=== PATIENT | male | born 1955 | race Caucasian/White ===

== ENCOUNTER → 2016-11-21 | Outpatient (CLI) | payer BC ==
[~2016-11-21] MED LIST: ALPR.5T PO; BARIUM SUSPENSION 2.1% (VANILLA SILQ) 450 ML PO ONE; CATHETER FLUSH 10 ML SYR IV PRN; CHLO100T22 PO; ESCT10T PO; HYDR1TAB PO; IOHEXOL 350 MG/ML 100 ML (OMNIPAQUE 350) VIAL IV ONE
--- NOTE | 2016-11-21 13:31 | Diagnostic Imaging Report ---
PROCEDURE: CT abdomen and pelvis with contrast. TECHNIQUE: Multiple contiguous axial images were obtained through the abdomen and pelvis after administration of intravenous contrast. INDICATION: Prostate cancer compared 06/09/2012. FINDINGS: Few shotty low-density subcentimeter periaortic retroperitoneal nodes did not appear changed from prior. No pathological appearing abdominopelvic lymphadenopathy. Prostate itself was not grossly enlarged and does show some mild nodular indentation of the urinary bladder base. The bladder wall non-thickened. Kidneys are unobstructed. There is hepatic steatosis without biliary dilatation or liver mass. The spleen and adrenals negative. The pancreas negative. The unobstructed kidneys appeared normal. There is no ascites. No suspicious site of bone production or destruction and no fracture. The lung bases are negative. IMPRESSION: 1. Mild heterogeneous prostatic indentation upon the urinary bladder base. No periprosthetic or abdominopelvic lymphadenopathy. No suspicious osseous lesion. Hepatic steatosis with no obstructive features, inflammatory process or acute findings. 2. Not mentioned above, noninflamed bilateral fatty inguinal hernias without herniated viscus. Dictated by: Dictated on workstation # [id number]
--- NOTE | 2016-11-21 17:57 | Diagnostic Imaging Report ---
INDICATION: Patient has a new diagnosis of prostate cancer. TECHNIQUE: The patient received 25.8 mCi technetium 99m MDP and whole-body planar imaging was performed. FINDINGS: There is normal symmetrical distribution of radiopharmacy throughout the axial and appendicular skeleton. Soft tissue uptake, normal. IMPRESSION: Negative. Dictated by: Dictated on workstation # [id number]
== END ==
LOC: RAD 11:46
PROVIDERS: ATTEND Urology
DX: K76.0 Fatty (change of) liver, not elsewhere classified (principal); K40.90 Unilateral inguinal hernia, without obstruction or gangrene, not specified as recurrent; C61 Malignant neoplasm of prostate
CPT/HCPCS: 74177; 78306

== ENCOUNTER → 2020-03-20 | Outpatient (CLI) | payer BC ==
[~2020-03-20] MED LIST changes: -BARIUM SUSPENSION 2.1% (VANILLA SILQ) 450 ML PO ONE; -CATHETER FLUSH 10 ML SYR IV PRN; -IOHEXOL 350 MG/ML 100 ML (OMNIPAQUE 350) VIAL IV ONE
--- NOTE | 2020-03-20 14:13 | Diagnostic Imaging Report ---
INDICATION: Prostate cancer. Patient was administered 26.6 mCi technetium 99m MDP intravenously and whole-body imaging was performed after 3 hour delay. Correlation is made with prior exam from 11/21/2016. Normal uptake of activity by the axial and appendicular skeleton is noted. There is uptake by the kidneys with excretion into the urinary bladder. No suspicious focus of tracer collection is seen to suggest osseous metastatic disease. IMPRESSION: No scintigraphic evidence of osseous metastatic disease. Dictated by: Dictated on workstation # [id number]
== END ==
LOC: CARD 10:18
PROVIDERS: ATTEND Urology
DX: C61 Malignant neoplasm of prostate (principal)
CPT/HCPCS: 78306; A9503

== ENCOUNTER 2020-09-11 09:41 | Outpatient (RCR) | payer BC ==
[2020-07-10 14:56] LABS: BUN/CREATININE RATIO 12; GFR ESTIMATED > 60
== END 2020-10-08 | disposition home or self-care (01) ==
LOC: ONC 09:41
PROVIDERS: ATTEND Radiology Radiation Oncology
DX: C61 Malignant neoplasm of prostate (principal)
CPT/HCPCS: 77300; 77301; 77334; 77338; 82565; 84520; G0463; 77336; 77385; 99204

== ENCOUNTER 2020-10-25 09:15 | Outpatient (RCR) | payer BC | END 2021-01-23 | disposition home or self-care (01) | LOC: ONC 09:15 | PROVIDERS: ATTEND Radiology Radiation Oncology | DX: C61 Malignant neoplasm of prostate (principal) | CPT/HCPCS: 84153; G0463; 99213 ==

== ENCOUNTER 2021-02-14 10:45 | Outpatient (RCR) | payer BC | END 2021-04-12 | disposition home or self-care (01) | LOC: ONC 10:45 | PROVIDERS: ATTEND Radiology Radiation Oncology | DX: Z51.0 Encounter for antineoplastic radiation therapy (principal); C61 Malignant neoplasm of prostate | CPT/HCPCS: 77336 ==

== ENCOUNTER 2021-04-25 09:36 | Outpatient (RCR) | payer BC | END 2021-05-13 | disposition home or self-care (01) | LOC: ONC 09:36 | PROVIDERS: ATTEND Radiology Radiation Oncology | DX: C61 Malignant neoplasm of prostate (principal) | CPT/HCPCS: 84153 ==

== ENCOUNTER 2021-09-12 08:57 | Outpatient (RCR) | payer BC | END 2021-10-10 | disposition home or self-care (01) | LOC: ONC 08:57 | PROVIDERS: ATTEND Radiology Radiation Oncology | DX: C61 Malignant neoplasm of prostate (principal) | CPT/HCPCS: 36415; 84153 ==

== ENCOUNTER 2022-05-08 19:35 | Emergency (ER) | payer MEDICARE, MEDICAID ==
[~2022-05-08] VITALS: Ht 178 cm; Wt 70.0 kg
[2022-05-08] MEDS ORDERED: LACTATED RINGERS 1,000 ML IV ONE ×2 (19:45→20:30)
[2022-05-08 19:57] LABS: BASOPHILS % (AUTO) 0 % (0-10); EOSINOPHILS % (AUTO) 0 % (0-10); HEMATOCRIT 46 % (40-54); LYMPHOCYTES # (AUTO) 0.6 10^3/uL (1.0-4.0); LYMPHOCYTES % (AUTO) 6 % (12-44); MEAN CORPUSCULAR HEMOGLOBIN 36 pg (25-34); MEAN CORPUSCULAR HGB CONC 39 g/dL (32-36); MEAN CORPUSCULAR VOLUME 92 fL (80-99); MEAN PLATELET VOLUME 9.7 fL (9.0-12.2); MONOCYTES % (AUTO) 11 % (0-12); NEUTROPHILS # (AUTO) 7.6 10^3/uL (1.8-7.8); NEUTROPHILS % (AUTO) 82 % (42-75); PLATELET COUNT 325 10^3/uL (130-400); WHITE BLOOD COUNT 9.3 10^3/uL (4.3-11.0)
[2022-05-08 20:09] LABS: INR 0.9 (0.8-1.4)
[2022-05-08 20:12] LABS: ALANINE AMINOTRANSFERASE 82 U/L (0-55); ALBUMIN 4.4 GM/DL (3.2-4.5); ALKALINE PHOSPHATASE 68 U/L (40-136); AMMONIA 54 UMOL/L (11-32); AMYLASE 86 U/L (25-125); BILIRUBIN,TOTAL 0.7 MG/DL (0.1-1.0); BUN/CREATININE RATIO 7; CALCIUM 9.8 MG/DL (8.5-10.1); CARBON DIOXIDE 11 MMOL/L (21-32); CHLORIDE 100 MMOL/L (98-107); CREATINE KINASE 449 U/L (30-200); CREATININE SERUM 1.21 MG/DL (0.60-1.30); GFR ESTIMATED 66; GLUCOSE 165 MG/DL (70-105); LIPASE 63 U/L (8-78); MAGNESIUM 2.5 MG/DL (1.6-2.4); POTASSIUM 3.3 MMOL/L (3.6-5.0); SODIUM 135 MMOL/L (135-145); TOTAL PROTEIN 7.6 GM/DL (6.4-8.2)
[2022-05-08 20:12] LABS: ABG OXYGEN SATURATION 100 % (94-100); ABG PH 7.51 (7.37-7.43); ABG PO2 104 MMHG (79-93); ABG TCO2 12.5 MMOL/L (21.0-31.0)
[2022-05-08 20:13] LABS: ALLENS TEST YES-POS; PATIENT TEMP 35; VENTILATOR NO
[2022-05-08 20:14] LABS: ABG PCO2 15 MMHG (35-45)
[2022-05-08 20:18] LABS: ACETAMINOPHEN < 10 UG/ML (10-30)
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
[2022-05-08 20:28] LABS: ERYTHROCYTE SEDIMENTATION RATE 7 MM/HR (0-30)
[2022-05-08] MEDS ORDERED: NS IV 1000 ML 1,000 ML IV SCH (20:30)
[2022-05-08 20:33] LABS: CREATINE KINASE MB 4.6 NG/ML (<6.6); TSH (THYROID ANALYZER) 2.92 UIU/ML (0.35-4.94)
[2022-05-08 21:03] LABS: BILIRUBIN,URINE NEGATIVE (NEGATIVE); CLARITY,URINE CLEAR; COLOR,URINE YELLOW; GLUCOSE, URINE (UA) NEGATIVE (NEGATIVE); KETONES,URINE 3+ (NEGATIVE); LEUKOCYTE ESTERASE ,URINE NEGATIVE (NEGATIVE); NITRITE,URINE NEGATIVE (NEGATIVE); PROTEIN,URINE TRACE (NEGATIVE)
[2022-05-08 21:33] LABS: AMPHETAMINE SCREEN, URINE NEGATIVE (NEGATIVE); BARBITURATE SCREEN URINE NEGATIVE (NEGATIVE); BENZODIAZEPINES SCREEN URINE POSITIVE (NEGATIVE); CANNABINOID SCREEN, URINE POSITIVE (NEGATIVE); COCAINE SCREEN URINE NEGATIVE (NEGATIVE); METHADONE STAT NEGATIVE (NEGATIVE); OPIATE SCREEN URINE NEGATIVE (NEGATIVE); OXYCODONE STAT NEGATIVE (NEGATIVE); PROPOXYPHENE STAT NEGATIVE (NEGATIVE); TRICYCLIC ANTIDEPRESSANTS SCRE NEGATIVE (NEGATIVE)
[2022-05-08 21:35] LABS: BACTERIA,URINE TRACE /HPF; WBC,URINE RARE /HPF
[2022-05-08 23:12] VITALS: BP 142/92
== END 2022-05-08 23:12 | disposition home or self-care (01) ==
LOC: EDUNIT# 19:35 → ER 19:36
DX: R56.9 Unspecified convulsions (principal); F41.9 Anxiety disorder, unspecified; Z28.311 Partially vaccinated for COVID-19
CPT/HCPCS: 80053; 80306; 81000; 82140; 82150; 82550; 82553; 82805; 83605; 83690; 83735; 83874; 83880; 84443; 84484; 85025; 85610; 85652; 85730; 86141; 87040; 87088; 93041; G0480 ×2; 36415; 80320; 80329; 93005

== ENCOUNTER 2022-06-29 08:30 | Emergency (ER) | payer MEDICARE, MEDICAID ==
[~2022-06-29] VITALS: Ht 177.8 cm; Wt 63.5 kg
[2022-06-29 09:24] LABS: BASOPHILS # (AUTO) 0.1 10^3/uL (0.0-0.1); BASOPHILS % (AUTO) 1 % (0-10); EOSINOPHILS # (AUTO) 0.2 10^3/uL (0.0-0.3); EOSINOPHILS % (AUTO) 4 % (0-10); HEMATOCRIT 43 % (40-54); HEMOGLOBIN 15.3 g/dL (13.3-17.7); LYMPHOCYTES # (AUTO) 0.6 10^3/uL (1.0-4.0); LYMPHOCYTES % (AUTO) 11 % (12-44); MEAN CORPUSCULAR HEMOGLOBIN 34 pg (25-34); MEAN CORPUSCULAR HGB CONC 35 g/dL (32-36); MEAN CORPUSCULAR VOLUME 97 fL (80-99); MEAN PLATELET VOLUME 8.8 fL (9.0-12.2); MONOCYTES # (AUTO) 0.4 10^3/uL (0.0-1.0); MONOCYTES % (AUTO) 8 % (0-12); NEUTROPHILS # (AUTO) 4.1 10^3/uL (1.8-7.8); NEUTROPHILS % (AUTO) 76 % (42-75); PLATELET COUNT 235 10^3/uL (130-400); WHITE BLOOD COUNT 5.3 10^3/uL (4.3-11.0)
[2022-06-29 09:27] LABS: ALBUMIN 4.2 GM/DL (3.2-4.5); POTASSIUM 4.1 MMOL/L (3.6-5.0)
[2022-06-29 09:27] LABS: BILIRUBIN,URINE NEGATIVE (NEGATIVE); CLARITY,URINE CLEAR; COLOR,URINE YELLOW; GLUCOSE, URINE (UA) NEGATIVE (NEGATIVE); KETONES,URINE NEGATIVE (NEGATIVE); LEUKOCYTE ESTERASE ,URINE NEGATIVE (NEGATIVE); NITRITE,URINE NEGATIVE (NEGATIVE); PROTEIN,URINE NEGATIVE (NEGATIVE)
[2022-06-29 09:28] LABS: CALCIUM 9.5 MG/DL (8.5-10.1)
[2022-06-29 09:29] LABS: TOTAL PROTEIN 7.1 GM/DL (6.4-8.2)
[2022-06-29 09:31] LABS: BILIRUBIN,TOTAL 0.4 MG/DL (0.1-1.0)
[2022-06-29 09:33] LABS: CREATININE SERUM 0.88 MG/DL (0.60-1.30)
[2022-06-29 09:36] LABS: INR 0.9 (0.8-1.4); PROTHROMBIN TIME PATIENT 12.9 SEC (12.2-14.7)
[2022-06-29 09:39] LABS: BACTERIA,URINE NEGATIVE /HPF
[2022-06-29] MEDS ORDERED: NS 100 ML (IVPB) BAG IV ONE (10:00)
[2022-06-29] MEDS ORDERED: IOHEXOL 350 MG/ML 100 ML (OMNIPAQUE 350) VIAL IV ONE (10:00)
--- NOTE | 2022-06-29 10:33 | Diagnostic Imaging Report ---
PROCEDURE: CT abdomen and pelvis with contrast. TECHNIQUE: Multiple contiguous axial images were obtained through the abdomen and pelvis after administration of intravenous contrast. Auto Exposure Controls were utilized during the CT exam to meet ALARA standards for radiation dose reduction. All CT scans use one or more of the following dose optimizing techniques: automated exposure control, MA and/or KvP adjustment based on patient size and exam type or iterative reconstruction. INDICATION: Prostate carcinoma, complaining of bright red blood in the stool. Comparison is made with prior CT from 11/21/2016. Lung bases are clear. Liver and gallbladder are unremarkable. There is no biliary ductal dilatation. The pancreas and spleen are unremarkable. No adrenal mass is detected. Kidneys are unremarkable apart from tiny nonobstructing left renal calculi. There is no hydronephrosis. Aorta is calcified but nonaneurysmal. No central retroperitoneal or mesenteric lymphadenopathy is identified. No definite pelvic lymphadenopathy is identified. The bowel loops are normal in caliber. There are small bowel loops extending into a right inguinal hernia. No definite strangulation or evidence of bowel obstruction is seen. There is diverticulosis of the sigmoid and descending colon but no evidence of acute diverticulitis. There is moderate stool in the rectum. There is no ascites. The bladder is unremarkable. IMPRESSION: 1. Right inguinal hernia containing small bowel loops. No definite strangulation or bowel obstruction is identified. There is also a small fat-containing left inguinal hernia. 2. Uncomplicated diverticulosis. Dictated by: Dictated on workstation # [id number]
--- NOTE | 2022-06-29 10:40 | ED GI ---
General Chief Complaint: Rect Problems Stated Complaint: BLOOD IN STOOL Nursing Triage Note: PT AMB TO RM 8 WITH COMPLAINT OF BRIGHT RED BLOOD IN STOOL. STATES THIS HAS BEEN HAPPENING INTERMITTENTLY FOR THE LAST COUPLE MONTHS. STATES HE HAS ALSO BEEN LIGHTHEADED FOR 3 MONTHS. STATES HAS NOT TALKED TO PCP ABOUT ISSUES. STATES HE DOES TAKE ASPIRIN EVERY FEW DAYS. PT IS CONCERNED HE HAS CANCER. Source of Information: Patient History of Present Illness Date Seen by Provider: Jun 29, 2022 Time Seen by Provider: 08:55 Initial Comments PT ARRIVES VIA POV PT STATES FOR THE LAST FEW MONTHS, HE HAS HAD DAILY BRIGHT RED RECTAL BLEEDING--BLOOD MIXED WITH STOOLS, HE HAS BEEN HAVING A NORMAL NUMBER OF STOOLS. NO RECTAL PAIN NO ABDOMINAL PAIN NO PAIN ANYWHERE PT HAS BEEN EATING AND DRINKING WELL--APPETITE NORMAL. HE HAS LOST 5# IN THE LAST 3 MONTHS NO FEVER/SWEATS/CHILLS NO CHEST PAIN NO SHORTNESS OF BREATH NO EXCESSIVE BRUISING, OR BLEEDING FROM OTHER SITES, OR PETECHIAE PT TAKES THREE 325 MG ASPIRIN DAILY HE WILL TAKE IT EVERY OTHER DAY WHEN HE GETS LIGHTHEADED HE DOES NOT TAKE ANY OTHER MEDICATIONS SYMPTOMS ARE NO DIFFERENT TODAY IN ANY WAY HAS NOT SOUGHT CARE UNTIL TODAY HE HAD ROUTINE APPOINTMENT WITH BEKAH CRAWFORD AT [facility] 2 WEEKS AGO, BUT DID NOT MENTION THIS PROBLEM AT THAT TIME PT HAS A HISTORY OF PROSTATE CANCER 1 1/2 YEARS AGO--HE HAD PROSTATE SURGERY AND EXTERNAL RADIATION HE HAD SURGERY AT [facility], RADIATION DONE HERE. HE HAS NOT FOLLOWED UP WITH ANY ONE SINCE TREATMENT. HE DID SEE DR. MENENDEZ LOCALLY FOR UROLOGY, BUT HE HAS SINCE RETIRED. HE HAS NOT ATTEMPTED TO ESTABLISH WITH A NEW UROLOGIST [facility] Allergies and Home Medications Allergies Coded Allergies: No Known Drug Allergies (Unverified , 06/09/12) Patient Home Medication List Home Medication List Reviewed: Yes Methylprednisolone (Methylprednisolone Dose Pack) 4 Mg Tab.ds.pk, 4 MG PO UD, (Reported) Entered as Reported by: GRECIA BROOKE on 07/09/22 2946 Review of Systems Review of Systems Constitutional: see HPI, dizziness EENTM: No Symptoms Reported Respiratory: No Symptoms Reported Cardiovascular: No Symptoms Reported Gastrointestinal: See HPI Genitourinary: No Symptoms Reported, See HPI Musculoskeletal: no symptoms reported Skin: no symptoms reported Psychiatric/Neurological: No Symptoms Reported Endocrine: No Symptoms Reported Hematologic/Lymphatic: No Symptoms Reported Past Wvwmjtg-Yikwki-Txtolk Hx Patient Social History Tobacco Use?: No Use of E-Cig and/or Vaping dev: No Substance use?: No Alcohol Use?: Yes Alcohol type: Beer Alcohol Frequency: Daily Pt feels they are or have been: No Immunizations Up To Date First/Initial COVID19 Vaccinat: X 1 Second COVID19 Vaccination Gigi: X 1 Third COVID19 Vaccination Date: X 1 Past Medical History Surgery/Hospitalization HX: PROSTATE CA Surgeries: Yes (LEFT CHEST TUBE FOR TRAUMATIC PNEUMOTHORAX; PROSTATE SURGERY FOR CANCER) Prostatectomy Respiratory: No Cardiac: No Neurological: No Reproductive Disorders: No Genitourinary: Yes (PROSTATE CANCER) Gastrointestinal: No Musculoskeletal: No Endocrine: No HEENT: Yes Cataract Cancer: Yes Prostate Did You Recieve Any Treatments: Yes What Type of Treatment Did You: Radiation, Surgical Intervention Psychosocial: Yes Anxiety, Depression Integumentary: No Blood Disorders: No Family Medical History SOCIAL HISTORY: -DENIES SMOKING OR VAPINE -DENIES DRUG USE -DRINKS 4 BEERS /DAY--CLAIMS NONE X 3 MONTHS, PER PT ON 06/29/22 Physical Exam Vital Signs Capillary Refill : Height/Weight/BMI Height: '" Weight: lbs. oz. kg; 20.00 BMI Method: General Appearance: WD/WN, no apparent distress, other (ANXIOUS) HEENT: No scleral icterus (R), No scleral icterus (L), No pale conjunctivae (R), No pale conjunctivae (L) Neck: normal inspection Respiratory: normal breath sounds, no respiratory distress, no accessory muscle use Cardiovascular: regular rate, rhythm, no murmur Gastrointestinal: normal bowel sounds, non tender, soft Rectal: other (GROSS BLOOD ON RECTAL EXAM) Extremities: normal inspection, normal capillary refill Back: no CVA tenderness Neurologic/Psychiatric: cover cutter II-XII nml as tested, no motor/sensory deficits, alert, oriented x 3 Skin: normal color Progress/Results/Core Measures Results/Orders Lab Results Laboratory Tests Test 06/29/22 09:05 06/29/22 09:15 Range/Units White Blood Count 5.3 4.3-11.0 10^3/uL Red Blood Count 4.45 4.30-5.52 10^6/uL Hemoglobin 15.3 13.3-17.7 g/dL Hematocrit 43 40-54 % Mean Corpuscular Volume 97 80-99 fL Mean Corpuscular Hemoglobin 34 25-34 pg Mean Corpuscular Hemoglobin Concent 35 32-36 g/dL Red Cell Distribution Width 11.5 10.0-14.5 % Platelet Count 235 130-400 10^3/uL Mean Platelet Volume 8.8 L 9.0-12.2 fL Immature Granulocyte % (Auto) 1 % Neutrophils (%) (Auto) 76 H 42-75 % Lymphocytes (%) (Auto) 11 L 12-44 % Monocytes (%) (Auto) 8 0-12 % Eosinophils (%) (Auto) 4 0-10 % Basophils (%) (Auto) 1 0-10 % Neutrophils # (Auto) 4.1 1.8-7.8 10^3/uL Lymphocytes # (Auto) 0.6 L 1.0-4.0 10^3/uL Monocytes # (Auto) 0.4 0.0-1.0 10^3/uL Eosinophils # (Auto) 0.2 0.0-0.3 10^3/uL Basophils # (Auto) 0.1 0.0-0.1 10^3/uL Immature Granulocyte # (Auto) 0.0 0.0-0.1 10^3/uL Prothrombin Time 12.9 12.2-14.7 SEC INR Comment 0.9 0.8-1.4 Activated Partial Thromboplast Time 27 24-35 SEC Sodium Level 143 135-145 MMOL/L Potassium Level 4.1 3.6-5.0 MMOL/L Chloride Level 109 H 98-107 MMOL/L Carbon Dioxide Level 21 21-32 MMOL/L Anion Gap 13 5-14 MMOL/L Blood Urea Nitrogen 9 7-18 MG/DL Creatinine 0.88 0.60-1.30 MG/DL Estimat Glomerular Filtration Rate 95 BUN/Creatinine Ratio 10 Glucose Level 109 H 70-105 MG/DL Calcium Level 9.5 8.5-10.1 MG/DL Corrected Calcium 9.3 8.5-10.1 MG/DL Total Bilirubin 0.4 0.1-1.0 MG/DL Aspartate Amino Transf (AST/SGOT) 17 5-34 U/L Alanine Aminotransferase (ALT/SGPT) 42 0-55 U/L Alkaline Phosphatase 62 40-136 U/L Total Protein 7.1 6.4-8.2 GM/DL Albumin 4.2 3.2-4.5 GM/DL Urine Color YELLOW Urine Clarity CLEAR Urine pH 6.0 5-9 Urine Specific [place] 1.020 1.016-1.022 Urine Protein NEGATIVE NEGATIVE Urine Glucose (UA) NEGATIVE NEGATIVE Urine Ketones NEGATIVE NEGATIVE Urine Nitrite NEGATIVE NEGATIVE Urine Bilirubin NEGATIVE NEGATIVE Urine Urobilinogen 0.2 < = 1.0 MG/DL Urine Leukocyte Esterase NEGATIVE NEGATIVE Urine RBC (Auto) NEGATIVE NEGATIVE Urine RBC NONE /HPF Urine WBC NONE /HPF Urine Crystals NONE /LPF Urine Bacteria NEGATIVE /HPF Urine Casts NONE /LPF Urine Mucus NEGATIVE /LPF Urine Culture Indicated NO My Orders Orders - SEKOU ASIF DO Ed Iv/Invasive Line Start (06/29/22 08:58) Cbc With Automated Diff (06/29/22 08:58) Comprehensive Metabolic Panel (06/29/22 08:58) Protime With Inr (06/29/22 08:58) Partial Thromboplastin Time (06/29/22 08:58) Ua Culture If Indicated (06/29/22 08:58) Ct Abdomen/Pelvis W (06/29/22 09:45) Iohexol Injection (Omnipaque 350 Mg/Ml 1 (06/29/22 10:00) Ns (Ivpb) (Sodium Chloride 0.9% Ivpb Bag (06/29/22 10:00) Medications Given in ED Vital Signs/I&O Blood Pressure Mean: 129 Progress Progress Note : Progress Note VITALS STABLE LAB ESSENTIALLY NORMAL, WITH HGB 15.3. UNEVENTFUL ER STAY REVIEWED TEST RESULTS, ANTICIPATED COURSE, NEED FOR FOLLOW UP FOR COLONOSCOPY AND RETURN PRECAUTIONS ALSO DISCUSSED THE IMPORTANCE OF FOLLOWING UP WITH UROLOGY FOR HISTORY OF PROSTATE CANCER Diagnostic Imaging Comments CT ABDOMEN/PELVIS--PER RADIOLOGIST REPORT AT 1038 Comparison is made with prior CT from 11/21/2016. Lung bases are clear. Liver and gallbladder are unremarkable. There is no biliary ductal dilatation. The pancreas and spleen are unremarkable. No adrenal mass is detected. Kidneys are unremarkable apart from tiny nonobstructing left renal calculi. There is no hydronephrosis. Aorta is calcified but nonaneurysmal. No central retroperitoneal or mesenteric lymphadenopathy is identified. No definite pelvic lymphadenopathy is identified. The bowel loops are normal in caliber. There are small bowel loops extending into a right inguinal hernia. No definite strangulation or evidence of bowel obstruction is seen. There is diverticulosis of the sigmoid and descending colon but no evidence of acute diverticulitis. There is moderate stool in the rectum. There is no ascites. The bladder is unremarkable. IMPRESSION: 1. Right inguinal hernia containing small bowel loops. No definite strangulation or bowel obstruction is identified. There is also a small fat-containing left inguinal hernia. 2. Uncomplicated diverticulosis. Reviewed: Reviewed by Me Departure Impression Primary Impression: Rectal bleeding Additional Impressions: Diverticular disease Bilateral inguinal hernia Anxiety Disposition: HOME, SELF-CARE Condition: Stable Departure-Patient Inst. Decision time for Depature: 11:09 Referrals: [facility] (PCP/Family) Primary Care Physician FATMATA JUNIOR MD Patient Instructions: Bloody Stools, Adult ED Add. Discharge Instructions: NO ASPIRIN, NO MOTRIN, ADVIL, OR ALEVE TYLENOL IS THE ONLY OVER THE COUNTER MEDICATION YOU CAN TAKE RIGHT NOW NO ALCOHOL YOU MAY EAT A REGULAR DIET FOLLOW UP WITH DR. JUNIOR, GENERAL SURGEON FOR FURTHER CARE--CALL HIS OFFICE TOMORROW MORNING TO SCHEDULE AN APPOINTMENT. All discharge instructions reviewed with patient and/or family. Voiced understanding. SEKOU ASIF DO Jun 29, 2022 10:40
[2022-06-29 11:21] VITALS: BP 141/103
== END 2022-06-29 11:21 | disposition home or self-care (01) ==
LOC: EDUNIT# 08:30 → ER 08:31
DX: K57.30 Diverticulosis of large intestine without perforation or abscess without bleeding (principal); K40.20 Bilateral inguinal hernia, without obstruction or gangrene, not specified as recurrent; F41.9 Anxiety disorder, unspecified; Z85.46 Personal history of malignant neoplasm of prostate
CPT/HCPCS: 36415; 74177; 80053; 81000; 85025; 85610; 85730

== ENCOUNTER 2022-07-02 10:38 | Outpatient (CLI) | payer MEDICARE, MEDICAID ==
[~2022-07-02] VITALS: Ht 177.8 cm; Wt 67.0 kg
== END 2022-07-02 12:10 | disposition home or self-care (01) ==
LOC: PREOP 10:38
PROVIDERS: ATTEND Surgery
DX: Z01.818 Encounter for other preprocedural examination (principal)

== ENCOUNTER 2022-07-09 10:54 | Day surgery (SDC) | payer MEDICARE, MEDICAID ==
[2022-07-09] VITALS (7 sets, daily range): BP systolic 94–131; BP diastolic 69–92
[~2022-07-09] VITALS: Ht 177.8 cm; Wt 67.0 kg
[2022-07-09] MEDS ORDERED: LACTATED RINGERS 1,000 ML IV STA (11:05)
[2022-07-09] MEDS ORDERED: LIDOCAINE JELLY 2% 6 ML SYRINGE MM PRN (11:15)
--- NOTE | 2022-07-09 11:38 | Progress Note-Pre Operative ---
Pre-Operative Progress Note Date of Available H&P: Jul 09, 2022 Date H&P Reviewed: Jul 09, 2022 Time H&P Reviewed: 11:00 History & Physical: No changes noted Pre-Operative Diagnosis: screening, rectal bleed, FH colon ca FATMATA JUNIOR MD Jul 09, 2022 11:38
--- NOTE | 2022-07-09 11:39 | Discharge Inst-Surgical ---
D/C Lap Instructions-VERNON Follow Up Activity as tolerated High Fiber Diet 25g or more per day Avoid Alcohol, Caffeine, Spicy [place] and Acid foods. Drink 64 fluid oz or more of fluids per day. Symptoms to Report: Fever over 101 degree F, Nausea/Vomiting If any problems/questions: Contact your physician or go to Emergency Room FATMATA JUNIOR MD Jul 09, 2022 11:39
[2022-07-09] MEDS ORDERED: ONDANSETRON 4 MG (ZOFRAN) ORAL DISSOLVE TAB PO PRN (11:45)
[2022-07-09] MEDS ORDERED: ONDANSETRON 4 MG/2 ML (SDV) Z0FRAN IVP PRN (11:45)
[2022-07-09] MEDS ORDERED: LIDOCAINE JELLY 2% 6 ML SYRINGE ONE (12:46)
[2022-07-09] MEDS ORDERED: MIDAZOLAM 2 MG/2 ML (VERSED) VIAL ONE (12:50)
[2022-07-09] MEDS ORDERED: PROPOFOL INJECTION 50 ML IV ONE (12:50)
[2022-07-09] MEDS ORDERED: KETAMINE 50 MG/5 ML SYRINGE ONE (13:04)
[2022-07-09] MEDS ORDERED: METH4TAB10 PO (13:25)
--- NOTE | 2022-07-09 13:30 | Progress Note-Post Operative ---
Post-Operative Progess Note Surgeon (s)/Honing Machine Operator (s) Surgeon FATMATA JUNIOR MD Honing Machine Operator: none Pre-Operative Diagnosis screening, rectal bleed, FH colon ca Post-Operative Diagnosis moderate proctitis, small HP polyp asc colon Procedure & Operative Findings Date of Procedure 07/09/22 Procedure Performed/Findings colonoscopy with bx and polypectomy with hot bx forceps Anesthesia Type mac Estimated Blood Loss Estimated blood loss (mL): minimal Specimens/Packing Specimens Removed rectum, asc polyp FATMATA JUNIOR MD Jul 09, 2022 13:29
--- NOTE | 2022-07-09 15:10 | Anesthesia-General Post-Op ---
MAC Patient Condition Mental Status/LOC: Same as Preop Cardiovascular: Satisfactory Nausea/Vomiting: Absent Respiratory: Satisfactory Pain: Controlled Complications: Absent Post Op Complications Complications None Follow Up Care/Instructions Patient Instructions None needed. Anesthesiology Discharge Order Discharge Order Patient is doing well, no complaints, stable vital signs, no apparent adverse anesthesia problems. No complications reported per nursing. KEHINDE MILLAN CRNA Jul 09, 2022 15:10
--- NOTE | 2022-07-09 20:16 | OPERATIVE REPORT ---
DATE OF SERVICE: 07/09/2022 ATTENDING [employer] AND [employer]: [facility]. PREOPERATIVE DIAGNOSIS: Rectal bleed, screening colonoscopy. POSTOPERATIVE DIAGNOSES: History of prostate cancer, radiation proctitis, small ascending colon polyp, 2 mm in size. PROCEDURE: Colonoscopy with biopsy and polypectomy with hot biopsy forceps. SURGEON: Fatmata Junior MD ANESTHESIA: Monitored anesthesia care. ESTIMATED BLOOD LOSS: Minimal. FINDINGS: History of prostate cancer, radiation proctitis, small ascending colon polyp, 2 mm in size. DISPOSITION: The patient tolerated the procedure well. INDICATIONS: The patient is a 67-year-old male referred over to us for rectal bleeding. He reports that he first noticed this approximately 3 months ago and he would have the bleeding approximately every other day. He has not had a colonoscopy up to this point in his life. He does have a family history of colon cancer with a sister having the disease. He does also have a history of prostate cancer and underwent what sounds to be a prostatectomy 04/2019, it is unsure if he underwent radiation to the prostate gland. DESCRIPTION OF PROCEDURE: The patient was brought to the endoscopy suite and laid in the left lateral decubitus position. After adequate IV pain and sedative medications and monitored anesthesia care, a digital rectal examination was performed. No significant hemorrhoids were identified. Normal sphincter tone was felt. There were no palpable masses. There is palpable scar tissue where the prostate gland location would be. No masses. The endoscope was then intubated into the anus, rectum gently insufflated. A distal segment of rectum was inflamed consistent with proctitis. This may represent some form of radiation proctitis. Biopsies were taken forceps with visualization of good hemostasis. The endoscope was then advanced through the sigmoid colon where no diverticulosis identified. We then proceeded through the remainder of the descending, transverse and ascending colon. At the ascending colon, a small hyperplastic-appearing polyp approximately 2 mm in size was identified and this was biopsied and destroyed using forceps and electrocautery. The endoscope was then advanced to the cecum, which was normal. Endoscope was then slowly withdrawn while taking a second look and suctioning of residual air with no additional findings. The patient tolerated the procedure well. We will recommend conservative medical therapy, encompassing incorporation of a high-fiber diet to promote soft consistency stools on a daily basis and he should get 30 or greater grams of fiber daily. For his proctitis, the treatment of choice would encompass Carafate enemas; however, this would be difficult and we will proceed with a trial of tapering dose of steroids to the ER in hopes of decreasing the inflammation and the bleeding. Job ID: [id number] DocumentID: [id number] Dictated Date: 07/09/2022 13:23:33 Set Up / Operator Date: 07/09/2022 20:14:00 Dictated By: FATMATA JUNIOR MD
== END 2022-07-09 14:15 | disposition home or self-care (01) ==
LOC: ENDO 10:54
PROVIDERS: ATTEND Surgery
DX: D12.2 Benign neoplasm of ascending colon (principal); K62.1 Rectal polyp; K62.7 Radiation proctitis; Z85.46 Personal history of malignant neoplasm of prostate; Z80.0 Family history of malignant neoplasm of digestive organs
CPT/HCPCS: 88305

== ENCOUNTER 2023-02-22 10:05 | Inpatient (IN) | payer MEDICARE, MEDICAID ==
[2023-02-22] VITALS (16 sets, daily range): BP systolic 89–138; BP diastolic 60–94
[~2023-02-22] VITALS: Ht 177 cm; Wt 76.6 kg
[~2023-02-22 10:05] MED LIST changes: +METH4TAB10 PO
[2023-02-22] MEDS ORDERED: NS IV 1000 ML 1,000 ML IV STA (10:29)
[2023-02-22] MEDS ORDERED: PANTOPRAZOLE INJECTION 40 MG VIAL IV ONE (10:30)
--- NOTE | 2023-02-22 10:36 | ED GI ---
General Chief Complaint: Rect Problems Stated Complaint: RECTAL BLEEDING Nursing Triage Note: PT TO RM 5 BY WC WITH COMPLAINT OF BEING EXHAUSTED AND "FUCKED UP". PT STATES HE HAS HAD RECTAL BLEEDING FOR OVER A YEAR. COMPLAINING OF SOA. WAS SEEN BY A HOME HEALTH NURSE FOR HIS YEARLY VISIT, AND WAS TOLD BY HER TO COME TO ER. DENIES PAIN. Source of Information: Patient Exam Limitations: No Limitations History of Present Illness Date Seen by Provider: Feb 22, 2023 Time Seen by Provider: 10:08 Initial Comments 68-year-old male coming in due to feeling very fatigued and having rectal bleeding. The rectal bleeding has been happening for some time, he states for a couple of years. Happens intermittently, he states maybe once a month. Last episode was roughly 3 days ago and was quite a bit of bleeding. He had a normal bowel movements the past 3 days including a normal one this morning that was brown. He states he does look more pale than usual. He has generalized felt very lightheaded and weak. He has more dyspnea with exertion. Denies any chest pain, abdominal pain, nausea, vomiting, diarrhea, focal weakness or numbness, rash, fever, chills, or any other concerns. He does not take any blood thinners. He intermittently takes aspirin, no other NSAIDs. Allergies and Home Medications Allergies Coded Allergies: No Known Drug Allergies (Unverified , 06/09/12) Patient Home Medication List Home Medication List Reviewed: Yes Methylprednisolone (Methylprednisolone Dose Pack) 4 Mg Tab.ds.pk, 4 MG PO UD, (Reported) Entered as Reported by: GRECIA BROOKE on 07/09/22 3325 Review of Systems Review of Systems Constitutional: No fever EENTM: No Symptoms Reported Respiratory: See HPI Cardiovascular: See HPI Gastrointestinal: See HPI Genitourinary: No Symptoms Reported Musculoskeletal: no symptoms reported Skin: no symptoms reported Psychiatric/Neurological: No Symptoms Reported Endocrine: No Symptoms Reported Hematologic/Lymphatic: No Symptoms Reported All Other Systems Reviewed Negative Unless Noted: Yes Past Rbyofeg-Fihngq-Itkeis Hx Patient Social History Tobacco Use?: No Use of E-Cig and/or Vaping dev: No Substance use?: No Alcohol Use?: No Pt feels they are or have been: No Immunizations Up To Date First/Initial COVID19 Vaccinat: X 1 Second COVID19 Vaccination Gigi: X 1 Third COVID19 Vaccination Date: X 1 Seasonal Allergies Seasonal Allergies: Yes Past Medical History Surgery/Hospitalization HX: PROSTATE CA Surgeries: Yes (LEFT CHEST TUBE FOR TRAUMATIC PNEUMOTHORAX; PROSTATE SURGERY FOR CANCER) Prostatectomy Respiratory: No Cardiac: No Neurological: No Reproductive Disorders: No Genitourinary: Yes (PROSTATE CANCER) Gastrointestinal: Yes (rectal bleeding) Musculoskeletal: No Endocrine: No HEENT: Yes Cataract Cancer: Yes Prostate Did You Recieve Any Treatments: Yes What Type of Treatment Did You: Radiation, Surgical Intervention Psychosocial: Yes Anxiety, Depression Integumentary: No Blood Disorders: No Family Medical History FH: colon cancer Physical Exam Vital Signs Vital Signs - First Documented 02/22/23 10:14 Temp 36.8 Pulse 109 Resp 30 B/P (MAP) 110/73 (85) Pulse Ox 100 O2 Delivery Room Air Capillary Refill : Less Than 3 Seconds Height/Weight/BMI Height: '" Weight: lbs. oz. kg; 20.00 BMI Method: General Appearance: WD/WN, no apparent distress, other (pale) HEENT: PERRL/EOMI, normal ENT inspection, pharynx normal Neck: non-tender, full range of motion, supple, normal inspection Respiratory: chest non-tender, lungs clear, normal breath sounds, no respiratory distress, no accessory muscle use Cardiovascular: no edema, no murmur, tachycardia Gastrointestinal: normal bowel sounds, non tender, soft; No distended, No guarding, No rebound Rectal: normal exam, other (brown stool) Extremities: normal range of motion, non-tender, normal inspection, no pedal edema, no calf tenderness, normal capillary refill Back: normal inspection, no CVA tenderness Neurologic/Psychiatric: no motor/sensory deficits, alert, normal mood/affect Skin: normal color, warm/dry Progress/Results/Core Measures Results/Orders Lab Results Laboratory Tests Test 02/22/23 10:35 Range/Units White Blood Count 7.0 4.3-11.0 10^3/uL Red Blood Count 1.71 L 4.30-5.52 10^6/uL Hemoglobin 3.5 *L 13.3-17.7 g/dL Hematocrit 13 *L 40-54 % Mean Corpuscular Volume 75 L 80-99 fL Mean Corpuscular Hemoglobin 20 L 25-34 pg Mean Corpuscular Hemoglobin Concent 27 L 32-36 g/dL Red Cell Distribution Width 17.9 H 10.0-14.5 % Platelet Count 300 130-400 10^3/uL Mean Platelet Volume 10.4 9.0-12.2 fL Immature Granulocyte % (Auto) 0 % Neutrophils (%) (Auto) 90 H 42-75 % Lymphocytes (%) (Auto) 3 L 12-44 % Monocytes (%) (Auto) 7 0-12 % Eosinophils (%) (Auto) 0 0-10 % Basophils (%) (Auto) 0 0-10 % Neutrophils # (Auto) 6.3 1.8-7.8 10^3/uL Lymphocytes # (Auto) 0.2 L 1.0-4.0 10^3/uL Monocytes # (Auto) 0.5 0.0-1.0 10^3/uL Eosinophils # (Auto) 0.0 0.0-0.3 10^3/uL Basophils # (Auto) 0.0 0.0-0.1 10^3/uL Immature Granulocyte # (Auto) 0.0 0.0-0.1 10^3/uL Neutrophils % (Manual) 90 % Lymphocytes % (Manual) 4 % Monocytes % (Manual) 6 % Polychromasia SLIGHT Hypochromasia MODERATE Poikilocytosis MODERATE Anisocytosis SLIGHT Microcytosis SLIGHT Target Cells SLIGHT Tear Drop Cells SLIGHT Elliptocytes SLIGHT Prothrombin Time 18.0 H 12.2-14.7 SEC INR Comment 1.4 0.8-1.4 Activated Partial Thromboplast Time 28 24-35 SEC Sodium Level 131 L 135-145 MMOL/L Potassium Level 4.1 3.6-5.0 MMOL/L Chloride Level 104 98-107 MMOL/L Carbon Dioxide Level 13 L 21-32 MMOL/L Anion Gap 14 5-14 MMOL/L Blood Urea Nitrogen 16 7-18 MG/DL Creatinine 1.10 0.60-1.30 MG/DL Estimat Glomerular Filtration Rate 74 BUN/Creatinine Ratio 15 Glucose Level 109 H 70-105 MG/DL Calcium Level 8.5 8.5-10.1 MG/DL Corrected Calcium 8.9 8.5-10.1 MG/DL Magnesium Level 2.2 1.6-2.4 MG/DL Total Bilirubin 0.7 0.1-1.0 MG/DL Aspartate Amino Transf (AST/SGOT) 128 H 5-34 U/L Alanine Aminotransferase (ALT/SGPT) 127 H 0-55 U/L Alkaline Phosphatase 71 40-136 U/L Troponin I 0.082 H <0.028 NG/ML B-Type Natriuretic Peptide 736.6 H <100.0 PG/ML Total Protein 6.0 L 6.4-8.2 GM/DL Albumin 3.5 3.2-4.5 GM/DL Lipase 45 8-78 U/L Serum Alcohol < 10 <10 MG/DL My Orders Orders - STEFANIE SAN MD Ed Iv/Invasive Line Start (02/22/23 10:29) Ekg Tracing (02/22/23 10:29) Monitor-Rhythm Ecg Trace Only (02/22/23 10:29) Alcohol (02/22/23 10:29) Bnp Swift (02/22/23 10:29) Cbc And Automated Diff (02/22/23 10:29) Comprehensive Metabolic Panel (02/22/23 10:29) Lipase (02/22/23 10:29) Magnesium (02/22/23 10:29) Protime With Inr (02/22/23 10:29) Partial Thromboplastin Time (02/22/23 10:29) Troponin I Swift (02/22/23 10:29) Type And Screen (02/22/23 10:29) Ns Iv 1000 Ml (Ns Iv 1000 Ml) (02/22/23 10:29) Lorazepam Injection (Lorazepam Injection (02/22/23 10:29) Pantoprazole Injection (Pantoprazole Inj (02/22/23 10:30) Manual Differential (02/22/23 10:35) Vital Signs: Special (Order) (02/22/23 10:54) Consent-Obtain Consent For (02/22/23 10:54) Monitor S/S Transfusion Reacti (02/22/23 10:54) Ns Iv 500 Ml (Ns Iv 500 Ml) (02/22/23 11:00) Red Cells Leukocytes Reduced (02/22/23 10:54) Lorazepam Injection (Lorazepam Injection (02/22/23 11:30) Ed Admission (Communication) (02/22/23 11:57) Medications Given in ED Current Medications Medications Dose Ordered Sig/Juana Route Start Time Stop Time Status Last Admin Dose Admin Lorazepam 1 mg ONCE ONCE IVP 02/22/23 11:30 02/22/23 11:31 DC 02/22/23 11:29 1 MG Pantoprazole 40 mg ONCE ONCE IV 02/22/23 10:30 02/22/23 10:32 DC 02/22/23 10:42 40 MG Vital Signs/I&O 02/22/23 02/22/23 02/22/23 02/22/23 10:14 11:50 11:58 12:15 Temp 36.8 36.2 36.4 36.2 Pulse 109 117 110 109 Resp 30 30 31 18 B/P (MAP) 110/73 (85) 110/73 127/77 138/81 Pulse Ox 100 100 100 96 O2 Delivery Room Air Room Air Room Air 02/22/23 12:25 Temp 36.2 Pulse 109 Resp 20 B/P (MAP) 132/88 Pulse Ox 100 O2 Delivery Room Air Blood Pressure Mean: 85 Progress Progress Note : Progress Note 68-year-old male with above history coming in due to rectal bleeding. The patient was tachycardic on presentation but did have a normal blood pressure. He is very pale. I did a rectal exam and his stool is brown and fecal occult blood negative. I suspect he had rectal bleeding which has now stopped. I reviewed the colonoscopy from Dr. JUNIOR earlier this year and he did have a polyp removed. No other significant findings based on my reading of the chart at that time. He does not have any history of liver disease and does not drink alcohol. No significant NSAID use. An IV was placed and basic labs were obtained and were significant for hemoglobin of 3.5, normal creatinine, slightly elevated troponin which is likely a type II NSTEMI in the setting of his anemia. Given the problem is bleeding, will hold off on aspirin, especially given he is not having chest pain. EKG ordered and interpreted by me showing no STEMI. I contacted Dr. Lopez, 2 units of blood ordered for now. The patient will be admitted to the intensive care unit under inpatient status. I then contacted Dr. Olea for consultation. I then contacted the ICU physician for signout. Of note, the patient is extremely anxious, repeatedly asking for Xanax. I suspect a lot of his anxiousness is related to his severe anemia. However, given the situation, did give him some IV Ativan while waiting on the blood to come back from blood bank. Initial ECG Impression Date: Feb 22, 2023 Initial ECG Impression Time: 10:40 Initial ECG Rate: 114 Initial ECG Rhythm: S.Tach Comment Wide QRS with a right bundle branch block, no STEMI Departure Impression Primary Impression: GI bleed Qualified Codes: K62.5 - Hemorrhage of anus and rectum Additional Impression: Anemia Qualified Codes: D64.89 - Other specified anemias Disposition: 09 ADMITTED INPATIENT Condition: Stable Admissions Decision to Admit Reason: Admit from ER (General) Decision to Admit/Date: Feb 22, 2023 Time/Decision to Admit Time: 11:15 Departure-Patient Inst. Referrals: CLAYTON PIZARRO DO (PCP/Family) Primary Care Physician STEFANIE SAN MD Feb 22, 2023 10:36
[2023-02-22 10:47] LABS: BASOPHILS % (AUTO) 0 % (0-10); EOSINOPHILS % (AUTO) 0 % (0-10); LYMPHOCYTES # (AUTO) 0.2 10^3/uL (1.0-4.0); LYMPHOCYTES % (AUTO) 3 % (12-44); MEAN CORPUSCULAR HGB CONC 27 g/dL (32-36); MEAN CORPUSCULAR VOLUME 75 fL (80-99); MEAN PLATELET VOLUME 10.4 fL (9.0-12.2); MONOCYTES # (AUTO) 0.5 10^3/uL (0.0-1.0); MONOCYTES % (AUTO) 7 % (0-12); NEUTROPHILS # (AUTO) 6.3 10^3/uL (1.8-7.8); NEUTROPHILS % (AUTO) 90 % (42-75); PLATELET COUNT 300 10^3/uL (130-400)
[2023-02-22 10:51] LABS: HEMATOCRIT 13 % (40-54); HEMOGLOBIN 3.5 g/dL (13.3-17.7); MEAN CORPUSCULAR HEMOGLOBIN 20 pg (25-34)
[2023-02-22 10:59] LABS: INR 1.4 (0.8-1.4)
[2023-02-22] MEDS ORDERED: NS IV 500 ML 500 ML IV SCH ×2 (11:00→13:45)
[2023-02-22 11:01] LABS: ALBUMIN 3.5 GM/DL (3.2-4.5); CHLORIDE 104 MMOL/L (98-107); POTASSIUM 4.1 MMOL/L (3.6-5.0); SODIUM 131 MMOL/L (135-145)
[2023-02-22 11:02] LABS: CALCIUM 8.5 MG/DL (8.5-10.1)
[2023-02-22 11:03] LABS: GLUCOSE 109 MG/DL (70-105)
[2023-02-22 11:04] LABS: CARBON DIOXIDE 13 MMOL/L (21-32)
[2023-02-22 11:05] LABS: BILIRUBIN,TOTAL 0.7 MG/DL (0.1-1.0)
[2023-02-22 11:07] LABS: ALKALINE PHOSPHATASE 71 U/L (40-136); GFR ESTIMATED 74
[2023-02-22 11:08] LABS: BUN/CREATININE RATIO 15
[2023-02-22 11:10] LABS: ALANINE AMINOTRANSFERASE 127 U/L (0-55); MAGNESIUM 2.2 MG/DL (1.6-2.4)
[2023-02-22 11:11] LABS: LIPASE 45 U/L (8-78)
[2023-02-22 11:33] LABS: LYMPHOCYTES % (MANUAL) 4 %; MONOCYTES % (MANUAL) 6 %; NEUTROPHILS % (MANUAL) 90 %; POLYCHROMASIA SLIGHT
[2023-02-22 11:34] LABS: ANISOCYTOSIS SLIGHT; ELLIPT/OVALOCYTES SLIGHT; HYPOCHROMASIA MODERATE; MICROCYTOSIS SLIGHT; POIKILOCYTOSIS MODERATE; TARGET CELLS SLIGHT; TEAR DROP CELLS SLIGHT
[2023-02-22] MEDS ORDERED: diphenhydrAMINE INJ 50 MG/ML VIAL IVP PRN (13:00)
[2023-02-22] MEDS ORDERED: ONDANSETRON INJECTION 4 MG/2 ML (SDV) IV PRN (13:00)
[2023-02-22] MEDS ORDERED: BISACODYL 10 MG SUPPOSITORY PR PRN (13:00)
[2023-02-22] MEDS ORDERED: MILK OF MAGNESIA 400 MG/5 ML 30 ML UDC PO PRN (13:00)
[2023-02-22] MEDS ORDERED: ONDANSETRON 4 MG ORAL DISSOLVE TABLET PO PRN (13:00)
[2023-02-22] MEDS ORDERED: NS IV 1000 ML 1,000 ML IV SCH (13:00)
[2023-02-22] MEDS ORDERED: CALCIUM CARBONATE 500 MG CHEW TABLET PO PRN (13:00)
[2023-02-22] MEDS ORDERED: ANTACID SUSPENSION 30 ML UDC PO PRN (13:00)
[2023-02-22] MEDS ORDERED: LACTULOSE SYRUP 10GM/15ML 30ML UDC PO PRN (13:00)
[2023-02-22] MEDS ORDERED: diphenhydrAMINE 25 MG TABLET PO PRN (13:00)
[2023-02-22] MEDS ORDERED: MELATONIN 3 MG TABLET PO PRN (13:00)
--- NOTE | 2023-02-22 13:19 | Tele-ICU Progress Note ---
Subjective Date Seen by a Provider: Feb 22, 2023 Time Seen by a Provider: 13:19 Subjective/Events-last exam (Tele-ICU Physician , consultation as per request of PCP Service provided via interactive audio and video telecommunications E-CARE system to a patient admitted to ICU bed in [facility]. Available chart/ vitals / labs / Images reviewed H&P is from ER notes Patient's information available about PMH, Shx, Fhx allergy reviewed inEMR. ROS as per chart and RN report Now in ICU, hemodynamically stable Video assessment done using teleICU camera, rest of exam as per RN Discussed with RN. Hospital course: A/P Severe anemia with Hb 3.6 - presumed ABLA -2u pRBC transfusion planned , will most likely need slow transfusion 2-3 more after - not on AC , INR 1.4 , occasional ASA ( as per ER report ) -PPI bid -Sx consult - ? 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 scoping - Images not done in ER - as per Sx consult if indicated , CT abd/p 06/2022 reviewed Anxiety/confusion- as per chart has "anxiety and panic attacks" and h/o attempts to "wean off xanax" - nonfocal exam -hypoNA mild 131 - should not contribute - previous urine + benzo - ? ETON use - will start precedex , follow Tachycardia - physiological , cont IVF and pRBC H/o prostate CA Lines : periph , (Central Line Necessity Reviewed) Sahu: + OG: Nutrition: npo Analgesia: Anxiety/ delirium VTE Prophylaxis: scd Stress Ulcer Prophylaxis: ppi Plans in collaboration with bedside consultants and IM MDs. Discussed with RN to reach out if any questions or concerns A total of 31 minutes of critical care time was devoted to this patient today, required to treat and/or prevent further deterioration of critical care condition ( as above ) . I am remotely monitoring this patient from another state. I am unable to do the bedside exam, and history/physical and pertinent information is taken from other notes in the computer and bedside staff. . Sepsis Event Evaluation Height, Weight, BMI Height: '" Weight: lbs. oz. kg; 20.00 BMI Method: Exam Exam Patient acknowledged, consented, and participated in this virtual visit which was conducted using real time audio/video Vital Signs Date Time Temp Pulse Resp B/P (MAP) Pulse Ox O2 Delivery O2 Flow Rate FiO2 02/22/23 12:25 36.2 109 20 132/88 100 Room Air 02/22/23 12:15 36.2 109 18 138/81 96 Room Air 02/22/23 11:58 36.4 110 31 127/77 100 02/22/23 11:50 36.2 117 30 110/73 100 Room Air 02/22/23 10:14 36.8 109 30 110/73 (85) 100 Room Air Height & Weight Height: '" Weight: lbs. oz. kg; 20.00 BMI Method: General Appearance: Other Capillary Refill: Less Than 3 Seconds Gastrointestinal: normal bowel sounds, non tender, soft; No distended, No guarding, No rebound Results Lab Laboratory Tests 02/22/23 10:35 Assessment/Plan Assessment/Plan 1 VIKAS MIGUEL MD Feb 22, 2023 13:19
[2023-02-22] MEDS: DexMEDEtomidine 1,000mcg/250ml 250 ML IV SCH ×2 (13:34→23:19)
[2023-02-22] MEDS ORDERED: FUROSEMIDE INJECTION 40 MG/4 ML VIAL IVP ONE (13:45)
[2023-02-22] MEDS: LACTATED RINGERS 1,000 ML 1,000 ML IV SCH ×2 (14:19→23:14)
[2023-02-22] MEDS ORDERED: RT-ALBUTEROL SULF 2.5 MG/3 ML PRE-MIX VIAL INH PRN (15:30)
--- NOTE | 2023-02-22 15:38 | Consultation - Surgery ---
History of Present Illness History of Present Illness Patient Consulted On(aleksandra/time) 02/22/23 15:32 Time Seen by Provider: 12:44 History of Present Illness Surgery asked to consult regarding profound Anemia and hx of rectal bleed. HPI per ED: 68-year-old male coming in due to feeling very fatigued and having rectal bleeding. The rectal bleeding has been happening for some time, he states for a couple of years. Happens intermittently, he states maybe once a month. Last episode was roughly 3 days ago and was quite a bit of bleeding. He had a normal bowel movements the past 3 days including a normal one this morning that was brown. He states he does look more pale than usual. He has generalized felt very lightheaded and weak. He has more dyspnea with exertion. Denies any chest pain, abdominal pain, nausea, vomiting, diarrhea, focal weakness or numbness, rash, fever, chills, or any other concerns. He does not take any blood thinners. He intermittently takes aspirin, no other NSAIDs. When I saw pt he was in his room in the ICU, but he was out of it. He had been given some Ativan and was not answering any questions, would rest and then thrash around. He could not answer any questions. Allergies and Home Medications Allergies Coded Allergies: No Known Drug Allergies (Unverified , 06/09/12) Patient Home Medication List Home Medication List Reviewed: Yes Methylprednisolone (Methylprednisolone Dose Pack) 4 Mg Tab.ds.pk, 4 MG PO UD, (Reported) Entered as Reported by: GRECIA BROOKE on 07/09/22 1325 Past Prqgxju-Hoyxwx-Ldlsyv Hx Patient Social History 2nd Hand Smoke Exposure: No Recent Hopitalizations: No Alcohol Use?: No Immunizations Up To Date Date of Influenza Vaccine: Jan 13, 2022 Seasonal Allergies Seasonal Allergies: Yes Surgeries History of Surgeries: Yes (LEFT CHEST TUBE FOR TRAUMATIC PNEUMOTHORAX; PROSTATE SURGERY FOR CANCER) Surgeries: Prostatectomy Respiratory History of Respiratory Disorde: No Cardiovascular History of Cardiac Disorders: No Neurological History of Neurological Disord: No Reproductive System Hx Reproductive Disorders: No Genitourinary History of Genitourinary Disor: Yes (PROSTATE CANCER) Gastrointestinal History of Gastrointestinal Di: Yes (rectal bleeding) Musculoskeletal History of Musculoskeletal Dis: No Endocrine History of Endocrine Disorders: No HEENT History of HEENT Disorders: Yes HEENT Disorders: Cataract Cancer History of Cancer: Yes Cancer: Prostate Psychosocial History of Psychiatric Problem: Yes Behavioral Health Disorders: Anxiety, Depression Integumentary History of Skin or Integumenta: No Blood Transfusions History of Blood Disorders: No Family Medical History Significant Family History: Cancer (Colon) Family Medial History: FH: colon cancer Review of Systems-General ROS-Unable to Obtain: pt not responding Physical Exam-General Problems Physical Exam Vital Signs Vital Signs - First Documented 02/22/23 02/22/23 10:14 15:15 Temp 36.8 Pulse 109 Resp 30 B/P (MAP) 110/73 (85) Pulse Ox 100 O2 Delivery Room Air FiO2 21 Capillary Refill : Less Than 3 Seconds General Appearance: moderate distress, thin Eyes: Bilateral Eye PERRL, Bilateral Eye EOMI HEENT: pharynx normal; No scleral icterus (R), No scleral icterus (L) Neck: non-tender, supple Respiratory: lungs clear, normal breath sounds, no respiratory distress, no accessory muscle use Cardiovascular: no murmur, tachycardia Gastrointestinal: soft, no organomegaly; No distended; hernia (very small umbilical, incarcerated right inguinal (large) and incarcerated left inguinal ) Rectal: other (done by ER physician, nothing found) Extremities: no pedal edema, no calf tenderness, slow capillary refill Neurologic/Psychiatric: No alert Skin: cool, pallor Lymphatic: no adenopathy (neck, axilla or groin) Data Review Labs Laboratory Tests 02/22/23 10:35: White Blood Count 7.0, Red Blood Count 1.71L, Hemoglobin 3.5*L, Hematocrit 13*L, Mean Corpuscular Volume 75L, Mean Corpuscular Hemoglobin 20L, Mean Corpuscular Hemoglobin Concent 27L, Red Cell Distribution Width 17.9H, Platelet Count 300, Mean Platelet Volume 10.4, Immature Granulocyte % (Auto) 0, Neutrophils (%) (Auto) 90H, Lymphocytes (%) (Auto) 3L, Monocytes (%) (Auto) 7, Eosinophils (%) (Auto) 0, Basophils (%) (Auto) 0, Neutrophils # (Auto) 6.3, Lymphocytes # (Auto) 0.2L, Monocytes # (Auto) 0.5, Eosinophils # (Auto) 0.0, Basophils # (Auto) 0.0, Immature Granulocyte # (Auto) 0.0, Neutrophils % (Manual) 90, Lymphocytes % (Manual) 4, Monocytes % (Manual) 6, Polychromasia SLIGHT, Hypochromasia MODERATE, Poikilocytosis MODERATE, Anisocytosis SLIGHT, Microcytosis SLIGHT, Target Cells SLIGHT, Tear Drop Cells SLIGHT, Elliptocytes SLIGHT, Prothrombin Time 18.0H, INR Comment 1.4, Activated Partial Thromboplast Time 28, Sodium Level 131L, Potassium Level 4.1, Chloride Level 104, Carbon Dioxide Level 13L, Anion Gap 14, Blood Urea Nitrogen 16, Creatinine 1.10, Estimat Glomerular Filtration Rate 74, BUN/Creatinine Ratio 15, Glucose Level 109H, Calcium Level 8.5, Corrected Calcium 8.9, Magnesium Level 2.2, Total Bilirubin 0.7, Aspartate Amino Transf (AST/SGOT) 128H, Alanine Aminotransferase (ALT/SGPT) 127H, Alkaline Phosphatase 71, Troponin I 0.082H, B-Type Natriuretic Peptide 736.6H, Total Protein 6.0L, Albumin 3.5, Lipase 45, Serum Alcohol < 10 Assessment/Plan Assessment/Plan Assessment/Plan Anemia - unknown cause, possible GI bleed B/L inguinal hernia - incarcerated Pt had a colonoscopy in June of this year and no large masses seen. I looked at OP report and Pathology, there was suspected proctitis but the pathology called it a hyperplastic polyp. He never had an EGD performed. He was started on 2 Units of PRBC and I told nurse to make it a total of 4. Monitor his labs and mental status. I am unsure if another Colonoscopy is useful, but may be needed along with possible EGD. He may also need a Licensed Mental Health Professional. Supportive care for now. I did speak with the ED physician as well. TENA DC DO Feb 22, 2023 15:38
--- NOTE | 2023-02-22 18:27 | History & Physical-Hospitalist ---
History of Present Illness HPI/Chief Complaint Rene Anna is a 68 year old male with history of prostate cancer s/p prostatectomy who presented with weakness. He is a poor historian. He has been having weakness. He has been lightheaded. He has reportedly been having bloody bowel movements for the past year. He is very anxious. He is restless. He does not take any blood thinners. He occasionally takes Aspirin. Source: patient, RN/MD Exam Limitations: clinical condition Date Seen 02/22/23 Time Seen by a Provider: 11:30 Attending Physician Andree Morales DO PCP Admitting Physician: Sakina Boyd MD Attending Physician: Sakina Boyd MD Referring Physician Date of Admission Feb 22, 2023 at 12:46 Home Medications & Allergies Home Medications Reviewed patient Home Medication Reconciliation performed by pharmacy medication reconciliations solar installer technician and/or nursing. Patients Allergies have been reviewed. Allergies Allergies Coded Allergies No Known Drug Allergies (Unverified06/09/12) Past Puwunra-Waqfyp-Dfrimf Hx Patient Social History Tobacco Use?: No Use of E-Cig and/or Vaping dev: No Substance use?: No Alcohol Use?: No Pt feels they are or have been: No Immunizations Up To Date Date of Influenza Vaccine: Jan 13, 2022 First/Initial COVID19 Vaccinat: X 1 Second COVID19 Vaccination Gigi: X 1 Seasonal Allergies Seasonal Allergies: Yes Current Status Advance Directives: No Communicates: Verbally Primary Language: Guamanian Preferred Spoken Language: Guamanian Past Medical History Surgeries: Prostatectomy Cataract Prostate Did You Recieve Any Treatments: Yes What Type of Treatment Did You: Radiation, Surgical Intervention Anxiety, Depression Blood Disorders: No Family Medical History FH: colon cancer Cancer (Colon) Review of Systems Constitutional: see HPI, dizziness, weakness Physical Exam Physical Exam Vital Signs Vital Signs - First Documented 02/22/23 02/22/23 10:14 15:15 Temp 36.8 Pulse 109 Resp 30 B/P (MAP) 110/73 (85) Pulse Ox 100 O2 Delivery Room Air FiO2 21 Capillary Refill : Less Than 3 Seconds Height, Weight, BMI Height: '" Weight: lbs. oz. kg; 21.29 BMI Method: General Appearance: Anxious, Moderate Distress HEENT: PERRL/EOMI, Pharynx Normal, Pale Conjunctivae (L), Pale Conjunctivae (R) Respiratory: Lungs Clear, No Respiratory Distress Cardiovascular: No Murmur, Tachycardia Gastrointestinal: Normal Bowel Sounds, Soft Extremity: Normal Inspection, Non Tender, No Pedal Edema Neurologic/Psychiatric: Alert, Motor Weakness, Other (anxious) Skin: Cool, Pallor Results Results/Procedures Labs Laboratory Tests 02/22/23 10:35 Patient resulted labs reviewed. Imaging: Reviewed Imaging Report Assessment/Plan Admission Diagnosis Acute blood loss anemia Admission Status: Inpatient Order (span 2 midnights) Reason for Inpatient Admission: GI bleeding Assessment and Plan Symptomatic anemia Acute on chronic GI bleeding Acute blood loss anemia Elevated troponin Elevated LFTs Hgb 3.5 on arrival 4 units PRBC ordered Repeat Hgb after transfusions Surgery consulted IV PPI IV fluids TeleICU consulted Troponin and LFTs likely elevated due to severe anemia Anxiety Ativan Precedex DVT prophylaxis: SCDs only due to GI bleeding Critical Care Critically Ill Patient Diagnosis/Problems Diagnosis/Problems (1) Symptomatic anemia Status: Acute (2) ABLA (acute blood loss anemia) Status: Acute (3) Acute GI bleeding Status: Acute (4) Elevated LFTs Status: Acute (5) Elevated troponin Status: Acute (6) Anxiety Status: Acute SAKINA BOYD MD Feb 22, 2023 18:26
[2023-02-22 20:21] LABS: ABG BASE EXCESS -18.8 MMOL/L (-2.5-2.5); ABG OXYGEN SATURATION 94 % (94-100); ABG PO2 74 MMHG (79-93)
[2023-02-22 20:24] LABS: ABG PCO2 12 MMHG (35-45); ABG PH 7.26 (7.37-7.43); ABG TCO2 5.8 MMOL/L (21.0-31.0)
[2023-02-22 20:25] LABS: INSPIRED O2 RA; VENTILATOR NO
[2023-02-22] MEDS ORDERED: SODIUM BICARB 8.4% 50 MEQ/50 ML (ABBOTT) SYR IV ONE (20:45)
[2023-02-22] MEDS ORDERED: SODIUM BICARB 8.4% 50 MEQ/50 ML (ABBOTT) SYR ONE (20:45)
[2023-02-22] MEDS: PANTOPRAZOLE INJECTION 40 MG VIAL IV SCH (20:46)
[2023-02-22] MEDS: SENNOSIDES 8.6 MG TABLET PO SCH (20:46)
[2023-02-22] MEDS: DOCUSATE SODIUM 100 MG CAPSULE PO SCH (20:46)
[2023-02-22 21:04] LABS: BASOPHILS % (AUTO) 0 % (0-10); EOSINOPHILS % (AUTO) 0 % (0-10); HEMATOCRIT 30 % (40-54); HEMOGLOBIN 9.1 g/dL (13.3-17.7); LYMPHOCYTES % (AUTO) 1 % (12-44); MEAN CORPUSCULAR HEMOGLOBIN 25 pg (25-34); MEAN CORPUSCULAR HGB CONC 30 g/dL (32-36); MEAN CORPUSCULAR VOLUME 83 fL (80-99); MONOCYTES % (AUTO) 7 % (0-12); NEUTROPHILS # (AUTO) 15.2 10^3/uL (1.8-7.8); NEUTROPHILS % (AUTO) 91 % (42-75); PLATELET COUNT 279 10^3/uL (130-400); WHITE BLOOD COUNT 16.7 10^3/uL (4.3-11.0)
[2023-02-22 21:05] LABS: LYMPHOCYTES # (AUTO) 0.2 10^3/uL (1.0-4.0); MEAN PLATELET VOLUME 10.7 fL (9.0-12.2); MONOCYTES # (AUTO) 1.1 10^3/uL (0.0-1.0)
[2023-02-22 21:15] LABS: POTASSIUM 6.1 MMOL/L (3.6-5.0)
[2023-02-22 21:16] LABS: CALCIUM 8.2 MG/DL (8.5-10.1)
[2023-02-22 21:20] LABS: CREATININE SERUM 1.39 MG/DL (0.60-1.30)
[2023-02-22 21:39] LABS: ANISOCYTOSIS SLIGHT; BURR CELLS MARKED; ELLIPT/OVALOCYTES SLIGHT; HYPOCHROMASIA MODERATE; LYMPHOCYTES % (MANUAL) 2 %; MONOCYTES % (MANUAL) 5 %; NEUTROPHILS % (MANUAL) 93 %; NUCLEATED RED BLOOD CELLS 6; POIKILOCYTOSIS MODERATE; POLYCHROMASIA SLIGHT; TEAR DROP CELLS SLIGHT
[2023-02-22] MEDS ORDERED: DEXTROSE 50% 50 ML (IMS) SYR IV ONE (21:45)
[2023-02-22] MEDS ORDERED: CALCIUM GLUCONATE 1GM IVPB 100 ML IV ONE ×2 (21:45→21:49)
[2023-02-22] MEDS ORDERED: inSUlin (REGULAR) HUMAN 1 UNIT/0.01 ML (CHARGE PER UNIT) IV ONE (21:45)
[2023-02-22] MEDS ORDERED: VANCOMYCIN INJECTION 1,000 MG in NS (IVPB) 250 ML 250 ML IV ONE (21:45)
[2023-02-22] MEDS ORDERED: DEXTROSE 50% 50 ML (IMS) SYR ONE (21:49)
[2023-02-22] MEDS ORDERED: inSUlin (REGULAR) HUMAN 1 UNIT/0.01 ML (CHARGE PER UNIT) ONE (21:50)
[2023-02-22] MEDS: CEFEPIME 1,000 MG/NS 50 ML IVPB IV SCH ×2 (22:38)
[2023-02-22 22:49] LABS: BILIRUBIN,URINE NEGATIVE (NEGATIVE); CLARITY,URINE CLEAR; COLOR,URINE YELLOW; GLUCOSE, URINE (UA) NEGATIVE (NEGATIVE); KETONES,URINE TRACE (NEGATIVE); NITRITE,URINE NEGATIVE (NEGATIVE); PH,URINE 5.5 (5-9); PROTEIN,URINE 1+ (NEGATIVE)
[2023-02-22 22:50] LABS: BACTERIA,URINE FEW /HPF; HYALINE CASTS, URINE 25-50 /LPF; LEUKOCYTE ESTERASE ,URINE NEGATIVE (NEGATIVE); WBC,URINE 0-2 /HPF
[2023-02-23] MEDS: LACTATED RINGERS 1,000 ML 1,000 ML IV SCH ×5 (00:59→19:44)
[2023-02-23] MEDS ORDERED: LACTATED RINGERS 1,000 ML 1,000 ML IV ONE (01:00)
[2023-02-23 03:08] LABS: ABG BASE EXCESS -11.4 MMOL/L (-2.5-2.5); ABG OXYGEN SATURATION 92 % (94-100); ABG PCO2 23 MMHG (35-45); ABG PO2 67 MMHG (79-93); ABG TCO2 13.1 MMOL/L (21.0-31.0)
[2023-02-23 03:10] LABS: INSPIRED O2 ROOM AIR; VENTILATOR NO
[2023-02-23 03:16] LABS: ABG PH 7.34 (7.37-7.43)
[2023-02-23 04:38] LABS: BASOPHILS % (AUTO) 0 % (0-10); EOSINOPHILS % (AUTO) 0 % (0-10); HEMATOCRIT 30 % (40-54); HEMOGLOBIN 9.3 g/dL (13.3-17.7); LYMPHOCYTES # (AUTO) 0.1 10^3/uL (1.0-4.0); LYMPHOCYTES % (AUTO) 1 % (12-44); MEAN CORPUSCULAR HEMOGLOBIN 25 pg (25-34); MEAN CORPUSCULAR HGB CONC 31 g/dL (32-36); MEAN CORPUSCULAR VOLUME 80 fL (80-99); MEAN PLATELET VOLUME 10.6 fL (9.0-12.2); MONOCYTES # (AUTO) 0.9 10^3/uL (0.0-1.0); MONOCYTES % (AUTO) 6 % (0-12); NEUTROPHILS # (AUTO) 15.3 10^3/uL (1.8-7.8); NEUTROPHILS % (AUTO) 92 % (42-75); PLATELET COUNT 192 10^3/uL (130-400); WHITE BLOOD COUNT 16.6 10^3/uL (4.3-11.0)
[2023-02-23 05:10] LABS: BILIRUBIN,TOTAL 3.6 MG/DL (0.1-1.0); CREATININE SERUM 1.27 MG/DL (0.60-1.30); POTASSIUM 4.7 MMOL/L (3.6-5.0)
[2023-02-23] MEDS: CEFEPIME 1,000 MG/NS 50 ML IVPB IV SCH ×6 (05:34→18:06)
[2023-02-23 06:04] LABS: MAGNESIUM 2.1 MG/DL (1.6-2.4); PHOSPHORUS 6.3 MG/DL (2.3-4.7)
--- NOTE | 2023-02-23 08:51 | Tele-ICU Progress Note ---
Subjective Date Seen by a Provider: Feb 23, 2023 Time Seen by a Provider: 08:51 Subjective/Events-last exam (Tele-ICU Physician , Progress Note ) Service provided via interactive audio and video telecommunications E-CARE system to a patient admitted to ICU bed in [facility]. Patient is seen today due to persistent need of ICU care Available chart/ vitals / labs / Images reviewed Video assessment done using teleICU camera, rest of exam as per RN Discussed with RN Events overnight : Afebrile hemodynamically stable Respiratory - I/O = Drips: Pressors- no Hospital course: (02-22) 68 y/o M -LGI Bleed - Anemia - Hgb 3.5 - 4 PRBC transfused., precedex gtt for anxiety 02/23 - hb stable after 4 units, agitaed - on precedex , elv LFT - abx started , US liver A/P Severe anemia with Hb 3.6 - presumed ABLA -Improved to 9.1 after 4u pRBC transfusion , stable now - not on AC , INR 1.4 , occasional ASA ( as per ER report ) -PPI bid -Sx consulted - if no GIB might need hem consult 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 scoping - Images not done in ER - as per Sx consult if indicated , CT abd/p 06/2022 reviewed Elevated LFT - ? ischemia with severe anemia - will check US and follow Severely elevated lactate - Type-B lactic acidosis suspected - will check thiamine and give loading dose now - empiric abx initiated Anxiety/confusion- as per chart has "anxiety and panic attacks" and h/o attempts to "wean off xanax" - nonfocal exam - ? ETON use- ? DT - was stated on precedex - will try to wean off , prn benzo , resume xanax ( also was on fluoxetine - but timeline and symproms not consistent with withdrawal -check ammonia Tachycardia - physiological , resolved with IVF and pRBC dyspnea with exertion - due to severe anemia- on RA now H/o prostate CA -s/p prostatectomy Lines : periph , (Central Line Necessity Reviewed) Sahu: + OG: Nutrition: npo Analgesia: Anxiety/ delirium VTE Prophylaxis: scd Stress Ulcer Prophylaxis: ppi Plans in collaboration with bedside consultants and IM MDs. Discussed with RN to reach out if any questions or concerns A total of 31 minutes of critical care time was devoted to this patient today, required to treat and/or prevent further deterioration of critical care c ondition ( as above ) . I am remotely monitoring this patient from another state. I am unable to do the bedside exam, and history/physical and pertinent information is taken from other notes in the computer and bedside staff. . Sepsis Event Evaluation Height, Weight, BMI Height: '" Weight: lbs. oz. kg; 22.72 BMI Method: Focused Exam Lactate Level 02/23/23 04:03: Lactic Acid Level 8.63*H 02/23/23 06:13: Lactic Acid Level 6.03*H 02/23/23 08:12: Lactic Acid Level 3.67*H Lactic Acid Level Laboratory Tests Test 02/23/23 06:13 02/23/23 08:12 Lactic Acid Level 6.03 MMOL/L (0.50-2.00) *H 3.67 MMOL/L (0.50-2.00) *H Exam Exam Patient acknowledged, consented, and participated in this virtual visit which was conducted using real time audio/video Vital Signs Date Time Temp Pulse Resp B/P (MAP) Pulse Ox O2 Delivery O2 Flow Rate FiO2 02/23/23 07:35 81 02/23/23 07:17 36.5 02/23/23 07:00 75 22 106/77 (87) 75 Room Air 02/23/23 06:00 74 26 102/77 (85) 95 Room Air 02/23/23 05:00 78 21 105/83 (91) 93 Room Air 02/23/23 04:00 96 Room Air 02/23/23 04:00 84/64 (72) 02/23/23 03:02 78 117/98 02/23/23 03:00 80 22 97/75 (82) 93 Room Air 02/23/23 02:00 94 19 112/84 (93) 94 Room Air 02/23/23 01:15 76 78/61 02/23/23 01:00 76 02/23/23 01:00 75 36 73/66 (70) 95 Room Air 02/23/23 00:45 77 73/60 02/23/23 00:00 77 26 85/65 (75) 93 Room Air 02/22/23 23:55 36.2 Room Air 02/22/23 23:52 93 Room Air 02/22/23 23:19 75 94/66 02/22/23 23:00 76 25 84/68 (73) 96 Room Air 02/22/23 22:00 73 22 81/67 (73) 96 Room Air 02/22/23 21:00 73 25 89/64 (72) 97 Room Air 02/22/23 20:00 89 23 114/94 (101) 95 Room Air 02/22/23 19:42 97 Room Air 02/22/23 19:00 75 02/22/23 19:00 35.9 82 24 90/66 (74) 97 Room Air 02/22/23 17:45 36.3 75 18 94/62 93 Room Air 02/22/23 17:40 36.3 80 18 94/60 97 Room Air 02/22/23 17:35 36.2 93 18 89/74 97 Room Air 02/22/23 17:34 75 94/62 02/22/23 17:30 36.2 88 20 102/60 Room Air 02/22/23 17:00 91 33 110/71 (84) 93 Room Air 02/22/23 16:00 105 31 91/76 (81) 93 Room Air 02/22/23 16:00 Room Air 02/22/23 15:50 36.2 97 18 94/69 95 Room Air 02/22/23 15:45 36.3 95 20 96/71 95 02/22/23 15:40 36.2 103 20 137/89 95 Room Air 02/22/23 15:35 36.2 98 22 101/72 96 Room Air 02/22/23 15:15 36.8 109 100 21 02/22/23 15:00 102 25 106/77 (87) Room Air 02/22/23 14:34 Room Air 02/22/23 14:15 36.3 114 24 126/94 96 Room Air 02/22/23 14:10 36.2 114 22 123/93 96 02/22/23 14:05 36.2 116 22 127/85 Room Air 02/22/23 14:00 36.3 114 24 127/92 96 Room Air 02/22/23 14:00 106 21 123/93 (103) Room Air 02/22/23 13:34 107 120/90 02/22/23 13:00 107 19 120/90 (100) Room Air 02/22/23 12:30 115 19 140/105 (117) Room Air 02/22/23 12:30 114 02/22/23 12:25 36.2 109 20 132/88 100 Room Air 02/22/23 12:15 36.2 109 18 138/81 96 Room Air 02/22/23 11:58 36.4 110 31 127/77 100 02/22/23 11:50 36.2 117 30 110/73 100 Room Air 02/22/23 10:14 36.8 109 30 110/73 (85) 100 Room Air I & O 02/23/23 07:00 Intake Total 5320 ml Output Total 1225 ml Balance 4095 ml Height & Weight Height: '" Weight: lbs. oz. kg; 22.72 BMI Method: General Appearance: Anxious, Moderate Distress HEENT: PERRL/EOMI, Pharynx Normal, Pale Conjunctivae (L), Pale Conjunctivae (R) Respiratory: Lungs Clear, No Respiratory Distress Cardiovascular: No Murmur, Tachycardia Capillary Refill: Less Than 3 Seconds Gastrointestinal: soft, no organomegaly; No distended; hernia (very small umbilical, incarcerated right inguinal (large) and incarcerated left inguinal ) Extremity: Normal Inspection, Non Tender, No Pedal Edema Neurologic/Psychiatric: Alert, Motor Weakness, Other (anxious) Skin: Cool, Pallor Results Lab Laboratory Tests 02/22/23 10:35 02/22/23 20:55 02/23/23 04:03 Assessment/Plan Assessment/Plan 1 VIKAS MIGUEL MD Feb 23, 2023 08:51
[2023-02-23] MEDS ORDERED: THIAMINE 100 MG/ML 2 ML (VITAMIN B-1) VIAL IM ONE (09:00)
[2023-02-23] MEDS ORDERED: CEFEPIME INJECTION 2,000 MG in NS (IVPB) 50 ML 50 ML IV SCH (09:00)
[2023-02-23] MEDS: SENNOSIDES 8.6 MG TABLET PO SCH ×2 (09:30→21:26)
[2023-02-23] MEDS ORDERED: LACTULOSE SYRUP 10GM/15ML 30ML UDC PO ONE (09:30)
[2023-02-23] MEDS: DOCUSATE SODIUM 100 MG CAPSULE PO SCH ×2 (09:30→21:25)
--- NOTE | 2023-02-23 09:57 | Diagnostic Imaging Report ---
PROCEDURE: US Hepatic (Liver). TECHNIQUE: Multiple Real-time grayscale images were obtained over the right upper quadrant in various projections. INDICATION: Diarrhea. COMPARISON: None. FINDINGS: The liver is normal in size, shape and echo texture. There are no focal lesions. Portal vein shows hepatopetal flow. No intra or extrahepatic biliary dilatation is present. The common bile duct is not dilated and measures 5 to 6 mm. Gallbladder is visualized. Echogenic non-shadowing foci are identified adjacent to the gravity and non-gravity dependent portions of the gallbladder wall. Sat Act Instructor lesion measures 4 to 5 mm in diameter. There is no gallbladder wall thickening. No shadowing gallstones are seen. Small amount of perihepatic ascites is noted. Small right pleural effusion is also noted. The visualized portions of the head and proximal body of the pancreas are within normal limits. The distal body and tail of the pancreas are not visualized due to overlying bowel gas. The right kidney measures approximately 10.6 cm in length and has a normal appearance. The visualized portions of the IVC and aorta are normal. IMPRESSION: 1. Cholesterol polyps versus cholesterolosis. No echogenic gallstones or gallbladder wall thickening to suggest acute cholecystitis. 2. Small amount of perihepatic ascites and small right pleural effusion. Dictated by: Dictated on workstation # [id number]
--- NOTE | 2023-02-23 10:12 | Consultation-Cardiology ---
HPI-Cardiology Cardiology Consultation Date of Consultation 02/23/23 Date of Admission Time Seen by Provider: 10:06 Indication: Elevated troponin level HPI 68-year-old gentleman admitted to the hospital with severe anemia, came in complaining of generalized fatigue and loss of energy. Was noted to have hemoglobin of 3. Had mild elevation in troponin. On my evaluation patient is lethargic and confused. He is waxing and waning in his answers. He can answer appropriately but start saying words unrelated and not responding to questions. I was unable to obtain a full history, history was obtained by reviewing his record and visiting with his nurse. Denied any active chest pain. Home Medications & Allergies Allergies: Coded Allergies: No Known Drug Allergies (Unverified , 06/09/12) Home Medication List Reviewed: Yes [facility] Hx Patient Social History 2nd Hand Smoke Exposure: No Recent Hopitalizations: No Alcohol Use?: No Immunizations Up To Date Date of Influenza Vaccine: Jan 13, 2022 Past Medical History Discussed below Family Medical History Significant Family History: Cancer (Colon) Family History: FH: colon cancer Review of Systems-General Review of Systems Constitutional: see HPI, dizziness, weakness EENTM: see HPI, no symptoms reported Respiratory: see HPI Cardiovascular: see HPI; No chest pain, No edema, No Hx of Intervention, No palpitations, No syncope, No vascular heart diseas, No other Gastrointestinal: no symptoms reported, see HPI Genitourinary: no symptoms reported, see HPI Musculoskeletal: no symptoms reported Skin: no symptoms reported Psychiatric/Neurological: See HPI, Weakness, Other (Confused) All Other Systems Reviewed Negative Unless Noted: Yes Reviewed Test Results Reviewed Test Results Lab Laboratory Tests Test 02/22/23 10:35 02/22/23 20:14 02/22/23 20:55 02/22/23 21:55 Range/Units White Blood Count 7.0 16.7 H 4.3-11.0 10^3/uL Red Blood Count 1.71 L 3.61 L 4.30-5.52 10^6/uL Hemoglobin 3.5 *L 9.1 #L 13.3-17.7 g/dL Hematocrit 13 *L 30 L 40-54 % Mean Corpuscular Volume 75 L 83 80-99 fL Mean Corpuscular Hemoglobin 20 L 25 25-34 pg Mean Corpuscular Hemoglobin Concent 27 L 30 L 32-36 g/dL Red Cell Distribution Width 17.9 H 17.1 H 10.0-14.5 % Platelet Count 300 279 130-400 10^3/uL Mean Platelet Volume 10.4 10.7 9.0-12.2 fL Immature Granulocyte % (Auto) 0 1 % Neutrophils (%) (Auto) 90 H 91 H 42-75 % Lymphocytes (%) (Auto) 3 L 1 L 12-44 % Monocytes (%) (Auto) 7 7 0-12 % Eosinophils (%) (Auto) 0 0 0-10 % Basophils (%) (Auto) 0 0 0-10 % Neutrophils # (Auto) 6.3 15.2 H 1.8-7.8 10^3/uL Lymphocytes # (Auto) 0.2 L 0.2 L 1.0-4.0 10^3/uL Monocytes # (Auto) 0.5 1.1 H 0.0-1.0 10^3/uL Eosinophils # (Auto) 0.0 0.0 0.0-0.3 10^3/uL Basophils # (Auto) 0.0 0.0 0.0-0.1 10^3/uL Immature Granulocyte # (Auto) 0.0 0.1 0.0-0.1 10^3/uL Neutrophils % (Manual) 90 93 % Lymphocytes % (Manual) 4 2 % Monocytes % (Manual) 6 5 % Polychromasia SLIGHT SLIGHT Hypochromasia MODERATE MODERATE Poikilocytosis MODERATE MODERATE Anisocytosis SLIGHT SLIGHT Microcytosis SLIGHT Target Cells SLIGHT Tear Drop Cells SLIGHT SLIGHT Elliptocytes SLIGHT SLIGHT Prothrombin Time 18.0 H 12.2-14.7 SEC INR Comment 1.4 0.8-1.4 Activated Partial Thromboplast Time 28 24-35 SEC Sodium Level 131 L 137 135-145 MMOL/L Potassium Level 4.1 6.1 H 3.6-5.0 MMOL/L Chloride Level 104 106 98-107 MMOL/L Carbon Dioxide Level 13 L 9 *L 21-32 MMOL/L Anion Gap 14 22 H 5-14 MMOL/L Blood Urea Nitrogen 16 20 H 7-18 MG/DL Creatinine 1.10 1.39 H 0.60-1.30 MG/DL Estimat Glomerular Filtration Rate 74 56 BUN/Creatinine Ratio 15 14 Glucose Level 109 H 70 70-105 MG/DL Calcium Level 8.5 8.2 L 8.5-10.1 MG/DL Corrected Calcium 8.9 8.5-10.1 MG/DL Magnesium Level 2.2 1.6-2.4 MG/DL Total Bilirubin 0.7 0.1-1.0 MG/DL Aspartate Amino Transf (AST/SGOT) 128 H 5-34 U/L Alanine Aminotransferase (ALT/SGPT) 127 H 0-55 U/L Alkaline Phosphatase 71 40-136 U/L Troponin I 0.082 H <0.028 NG/ML B-Type Natriuretic Peptide 736.6 H <100.0 PG/ML Total Protein 6.0 L 6.4-8.2 GM/DL Albumin 3.5 3.2-4.5 GM/DL Lipase 45 8-78 U/L Serum Alcohol < 10 <10 MG/DL Arterial Blood pH 7.26 *L 7.37-7.43 Arterial Blood Partial Pressure CO2 12 *L 35-45 MMHG Arterial Blood Partial Pressure O2 74 L 79-93 MMHG Arterial Blood HCO3 5 *L 23-27 MMOL/L Arterial Blood Total CO2 5.8 *L 21.0-31.0 MMOL/L Arterial Blood Oxygen Saturation 94 94-100 % Arterial Blood Base Excess -18.8 L -2.5-2.5 MMOL/L Blood Gas Ventilator Setting NO Blood Gas Inspired Oxygen RA Nucleated Red Blood Cells 6 Andrey Cells MARKED Urine Color YELLOW Urine Clarity CLEAR Urine pH 5.5 5-9 Urine Specific Hensley 1.025 H 1.016-1.022 Urine Protein 1+ H NEGATIVE Urine Glucose (UA) NEGATIVE NEGATIVE Urine Ketones TRACE H NEGATIVE Urine Nitrite NEGATIVE NEGATIVE Urine Bilirubin NEGATIVE NEGATIVE Urine Urobilinogen 0.2 < = 1.0 MG/DL Urine Leukocyte Esterase NEGATIVE NEGATIVE Urine RBC (Auto) TRACE H NEGATIVE Urine RBC 5-10 H /HPF Urine WBC 0-2 /HPF Urine Squamous Epithelial Cells NONE /HPF Urine Crystals NONE /LPF Urine Bacteria FEW H /HPF Urine Casts PRESENT /LPF Urine Hyaline Casts 25-50 H /LPF Urine Mucus NEGATIVE /LPF Urine Culture Indicated CULTURE PENDING Test 02/22/23 22:18 02/23/23 00:19 02/23/23 02:18 02/23/23 03:01 Range/Units Lactic Acid Level 12.72 *H 10.71 *H 9.68 *H 0.50-2.00 MMOL/L Arterial Blood pH 7.34 *L 7.37-7.43 Arterial Blood Partial Pressure CO2 23 L 35-45 MMHG Arterial Blood Partial Pressure O2 67 L 79-93 MMHG Arterial Blood HCO3 12 *L 23-27 MMOL/L Arterial Blood Total CO2 13.1 L 21.0-31.0 MMOL/L Arterial Blood Oxygen Saturation 92 L 94-100 % Arterial Blood Base Excess -11.4 L -2.5-2.5 MMOL/L Blood Gas Ventilator Setting NO Blood Gas Inspired Oxygen ROOM AIR Test 02/23/23 04:03 02/23/23 06:13 02/23/23 08:12 02/23/23 08:38 Range/Units White Blood Count 16.6 H 4.3-11.0 10^3/uL Red Blood Count 3.71 L 4.30-5.52 10^6/uL Hemoglobin 9.3 L 13.3-17.7 g/dL Hematocrit 30 L 40-54 % Mean Corpuscular Volume 80 80-99 fL Mean Corpuscular Hemoglobin 25 25-34 pg Mean Corpuscular Hemoglobin Concent 31 L 32-36 g/dL Red Cell Distribution Width 17.0 H 10.0-14.5 % Platelet Count 192 130-400 10^3/uL Mean Platelet Volume 10.6 9.0-12.2 fL Immature Granulocyte % (Auto) 1 % Neutrophils (%) (Auto) 92 H 42-75 % Lymphocytes (%) (Auto) 1 L 12-44 % Monocytes (%) (Auto) 6 0-12 % Eosinophils (%) (Auto) 0 0-10 % Basophils (%) (Auto) 0 0-10 % Neutrophils # (Auto) 15.3 H 1.8-7.8 10^3/uL Lymphocytes # (Auto) 0.1 L 1.0-4.0 10^3/uL Monocytes # (Auto) 0.9 0.0-1.0 10^3/uL Eosinophils # (Auto) 0.0 0.0-0.3 10^3/uL Basophils # (Auto) 0.0 0.0-0.1 10^3/uL Immature Granulocyte # (Auto) 0.2 H 0.0-0.1 10^3/uL Sodium Level 139 135-145 MMOL/L Potassium Level 4.7 3.6-5.0 MMOL/L Chloride Level 110 H 98-107 MMOL/L Carbon Dioxide Level 12 L 21-32 MMOL/L Anion Gap 17 H 5-14 MMOL/L Blood Urea Nitrogen 27 H 7-18 MG/DL Creatinine 1.27 0.60-1.30 MG/DL Estimat Glomerular Filtration Rate 62 BUN/Creatinine Ratio 21 Glucose Level 101 70-105 MG/DL Lactic Acid Level 8.63 *H 6.03 *H 3.67 *H 0.50-2.00 MMOL/L Calcium Level 8.0 L 8.5-10.1 MG/DL Corrected Calcium 8.8 8.5-10.1 MG/DL Phosphorus Level 6.3 H 2.3-4.7 MG/DL Magnesium Level 2.1 1.6-2.4 MG/DL Total Bilirubin 3.6 #H 0.1-1.0 MG/DL Aspartate Amino Transf (AST/SGOT) 1310 #H 5-34 U/L Alanine Aminotransferase (ALT/SGPT) 1025 #H 0-55 U/L Alkaline Phosphatase 64 40-136 U/L Total Protein 5.0 L 6.4-8.2 GM/DL Albumin 3.0 L 3.2-4.5 GM/DL Ammonia 100 H 11-32 UMOL/L Test 02/23/23 09:43 Range/Units Lab Scanned Report Transfusion Reaction Form [id number] Physical Exam Physical Exam Vital Signs Vital Signs - First Documented 02/22/23 02/22/23 10:14 15:15 Temp 36.8 Pulse 109 Resp 30 B/P (MAP) 110/73 (85) Pulse Ox 100 O2 Delivery Room Air FiO2 21 Capillary Refill : Less Than 3 Seconds Height, Weight, BMI Height: '" Weight: lbs. oz. kg; 22.72 BMI Method: General Appearance: Anxious, Moderate Distress Eyes: Bilateral Eye PERRL, Bilateral Eye EOMI HEENT: PERRL/EOMI, Pharynx Normal, Pale Conjunctivae (L), Pale Conjunctivae (R) Respiratory: Lungs Clear, No Respiratory Distress Cardiovascular: No Murmur, Tachycardia Gastrointestinal: Normal Bowel Sounds, Soft Extremity: Normal Inspection, Non Tender, No Pedal Edema Neurologic/Psychiatric: Alert, Motor Weakness, Other (anxious) Skin: Cool, Pallor A/P-Cardiology Admission Diagnosis Generalized weakness Type II myocardial infarction Lactic acidosis Acute delirium Assessment/Plan Generalized weakness, extreme fatigue secondary to severe anemia Status post blood transfusion, monitored and followed by primary care team Mild elevation of troponin level, probably type II myocardial infarction secondary to severe anemia Underlying coronary artery disease cannot be excluded entirely. We will continue to monitor and consider work-up once more clinically stable Acute change in mental status, lethargy and delirium. Could be metabolic. Defer management to ICU team History of intermittent rectal bleed. Had work-up in the past and it was negative Continue to follow recommendation, consider repeating colonoscopy History of prostate cancer Questionable history of alcohol use, elevated liver enzymes. Questionable delirium tremens Patient received Precedex Managed by medical team Sinus tachycardia, secondary to hypovolemia. Lactic acidosis, probably secondary to hypovolemia TORIN SARABIA MD Feb 23, 2023 10:12
[2023-02-23] MEDS ORDERED: 1/2 NS IV SOLUTION 1000 ML 1,000 ML IV PRN (10:15)
[2023-02-23] MEDS ORDERED: SENNA W/DOCUSATE TABLET PO PRN (10:15)
[2023-02-23] MEDS ORDERED: ONDANSETRON INJECTION 4 MG/2 ML (SDV) IV PRN (10:15)
[2023-02-23] MEDS ORDERED: D5 1/2 NS 1,000 ML IV 1,000 ML IV PRN (10:15)
[2023-02-23] MEDS ORDERED: ANTACID SUSPENSION 30 ML UDC PO PRN (10:15)
[2023-02-23] MEDS ORDERED: ONDANSETRON 4 MG ORAL DISSOLVE TABLET SL PRN (10:15)
[2023-02-23] MEDS: THIAMINE INJECTION 100 MG, FOLIC ACID INJECTION 1 MG, MULTIVITAMIN INJECTION 10 ML, MAG... IV SCH ×5 (10:38)
[2023-02-23] MEDS: PANTOPRAZOLE INJECTION 40 MG VIAL IV SCH ×2 (10:39→21:32)
--- NOTE | 2023-02-23 11:35 | Progress Note ---
SETFANIE CONKLIN 02/23/23 1135: Subjective Date Seen by a Provider: Feb 23, 2023 Subjective/Events-last exam Pt was not responsive to my visit with him today. Pt was sleeping and not resp onding to his name. Pt did not eat today. When discussing with his nurse Heriberto, he told me that the pt has a lot of anxiety. The pt will wake up from sleeping in a panic and continuously ask where he is. Pt was requesting Xanax and was administered Ativan. Pt is a poor historian. ROS was not gathered due to pt not being responsive. Focused Exam Lactate Level 02/23/23 06:13: Lactic Acid Level 6.03*H 02/23/23 08:12: Lactic Acid Level 3.67*H 02/23/23 10:25: Lactic Acid Level 2.74*H Lactic Acid Level Laboratory Tests Test 02/23/23 08:12 02/23/23 10:25 Lactic Acid Level 3.67 MMOL/L (0.50-2.00) *H 2.74 MMOL/L (0.50-2.00) *H Objective Exam Last Set of Vital Signs Vital Signs Date Time Temp Pulse Resp B/P (MAP) Pulse Ox O2 Delivery O2 Flow Rate FiO2 02/23/23 11:23 36.8 02/23/23 11:00 80 28 95 Room Air 02/22/23 15:15 21 Capillary Refill : Less Than 3 Seconds I&O Intake and Output 02/22/23 23:59 Intake Total 2150 ml Output Total 625 ml Balance 1525 ml Intake Oral 0 ml IV Total 2150 ml Output Urine Total 625 ml Daily Weight Change No Lungs: Other (abnormal lung sounds b/l. Congestion on right is greater than left) Heart: Regular Rate Abdomen: Normal Bowel Sounds, Soft Extremities: No Clubbing, No Cyanosis Results Lab Laboratory Tests 02/22/23 20:14: Arterial Blood pH 7.26*L, Arterial Blood Partial Pressure CO2 12*L, Arterial Blood Partial Pressure O2 74L, Arterial Blood HCO3 5*L, Arterial Blood Total CO2 5.8*L, Arterial Blood Oxygen Saturation 94, Arterial Blood Base Excess -18.8L, Blood Gas Ventilator Setting NO, Blood Gas Inspired Oxygen RA 02/22/23 20:55: White Blood Count 16.7H, Red Blood Count 3.61L, Hemoglobin 9.1#L, Hematocrit 30L , Mean Corpuscular Volume 83, Mean Corpuscular Hemoglobin 25, Mean Corpuscular Hemoglobin Concent 30L, Red Cell Distribution Width 17.1H, Platelet Count 279, Mean Platelet Volume 10.7, Immature Granulocyte % (Auto) 1, Neutrophils (%) (Auto) 91H, Lymphocytes (%) (Auto) 1L, Monocytes (%) (Auto) 7, Eosinophils (%) (Auto) 0, Basophils (%) (Auto) 0, Neutrophils # (Auto) 15.2H, Lymphocytes # (Auto) 0.2L, Monocytes # (Auto) 1.1H, Eosinophils # (Auto) 0.0, Basophils # (Auto) 0.0, Immature Granulocyte # (Auto) 0.1, Neutrophils % (Manual) 93, Lymphocytes % (Manual) 2, Monocytes % (Manual) 5, Nucleated Red Blood Cells 6, Polychromasia SLIGHT, Hypochromasia MODERATE, Poikilocytosis MODERATE, Anisocytosis SLIGHT, Tear Drop Cells SLIGHT, Calcium Cells MARKED, Elliptocytes SLIGHT, Sodium Level 137, Potassium Level 6.1H, Chloride Level 106, Carbon Dioxide Level 9*L, Anion Gap 22H, Blood Urea Nitrogen 20H, Creatinine 1.39H, Estimat Glomerular Filtration Rate 56, BUN/Creatinine Ratio 14, Glucose Level 70, Calcium Level 8.2L 02/22/23 21:55: Urine Color YELLOW, Urine Clarity CLEAR, Urine pH 5.5, Urine Specific Merrill 1.025H, Urine Protein 1+H, Urine Glucose (UA) NEGATIVE, Urine Ketones TRACEH, Urine Nitrite NEGATIVE, Urine Bilirubin NEGATIVE, Urine Urobilinogen 0.2, Urine Leukocyte Esterase NEGATIVE, Urine RBC (Auto) TRACEH, Urine RBC 5-10H, Urine WBC 0-2, Urine Squamous Epithelial Cells NONE, Urine Crystals NONE, Urine Bacteria FEWH, Urine Casts PRESENT, Urine Hyaline Casts 25-50H, Urine Mucus NEGATIVE, Urine Culture Indicated CULTURE PENDING 02/22/23 22:18: Lactic Acid Level 12.72*H 02/23/23 00:19: Lactic Acid Level 10.71*H 02/23/23 02:18: Lactic Acid Level 9.68*H 02/23/23 03:01: Arterial Blood pH 7.34*L, Arterial Blood Partial Pressure CO2 23L, Arterial Blood Partial Pressure O2 67L, Arterial Blood HCO3 12*L, Arterial Blood Total CO2 13.1L, Arterial Blood Oxygen Saturation 92L, Arterial Blood Base Excess - 11.4L, Blood Gas Ventilator Setting NO, Blood Gas Inspired Oxygen ROOM AIR 02/23/23 04:03: Lactic Acid Level 8.63*H, White Blood Count 16.6H, Red Blood Count 3.71L, Hemoglobin 9.3L, Hematocrit 30L, Mean Corpuscular Volume 80, Mean Corpuscular Hemoglobin 25, Mean Corpuscular Hemoglobin Concent 31L, Red Cell Distribution Width 17.0H, Platelet Count 192, Mean Platelet Volume 10.6, Immature Granulocyte % (Auto) 1, Neutrophils (%) (Auto) 92H, Lymphocytes (%) (Auto) 1L, Monocytes (%) (Auto) 6, Eosinophils (%) (Auto) 0, Basophils (%) (Auto) 0, Neutrophils # (Auto) 15.3H, Lymphocytes # (Auto) 0.1L, Monocytes # (Auto) 0.9, Eosinophils # (Auto) 0.0, Basophils # (Auto) 0.0, Immature Granulocyte # (Auto) 0.2H, Sodium Level 139, Potassium Level 4.7, Chloride Level 110H, Carbon Dioxide Level 12L, Anion Gap 17H, Blood Urea Nitrogen 27H, Creatinine 1.27, Estimat Glomerular Filtration Rate 62, BUN/Creatinine Ratio 21, Glucose Level 101, Calcium Level 8.0L, Corrected Calcium 8.8, Phosphorus Level 6.3H, Magnesium Level 2.1, Total Bilirubin 3.6#H, Aspartate Amino Transf (AST/SGOT) 1310#H, Alanine Aminotransferase (ALT/SGPT) 1025#H, Alkaline Phosphatase 64, Total Protein 5.0L, Albumin 3.0L 02/23/23 06:13: Lactic Acid Level 6.03*H 02/23/23 08:12: Lactic Acid Level 3.67*H 02/23/23 08:38: Ammonia 100H 02/23/23 09:43: Lab Scanned Report Transfusion Reaction Form 02/23/23 10:25: Lactic Acid Level 2.74*H Microbiology 02/22/23 Urine Culture - Preliminary, Resulted Assessment/Plan Assessment/Plan Assess & Plan/Chief Complaint Assessment: Presumed alcohol induced liver injury Anemia due to possible GI bleed Anxiety Plan: Presumed alcohol induced liver injury -MELD score was a 17. -Banana bag will be administered -continue to monitor pt's labs Anemia due to possible GI bleed -Hgb has improved to 9.3 from 3.5 -continue to monitor Anxiety -continue to monitor and treat as needed Clinical Quality Measures DVT/VTE Risk/Contraindication: Other: GI BLEED CINDA WOLFE DO 02/24/23 0509: Subjective Time Seen by a Provider: 11:00 Subjective/Events-last exam Precedex maintained Alcoholism suspected so we will start banana bag and protocol Objective Exam General: Other (sedated) Lungs: Clear to Auscultation Heart: Regular Rate Assessment/Plan Assessment/Plan Assess & Plan/Chief Complaint CIWA Alcohol withdrawal protocol Supervisory-Addendum Brief Verification & Attestation Participated in pt care: history, MDM, physical Personally performed: exam, history, MDM, supervision of care Care discussed with: Medical Student Procedures: n/a Results interpretation: Verified all documentation Verification and Attestation of Medical Student E/M Service A medical student performed and documented this service in my presence. I reviewed and verified all information documented by the medical student and made modifications to such information, when appropriate. I personally performed the physical exam and medical decision making. Cinda Wolfe, Feb 24, 2023,05:08 STEFANIE CONKLIN Feb 23, 2023 11:35 CINDA WOLFE DO Feb 24, 2023 05:09
[2023-02-23] MEDS: LACTULOSE SYRUP 10GM/15ML 30ML UDC PO SCH ×2 (13:34→21:32)
[2023-02-23] MEDS: DexMEDEtomidine 1,000mcg/250ml 250 ML IV SCH (13:36)
[2023-02-23] MEDS: LACTULOSE 10 GM/15 ML 30 ML POUR BOTTLE FOR ENEMA PR SCH ×4 (14:41→23:02)
[2023-02-23 21:14] LABS: HEPATITIS C ANTIBODY C Non-Reactive (Non-Reactive)
[2023-02-23] MEDS ORDERED: NS (IVPB) 250 ML 250 ML IV ONE (21:15)
[2023-02-23 22:54] LABS: BASOPHILS % (AUTO) 0 % (0-10); EOSINOPHILS % (AUTO) 0 % (0-10); HEMATOCRIT 28 % (40-54); HEMOGLOBIN 8.8 g/dL (13.3-17.7); LYMPHOCYTES # (AUTO) 0.3 10^3/uL (1.0-4.0); LYMPHOCYTES % (AUTO) 2 % (12-44); MEAN CORPUSCULAR HEMOGLOBIN 25 pg (25-34); MEAN CORPUSCULAR HGB CONC 32 g/dL (32-36); MEAN CORPUSCULAR VOLUME 80 fL (80-99); MEAN PLATELET VOLUME 11.2 fL (9.0-12.2); MONOCYTES % (AUTO) 5 % (0-12); NEUTROPHILS # (AUTO) 16.4 10^3/uL (1.8-7.8); NEUTROPHILS % (AUTO) 92 % (42-75); PLATELET COUNT 139 10^3/uL (130-400); WHITE BLOOD COUNT 17.8 10^3/uL (4.3-11.0)
[2023-02-24] MEDS: CEFEPIME 1,000 MG/NS 50 ML IVPB IV SCH ×8 (02:23→18:28)
[2023-02-24] MEDS: LACTULOSE 10 GM/15 ML 30 ML POUR BOTTLE FOR ENEMA PR SCH ×5 (03:39→20:50)
[2023-02-24] MEDS: LACTATED RINGERS 1,000 ML 1,000 ML IV SCH ×3 (04:06→20:38)
[2023-02-24 05:55] LABS: EOSINOPHILS % (AUTO) 0 % (0-10); HEMOGLOBIN 9.2 g/dL (13.3-17.7)
[2023-02-24 05:56] LABS: BASOPHILS % (AUTO) 0 % (0-10); HEMATOCRIT 29 % (40-54); LYMPHOCYTES # (AUTO) 0.3 10^3/uL (1.0-4.0); LYMPHOCYTES % (AUTO) 2 % (12-44); MEAN CORPUSCULAR HEMOGLOBIN 25 pg (25-34); MEAN CORPUSCULAR HGB CONC 32 g/dL (32-36); MEAN CORPUSCULAR VOLUME 80 fL (80-99); MEAN PLATELET VOLUME 10.7 fL (9.0-12.2); MONOCYTES # (AUTO) 0.8 10^3/uL (0.0-1.0); MONOCYTES % (AUTO) 5 % (0-12); NEUTROPHILS # (AUTO) 15.6 10^3/uL (1.8-7.8); NEUTROPHILS % (AUTO) 92 % (42-75); PLATELET COUNT 141 10^3/uL (130-400); WHITE BLOOD COUNT 16.9 10^3/uL (4.3-11.0)
[2023-02-24 06:11] LABS: ALBUMIN 2.8 GM/DL (3.2-4.5); POTASSIUM 3.9 MMOL/L (3.6-5.0)
[2023-02-24 06:12] LABS: CALCIUM 7.1 MG/DL (8.5-10.1)
[2023-02-24 06:13] LABS: TOTAL PROTEIN 4.9 GM/DL (6.4-8.2)
[2023-02-24 06:15] LABS: BILIRUBIN,TOTAL 1.7 MG/DL (0.1-1.0)
[2023-02-24 06:17] LABS: CREATININE SERUM 1.14 MG/DL (0.60-1.30); PHOSPHORUS 3.8 MG/DL (2.3-4.7)
[2023-02-24 06:20] LABS: MAGNESIUM 2.5 MG/DL (1.6-2.4)
[2023-02-24] MEDS ORDERED: POTASSIUM CHLORIDE 20 MEQ TABLET PO ONE (08:00)
[2023-02-24] MEDS: DOCUSATE SODIUM 100 MG CAPSULE PO SCH ×2 (08:13→20:50)
[2023-02-24] MEDS: LACTULOSE SYRUP 10GM/15ML 30ML UDC PO SCH ×3 (08:13→20:38)
[2023-02-24] MEDS: PANTOPRAZOLE INJECTION 40 MG VIAL IV SCH ×2 (08:13→20:38)
[2023-02-24] MEDS: SENNOSIDES 8.6 MG TABLET PO SCH ×2 (08:13→20:50)
[2023-02-24] MEDS: THIAMINE INJECTION 100 MG, FOLIC ACID INJECTION 1 MG, MULTIVITAMIN INJECTION 10 ML, MAG... IV SCH ×5 (08:13)
--- NOTE | 2023-02-24 08:17 | Cardiology Progress Note ---
Subjective Date Seen by Provider: Feb 24, 2023 Time Seen by Provider: 08:15 Subjective/Events-last exam Patient was seen at bedside, still lethargic and confused. Maintained on Precedex Focused Exam Lactate Level 02/23/23 14:15: Lactic Acid Level 2.98*H 02/24/23 05:45: Lactic Acid Level 3.33*H 02/24/23 07:55: Lactic Acid Level Laboratory Tests Test 02/24/23 05:45 02/24/23 07:55 Lactic Acid Level 3.33 MMOL/L (0.50-2.00) *H Objective-Cardiology Exam Last Set of Vital Signs Vital Signs 02/22/23 02/24/23 02/24/23 02/24/23 15:15 02:00 07:00 08:00 Temp 36.4 Pulse 78 Resp 29 FiO2 21 I&O Intake and Output 02/24/23 00:00 Intake Total 5685.2 ml Output Total 1400 ml Balance 4285.2 ml Intake Oral 1320 ml IV Total 4365.2 ml Output Urine Total 1400 ml General: Alert, Cooperative, Other (sedated) HEENT: Atraumatic Neck: Supple Lungs: Clear to Auscultation Heart: Regular Rate, Normal S1, Normal S2 Abdomen: Normal Bowel Sounds, Soft Extremities: No Clubbing, No Cyanosis Psych/Mental Status: Mood NL Results Lab Laboratory Tests 02/23/23 22:47 02/24/23 05:45 A/P-Cardiology Admission Diagnosis Generalized weakness Type II myocardial infarction Lactic acidosis Acute delirium Assessment/Plan Generalized weakness, extreme fatigue secondary to severe anemia Status post blood transfusion, monitored and followed by primary care team Mild elevation of troponin level, probably type II myocardial infarction secondary to severe anemia Underlying coronary artery disease cannot be excluded entirely. We will continue to monitor and consider work-up once more clinically stable Acute change in mental status, lethargy and delirium. Probably metabolic. Questionable heavy alcoholism with alcoholic liver disease Defer management to ICU team History of intermittent rectal bleed. Had work-up in the past and it was negative Continue to follow recommendation, consider repeating colonoscopy History of prostate cancer Questionable history of alcohol use, elevated liver enzymes. Questionable delirium tremens Patient received Precedex Managed by medical team Sinus tachycardia, secondary to hypovolemia. Lactic acidosis, probably secondary to hypovolemia TORIN SARABIA MD Feb 24, 2023 08:17
[2023-02-24] MEDS: DexMEDEtomidine 1,000mcg/250ml 250 ML IV SCH (08:22)
--- NOTE | 2023-02-24 10:01 | Progress Note ---
STEFANIE CONKLIN 02/24/23 1001: Subjective Date Seen by a Provider: Feb 24, 2023 Subjective/Events-last exam Pt was more alert than he was during my exam yesterday. He was able to respond to a few questions and tell me who he was. His only complaint was dry mouth. Pt denied having a AMBROCIO, any abdominal pains, chills, nausea, or vomiting. Pt's nurse Heriberto told me that the overnight nurse spoke to Rene's girlfriend on the phone. The girlfriend explained how the pt is a closet alcoholic and he will not admit how much he drinks. Before anyone visits his home he hides and gets rid of any alcohol he may have. Pt had a previous Xanax addiction. He was stopped being prescribed this medication earlier this year. Review of Systems General: No Chills, No Fatigue HEENT: No Head Aches Gastrointestinal: No: Nausea, Vomiting, Abdominal Pain Focused Exam Lactate Level 02/23/23 14:15: Lactic Acid Level 2.98*H 02/24/23 05:45: Lactic Acid Level 3.33*H 02/24/23 07:55: Lactic Acid Level 2.73*H Lactic Acid Level Laboratory Tests Test 02/24/23 07:55 Lactic Acid Level 2.73 MMOL/L (0.50-2.00) *H Objective Exam Last Set of Vital Signs Vital Signs Date Time Temp Pulse Resp B/P (MAP) Pulse Ox O2 Delivery O2 Flow Rate FiO2 02/24/23 09:00 89 110/79 (89) 89 Room Air 02/24/23 08:55 36.4 02/24/23 02:00 29 02/22/23 15:15 21 Capillary Refill : Less Than 3 Seconds I&O Intake and Output 02/23/23 23:59 Intake Total 5685.2 ml Output Total 1400 ml Balance 4285.2 ml Intake Oral 1320 ml IV Total 4365.2 ml Output Urine Total 1400 ml General: Moderate Distress, Other (oriented to name, place, day of week) HEENT: PERRLA, EOMI Neck: No JVD Lungs: Clear to Auscultation, Normal Air Movement Heart: Regular Rate, No Murmurs Abdomen: Normal Bowel Sounds, Soft, No Tenderness Extremities: No Clubbing, No Cyanosis Neuro: Other (pt attempted strength and ROM testing but could not follow through) Results Lab Laboratory Tests 02/23/23 10:25: Lactic Acid Level 2.74*H 02/23/23 12:10: Lactic Acid Level 2.61*H 02/23/23 12:57: Lab Scanned Report Transfusion Reaction Form 02/23/23 14:15: Lactic Acid Level 2.98*H 02/23/23 15:55: Iron Level 51, Total Iron Binding Capacity 308, Unsaturated Iron Binding Capacity 257, Transferrin % Saturation 17, Ferritin 59.1, Acetaminophen Level < 10L, Hepatitis A IgM Antibody Non-Reactive, Hepatitis B Surface Antigen Non- Reactive, Hepatitis B Core IgM Antibody Non-Reactive, Hepatitis C Antibody Non- Reactive 02/23/23 22:47: White Blood Count 17.8H, Red Blood Count 3.46L, Hemoglobin 8.8L, Hematocrit 28L, Mean Corpuscular Volume 80, Mean Corpuscular Hemoglobin 25, Mean Corpuscular Hemoglobin Concent 32, Red Cell Distribution Width 17.8H, Platelet Count 139, Mean Platelet Volume 11.2, Immature Granulocyte % (Auto) 1, Neutrophils (%) (Auto) 92H, Lymphocytes (%) (Auto) 2L, Monocytes (%) (Auto) 5, Eosinophils (%) (Auto) 0, Basophils (%) (Auto) 0, Neutrophils # (Auto) 16.4H, Lymphocytes # (Auto) 0.3L, Monocytes # (Auto) 1.0, Eosinophils # (Auto) 0.0, Basophils # (Auto) 0.0, Immature Granulocyte # (Auto) 0.2H, Percent Immature Platelet Fraction 5.6 02/24/23 05:45: White Blood Count 16.9H, Red Blood Count 3.63L, Hemoglobin 9.2L, Hematocrit 29L, Mean Corpuscular Volume 80, Mean Corpuscular Hemoglobin 25, Mean Corpuscular Hemoglobin Concent 32, Red Cell Distribution Width 18.4H, Platelet Count 141, Mean Platelet Volume 10.7, Immature Granulocyte % (Auto) 1, Neutrophils (%) (Auto) 92H, Lymphocytes (%) (Auto) 2L, Monocytes (%) (Auto) 5, Eosinophils (%) (Auto) 0, Basophils (%) (Auto) 0, Neutrophils # (Auto) 15.6H, Lymphocytes # (Auto) 0.3L, Monocytes # (Auto) 0.8, Eosinophils # (Auto) 0.0, Basophils # (Auto) 0.0, Immature Granulocyte # (Auto) 0.2H, Percent Immature Platelet Fraction 6.2, Sodium Level 134L, Potassium Level 3.9, Chloride Level 106, Carbon Dioxide Level 18L, Anion Gap 10, Blood Urea Nitrogen 35H, Creatinine 1.14, Estimat Glomerular Filtration Rate 71, BUN/Creatinine Ratio 31, Glucose Level 93, Lactic Acid Level 3.33*H, Calcium Level 7.1L, Corrected Calcium 8.1L, Phosphorus Level 3.8, Magnesium Level 2.5H, Total Bilirubin 1.7H, Aspartate Amino Transf (AST/SGOT) 842H, Alanine Aminotransferase (ALT/SGPT) 1232#H, Alkaline Phosphatase 70, Total Protein 4.9L, Albumin 2.8L 02/24/23 07:55: Lactic Acid Level 2.73*H, Ammonia 47H Microbiology 02/22/23 Blood Culture - Preliminary, Resulted 02/22/23 Urine Culture - Final, Complete NO GROWTH 02/22/23 MRSA Screen - Final, Complete MRSA not isolated Assessment/Plan Assessment/Plan Assess & Plan/Chief Complaint Assessment: Presumed alcohol induced liver injury Anemia due to possible GI bleed Anxiety Plan: Presumed alcohol induced liver injury -MELD score was a 17. -continue CIWA protocol, banana bag once a day -continue to monitor pt's labs Anemia due to possible GI bleed -Hgb has improved to 9.2 from 3.5 -continue to monitor Anxiety -continue to monitor and treat as needed Clinical Quality Measures DVT/VTE Risk/Contraindication: Other: GI BLEED CINDA WOLFE DO 02/24/231953: Subjective Time Seen by a Provider: 11:00 Subjective/Events-last exam Improved overall Precedex maintained Labs improved Review of Systems General: Fatigue, Malaise Objective Exam General: Alert, Oriented X3, Cooperative, No Acute Distress Lungs: Clear to Auscultation, Normal Air Movement Heart: Regular Rate, Normal S1, Normal S2, No Murmurs Psych/Mental Status: Mental Status NL, Mood NL Assessment/Plan Assessment/Plan Assess & Plan/Chief Complaint Monitor closely Banana bag Supervisory-Addendum Brief Verification & Attestation Participated in pt care: history, MDM, physical Personally performed: exam, history, MDM, supervision of care Care discussed with: Medical Student Procedures: n/a Results interpretation: Verified all documentation Verification and Attestation of Medical Student E/M Service A medical student performed and documented this service in my presence. I reviewed and verified all information documented by the medical student and made modifications to such information, when appropriate. I personally performed the physical exam and medical decision making. Cinda Wolfe, Feb 24, 2023,19:53 STEFANIE CONKLIN Feb 24, 2023 10:01 CINDA WOLFE DO Feb 24, 2023 19:54
--- NOTE | 2023-02-24 11:50 | Tele-ICU Progress Note ---
Subjective Date Seen by a Provider: Feb 24, 2023 Time Seen by a Provider: 10:45 Subjective/Events-last exam (Tele-ICU Physician , Progress Note ) Service provided via interactive audio and video telecommunications E-CARE system to a patient admitted to ICU bed in [facility]. Patient is seen today due to persistent need of ICU care Available chart/ vitals / labs / Images reviewed Video assessment done using teleICU camera, rest of exam as per RN He is a 68-year-old male with history of intermittent rectal bleeding presented to the emergency room with complaint of fatigue and rectal bleeding intermittently. He is found to have a severe anemia with a hemoglobin of 3.5 g and subsequently he was transfused 4 units of packed red blood cells and his hemoglobin improved to 9.0 g today. He has a borderline blood pressure of 96/58 this a.m. However he has initially some lactic acidosis and his mental status has been waxing and waning. Today his girlfriend told the staff apparently that she is a closet alcoholic. Hence he is started on banana bag as well as a CIWA protocol. He has a.'s of extreme anxiety. Impression 1. Severe gastrointestinal bleeding could be lower GI bleed however upper GI bleed cannot be ruled out 2. Alcohol abuse disorder with alcohol withdrawal syndrome 3. Severe acute and chronic blood loss anemia requiring transfusion. Recommendations 1. Continue CIWA protocol and supplement thiamine and folic acid 2. General surgical consultation for endoscopy and evaluation for GI bleed 3. Continue thiamine and folic acid along with multivitamins. 4. SCDs for DVT prophylaxis. 5. Avoid any NSAIDs and anticoagulants. Due to GI bleeding and anemia. Coordination of care with primary care physician and bedside consultants. Discussed with the bedside [employer] Heriberto. I am remotely monitoring this patient from Tele icu station in [place]. I am unable to do the bedside exam, and history/physical and pertinent information is taken from other notes in the computer and bedside staff. Certain portions of this document may have been dictated utilizing voice recognition technology such as [employer]. Inherent to this technology, typographical and grammatical errors may exist. As much as I am diligent to identify and correct to these mistakes, some errors may remain in the document. Critical care time devoted to this patient today is approximately is 20 minutes.-- Sepsis Event Evaluation Height, Weight, BMI Height: '" Weight: lbs. oz. kg; 22.72 BMI Method: Focused Exam Lactate Level 02/23/23 14:15: Lactic Acid Level 2.98*H 02/24/23 05:45: Lactic Acid Level 3.33*H 02/24/23 07:55: Lactic Acid Level 2.73*H Lactic Acid Level Laboratory Tests Test 02/24/23 07:55 Lactic Acid Level 2.73 MMOL/L (0.50-2.00) *H Exam Exam Patient acknowledged, consented, and participated in this virtual visit which w as conducted using real time audio/video Vital Signs Date Time Temp Pulse Resp B/P (MAP) Pulse Ox O2 Delivery O2 Flow Rate FiO2 02/24/23 11:02 36.8 02/24/23 11:00 86 108/77 (87) 90 Nasal Cannula 2.00 02/24/23 10:00 97 113/66 (82) 91 Room Air 02/24/23 09:57 36.6 02/24/23 09:00 89 110/79 (89) 89 Room Air 02/24/23 08:55 36.4 02/24/23 08:22 78 94/61 02/24/23 08:00 74 101/67 (78) 93 Room Air 02/24/23 08:00 36.4 02/24/23 08:00 91 Room Air 02/24/23 07:00 71 108/77 (87) 89 Room Air 02/24/23 07:00 78 02/24/23 06:00 75 94/61 (77) 92 Room Air 02/24/23 06:00 75 94/61 02/24/23 05:00 81 99/69 (77) 93 Room Air 02/24/23 04:00 91 Room Air 02/24/23 04:00 75 94/69 (80) 91 Room Air 02/24/23 03:00 81 99/71 (86) 91 Room Air 02/24/23 02:00 71 29 91/67 (74) 93 Room Air 02/24/23 01:00 66 02/24/23 01:00 66 25 93/60 (69) 93 Room Air 02/24/23 00:00 91 Room Air 02/24/23 00:00 64 90/64 (73) 93 Room Air 02/23/23 23:23 71 96/66 02/23/23 23:21 75 96/66 (76) 94 Room Air 02/23/23 23:00 64 80/53 (66) 93 Room Air 02/23/23 22:30 62 81/44 02/23/23 22:00 65 78/60 (64) 95 Room Air 02/23/23 22:00 65 78/60 02/23/23 21:32 63 81/58 02/23/23 21:00 63 79/58 (67) 93 Room Air 02/23/23 20:45 63 81/56 02/23/23 20:35 36.3 02/23/23 20:00 97 Room Air 02/23/23 20:00 73 21 93/70 (79) 97 Room Air 02/23/23 20:00 36.5 02/23/23 19:15 36.7 02/23/23 19:00 63 24 82/56 (66) 91 Room Air 02/23/23 19:00 63 02/23/23 18:00 80 107/80 (89) 97 Room Air 02/23/23 17:36 65 87/63 02/23/23 17:00 65 25 87/63 (71) 95 Room Air 02/23/23 16:52 36.5 02/23/23 16:00 64 25 90/59 (69) 97 Room Air 02/23/23 16:00 96 Room Air 02/23/23 15:00 65 19 94/67 (76) 95 Room Air 02/23/23 14:00 66 19 97/73 (81) 96 Room Air 02/23/23 13:36 71 106/76 02/23/23 13:00 70 27 98/70 (79) 96 Room Air 02/23/23 12:21 71 02/23/23 12:00 96 Room Air 02/23/23 12:00 71 21 106/76 (86) 93 Room Air I & O 02/24/23 06:59 Intake Total 3965.2 ml Output Total 1250 ml Balance 2715.2 ml Height & Weight Height: '" Weight: lbs. oz. kg; 22.72 BMI Method: General Appearance: Anxious, Moderate Distress HEENT: PERRL/EOMI, Pharynx Normal, Pale Conjunctivae (L), Pale Conjunctivae (R) Respiratory: Lungs Clear, No Respiratory Distress Cardiovascular: No Murmur, Tachycardia Capillary Refill: Less Than 3 Seconds Gastrointestinal: soft, no organomegaly; No distended; hernia (very small umbilical, incarcerated right inguinal (large) and incarcerated left inguinal ) Extremity: Normal Inspection, Non Tender, No Pedal Edema Neurologic/Psychiatric: Alert, Motor Weakness, Other (anxious) Skin: Cool, Pallor Results Lab Laboratory Tests 02/22/23 20:55 02/23/23 04:03 02/23/23 22:47 02/24/23 05:45 Assessment/Plan Assessment/Plan As above Critical Care: Critically Ill Patient Time spent with patient (mins): 20 PRAKASH MATA MD Feb 24, 2023 11:49
[2023-02-24] MEDS: LORazepam 1 MG TABLET PO PRN ×2 (11:54→13:30)
--- NOTE | 2023-02-24 13:17 | CONSULTATION REPORT ---
DATE OF SERVICE: 02/24/2023 ATTENDING PRIMARY CARE PHYSICIAN: [facility]. ADMITTING PHYSICIAN: Cinda Cruz DO HISTORY OF PRESENT ILLNESS: The patient is a 68-year-old male known to us. He was initially referred over to us in 06/2022 for rectal bleeding, which he had noticed 3 months previous and had reported small amounts of red blood per rectum approximately every other day. At that time, he has not had any previous colonoscopies. He also does have a family history of colon cancer with his sister having the disease. On this admission, it was found that he does drink a significant amount of alcohol on a daily basis and at this time, it appears to be extremely confused and detoxifying from alcohol withdrawal symptoms. The patient presented with weakness, fatigue, confusion and was found to have a hemoglobin in the 4-range. He was resuscitated with 4 units of packed red blood cells and his hemoglobin has gone up appropriately and maintained. He is not clinically bleeding, does not have any issues with nausea, no vomiting, and is on a clear liquid diet. He has not had a bowel movement from what we know on this admission. He did undergo colonoscopy on 07/09/2022 and was found to have a radiation proctitis as well as a small ascending colonic polyp, which was a benign tubular adenoma. We feel that he likely continues to have bleeding on an intermittent basis from the radiation proctitis and does not realize this due to his other social issues. The patient also could have an upper gastrointestinal bleeding source too due to his risk factors as well. An ultrasound was also performed, which did show cholesterolosis, which is likely consistent with symptomatic biliary dyskinesia. However, these issues do not need to be addressed at this time and more appropriate when he has detoxified and in a healthier physical and cognitive state. PAST MEDICAL HISTORY: Prostate cancer, alcoholism. PAST SURGICAL HISTORY: Prostatectomy and radiation, 04/24/2019. ALLERGIES: No known drug allergies. MEDICATIONS: None. SOCIAL HISTORY: Negative smoker, positive alcohol. FAMILY HISTORY: Sister, colon cancer. VITAL SIGNS: Stable. Systolic blood pressure in the 120's to 130's, heart rate 74. REVIEW OF SYSTEMS: Well-nourished male who is awake, however, is severely confused and is not oriented to person, place or time. He does not appear to be in any acute distress. He is not having any episodes of nausea, no vomiting. Since admission, he has not had a bowel movement. No episodes of red blood per rectum, nor any dark tarry stools. No known chest pain, palpitations, diaphoresis. No shortness of breath, cough nor sputum production. No fever, chills, no recent inadvertent weight loss. All other review of systems negative. PHYSICAL EXAMINATION: CHEST: Few scattered rales bilaterally. HEART: Regular. No murmurs. EXTREMITIES: No lower extremity edema. Negative Homans sign. HEENT: No scleral icterus. No cervical lymphadenopathy. ABDOMEN: Soft, nontender, nondistended. SKIN: Warm, dry. ASSESSMENT AND PLAN: A 68-year-old male with profound anemia and recently discovered history of alcoholism and currently exhibiting alcohol withdrawal delirium and is on a Precedex drip. The patient is not clinically bleeding and his hemoglobin has responded appropriately after transfusion of 4 units of packed red blood cells. This is also been stable for the past 48 hours. He has not also he is also not showing any signs of clinical bleeding. He did undergo a recent colonoscopy in 06/2022 and was found to have a radiation proctitis due to his previous history of prostatectomy and radiation to the pelvic region, which was also confirmed on recent pathology. We feel that due to his social issues, he continues to be noncompliant and does have episodes of bleeding that he is unaware of. Also, due to social issues, he likely does have some level of gastritis and maybe also losing blood on a slow chronic level from his upper gastrointestinal tract. The patient also did have an ultrasound, which did show cholesterolosis of the liver, likely indicating some level of biliary dyskinesia. We feel that at some point, he will need an EGD, colonoscopy, as well as a laparoscopic cholecystectomy; however, only if he is able to detoxify and is in a cognitive and physically healthier state. 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 If he does have any episodes of rectal bleeding, my recommendation would be to proceed with sucralfate enemas versus oral steroids. Job ID: [id number] DocumentID: [id number] Dictated Date: 02/24/2023 12:19:25 Certified Pest Control Technician Date: 02/24/2023 13:05:00 Dictated By: FATMATA JUNIOR MD [facility]PITALLilian
[2023-02-25] MEDS: CEFEPIME 1,000 MG/NS 50 ML IVPB IV SCH ×8 (00:28→17:27)
[2023-02-25] MEDS: LACTULOSE 10 GM/15 ML 30 ML POUR BOTTLE FOR ENEMA PR SCH ×6 (00:28→20:02)
[2023-02-25] MEDS: ACETAMINOPHEN 325 MG TABLET PO PRN (04:38)
[2023-02-25 05:09] LABS: BASOPHILS % (AUTO) 0 % (0-10); EOSINOPHILS % (AUTO) 0 % (0-10); HEMATOCRIT 30 % (40-54); HEMOGLOBIN 9.2 g/dL (13.3-17.7); LYMPHOCYTES # (AUTO) 0.3 10^3/uL (1.0-4.0); LYMPHOCYTES % (AUTO) 2 % (12-44); MEAN CORPUSCULAR HEMOGLOBIN 25 pg (25-34); MEAN CORPUSCULAR HGB CONC 31 g/dL (32-36); MEAN CORPUSCULAR VOLUME 81 fL (80-99); MEAN PLATELET VOLUME 11.6 fL (9.0-12.2); MONOCYTES # (AUTO) 0.9 10^3/uL (0.0-1.0); MONOCYTES % (AUTO) 6 % (0-12); NEUTROPHILS % (AUTO) 91 % (42-75); PLATELET COUNT 116 10^3/uL (130-400); WHITE BLOOD COUNT 15.5 10^3/uL (4.3-11.0)
[2023-02-25] MEDS: LACTATED RINGERS 1,000 ML 1,000 ML IV SCH (05:12)
[2023-02-25 05:25] LABS: ALBUMIN 2.7 GM/DL (3.2-4.5); POTASSIUM 4.2 MMOL/L (3.6-5.0)
[2023-02-25 05:27] LABS: CALCIUM 7.3 MG/DL (8.5-10.1)
[2023-02-25 05:28] LABS: TOTAL PROTEIN 5.6 GM/DL (6.4-8.2)
[2023-02-25 05:29] LABS: BILIRUBIN,TOTAL 1.5 MG/DL (0.1-1.0)
[2023-02-25 05:31] LABS: PHOSPHORUS 2.5 MG/DL (2.3-4.7)
[2023-02-25 05:32] LABS: CREATININE SERUM 0.83 MG/DL (0.60-1.30)
[2023-02-25 05:34] LABS: MAGNESIUM 2.4 MG/DL (1.6-2.4)
--- NOTE | 2023-02-25 06:12 | Diagnostic Imaging Report ---
EXAMINATION: Abdomen 1 view HISTORY: Abdominal pain COMPARISON: None available. FINDINGS: There is large volume of air seen within the presumed colon diffusely. What appears to be the cecum is dilated up to 9.8 cm. Nonobstructive small bowel gas pattern. No radiopaque foreign body. The lung bases are clear. The osseous structures are intact. IMPRESSION: Significant gaseous distention of the colon which is nonspecific. Air appears to extend to the level of the rectum which is only partially visualized. Consider follow-up abdominal radiograph after extrusion of some of the bowel air to exclude obstruction. Dictated by: Dictated on workstation # [id number]
[2023-02-25] MEDS: PANTOPRAZOLE INJECTION 40 MG VIAL IV SCH ×2 (08:08→21:18)
[2023-02-25] MEDS: LACTULOSE SYRUP 10GM/15ML 30ML UDC PO SCH ×3 (08:08→20:04)
[2023-02-25] MEDS: THIAMINE INJECTION 100 MG, FOLIC ACID INJECTION 1 MG, MULTIVITAMIN INJECTION 10 ML, MAG... IV SCH ×5 (08:08)
[2023-02-25] MEDS: DOCUSATE SODIUM 100 MG CAPSULE PO SCH ×2 (08:10→20:04)
[2023-02-25] MEDS: SENNOSIDES 8.6 MG TABLET PO SCH ×2 (08:10→20:04)
--- NOTE | 2023-02-25 09:38 | Progress Note ---
STEFANIE CONKLIN 02/25/23 0938: Subjective Date Seen by a Provider: Feb 25, 2023 Subjective/Events-last exam Pt was confused during exam. He was unable to tell me his name, location, or r suraj for being in the hospital. He kept asking what his name was and where he was at. Pt was unable to answer any ROS questions for me. Pt had a BM around 10am that was ~50mL of blood. Focused Exam Lactate Level 02/23/23 14:15: Lactic Acid Level 2.98*H 02/24/23 05:45: Lactic Acid Level 3.33*H 02/24/23 07:55: Lactic Acid Level 2.73*H Objective Exam Last Set of Vital Signs Vital Signs Date Time Temp Pulse Resp B/P (MAP) Pulse Ox O2 Delivery O2 Flow Rate FiO2 02/25/23 07:43 36.2 02/25/23 06:00 93 18 91 Nasal Cannula 2.00 02/22/23 15:15 21 Capillary Refill : Less Than 3 Seconds I&O Intake and Output 02/24/23 23:59 Intake Total 4385.2 ml Output Total 1475 ml Balance 2910.2 ml Intake Oral 1220 ml IV Total 3165.2 ml Output Urine Total 1475 ml General: Moderate Distress (pt was restless throughout exam and was very anxious) HEENT: PERRLA, EOMI Neck: No JVD Lungs: Clear to Auscultation, Normal Air Movement Heart: Regular Rate, No Murmurs Abdomen: No Tenderness, Other (distended in Right and Left Upper Quadrants) Extremities: No Clubbing, No Cyanosis Neuro: Other (pt was unable to report his name, where he was at, or reason for admission) Psych/Mental Status: Other (very anxious) Results Lab Laboratory Tests 02/25/23 04:19: White Blood Count 15.5H, Red Blood Count 3.64L, Hemoglobin 9.2L, Hematocrit 30L, Mean Corpuscular Volume 81, Mean Corpuscular Hemoglobin 25, Mean Corpuscular Hemoglobin Concent 31L, Red Cell Distribution Width 19.0H, Platelet Count 116L, Mean Platelet Volume 11.6, Immature Granulocyte % (Auto) 2, Neutrophils (%) (Auto) 91H, Lymphocytes (%) (Auto) 2L, Monocytes (%) (Auto) 6, Eosinophils (%) (Auto) 0, Basophils (%) (Auto) 0, Neutrophils # (Auto) 14.0H, Lymphocytes # (Auto) 0.3L, Monocytes # (Auto) 0.9, Eosinophils # (Auto) 0.0, Basophils # (Auto) 0.0, Immature Granulocyte # (Auto) 0.3H, Percent Immature Platelet Fraction 6.0, Sodium Level 135, Potassium Level 4.2, Chloride Level 108H, Carbon Dioxide Level 17L, Anion Gap 10, Blood Urea Nitrogen 17, Creatinine 0.83, Estimat Glomerular Filtration Rate 97, BUN/Creatinine Ratio 20, Glucose Level 90, Calcium Level 7.3L, Corrected Calcium 8.3L, Phosphorus Level 2.5, Magnesium Level 2.4, Total Bilirubin 1.5H, Aspartate Amino Transf (AST/SGOT) 351H, Alanine Aminotransferase (ALT/SGPT) 902#H, Alkaline Phosphatase 65, Total Protein 5.6L, Albumin 2.7L Microbiology 02/22/23 Blood Culture - Preliminary, Resulted 02/22/23 Urine Culture - Final, Complete NO GROWTH 02/22/23 MRSA Screen - Final, Complete MRSA not isolated Assessment/Plan Assessment/Plan Assess & Plan/Chief Complaint Assessment: Presumed alcohol induced liver injury Anemia due to possible GI bleed Anxiety Plan: Presumed alcohol induced liver injury -MELD score was a 17. -continue CIWA protocol, banana bag once a day -AST is down to 351 from 842. ALT is down to 902 from 1232. -continue supportive care and monitor labs Anemia due to possible GI bleed -Hgb has improved to 9.5 from 9.2 -continue to monitor Anxiety -continue to monitor and treat as needed Clinical Quality Measures DVT/VTE Risk/Contraindication: Other: GI BLEED CINDA WOLFE DO 02/25/23 1936: Subjective Time Seen by a Provider: 11:00 Subjective/Events-last exam not much change today Bloody stools noted Still requiring Precedex Very severe withdrawal Objective Exam General: Other (Lethargic and confused) Lungs: Clear to Auscultation Heart: Regular Rate Assessment/Plan Assessment/Plan Assess & Plan/Chief Complaint Continue supportive care Monitor bloody stools Continue ICU Supervisory-Addendum Brief Verification & Attestation Participated in pt care: history, MDM, physical Personally performed: exam, history, MDM, supervision of care Care discussed with: Medical Student Procedures: n/a Results interpretation: Verified all documentation Verification and Attestation of Medical Student E/M Service A medical student performed and documented this service in my presence. I reviewed and verified all information documented by the medical student and made modifications to such information, when appropriate. I personally performed the physical exam and medical decision making. Cinda Wolfe, Feb 25, 2023,19:35 STEFANIE CONKLIN Feb 25, 2023 09:38 CINDA WOLFE DO Feb 25, 2023 19:36
--- NOTE | 2023-02-25 10:12 | Tele-ICU Progress Note ---
Subjective Date Seen by a Provider: Feb 25, 2023 Time Seen by a Provider: 10:12 Subjective/Events-last exam (Tele-ICU Physician , Progress Note ) Service provided via interactive audio and video telecommunications E-CARE system to a patient admitted to ICU bed in [facility]. Patient is seen today due to persistent need of ICU care Available chart/ vitals / labs / Images reviewed Video assessment done using teleICU camera, rest of exam as per RN Discussed with RN Events overnight : Afebrile hemodynamically stable Respiratory - 2L I/O =+ Drips: banana bag Pressors- no Hospital course: (02-22) 68 y/o M -LGI Bleed - Anemia - Hgb 3.5 - 4 PRBC transfused., precedex gtt for anxiety 02/23 - hb stable after 4 units, agitaed - on precedex , elv LFT - abx started , US liver A/P Dyspnea. mild hypoxia - most likely VO - check CXR , stop IVF for now , consider diuresis Cardiomyopathy - ECHO 02/24/2023 - EF 25%, RVSP 35 mm Hg - ? etiology ( etoh? , anemia? CAD? , -check TSH - cards on case - follow recom Severe anemia with Hb 3.6 - presumed ABLA ( s/p Colonoscopy with biopsy and polypectomy 06/2022 ( suspected proctitis but the pathology called it a hyperplastic polyp, CT abd/p 06/2022) -Improved to 9.1 after 4u pRBC transfusion , stable now -PPI bid -Sx consulted- w/up when more stable Elevated LFT- IMPROVING - ? ischemia with severe anemia - US-holesterolosis of the liver, likely indicating some level of biliary dyskinesia - as per sx Severely elevated lactate - Type-B lactic acidosis suspected - will check thiamine and give loading dose now - empiric abx initiated Anxiety/confusion- as per chart has "anxiety and panic attacks" and h/o attempts to "wean off xanax" - nonfocal exam, IMPROVING - elev ammonia on 02/23- tx with lactulose - improved - ? ETON use- ? DT - precedex - will try to wean off , prn benzo ,( also was on fluoxetine - but timeline and symproms not consistent with withdrawal H/o prostate CA -s/p prostatectomy Lines : periph , (Central Line Necessity Reviewed) Sahu: + OG: Nutrition: npo Analgesia: Anxiety/ delirium VTE Prophylaxis: scd Stress Ulcer Prophylaxis: ppi Plans in collaboration with bedside consultants and IM MDs. Discussed with RN to reach out if any questions or concerns A total of 31 minutes of critical care time was devoted to this patient today, required to treat and/or prevent further deterioration of critical care condition ( as above ) . I am remotely monitoring this patient from another state. I am unable to do the bedside exam, and history/physical and pertinent information is taken from other notes in the computer and bedside staff. . Sepsis Event Evaluation Height, Weight, BMI Height: '" Weight: lbs. oz. kg; 23.87 BMI Method: Focused Exam Lactate Level 02/23/23 14:15: Lactic Acid Level 2.98*H 02/24/23 05:45: Lactic Acid Level 3.33*H 02/24/23 07:55: Lactic Acid Level 2.73*H Exam Exam Patient acknowledged, consented, and participated in this virtual visit which was conducted using real time audio/video Vital Signs Date Time Temp Pulse Resp B/P (MAP) Pulse Ox O2 Delivery O2 Flow Rate FiO2 02/25/23 07:43 36.2 02/25/23 07:19 35.8 02/25/23 07:00 94 02/25/23 06:00 93 18 102/68 (81) 91 Nasal Cannula 2.00 02/25/23 05:15 37.2 02/25/23 05:00 86 110/66 (88) 91 Nasal Cannula 2.00 02/25/23 04:38 37.8 02/25/23 04:00 93 30 119/76 (92) 92 Nasal Cannula 2.00 02/25/23 04:00 92 Nasal Cannula 2.00 02/25/23 03:40 37.0 95 20 108/70 (83) 92 Nasal Cannula 2.00 02/25/23 03:00 92 38 115/67 (94) 92 Nasal Cannula 2.00 02/25/23 02:00 96 15 128/80 (95) 91 Nasal Cannula 2.00 02/25/23 01:00 93 38 118/86 (101) 93 Nasal Cannula 2.00 02/25/23 01:00 93 02/25/23 00:16 36.7 87 20 120/78 (92) 94 Nasal Cannula 2.00 02/25/23 00:00 95 119/93 (102) 91 Nasal Cannula 2.00 02/25/23 00:00 91 Nasal Cannula 2.00 02/24/23 23:00 88 104/73 (93) 94 Nasal Cannula 2.00 02/24/23 22:00 87 108/67 (84) 96 Nasal Cannula 2.00 02/24/23 21:00 75 99/58 (73) 94 Nasal Cannula 2.00 02/24/23 20:15 93 Nasal Cannula 2.00 02/24/23 20:00 78 103/65 (75) 93 Nasal Cannula 2.00 02/24/23 19:45 76 101/65 (79) 93 Nasal Cannula 2.00 02/24/23 19:30 93 116/77 (90) 92 Nasal Cannula 2.00 02/24/23 19:15 76 92/57 (74) 93 Nasal Cannula 2.00 02/24/23 19:06 91 Nasal Cannula 28.00 02/24/23 19:00 92 02/24/23 19:00 92 108/77 (88) 93 Nasal Cannula 2.00 02/24/23 19:00 77 108/77 02/24/23 18:00 83 106/78 (87) 91 Nasal Cannula 2.00 02/24/23 17:00 82 105/63 (77) 91 Nasal Cannula 2.00 02/24/23 16:00 36.8 02/24/23 16:00 95 Nasal Cannula 2.00 02/24/23 16:00 76 89/61 (70) 95 Nasal Cannula 2.00 02/24/23 15:00 90 110/87 (95) 92 Nasal Cannula 2.00 02/24/23 14:48 36.8 02/24/23 14:00 83 113/63 (80) 93 Nasal Cannula 2.00 02/24/23 13:57 36.8 02/24/23 13:00 81 93/64 (74) 94 Nasal Cannula 2.00 02/24/23 13:00 36.7 02/24/23 13:00 95 02/24/23 12:22 85 100/75 02/24/23 12:00 95 Nasal Cannula 2.00 02/24/23 12:00 36.9 02/24/23 12:00 85 100/75 (83) 94 Nasal Cannula 2.00 02/24/23 11:02 36.8 02/24/23 11:00 86 108/77 (87) 90 Nasal Cannula 2.00 I & O 02/25/23 06:59 Intake Total 4145.2 ml Output Total 1525 ml Balance 2620.2 ml Height & Weight Height: '" Weight: lbs. oz. kg; 23.87 BMI Method: General Appearance: Anxious, Moderate Distress HEENT: PERRL/EOMI, Pharynx Normal, Pale Conjunctivae (L), Pale Conjunctivae (R) Respiratory: Lungs Clear, No Respiratory Distress Cardiovascular: No Murmur, Tachycardia Capillary Refill: Less Than 3 Seconds Gastrointestinal: soft, no organomegaly; No distended; hernia (very small umbilical, incarcerated right inguinal (large) and incarcerated left inguinal ) Extremity: Normal Inspection, Non Tender, No Pedal Edema Neurologic/Psychiatric: Alert, Motor Weakness, Other (anxious) Skin: Cool, Pallor Results Lab Laboratory Tests 02/23/23 22:47 02/24/23 05:45 02/25/23 04:19 Assessment/Plan Assessment/Plan 1 VIKAS MIGUEL MD Feb 25, 2023 10:12
[2023-02-25] MEDS ORDERED: FUROSEMIDE INJECTION 40 MG/4 ML VIAL IVP ONE (10:15)
--- NOTE | 2023-02-25 10:25 | Diagnostic Imaging Report ---
INDICATION: Hypoxia. COMPARISON: None. FINDINGS: Frontal radiographic view of the chest was obtained and shows diffuse interstitial prominence with more confluent alveolar appearing opacities within the bilateral upper and lower lungs. Small effusions may be present. There is no pneumothorax. Cardiac silhouette is within normal limits. Osseous structures show no acute abnormalities. IMPRESSION: 1. Diffuse bilateral infiltrate, concerning for pneumonia. Pulmonary edema is also a consideration although felt to be less likely. 2. Small bibasilar effusions. Dictated by: Dictated on workstation # [id number]
[2023-02-25 10:37] LABS: ABG BASE EXCESS -1.5 MMOL/L (-2.5-2.5); ABG OXYGEN SATURATION 90 % (94-100); ABG PCO2 29 MMHG (35-45); ABG PH 7.47 (7.37-7.43); ABG PO2 56 MMHG (79-93)
[2023-02-25 10:40] LABS: HEMATOCRIT 30 % (40-54); HEMOGLOBIN 9.5 g/dL (13.3-17.7); MEAN CORPUSCULAR HEMOGLOBIN 26 pg (25-34); MEAN CORPUSCULAR HGB CONC 32 g/dL (32-36); MEAN CORPUSCULAR VOLUME 81 fL (80-99); MEAN PLATELET VOLUME 11.4 fL (9.0-12.2); PLATELET COUNT 102 10^3/uL (130-400); WHITE BLOOD COUNT 16.7 10^3/uL (4.3-11.0)
[2023-02-25 10:42] LABS: INSPIRED O2 3 L; VENTILATOR NO
[2023-02-25 11:19] LABS: INR 1.5 (0.8-1.4)
--- NOTE | 2023-02-25 11:44 | Cardiology Progress Note ---
Subjective Date Seen by Provider: Feb 25, 2023 Time Seen by Provider: 11:38 Subjective/Events-last exam Patient was seen at bedside more awake today, still confused, disoriented. Review of Systems General: No Chills, No Night Sweats; Fatigue, Malaise; No Appetite, No Other HEENT: No Head Aches, No Visual Changes, No Eye Pain, No Ear Pain, No Dysphasia, No Sinus Congestion, No Post Nasal Drip, No Sore Throat, No Other Pulmonary: Dyspnea; No Cough, No Pleuritic Chest Pain, No Other Cardiovascular: No: Chest Pain, Palpitations, Orthopnea, Paroxysmal Noc. Dyspnea, Edema, Lt Headedness, Other Focused Exam Lactate Level 02/23/23 14:15: Lactic Acid Level 2.98*H 02/24/23 05:45: Lactic Acid Level 3.33*H 02/24/23 07:55: Lactic Acid Level 2.73*H Objective-Cardiology Exam Last Set of Vital Signs Vital Signs 02/22/23 02/25/23 02/25/23 02/25/23 15:15 07:43 09:00 10:43 Temp 36.2 Pulse 96 Resp 32 B/P (MAP) 149/87 (107) Pulse Ox 91 O2 Delivery Nasal Cannula O2 Flow Rate 3.00 FiO2 21 I&O Intake and Output 02/24/23 23:59 Intake Total 4385.2 ml Output Total 1475 ml Balance 2910.2 ml Intake Oral 1220 ml IV Total 3165.2 ml Output Urine Total 1475 ml General: Alert, Mild Distress HEENT: PERRLA, EOMI Neck: No JVD Lungs: Clear to Auscultation, Normal Air Movement Heart: Regular Rate, Normal S1, Normal S2, No Murmurs Abdomen: No Tenderness, Other (distended in Right and Left Upper Quadrants) Extremities: No Clubbing, No Cyanosis Neuro: Other (Confused) Psych/Mental Status: Other (very anxious) Results Lab Laboratory Tests 02/25/23 04:19 02/25/23 10:30 A/P-Cardiology Admission Diagnosis Generalized weakness Type II myocardial infarction Lactic acidosis Acute delirium Assessment/Plan Generalized weakness, extreme fatigue, confusion, delirium. Probably secondary to alcoholism Underlying cause is not identified fully yet, work-up is in process with the primary care team. Congestive heart failure, acute left ventricular systolic dysfunction, probably nonischemic cardiomyopathy Questionable underlying alcoholism and it might be secondary to alcoholic heart disease. Underlying coronary artery disease cannot be excluded, will need extensive work- up once patient mental status is back to baseline Acute change in mental status, probably metabolic secondary to heavy alcoholism, alcoholic liver disease or metabolic acidosis. Management per ICU team. History of intermittent rectal bleed. Had work-up in the past and it was negative Continue to follow recommendation, consider repeating colonoscopy History of prostate cancer Questionable history of alcohol use, elevated liver enzymes. Questionable delirium tremens Patient received Precedex Managed by medical team Sinus tachycardia, secondary to hypovolemia. Lactic acidosis, probably secondary to hypovolemia TORIN SARABIA MD Feb 25, 2023 11:44
--- NOTE | 2023-02-25 13:52 | Diagnostic Imaging Report ---
EXAMINATION: Chest 1 view HISTORY: Left PICC placement. COMPARISON: Chest radiograph performed earlier the same date. FINDINGS/ IMPRESSION: Interval placement of a left PICC with the tip overlying the mid SVC. Otherwise, stable chest. Dictated by: Dictated on workstation # [id number]
--- NOTE | 2023-02-25 15:59 | Progress Note ---
Subjective Date Seen by a Provider: Feb 25, 2023 Time Seen by a Provider: 15:30 Subjective/Events-last exam patient clinically stable with no signs of current GI bleed. remains very confused likely from ETOH withdrawal. Focused Exam Lactate Level 02/23/23 14:15: Lactic Acid Level 2.98*H 02/24/23 05:45: Lactic Acid Level 3.33*H 02/24/23 07:55: Lactic Acid Level 2.73*H Objective Exam Vital Signs Date Time Temp Pulse Resp B/P (MAP) Pulse Ox O2 Delivery O2 Flow Rate FiO2 02/25/23 15:53 36.0 02/25/23 15:00 100 22 123/92 (102) 93 Nasal Cannula 2.00 02/25/23 14:00 100 47 123/85 (98) 94 Nasal Cannula 2.00 02/25/23 13:00 116 02/25/23 13:00 113 46 92 Nasal Cannula 2.00 02/25/23 12:19 36.4 02/25/23 12:16 91 Nasal Cannula 2.00 02/25/23 12:00 105 91 24 Nasal Cannula 2.00 02/25/23 11:00 98 32 134/89 (104) 88 Nasal Cannula 2.00 02/25/23 10:43 91 Nasal Cannula 3.00 02/25/23 10:00 101 23 Nasal Cannula 2.00 02/25/23 09:00 96 32 149/87 (107) 89 Nasal Cannula 2.00 02/25/23 08:00 92 27 137/94 (108) 94 Nasal Cannula 2.00 02/25/23 07:43 36.2 02/25/23 07:41 90 Nasal Cannula 2.00 02/25/23 07:19 35.8 02/25/23 07:00 95 17 115/79 (91) 91 Nasal Cannula 2.00 02/25/23 07:00 94 02/25/23 06:00 93 18 102/68 (81) 91 Nasal Cannula 2.00 02/25/23 05:15 37.2 02/25/23 05:00 86 110/66 (88) 91 Nasal Cannula 2.00 02/25/23 04:38 37.8 02/25/23 04:00 93 30 119/76 (92) 92 Nasal Cannula 2.00 02/25/23 04:00 92 Nasal Cannula 2.00 02/25/23 03:40 37.0 95 20 108/70 (83) 92 Nasal Cannula 2.00 02/25/23 03:00 92 38 115/67 (94) 92 Nasal Cannula 2.00 02/25/23 02:00 96 15 128/80 (95) 91 Nasal Cannula 2.00 02/25/23 01:00 93 38 118/86 (101) 93 Nasal Cannula 2.00 02/25/23 01:00 93 02/25/23 00:16 36.7 87 20 120/78 (92) 94 Nasal Cannula 2.00 02/25/23 00:00 95 119/93 (102) 91 Nasal Cannula 2.00 02/25/23 00:00 91 Nasal Cannula 2.00 02/24/23 23:00 88 104/73 (93) 94 Nasal Cannula 2.00 02/24/23 22:00 87 108/67 (84) 96 Nasal Cannula 2.00 02/24/23 21:00 75 99/58 (73) 94 Nasal Cannula 2.00 02/24/23 20:15 93 Nasal Cannula 2.00 02/24/23 20:00 78 103/65 (75) 93 Nasal Cannula 2.00 02/24/23 19:45 76 101/65 (79) 93 Nasal Cannula 2.00 02/24/23 19:30 93 116/77 (90) 92 Nasal Cannula 2.00 02/24/23 19:15 76 92/57 (74) 93 Nasal Cannula 2.00 02/24/23 19:06 91 Nasal Cannula 28.00 02/24/23 19:00 92 02/24/23 19:00 92 108/77 (88) 93 Nasal Cannula 2.00 02/24/23 19:00 77 108/77 02/24/23 18:00 83 106/78 (87) 91 Nasal Cannula 2.00 02/24/23 17:00 82 105/63 (77) 91 Nasal Cannula 2.00 02/24/23 16:00 36.8 02/24/23 16:00 95 Nasal Cannula 2.00 02/24/23 16:00 76 89/61 (70) 95 Nasal Cannula 2.00 I & O 02/25/23 06:59 Intake Total 4145.2 ml Output Total 1525 ml Balance 2620.2 ml Capillary Refill : Less Than 3 Seconds General Appearance: No Apparent Distress HEENT: PERRL/EOMI Neck: Full Range of Motion Respiratory: Chest Non Tender Cardiovascular: Regular Rate, Rhythm Gastrointestinal: normal bowel sounds, non tender, soft Extremity: Normal Capillary Refill Neurologic/Psychiatric: Alert, Oriented x3 Skin: Normal Color Lymphatic: No Adenopathy Results Lab Laboratory Tests 02/25/23 04:19: White Blood Count 15.5H, Red Blood Count 3.64L, Hemoglobin 9.2L, Hematocrit 30L, Mean Corpuscular Volume 81, Mean Corpuscular Hemoglobin 25, Mean Corpuscular Hemoglobin Concent 31L, Red Cell Distribution Width 19.0H, Platelet Count 116L, Mean Platelet Volume 11.6, Immature Granulocyte % (Auto) 2, Neutrophils (%) (Auto) 91H, Lymphocytes (%) (Auto) 2L, Monocytes (%) (Auto) 6, Eosinophils (%) (Auto) 0, Basophils (%) (Auto) 0, Neutrophils # (Auto) 14.0H, Lymphocytes # (Auto) 0.3L, Monocytes # (Auto) 0.9, Eosinophils # (Auto) 0.0, Basophils # (Auto) 0.0, Immature Granulocyte # (Auto) 0.3H, Percent Immature Platelet Fraction 6.0, Sodium Level 135, Potassium Level 4.2, Chloride Level 108H, Carbon Dioxide Level 17L, Anion Gap 10, Blood Urea Nitrogen 17, Creatinine 0.83, Wendy mat Glomerular Filtration Rate 97, BUN/Creatinine Ratio 20, Glucose Level 90, Calcium Level 7.3L, Corrected Calcium 8.3L, Phosphorus Level 2.5, Magnesium Level 2.4, Total Bilirubin 1.5H, Aspartate Amino Transf (AST/SGOT) 351H, Alanine Aminotransferase (ALT/SGPT) 902#H, Alkaline Phosphatase 65, Total Protein 5.6L, Albumin 2.7L, Thyroid Stimulating Hormone (TSH) 0.73 02/25/23 10:30: White Blood Count 16.7H, Red Blood Count 3.69L, Hemoglobin 9.5L, Hematocrit 30L, Mean Corpuscular Volume 81, Mean Corpuscular Hemoglobin 26, Mean Corpuscular Hemoglobin Concent 32, Red Cell Distribution Width 19.5H, Platelet Count 102L, M katalina Platelet Volume 11.4, Arterial Blood pH 7.47H, Arterial Blood Partial Pressure CO2 29L, Arterial Blood Partial Pressure O2 56L, Arterial Blood HCO3 21L, Arterial Blood Total CO2 22.0, Arterial Blood Oxygen Saturation 90L, Arterial Blood Base Excess -1.5, Blood Gas Ventilator Setting NO, Blood Gas Inspired Oxygen 3 L 02/25/23 11:00: Prothrombin Time 19.0H, INR Comment 1.5H Microbiology 02/22/23 Blood Culture - Preliminary, Resulted 02/22/23 Urine Culture - Final, Complete NO GROWTH 02/22/23 MRSA Screen - Final, Complete MRSA not isolated Assessment/Plan Assessment/Plan Assess & Plan/Chief Complaint anemia and rectal bleed due to radiation proctitis. no current clinical bleed. cont current therapies for ETOH detox. cont PPI if rectal bleed does develop will recommend PO glucocorticoids vs. sucralfate enemas. Clinical Quality Measures DVT/VTE Risk/Contraindication: Other: GI BLEED FATMATA JUNIOR MD Feb 25, 2023 15:59
[2023-02-25] MEDS: DexMEDEtomidine 1,000mcg/250ml 250 ML IV SCH (17:27)
[2023-02-26] MEDS: CEFEPIME 1,000 MG/NS 50 ML IVPB IV SCH ×10 (00:49→23:42)
[2023-02-26] MEDS: LACTULOSE 10 GM/15 ML 30 ML POUR BOTTLE FOR ENEMA PR SCH ×7 (00:53→23:45)
[2023-02-26 05:28] LABS: BASOPHILS % (AUTO) 0 % (0-10); EOSINOPHILS % (AUTO) 0 % (0-10); HEMATOCRIT 26 % (40-54); HEMOGLOBIN 8.1 g/dL (13.3-17.7); LYMPHOCYTES # (AUTO) 0.2 10^3/uL (1.0-4.0); LYMPHOCYTES % (AUTO) 1 % (12-44); MEAN CORPUSCULAR HEMOGLOBIN 25 pg (25-34); MEAN CORPUSCULAR HGB CONC 32 g/dL (32-36); MEAN CORPUSCULAR VOLUME 80 fL (80-99); MONOCYTES # (AUTO) 0.7 10^3/uL (0.0-1.0); MONOCYTES % (AUTO) 6 % (0-12); NEUTROPHILS % (AUTO) 92 % (42-75); PLATELET COUNT 112 10^3/uL (130-400); WHITE BLOOD COUNT 11.9 10^3/uL (4.3-11.0)
[2023-02-26 05:47] LABS: ALBUMIN 2.2 GM/DL (3.2-4.5); POTASSIUM 2.9 MMOL/L (3.6-5.0)
[2023-02-26 05:48] LABS: CALCIUM 7.2 MG/DL (8.5-10.1)
[2023-02-26 05:49] LABS: TOTAL PROTEIN 4.3 GM/DL (6.4-8.2)
[2023-02-26 05:51] LABS: BILIRUBIN,TOTAL 1.4 MG/DL (0.1-1.0)
[2023-02-26 05:53] LABS: CREATININE SERUM 0.63 MG/DL (0.60-1.30); PHOSPHORUS 2.1 MG/DL (2.3-4.7)
[2023-02-26 05:56] LABS: MAGNESIUM 1.9 MG/DL (1.6-2.4)
[2023-02-26] MEDS ORDERED: MAGNESIUM 1 GM/100 ML IVPB 200 ML IV ONE (06:12)
[2023-02-26] MEDS ORDERED: POTASSIUM CL 10MEQ/50ML IVPB 400 ML IV ONE (06:12)
[2023-02-26] MEDS ORDERED: NS IV 500 ML 500 ML IV PRN (06:15)
[2023-02-26] MEDS: MAGNESIUM 1 GM/100 ML IVPB 100 ML IV SCH ×2 (06:26→06:27)
[2023-02-26] MEDS: POTASSIUM CL 10MEQ/50ML IVPB 50 ML IV SCH ×7 (06:26→10:14)
--- NOTE | 2023-02-26 08:00 | Cardiology Progress Note ---
Subjective Date Seen by Provider: Feb 26, 2023 Time Seen by Provider: 07:59 Subjective/Events-last exam Patient was seen at bedside, still confused and lethargic. Focused Exam Lactate Level 02/23/23 14:15: Lactic Acid Level 2.98*H 02/24/23 05:45: Lactic Acid Level 3.33*H 02/24/23 07:55: Lactic Acid Level 2.73*H Objective-Cardiology Exam Last Set of Vital Signs Vital Signs 02/22/23 02/26/23 02/26/23 15:15 06:00 07:35 Temp 36.4 Pulse 91 Resp 26 B/P (MAP) 118/71 (87) Pulse Ox 95 O2 Delivery Nasal Cannula O2 Flow Rate 6.00 FiO2 21 I&O Intake and Output 02/25/23 23:59 Intake Total 1825 ml Output Total 5100 ml Balance -3275 ml Intake Oral 475 ml IV Total 1350 ml Output Urine Total 5100 ml # Bowel Movements 1 General: Alert, Cooperative, Other (Lethargic and confused) HEENT: PERRLA, EOMI Neck: No JVD Lungs: Clear to Auscultation Heart: Regular Rate Abdomen: No Tenderness, Other (distended in Right and Left Upper Quadrants) Extremities: No Clubbing, No Cyanosis Neuro: Other (Confused) Psych/Mental Status: Other (very anxious) Results Lab Laboratory Tests 02/25/23 10:30 02/26/23 05:23 A/P-Cardiology Admission Diagnosis Generalized weakness Type II myocardial infarction Lactic acidosis Acute delirium Assessment/Plan Generalized weakness, extreme fatigue, confusion, delirium. Probably secondary to alcoholism Underlying cause is not identified fully yet, work-up is in process with the primary care team. Congestive heart failure, acute left ventricular systolic dysfunction, probably nonischemic cardiomyopathy Questionable underlying alcoholism and it might be secondary to alcoholic heart disease. Underlying coronary artery disease cannot be excluded, will need extensive work- up once patient mental status is back to baseline Acute change in mental status, probably metabolic secondary to heavy alcoholism, alcoholic liver disease or metabolic acidosis. Management per ICU team. History of intermittent rectal bleed. Had work-up in the past and it was negative Continue to follow recommendation, consider repeating colonoscopy History of prostate cancer Questionable history of alcohol use, elevated liver enzymes. Questionable delirium tremens Patient received Precedex Managed by medical team Sinus tachycardia, secondary to hypovolemia. Lactic acidosis, probably secondary to hypovolemia TORIN SARABIA MD Feb 26, 2023 08:00
[2023-02-26] MEDS: LACTULOSE SYRUP 10GM/15ML 30ML UDC PO SCH ×3 (08:10→20:26)
[2023-02-26] MEDS: PANTOPRAZOLE INJECTION 40 MG VIAL IV SCH ×2 (08:10→20:33)
[2023-02-26] MEDS: SENNOSIDES 8.6 MG TABLET PO SCH ×2 (08:17→20:26)
[2023-02-26] MEDS: DOCUSATE SODIUM 100 MG CAPSULE PO SCH ×2 (08:17→20:26)
--- NOTE | 2023-02-26 08:55 | Tele-ICU Progress Note ---
Subjective Date Seen by a Provider: Feb 26, 2023 Time Seen by a Provider: 08:54 Subjective/Events-last exam (Tele-ICU Physician , Progress Note ) Service provided via interactive audio and video telecommunications E-CARE system to a patient admitted to ICU bed in [facility]. Patient is seen today due to persistent need of ICU care Available chart/ vitals / labs / Images reviewed Video assessment done using teleICU camera, rest of exam as per RN Discussed with RN Events overnight : Afebrile hemodynamically stable Respiratory - 6L I/O = neg Drips: Pressors- no Hospital course: (02-22) 68 y/o M -LGI Bleed - Anemia - Hgb 3.5 - 4 PRBC transfused., precedex gtt for anxiety 02/23 - hb stable after 4 units, agitated - on precedex , elv LFT - abx started , US liver 02/24 - ECHO EF 25 % , precedex , stabl HB 02/25- Resp distress --> lasix 40 --> 5 L urine output 02/26 - + bloody BM , Hb 8.1, precedex 0.5, lasix 40 A/P Dyspnea. mild hypoxia - most likely VO 02/25--> lasix 40 --> 5 L urine output - CXR with bilat inmfiltrate : diuresis +abx to cont, add dioneb Cardiomyopathy - ECHO 02/24/2023 - EF 25%, RVSP 35 mm Hg - ? etiology ( etoh? , anemia? CAD? , - TSH wnl - cards on case - follow recom Severe anemia with Hb 3.6 - presumed ABLA ( s/p Colonoscopy with biopsy and polypectomy 06/2022 ( suspected proctitis but the pathology called it a hyperplastic polyp, CT abd/p 06/2022) -Improved to 9.1 after 4u pRBC transfusion , stable now -PPI bid -Sx consulted- w/up when more stable Elevated LFT- IMPROVING - ? ischemia with severe anemia - US-holesterolosis of the liver, likely indicating some level of biliary dyskinesia - as per sx Anxiety/confusion- as per chart has "anxiety and panic attacks" and h/o attempts to "wean off xanax" - nonfocal exam, IMPROVING - elev ammonia on 02/23- tx with lactulose - improved - recheck today - ? ETON use- ? DT - precedex - will try to wean off , prn benzo ,( also was on fluoxetine - but timeline and symproms not consistent with withdrawal Thrombocytopenia -112 - monitor H/o prostate CA -s/p prostatectomy Lines : PICC 02/25 left , (Central Line Necessity Reviewed) Sahu: + OG: Nutrition: npo Analgesia: Anxiety/ delirium VTE Prophylaxis: scd Stress Ulcer Prophylaxis: ppi Plans in collaboration with bedside consultants and IM MDs. Discussed with RN to reach out if any questions or concerns A total of 31 minutes of critical care time was devoted to this patient today, required to treat and/or prevent further deterioration of critical care condition ( as above ) . I am remotely monitoring this patient from another state. I am unable to do the bedside exam, and history/physical and pertinent information is taken from other notes in the computer and bedside staff. . Sepsis Event Evaluation Height, Weight, BMI Height: '" Weight: lbs. oz. kg; 23.87 BMI Method: Focused Exam Lactate Level 02/23/23 14:15: Lactic Acid Level 2.98*H 02/24/23 05:45: Lactic Acid Level 3.33*H 02/24/23 07:55: Lactic Acid Level 2.73*H Exam Exam Patient acknowledged, consented, and participated in this virtual visit which was conducted using real time audio/video Vital Signs Date Time Temp Pulse Resp B/P (MAP) Pulse Ox O2 Delivery O2 Flow Rate FiO2 02/26/23 07:35 36.4 02/26/23 06:00 91 26 118/71 (87) 95 Nasal Cannula 6.00 02/26/23 05:00 86 15 110/76 (87) 90 Nasal Cannula 6.00 02/26/23 04:00 107 30 106/77 (87) 91 Nasal Cannula 6.00 02/26/23 04:00 90 Nasal Cannula 6.00 02/26/23 03:00 87 30 117/73 (88) 92 Nasal Cannula 6.00 02/26/23 02:00 108 20 123/75 (91) 90 Nasal Cannula 6.00 02/26/23 01:00 87 20 99/70 (80) 92 Nasal Cannula 6.00 02/26/23 00:10 36.6 Nasal Cannula 6.00 02/26/23 00:00 95 02/26/23 00:00 89 19 123/80 (94) 94 Nasal Cannula 4.50 02/25/23 23:36 91 Nasal Cannula 6.00 02/25/23 23:00 110 15 135/81 (99) 93 Nasal Cannula 4.50 02/25/23 22:00 93 19 141/81 (101) 91 Nasal Cannula 4.50 02/25/23 21:00 100 12 117/95 (102) 92 Nasal Cannula 4.50 02/25/23 20:02 36.8 Nasal Cannula 4.50 02/25/23 20:00 94 27 140/87 (104) 90 Nasal Cannula 4.00 02/25/23 19:55 90 Nasal Cannula 4.00 02/25/23 19:00 90 24 134/84 (101) 93 Nasal Cannula 4.00 02/25/23 19:00 90 02/25/23 18:45 37.1 101 90 02/25/23 18:42 90 Nasal Cannula 4.00 02/25/23 18:00 109 33 146/94 (111) 92 Nasal Cannula 4.00 02/25/23 17:27 92 106/76 02/25/23 17:00 96 25 120/70 (87) 92 Nasal Cannula 4.00 02/25/23 16:00 92 24 106/76 (86) 97 Nasal Cannula 2.00 02/25/23 16:00 37.1 Nasal Cannula 4.00 02/25/23 15:54 92 Nasal Cannula 4.00 02/25/23 15:53 36.0 02/25/23 15:00 100 22 123/92 (102) 93 Nasal Cannula 2.00 02/25/23 14:00 100 47 123/85 (98) 94 Nasal Cannula 2.00 02/25/23 13:00 116 02/25/23 13:00 113 46 92 Nasal Cannula 2.00 02/25/23 12:19 36.4 02/25/23 12:16 91 Nasal Cannula 2.00 02/25/23 12:00 105 91 24 Nasal Cannula 2.00 02/25/23 11:00 98 32 134/89 (104) 88 Nasal Cannula 2.00 02/25/23 10:43 91 Nasal Cannula 3.00 02/25/23 10:00 101 23 Nasal Cannula 2.00 02/25/23 09:00 96 32 149/87 (107) 89 Nasal Cannula 2.00 I & O 02/26/23 06:59 Intake Total 655 ml Output Total 5250 ml Balance -4595 ml Height & Weight Height: '" Weight: lbs. oz. kg; 23.87 BMI Method: General Appearance: No Apparent Distress HEENT: PERRL/EOMI Neck: Full Range of Motion Respiratory: Chest Non Tender Cardiovascular: Regular Rate, Rhythm Capillary Refill: Less Than 3 Seconds Gastrointestinal: normal bowel sounds, non tender, soft Extremity: Normal Capillary Refill Neurologic/Psychiatric: Alert, Oriented x3 Skin: Normal Color Lymphatic: No Adenopathy Results Lab Laboratory Tests 02/25/23 04:19 02/25/23 10:30 02/26/23 05:23 Assessment/Plan Assessment/Plan 1 VIKAS MIGUEL MD Feb 26, 2023 08:55
[2023-02-26] MEDS ORDERED: RT-Ipratropium/Albuterol NEB 3 ML VIAL INH PRN (09:00)
[2023-02-26] MEDS ORDERED: FUROSEMIDE INJECTION 40 MG/4 ML VIAL IVP NR (09:00)
[2023-02-26] MEDS ORDERED: POTASSIUM BICARB 20 MEQ effervescent TABLET PO NR ×2 (09:00→11:00)
[2023-02-26] MEDS: THIAMINE IV SCH (09:28)
[2023-02-26] MEDS: FOLIC ACID IV SCH (09:28)
[2023-02-26] MEDS: NS IV SCH (09:28)
[2023-02-26 09:57] VITALS: BP 118/71
--- NOTE | 2023-02-26 10:38 | Progress Note ---
STEFANIE CONKLIN 02/26/23 1038: Subjective Date Seen by a Provider: Feb 26, 2023 Time Seen by a Provider: 08:50 Subjective/Events-last exam Pt was able to tell me his name and location. He was unable to tell me the reason for being in the hospital. Pt denied having any abdominal pain, chest pain, or SOB. ROS was not gathered due to pt not answering any following questions. Pt had a friend in the room that introduced herself as a life long friend. Name is Shakira Teran. She stated that she does not think Rene is an alcoholic. She reports never seeing him drink anything but beer or purchase any liquor other than a 6 pack of beer. She understands what the girlfriend reported about the closet alcoholism, but is having a tough time believing it. Focused Exam Lactate Level 02/23/23 14:15: Lactic Acid Level 2.98*H 02/24/23 05:45: Lactic Acid Level 3.33*H 02/24/23 07:55: Lactic Acid Level 2.73*H Objective Exam Last Set of Vital Signs Vital Signs Date Time Temp Pulse Resp B/P (MAP) Pulse Ox O2 Delivery O2 Flow Rate FiO2 02/26/23 10:00 93 39 112/79 (103) 88 02/26/23 09:53 Nasal Cannula 7.00 02/26/23 07:35 36.4 02/22/23 15:15 21 Capillary Refill : Less Than 3 Seconds I&O Intake and Output 02/25/23 23:59 Intake Total 1825 ml Output Total 5100 ml Balance -3275 ml Intake Oral 475 ml IV Total 1350 ml Output Urine Total 5100 ml # Bowel Movements 1 General: Mild Distress (pt confused and anxious about why he is in the hospital), Other (Oriented to name and location. Unable to report reason.) HEENT: PERRLA, EOMI Neck: No JVD Lungs: Other (b/l lungs had decreased breath sounds. coarse breath sounds posterior b/l. tachypneic.) Heart: Regular Rate, No Murmurs Abdomen: Normal Bowel Sounds, No Tenderness, Other (distended, worse than yesterday.) Extremities: No Clubbing, No Cyanosis Results Lab Laboratory Tests 02/25/23 11:00: Prothrombin Time 19.0H, INR Comment 1.5H 02/26/23 05:23: White Blood Count 11.9H, Red Blood Count 3.20L, Hemoglobin 8.1L, Hematocrit 26L, Mean Corpuscular Volume 80, Mean Corpuscular Hemoglobin 25, Mean Corpuscular Hemoglobin Concent 32, Red Cell Distribution Width 18.7H, Platelet Count 112L, Mean Platelet Volume 11.0, Immature Granulocyte % (Auto) 1, Neutrophils (%) (Auto) 92H, Lymphocytes (%) (Auto) 1L, Monocytes (%) (Auto) 6, Eosinophils (%) (Auto) 0, Basophils (%) (Auto) 0, Neutrophils # (Auto) 11.0H, Lymphocytes # (Auto) 0.2L, Monocytes # (Auto) 0.7, Eosinophils # (Auto) 0.0, Basophils # (Auto) 0.0, Immature Granulocyte # (Auto) 0.1, Sodium Level 138, Potassium Level 2.9L, Chloride Level 106, Carbon Dioxide Level 25, Anion Gap 7, Blood Urea Nitrogen 11, Creatinine 0.63, Estimat Glomerular Filtration Rate 105, BUN/Creatinine Ratio 17, Glucose Level 99, Calcium Level 7.2L, Corrected Calcium 8.6, Phosphorus Level 2.1L, Magnesium Level 1.9, Total Bilirubin 1.4H, Aspartate Amino Transf (AST/SGOT) 120H, Alanine Aminotransferase (ALT/SGPT) 502#H, Alkaline Phosphatase 51, Total Protein 4.3L, Albumin 2.2L 02/26/23 09:20: Ammonia 29 Microbiology 02/22/23 Blood Culture - Preliminary, Resulted 02/22/23 Urine Culture - Final, Complete NO GROWTH 02/22/23 MRSA Screen - Final, Complete MRSA not isolated Assessment/Plan Assessment/Plan Assess & Plan/Chief Complaint Assessment: Presumed alcohol induced liver injury Hypoxia Anemia due to possible GI bleed Distended Abdomen Anxiety Plan: Presumed alcohol induced liver injury -d/c banana bag due to chest xray showing abnormalities -thiamine replacement therapy continued -AST is down to 120 from 351. ALT is down to 502 from 902. -continue supportive care and monitor labs Hypoxia -pt was started on bipap due to the hypoxia and increased respiratory rate Anemia due to possible GI bleed -Hgb has decreased to 8.1 from 9.5 -continue to monitor Distended Abdomen -ICU physician wanted Dr. Das to look at the KUB results due to distension of abdomen Anxiety -continue to monitor and treat as needed Clinical Quality Measures DVT/VTE Risk/Contraindication: Other: GI BLEED CINDA WOLFE DO 02/27/23 0456: Subjective Subjective/Events-last exam Patient appears to be more complicated Confusion increased Requiring BiPAP High risk for intubation Prognosis is becoming more poor Objective Exam General: Other (Oriented to name and location. Unable to report reason.) Lungs: Clear to Auscultation Heart: Regular Rate Assessment/Plan Assessment/Plan Assess & Plan/Chief Complaint Continue Precedex Continue BiPAP Vitamin supplementation Monitor lungs High risk for intubation Supervisory-Addendum Brief Verification & Attestation Participated in pt care: history, MDM, physical Personally performed: exam, history, MDM, supervision of care Care discussed with: Medical Student Procedures: n/a Results interpretation: Verified all documentation Verification and Attestation of Medical Student E/M Service A medical student performed and documented this service in my presence. I reviewed and verified all information documented by the medical student and made modifications to such information, when appropriate. I personally performed the physical exam and medical decision making. Cinda Wolfe, Feb 27, 2023,04:55 STEFANIE CONKLIN Feb 26, 2023 10:38 CINDA WOLFE DO Feb 27, 2023 04:56
[2023-02-26 10:53] VITALS: BP 120/84
[2023-02-26 11:10] LABS: ABG BASE EXCESS 6.7 MMOL/L (-2.5-2.5); ABG OXYGEN SATURATION 100 % (94-100); ABG PCO2 32 MMHG (35-45); ABG PH 7.56 (7.37-7.43); ABG PO2 132 MMHG (79-93); ABG TCO2 29.7 MMOL/L (21.0-31.0)
[2023-02-26 11:11] LABS: INSPIRED O2 80%; VENTILATOR NO
[2023-02-26] MEDS ORDERED: PIPERACILLIN/Tazobactam 4.5 GM in NS (IVPB) 100 ML 100 ML IV ONE (11:30)
--- NOTE | 2023-02-26 11:41 | Diagnostic Imaging Report ---
Indication: Shortness of air. Comparison: 02/25 Findings: There is worsened 5 lobe mixed interstitial and airspace opacity which could be progressive severe pneumonia or edema. There are likely small pleural effusions not obviously changed. The heart size stable. A left PICC line at the low SVC stable. Impression: Worsened 5 lobe pulmonary opacities from increased edema or pneumonia. No pneumothorax. Dictated by: Dictated on workstation # [id number]
[2023-02-26 13:49] LABS: BASOPHILS % (AUTO) 0 % (0-10); EOSINOPHILS % (AUTO) 0 % (0-10); HEMATOCRIT 28 % (40-54); HEMOGLOBIN 8.7 g/dL (13.3-17.7); MEAN CORPUSCULAR HEMOGLOBIN 25 pg (25-34); MEAN CORPUSCULAR HGB CONC 31 g/dL (32-36); MONOCYTES # (AUTO) 0.7 10^3/uL (0.0-1.0); NEUTROPHILS % (AUTO) 92 % (42-75)
[2023-02-26 13:51] LABS: LYMPHOCYTES # (AUTO) 0.2 10^3/uL (1.0-4.0); LYMPHOCYTES % (AUTO) 1 % (12-44); MEAN CORPUSCULAR VOLUME 80 fL (80-99); MONOCYTES % (AUTO) 5 % (0-12); NEUTROPHILS # (AUTO) 12.7 10^3/uL (1.8-7.8); PLATELET COUNT 119 10^3/uL (130-400); WHITE BLOOD COUNT 13.7 10^3/uL (4.3-11.0)
[2023-02-26 14:06] LABS: CALCIUM 7.2 MG/DL (8.5-10.1); CREATININE SERUM 0.68 MG/DL (0.60-1.30); POTASSIUM 4.4 MMOL/L (3.6-5.0)
[2023-02-26 15:15] VITALS: BP 87/59
[2023-02-26] MEDS: RT-Ipratropium/Albuterol NEB 3 ML VIAL INH SCH ×3 (15:15→22:33)
--- NOTE | 2023-02-26 15:58 | Progress Note ---
Subjective Date Seen by a Provider: Feb 26, 2023 Time Seen by a Provider: 15:00 Subjective/Events-last exam respiratory status worsening. on BiPap now. has had 2 episodes maroon colored stools. Hb stable. mental status remains poor. Focused Exam Lactate Level 02/24/23 05:45: Lactic Acid Level 3.33*H 02/24/23 07:55: Lactic Acid Level 2.73*H Objective Exam Vital Signs Date Time Temp Pulse Resp B/P (MAP) Pulse Ox O2 Delivery O2 Flow Rate FiO2 02/26/23 15:15 78 21 100 60.00 02/26/23 12:15 96 NIV Bilevel 80 02/26/23 11:13 36.5 02/26/23 10:53 91 27 100 80.00 02/26/23 10:00 93 39 112/79 (103) 88 02/26/23 09:57 36.4 89 91 02/26/23 09:53 91 Nasal Cannula 7.00 02/26/23 09:45 98 50 118/82 (93) 91 02/26/23 09:30 92 15 120/84 (94) 94 02/26/23 09:15 96 28 122/75 (92) 93 02/26/23 09:00 88 24 112/76 (92) 94 02/26/23 08:45 94 36 116/68 (84) 93 02/26/23 08:44 96 52 113/75 (86) 02/26/23 08:30 84 26 97/64 (74) 02/26/23 08:15 86 32 107/68 (77) 93 02/26/23 08:00 86 26 98/72 (76) 02/26/23 07:45 90 29 119/81 (90) 02/26/23 07:35 36.4 02/26/23 07:30 91 31 117/80 (98) 87 02/26/23 07:25 90 Nasal Cannula 7.00 02/26/23 07:15 98 24 133/85 (104) 91 02/26/23 07:00 90 38 121/71 (92) 92 02/26/23 07:00 89 02/26/23 06:00 91 26 118/71 (87) 95 Nasal Cannula 6.00 02/26/23 05:00 86 15 110/76 (87) 90 Nasal Cannula 6.00 02/26/23 04:00 107 30 106/77 (87) 91 Nasal Cannula 6.00 02/26/23 04:00 90 Nasal Cannula 6.00 02/26/23 03:00 87 30 117/73 (88) 92 Nasal Cannula 6.00 02/26/23 02:00 108 20 123/75 (91) 90 Nasal Cannula 6.00 02/26/23 01:00 87 20 99/70 (80) 92 Nasal Cannula 6.00 02/26/23 00:10 36.6 Nasal Cannula 6.00 02/26/23 00:00 95 02/26/23 00:00 89 19 123/80 (94) 94 Nasal Cannula 4.50 02/25/23 23:36 91 Nasal Cannula 6.00 02/25/23 23:00 110 15 135/81 (99) 93 Nasal Cannula 4.50 02/25/23 22:00 93 19 141/81 (101) 91 Nasal Cannula 4.50 02/25/23 21:00 100 12 117/95 (102) 92 Nasal Cannula 4.50 02/25/23 20:02 36.8 Nasal Cannula 4.50 02/25/23 20:00 94 27 140/87 (104) 90 Nasal Cannula 4.00 02/25/23 19:55 90 Nasal Cannula 4.00 02/25/23 19:00 90 24 134/84 (101) 93 Nasal Cannula 4.00 02/25/23 19:00 90 02/25/23 18:45 37.1 101 90 02/25/23 18:42 90 Nasal Cannula 4.00 02/25/23 18:00 109 33 146/94 (111) 92 Nasal Cannula 4.00 02/25/23 17:27 92 106/76 02/25/23 17:00 96 25 120/70 (87) 92 Nasal Cannula 4.00 02/25/23 16:00 92 24 106/76 (86) 97 Nasal Cannula 2.00 02/25/23 16:00 37.1 Nasal Cannula 4.00 02/25/23 15:54 92 Nasal Cannula 4.00 02/25/23 15:53 36.0 I & O 02/26/23 06:59 Intake Total 655 ml Output Total 5250 ml Balance -4595 ml Capillary Refill : Less Than 3 Seconds General Appearance: Chronically ill HEENT: Normal ENT Inspection Neck: Full Range of Motion Respiratory: Decreased Breath Sounds, Respiratory Distress Cardiovascular: Regular Rate, Rhythm Gastrointestinal: soft, distended Extremity: Normal Capillary Refill Neurologic/Psychiatric: Other (confused) Skin: Normal Color Lymphatic: No Adenopathy Results Lab Laboratory Tests 02/26/23 05:23: White Blood Count 11.9H, Red Blood Count 3.20L, Hemoglobin 8.1L, Hematocrit 26L, Mean Corpuscular Volume 80, Mean Corpuscular Hemoglobin 25, Mean Corpuscular Hemoglobin Concent 32, Red Cell Distribution Width 18.7H, Platelet Count 112L, Mean Platelet Volume 11.0, Immature Granulocyte % (Auto) 1, Neutrophils (%) (Auto) 92H, Lymphocytes (%) (Auto) 1L, Monocytes (%) (Auto) 6, Eosinophils (%) (Auto) 0, Basophils (%) (Auto) 0, Neutrophils # (Auto) 11.0H, Lymphocytes # (Auto) 0.2L, Monocytes # (Auto) 0.7, Eosinophils # (Auto) 0.0, Basophils # (Auto) 0.0, Immature Granulocyte # (Auto) 0.1, Sodium Level 138, Potassium Level 2.9L, Chloride Level 106, Carbon Dioxide Level 25, Anion Gap 7, Blood Urea Nitrogen 11, Creatinine 0.63, Estimat Glomerular Filtration Rate 105, BUN/Creatinine Ratio 17, Glucose Level 99, Calcium Level 7.2L, Corrected Calcium 8.6, Phosphorus Level 2.1L, Magnesium Level 1.9, Total Bilirubin 1.4H, Aspartate Amino Transf (AST/SGOT) 120H, Alanine Aminotransferase (ALT/SGPT) 502#H, Alkaline Phosphatase 51, Total Protein 4.3L, Albumin 2.2L 02/26/23 09:20: Ammonia 29 02/26/23 11:00: Arterial Blood pH 7.56H, Arterial Blood Partial Pressure CO2 32L, Arterial Blood Partial Pressure O2 132H, Arterial Blood HCO3 29H, Arterial Blood Total CO2 29.7, Arterial Blood Oxygen Saturation 100, Arterial Blood Base Excess 6.7H, Blood Gas Ventilator Setting NO, Blood Gas Inspired Oxygen 80% 02/26/23 13:40: White Blood Count 13.7H, Red Blood Count 3.46L, Hemoglobin 8.7L, Hematocrit 28L, Mean Corpuscular Volume 80, Mean Corpuscular Hemoglobin 25, Mean Corpuscular Hemoglobin Concent 31L, Red Cell Distribution Width 19.5H, Platelet Count 119L, Mean Platelet Volume 11.0, Immature Granulocyte % (Auto) 1, Neutrophils (%) (Auto) 92H, Lymphocytes (%) (Auto) 1L, Monocytes (%) (Auto) 5, Eosinophils (%) (Auto) 0, Basophils (%) (Auto) 0, Neutrophils # (Auto) 12.7H, Lymphocytes # (Auto) 0.2L, Monocytes # (Auto) 0.7, Eosinophils # (Auto) 0.0, Basophils # (Auto) 0.0, Immature Granulocyte # (Auto) 0.1, Sodium Level 138, Potassium Level 4.4, Chloride Level 105, Carbon Dioxide Level 25, Anion Gap 8, Blood Urea Nitrogen 11, Creatinine 0.68, Estimat Glomerular Filtration Rate 103, BUN/Creatinine Ratio 16, Glucose Level 107H, Calcium Level 7.2L, Percent Immature Platelet Fraction 6.7 Microbiology 02/22/23 Blood Culture - Preliminary, Resulted 02/22/23 Urine Culture - Final, Complete NO GROWTH 02/22/23 MRSA Screen - Final, Complete MRSA not isolated Assessment/Plan Assessment/Plan Assess & Plan/Chief Complaint anemia and rectal bleed due to radiation proctitis. has had 2 maroon BM's. cont current therapies for ETOH detox. cont PPI if rectal bleed does develop will recommend PO glucocorticoids vs. sucralfate enemas. may also have UGI bleed component. currently on BID PPI Clinical Quality Measures DVT/VTE Risk/Contraindication: Other: GI BLEED FATMATA JUNIOR MD Feb 26, 2023 15:58
[2023-02-26] MEDS ORDERED: ALBUMIN 25% 25 GM/100 ML 100 ML IV ONE (16:30)
[2023-02-26] MEDS: PIPERACILLIN/Tazobactam 4.5 GM in NS (IVPB) 100 ML 100 ML IV SCH (18:28)
[2023-02-26 18:47] VITALS: BP 107/68
[2023-02-26 22:33] VITALS: BP 96/72
[2023-02-26] MEDS: DexMEDEtomidine 1,000mcg/250ml 250 ML IV SCH (23:43)
[2023-02-27] VITALS (10 sets, daily range): BP systolic 101–160; BP diastolic 64–172
[2023-02-27] MEDS: PIPERACILLIN/Tazobactam 4.5 GM in NS (IVPB) 100 ML 100 ML IV SCH ×3 (02:04→18:09)
[2023-02-27] MEDS: RT-Ipratropium/Albuterol NEB 3 ML VIAL INH SCH ×6 (02:39→22:21)
[2023-02-27] MEDS: LACTULOSE 10 GM/15 ML 30 ML POUR BOTTLE FOR ENEMA PR SCH ×6 (03:35→23:53)
[2023-02-27 04:35] LABS: EOSINOPHILS # (AUTO) 0.1 10^3/uL (0.0-0.3); MEAN PLATELET VOLUME 11.4 fL (9.0-12.2)
[2023-02-27 04:37] LABS: BASOPHILS % (AUTO) 0 % (0-10); EOSINOPHILS % (AUTO) 1 % (0-10); HEMATOCRIT 21 % (40-54); LYMPHOCYTES # (AUTO) 0.1 10^3/uL (1.0-4.0); LYMPHOCYTES % (AUTO) 2 % (12-44); MEAN CORPUSCULAR HEMOGLOBIN 25 pg (25-34); MEAN CORPUSCULAR HGB CONC 31 g/dL (32-36); MEAN CORPUSCULAR VOLUME 81 fL (80-99); MONOCYTES # (AUTO) 0.5 10^3/uL (0.0-1.0); MONOCYTES % (AUTO) 6 % (0-12); NEUTROPHILS # (AUTO) 8.4 10^3/uL (1.8-7.8); NEUTROPHILS % (AUTO) 91 % (42-75); PLATELET COUNT 104 10^3/uL (130-400); WHITE BLOOD COUNT 9.2 10^3/uL (4.3-11.0)
[2023-02-27 04:39] LABS: HEMOGLOBIN 6.6 g/dL (13.3-17.7)
[2023-02-27 04:46] LABS: ALBUMIN 2.4 GM/DL (3.2-4.5); BILIRUBIN,TOTAL 1.5 MG/DL (0.1-1.0); CALCIUM 7.7 MG/DL (8.5-10.1); CREATININE SERUM 0.7 MG/DL (0.60-1.30); PHOSPHORUS 2.2 MG/DL (2.3-4.7); POTASSIUM 3.3 MMOL/L (3.6-5.0); TOTAL PROTEIN 4.3 GM/DL (6.4-8.2)
[2023-02-27] MEDS ORDERED: POTASSIUM CL 10MEQ/50ML IVPB 400 ML IV ONE (05:04)
--- NOTE | 2023-02-27 05:05 | Tele-ICU Progress Note ---
Subjective Date Seen by a Provider: Feb 27, 2023 Time Seen by a Provider: 05:04 Subjective/Events-last exam called for Hb 6,6, having bloody bowel movements yesterday, will transfuse one unit of PRBC Sepsis Event Evaluation Height, Weight, BMI Height: '" Weight: lbs. oz. kg; 23.87 BMI Method: Focused Exam Lactate Level 02/24/23 05:45: Lactic Acid Level 3.33*H 02/24/23 07:55: Lactic Acid Level 2.73*H Exam Exam Patient acknowledged, consented, and participated in this virtual visit which was conducted using real time audio/video Vital Signs Date Time Temp Pulse Resp B/P (MAP) Pulse Ox O2 Delivery O2 Flow Rate FiO2 02/27/23 04:00 90 25 97/66 (76) 94 NIV Bilevel 40.00 02/27/23 03:36 97 NIV Bilevel 40 02/27/23 03:00 93 25 86/58 (67) 91 NIV Bilevel 40.00 02/27/23 02:40 95 23 92 40.00 02/27/23 02:00 102 25 115/74 (88) 98 NIV Bilevel 40.00 02/27/23 01:00 85 20 106/62 (77) 96 NIV Bilevel 40.00 02/27/23 00:07 87 02/27/23 00:00 36.6 02/27/23 00:00 86 23 112/68 (83) 96 NIV Bilevel 40.00 02/26/23 23:52 96 NIV Bilevel 40 02/26/23 23:43 80 105/62 02/26/23 23:00 81 25 105/64 (78) 96 NIV Bilevel 40.00 02/26/23 22:33 99 36 97 40.00 02/26/23 22:00 99 24 122/80 (94) 97 NIV Bilevel 40.00 02/26/23 21:00 86 18 98/61 (73) 95 NIV Bilevel 40.00 02/26/23 20:26 36.1 NIV Bilevel 40.00 02/26/23 20:00 98 NIV Bilevel 40 02/26/23 20:00 88 23 93/56 (68) 97 NIV Bilevel 40.00 02/26/23 19:22 106 02/26/23 19:00 98 26 100/59 (73) 97 NIV Bilevel 40.00 02/26/23 18:47 96 25 99 40.00 02/26/23 18:00 98 26 105/69 (79) 100 NIV Bilevel 45.00 02/26/23 17:00 88/59 (66) 02/26/23 16:30 96 NIV Bilevel 80 02/26/23 16:00 88 26 96/66 (80) 100 NIV Bilevel 55.00 02/26/23 15:15 78 21 100 60.00 02/26/23 15:00 89 36 92/71 (76) 88 Room Air 02/26/23 13:59 92 0 100 02/26/23 13:00 84 68 103/72 (79) 02/26/23 13:00 84 02/26/23 12:59 90 38 100 02/26/23 12:45 84 38 100/68 (79) 100 02/26/23 12:42 87 101 103/76 (86) 100 02/26/23 12:30 86 42 72/49 (57) 100 02/26/23 12:15 82 25 89/58 (65) 95 02/26/23 12:15 96 NIV Bilevel 80 02/26/23 12:00 84 22 102/73 (82) 02/26/23 11:59 84 26 100 02/26/23 11:13 36.5 02/26/23 10:53 91 27 100 80.00 02/26/23 10:00 93 39 112/79 (103) 88 02/26/23 09:57 36.4 89 91 02/26/23 09:53 91 Nasal Cannula 7.00 02/26/23 09:45 98 50 118/82 (93) 91 02/26/23 09:30 92 15 120/84 (94) 94 02/26/23 09:15 96 28 122/75 (92) 93 02/26/23 09:00 88 24 112/76 (92) 94 02/26/23 08:45 94 36 116/68 (84) 93 02/26/23 08:44 96 52 113/75 (86) 02/26/23 08:30 84 26 97/64 (74) 02/26/23 08:15 86 32 107/68 (77) 93 02/26/23 08:00 86 26 98/72 (76) 02/26/23 07:45 90 29 119/81 (90) 02/26/23 07:35 36.4 02/26/23 07:30 91 31 117/80 (98) 87 02/26/23 07:25 90 Nasal Cannula 7.00 02/26/23 07:15 98 24 133/85 (104) 91 02/26/23 07:00 90 38 121/71 (92) 92 02/26/23 07:00 89 02/26/23 06:00 91 26 118/71 (87) 95 Nasal Cannula 6.00 I & O 02/27/23 07:00 Intake Total 1125 ml Output Total 2625 ml Balance -1500 ml Height & Weight Height: '" Weight: lbs. oz. kg; 23.87 BMI Method: General Appearance: Chronically ill HEENT: Normal ENT Inspection Neck: Full Range of Motion Respiratory: Decreased Breath Sounds, Respiratory Distress Cardiovascular: Regular Rate, Rhythm Capillary Refill: Less Than 3 Seconds Gastrointestinal: soft, distended Extremity: Normal Capillary Refill Neurologic/Psychiatric: Other (confused) Skin: Normal Color Lymphatic: No Adenopathy Results Lab Laboratory Tests 02/25/23 10:30 02/26/23 05:23 02/26/23 13:40 02/27/23 04:19 Assessment/Plan Assessment/Plan called for Hb 6,6, having bloody bowel movements yesterday, will transfuse one unit of PRBC Critical Care: Critically Ill Patient Time spent with patient (mins): 10 BRITTNI DELANEY MD Feb 27, 2023 05:05
[2023-02-27] MEDS: CEFEPIME 1,000 MG/NS 50 ML IVPB IV SCH ×6 (05:06→18:10)
[2023-02-27] MEDS: POTASSIUM CL 10MEQ/50ML IVPB 50 ML IV SCH ×8 (05:07→11:17)
[2023-02-27] MEDS ORDERED: NS IV 500 ML 500 ML IV SCH (05:15)
[2023-02-27] MEDS: MAGNESIUM 1 GM/100 ML IVPB 100 ML IV SCH (05:51)
[2023-02-27] MEDS: POTASSIUM CHLORIDE 20 MEQ TABLET PO SCH (05:51)
[2023-02-27 07:46] LABS: ABG BASE EXCESS 3.5 MMOL/L (-2.5-2.5); ABG OXYGEN SATURATION 98 % (94-100); ABG PCO2 35 MMHG (35-45); ABG PH 7.49 (7.37-7.43); ABG PO2 83 MMHG (79-93); ABG TCO2 27.8 MMOL/L (21.0-31.0)
[2023-02-27 07:47] LABS: VENTILATOR NO
[2023-02-27] MEDS: PANTOPRAZOLE INJECTION 40 MG VIAL IV SCH ×2 (09:12→20:41)
[2023-02-27] MEDS: DOCUSATE SODIUM 100 MG CAPSULE PO SCH ×2 (09:13→20:29)
[2023-02-27] MEDS: LACTULOSE SYRUP 10GM/15ML 30ML UDC PO SCH ×3 (09:14→20:30)
[2023-02-27] MEDS: SENNOSIDES 8.6 MG TABLET PO SCH ×2 (09:14→20:30)
--- NOTE | 2023-02-27 09:41 | Tele-ICU Progress Note ---
Subjective Date Seen by a Provider: Feb 27, 2023 Time Seen by a Provider: 09:41 Subjective/Events-last exam (Tele-ICU Physician , Progress Note ) Service provided via interactive audio and video telecommunications E-CARE system to a patient admitted to ICU bed in [facility]. Patient is seen today due to persistent need of ICU care Available chart/ vitals / labs / Images reviewed Video assessment done using teleICU camera, rest of exam as per RN Discussed with RN Events overnight : Afebrile hemodynamically stable Respiratory - 6L I/O = neg Drips: Pressors- no Hospital course: (02-22) 68 y/o M -LGI Bleed - Anemia - Hgb 3.5 - 4 PRBC transfused., precedex gtt for anxiety 02/23 - hb stable after 4 units, agitated - on precedex , elv LFT - abx started , US liver 02/24 - ECHO EF 25 % , precedex , stable HB 02/25- Resp distress --> lasix 40 --> 5 L urine output 02/26 - + bloody BM , Hb 8.1, precedex 0.5, lasix 40 , BIPAP 02/27 - hb 6.6- 1uPRBC transfusion , INTUBATED A/P Acute resp failure ( VO and PNA -INTUBATED 02/27 - full support Cardiomyopathy - ECHO 02/24/2023 - EF 25%, RVSP 35 mm Hg - ? etiology ( etoh? , anemia? CAD? , - TSH wnl - cards on case - follow recom - negative fluid status , cont diuresis Severe anemia with Hb 3.6 - presumed ABLA ( s/p Colonoscopy with biopsy and polypectomy 06/2022 ( suspected proctitis but the pathology called it a hyperplastic polyp, CT abd/p 06/2022) -Improved to 9.1 after 4u pRBC transfusion --> Hb drop to 6.6 02/27 again with bloody BM--transfusion 1 uPRBC -PPI bid -Sx consulted- w/up when more stable Elevated LFT- IMPROVING - ? ischemia with severe anemia - US-holesterolosis of the liver, likely indicating some level of biliary dyskinesia - as per sx Anxiety/confusion- as per chart has "anxiety and panic attacks" and h/o attempts to "wean off xanax" - nonfocal exam, IMPROVING - elev ammonia on 02/23- tx with lactulose - > normalized - ? ETON use- ? DT - precedex - off , propofol Thrombocytopenia ( not on heparin products ) -check INR and fibrinogen Hematuria - with folwey - will follow for now H/o prostate CA -s/p prostatectomy Lines : PICC 02/25 left , (Central Line Necessity Reviewed) Sahu: + OG: Nutrition: npo Analgesia: Anxiety/ delirium VTE Prophylaxis: scd Stress Ulcer Prophylaxis: ppi Plans in collaboration with bedside consultants and IM MDs. Discussed with RN to reach out if any questions or concerns A total of 35 minutes of critical care time was devoted to this patient today, required to treat and/or prevent further deterioration of critical care condition ( as above ) . I am remotely monitoring this patient from another state. I am unable to do the bedside exam, and history/physical and pertinent information is taken from other notes in the computer and bedside staff. . Sepsis Event Evaluation Height, Weight, BMI Height: '" Weight: lbs. oz. kg; 22.47 BMI Method: Exam Exam Patient acknowledged, consented, and participated in this virtual visit which was conducted using real time audio/video Vital Signs Date Time Temp Pulse Resp B/P (MAP) Pulse Ox O2 Delivery O2 Flow Rate FiO2 02/27/23 09:13 79 122/82 02/27/23 09:00 89 19 122/82 (97) 97 Mechanical Ventilator 100.00 02/27/23 08:46 81 35 106/74 92 NIV Bilevel 50 02/27/23 08:00 98 146/91 (98) 94 NIV Bilevel 50.00 02/27/23 07:38 35.8 92 35 126/78 (94) 99 NIV Bilevel 50.00 02/27/23 07:00 89 02/27/23 07:00 85 27 112/66 (80) 99 NIV Bilevel 40.00 02/27/23 06:59 87 40 97 30.00 02/27/23 06:43 36.2 20 20 111/72 99 NIV Bilevel 40 02/27/23 06:28 36.2 90 28 115/73 96 NIV Bilevel 40 02/27/23 06:00 87 38 108/60 (76) 96 NIV Bilevel 40.00 02/27/23 05:00 88 31 95/61 (72) 95 NIV Bilevel 40.00 02/27/23 04:00 90 25 97/66 (76) 94 NIV Bilevel 40.00 02/27/23 03:36 97 NIV Bilevel 40 02/27/23 03:00 93 25 86/58 (67) 91 NIV Bilevel 40.00 02/27/23 02:40 95 23 92 40.00 02/27/23 02:00 102 25 115/74 (88) 98 NIV Bilevel 40.00 02/27/23 01:00 85 20 106/62 (77) 96 NIV Bilevel 40.00 02/27/23 00:07 87 02/27/23 00:00 36.6 02/27/23 00:00 86 23 112/68 (83) 96 NIV Bilevel 40.00 02/26/23 23:52 96 NIV Bilevel 40 02/26/23 23:43 80 105/62 02/26/23 23:00 81 25 105/64 (78) 96 NIV Bilevel 40.00 02/26/23 22:33 99 36 97 40.00 02/26/23 22:00 99 24 122/80 (94) 97 NIV Bilevel 40.00 02/26/23 21:00 86 18 98/61 (73) 95 NIV Bilevel 40.00 02/26/23 20:26 36.1 NIV Bilevel 40.00 02/26/23 20:00 98 NIV Bilevel 40 02/26/23 20:00 88 23 93/56 (68) 97 NIV Bilevel 40.00 02/26/23 19:22 106 02/26/23 19:00 98 26 100/59 (73) 97 NIV Bilevel 40.00 02/26/23 18:47 96 25 99 40.00 02/26/23 18:00 98 26 105/69 (79) 100 NIV Bilevel 45.00 02/26/23 17:00 88/59 (66) 02/26/23 16:30 96 NIV Bilevel 80 02/26/23 16:00 88 26 96/66 (80) 100 NIV Bilevel 55.00 02/26/23 15:15 78 21 100 60.00 02/26/23 15:00 89 36 92/71 (76) 88 Room Air 02/26/23 13:59 92 0 100 02/26/23 13:00 84 68 103/72 (79) 02/26/23 13:00 84 02/26/23 12:59 90 38 100 02/26/23 12:45 84 38 100/68 (79) 100 02/26/23 12:42 87 101 103/76 (86) 100 02/26/23 12:30 86 42 72/49 (57) 100 02/26/23 12:15 82 25 89/58 (65) 95 02/26/23 12:15 96 NIV Bilevel 80 02/26/23 12:00 84 22 102/73 (82) 02/26/23 11:59 84 26 100 02/26/23 11:13 36.5 02/26/23 10:53 91 27 100 80.00 02/26/23 10:00 93 39 112/79 (103) 88 02/26/23 09:57 36.4 89 91 02/26/23 09:53 91 Nasal Cannula 7.00 02/26/23 09:45 98 50 118/82 (93) 91 I & O 02/27/23 06:59 Intake Total 1575 ml Output Total 2775 ml Balance -1200 ml Height & Weight Height: '" Weight: lbs. oz. kg; 22.47 BMI Method: General Appearance: Chronically ill HEENT: Normal ENT Inspection Neck: Full Range of Motion Respiratory: Decreased Breath Sounds, Respiratory Distress Cardiovascular: Regular Rate, Rhythm Capillary Refill: Less Than 3 Seconds Gastrointestinal: soft, distended Extremity: Normal Capillary Refill Neurologic/Psychiatric: Other (confused) Skin: Normal Color Lymphatic: No Adenopathy Results Lab Laboratory Tests 02/25/23 10:30 02/26/23 05:23 02/26/23 13:40 02/27/23 04:19 Assessment/Plan Assessment/Plan 1 VIKAS MIGUEL MD Feb 27, 2023 09:41
--- NOTE | 2023-02-27 09:46 | Diagnostic Imaging Report ---
"INDICATION|: Respiratory distress. Study compared to one day prior. FINDINGS: Severe 5 lobed airspace opacities again noted showing mild further progression bilaterally. There is an OG catheter in the stomach. There is some air distention of colon in the left upper quadrant. There are at least small pleural effusions not clearly changed. ET tube tip projects over the midthoracic trachea, left PICC line at the upper SVC stable. IMPRESSION: Worsened severe 5 lobed airspace disease with interval ET tube placed midthoracic trachea. Dictated by: Dictated on workstation # [id number]"
[2023-02-27 10:04] LABS: INR 1.3 (0.8-1.4); PROTHROMBIN TIME PATIENT 17.2 SEC (12.2-14.7)
[2023-02-27] MEDS: FOLIC ACID IV SCH (10:07)
[2023-02-27] MEDS: NS IV SCH (10:07)
[2023-02-27] MEDS: THIAMINE IV SCH (10:07)
[2023-02-27 10:12] LABS: BASOPHILS % (AUTO) 0 % (0-10); EOSINOPHILS # (AUTO) 0.1 10^3/uL (0.0-0.3); EOSINOPHILS % (AUTO) 1 % (0-10); HEMATOCRIT 26 % (40-54); HEMOGLOBIN 8.5 g/dL (13.3-17.7); LYMPHOCYTES # (AUTO) 0.2 10^3/uL (1.0-4.0); LYMPHOCYTES % (AUTO) 2 % (12-44); MEAN CORPUSCULAR HEMOGLOBIN 27 pg (25-34); MEAN CORPUSCULAR HGB CONC 32 g/dL (32-36); MEAN CORPUSCULAR VOLUME 83 fL (80-99); MONOCYTES # (AUTO) 0.5 10^3/uL (0.0-1.0); MONOCYTES % (AUTO) 5 % (0-12); NEUTROPHILS # (AUTO) 10.2 10^3/uL (1.8-7.8); NEUTROPHILS % (AUTO) 92 % (42-75); PLATELET COUNT 109 10^3/uL (130-400); WHITE BLOOD COUNT 11.1 10^3/uL (4.3-11.0)
[2023-02-27 10:12] LABS: ABG BASE EXCESS 2.2 MMOL/L (-2.5-2.5); ABG OXYGEN SATURATION 99 % (94-100); ABG PCO2 33 MMHG (35-45); ABG PH 7.49 (7.37-7.43); ABG PO2 148 MMHG (79-93); ABG TCO2 26.1 MMOL/L (21.0-31.0); INSPIRED O2 100%; VENTILATOR NO
--- NOTE | 2023-02-27 10:39 | Progress Note ---
STEFANIE CONKLIN 02/27/23 1039: Subjective Date Seen by a Provider: Feb 27, 2023 Time Seen by a Provider: 08:15 Subjective/Events-last exam Pt was seen while Bipap was being removed. Pt was being intubated by anesthesia while doing exam. ROS was not acquired due to pt being unable to talk. Pt's mother and brother were in the room around 1100H. Objective Exam Last Set of Vital Signs Vital Signs Date Time Temp Pulse Resp B/P (MAP) Pulse Ox O2 Delivery O2 Flow Rate FiO2 02/27/23 10:18 98 32 100 100 02/27/23 10:00 103/79 (87) Mechanical Ventilator 100.00 02/27/23 07:38 35.8 Capillary Refill : Less Than 3 Seconds I&O Intake and Output 02/26/23 23:59 Intake Total 1415 ml Output Total 3125 ml Balance -1710 ml Intake Oral 65 ml IV Total 1350 ml Output Urine Total 3125 ml # Bowel Movements 5 Lungs: Other (rapid shallow breaths throughout exam) Heart: Regular Rate, No Murmurs Abdomen: Normal Bowel Sounds, Other (very distended, worse than yesterday) Extremities: No Clubbing, No Cyanosis Results Lab Laboratory Tests 02/26/23 11:00: Arterial Blood pH 7.56H, Arterial Blood Partial Pressure CO2 32L, Arterial Blood Partial Pressure O2 132H, Arterial Blood HCO3 29H, Arterial Blood Total CO2 29.7, Arterial Blood Oxygen Saturation 100, Arterial Blood Base Excess 6.7H, Blood Gas Ventilator Setting NO, Blood Gas Inspired Oxygen 80% 02/26/23 13:40: White Blood Count 13.7H, Red Blood Count 3.46L, Hemoglobin 8.7L, Hematocrit 28L, Mean Corpuscular Volume 80, Mean Corpuscular Hemoglobin 25, Mean Corpuscular Hemoglobin Concent 31L, Red Cell Distribution Width 19.5H, Platelet Count 119L, Mean Platelet Volume 11.0, Immature Granulocyte % (Auto) 1, Neutrophils (%) (Auto) 92H, Lymphocytes (%) (Auto) 1L, Monocytes (%) (Auto) 5, Eosinophils (%) (Auto) 0, Basophils (%) (Auto) 0, Neutrophils # (Auto) 12.7H, Lymphocytes # (Auto) 0.2L, Monocytes # (Auto) 0.7, Eosinophils # (Auto) 0.0, Basophils # (Auto) 0.0, Immature Granulocyte # (Auto) 0.1, Percent Immature Platelet Fraction 6.7, Sodium Level 138, Potassium Level 4.4, Chloride Level 105, Carbon Dioxide Level 25, Anion Gap 8, Blood Urea Nitrogen 11, Creatinine 0.68, Estimat Glomerular Filtration Rate 103, BUN/Creatinine Ratio 16, Glucose Level 107H, Calcium Level 7.2L 02/27/23 04:19: White Blood Count 9.2, Red Blood Count 2.63L, Hemoglobin 6.6#*L, Hematocrit 21L, Mean Corpuscular Volume 81, Mean Corpuscular Hemoglobin 25, Mean Corpuscular Hemoglobin Concent 31L, Red Cell Distribution Width 19.8H, Platelet Count 104L, Mean Platelet Volume 11.4, Immature Granulocyte % (Auto) 1, Neutrophils (%) (Auto) 91H, Lymphocytes (%) (Auto) 2L, Monocytes (%) (Auto) 6, Eosinophils (%) (Auto) 1, Basophils (%) (Auto) 0, Neutrophils # (Auto) 8.4H, Lymphocytes # (Auto) 0.1L, Monocytes # (Auto) 0.5, Eosinophils # (Auto) 0.1, Basophils # (Auto) 0.0, Immature Granulocyte # (Auto) 0.1, Percent Immature Platelet Fraction 5.8, Sodium Level 142, Potassium Level 3.3L, Chloride Level 108H, Carbon Dioxide Level 25, Anion Gap 9, Blood Urea Nitrogen 14, Creatinine 0.70, Estimat Glomerular Filtration Rate 102, BUN/Creatinine Ratio 20, Glucose Level 114H, Calcium Level 7.7L, Corrected Calcium 9.0, Phosphorus Level 2.2L, Magnesium Level 2.0, Total Bilirubin 1.5H, Aspartate Amino Transf (AST/SGOT) 51H , Alanine Aminotransferase (ALT/SGPT) 294H, Alkaline Phosphatase 41, Total Protein 4.3L, Albumin 2.4L, Triglycerides Level 69 02/27/23 07:35: Arterial Blood pH 7.49H, Arterial Blood Partial Pressure CO2 35, Arterial Blood Partial Pressure O2 83, Arterial Blood HCO3 27, Arterial Blood Total CO2 27.8, Arterial Blood Oxygen Saturation 98, Arterial Blood Base Excess 3.5H, Blood Gas Ventilator Setting NO, Blood Gas Inspired Oxygen 50% FI02/BIPAP 02/27/23 09:45: White Blood Count 11.1H, Red Blood Count 3.19L, Hemoglobin 8.5#L, Hematocrit 26L , Mean Corpuscular Volume 83, Mean Corpuscular Hemoglobin 27, Mean Corpuscular Hemoglobin Concent 32, Red Cell Distribution Width 18.6H, Platelet Count 109L, Mean Platelet Volume 12.0, Immature Granulocyte % (Auto) 1, Neutrophils (%) (Auto) 92H, Lymphocytes (%) (Auto) 2L, Monocytes (%) (Auto) 5, Eosinophils (%) (Auto) 1, Basophils (%) (Auto) 0, Neutrophils # (Auto) 10.2H, Lymphocytes # (Auto) 0.2L, Monocytes # (Auto) 0.5, Eosinophils # (Auto) 0.1, Basophils # (Auto) 0.0, Immature Granulocyte # (Auto) 0.1, Prothrombin Time 17.2H, INR Comment 1.3, Fibrinogen 580H 02/27/23 10:01: Arterial Blood pH 7.49H, Arterial Blood Partial Pressure CO2 33L, Arterial Blood Partial Pressure O2 148H, Arterial Blood HCO3 25, Arterial Blood Total CO2 26.1, Arterial Blood Oxygen Saturation 99, Arterial Blood Base Excess 2.2, Blood Gas Ventilator Setting NO, Blood Gas Inspired Oxygen 100% Microbiology 02/22/23 Blood Culture - Preliminary, Resulted 02/22/23 Urine Culture - Final, Complete NO GROWTH 02/22/23 MRSA Screen - Final, Complete MRSA not isolated Assessment/Plan Assessment/Plan Assess & Plan/Chief Complaint Assessment: Presumed alcohol induced liver injury Acute Respiratory Failure Anemia due to possible GI bleed Congestive Heart Failure H/o prostate cancer Anxiety Plan: Presumed alcohol induced liver injury -AST is down to 51 from 120. ALT is down to 294 from 502. -continue supportive care and monitor labs -poor prognosis Acute Respiratory Failure and pneumonia -decision was made to proceed with intubation due to pt's status -continue supportive care -poor prognosis Anemia due to possible GI bleed -Hgb has decreased to 6.6 -continue to monitor Congestive Heart Failure -probably metabolic secondary to heavy alcoholism, alcoholic liver disease or metabolic acidosis - per cardiology H/o prostate cancer Anxiety -continue to monitor and treat as needed Clinical Quality Measures DVT/VTE Risk/Contraindication: Other: GI BLEED CINDA WOLFE DO 02/28/23 0613: Subjective Subjective/Events-last exam Patient required intubation Poor prognosis Liver and kidney failure worsened Hematuria Objective Exam General: Other (Intubated) Lungs: Clear to Auscultation Heart: Regular Rate Assessment/Plan Assessment/Plan Assess & Plan/Chief Complaint Intubation Comfort care protocol likely soon Supervisory-Addendum Brief Verification & Attestation Participated in pt care: history, MDM, physical Personally performed: exam, history, MDM, supervision of care Care discussed with: Medical Student Procedures: n/a Results interpretation: Verified all documentation Verification and Attestation of Medical Student E/M Service A medical student performed and documented this service in my presence. I reviewed and verified all information documented by the medical student and made modifications to such information, when appropriate. I personally performed the physical exam and medical decision making. Cinda Wolfe, Feb 28, 2023,06:09 STEFANIE CONKLIN Feb 27, 2023 10:39 CINDA WOLFE DO Feb 28, 2023 06:13
--- NOTE | 2023-02-27 10:43 | Cardiology Progress Note ---
Subjective Date Seen by Provider: Feb 27, 2023 Time Seen by Provider: 10:41 Subjective/Events-last exam Patient was seen at bedside, was being intubated. Was in respiratory failure. Objective-Cardiology Exam Last Set of Vital Signs Vital Signs 02/27/23 02/27/23 02/27/23 07:38 10:00 10:18 Temp 35.8 Pulse 98 Resp 32 B/P (MAP) 103/79 (87) Pulse Ox 100 O2 Delivery Mechanical Ventilator O2 Flow Rate 100.00 FiO2 100 I&O Intake and Output 02/26/23 23:59 Intake Total 1415 ml Output Total 3125 ml Balance -1710 ml Intake Oral 65 ml IV Total 1350 ml Output Urine Total 3125 ml # Bowel Movements 5 General: Other (Unable to provide history, in the process of intubation) HEENT: PERRLA, EOMI Neck: No JVD Lungs: Clear to Auscultation Heart: Regular Rate, Normal S1, Normal S2 Abdomen: Normal Bowel Sounds, No Tenderness, Other Extremities: No Clubbing, No Cyanosis Neuro: Other (Unable to provide history) Psych/Mental Status: Other (Unable to provide history) Results Lab Laboratory Tests 02/26/23 13:40 02/27/23 04:19 02/27/23 09:45 A/P-Cardiology Admission Diagnosis Generalized weakness Type II myocardial infarction Lactic acidosis Acute delirium Assessment/Plan Acute respiratory failure, deteriorated quickly this morning Decision was made to proceed with intubation Managed by medical team Generalized weakness, extreme fatigue, confusion, delirium. Probably secondary to alcoholism Managed by medical team Anemia, drop in H&H, received blood transfusion Managed by medical team Congestive heart failure, acute left ventricular systolic dysfunction, probably nonischemic cardiomyopathy Questionable underlying alcoholism and it might be secondary to alcoholic heart disease. Underlying coronary artery disease cannot be excluded, will need extensive work- up once patient mental status is back to baseline Acute change in mental status, probably metabolic secondary to heavy alcoholism, alcoholic liver disease or metabolic acidosis. Management per ICU team. History of intermittent rectal bleed. Had work-up in the past and it was negative Continue to follow recommendation, consider repeating colonoscopy History of prostate cancer Questionable history of alcohol use, elevated liver enzymes. Questionable delirium tremens Patient received Precedex Managed by medical team Sinus tachycardia, secondary to hypovolemia. Lactic acidosis, probably secondary to hypovolemia TORIN SARABIA MD Feb 27, 2023 10:43
--- NOTE | 2023-02-27 12:14 | Anesthesia-Procedure Note ---
Procedures/Interventions Procedure Start/Stop/Diagnosis Date of Procedure: Feb 27, 2023 Start Time: 08:53 Brief History Acute Respiratory Failure Stop Time: 09:00 Intubation RSI: Yes Intubation Method: orotracheal (7.5) Videoscope used: Yes (luz x) Medications: Propofol (100mg), Succinylcholine (100mg) Mask Ventilation: positive Positive End Tide CO2: Yes Breath Sounds after Intubation: bilateral-equal ETT Securred @ (cm): 22 Intubated with ease: Yes GRABIEL PRESTON CRNA Feb 27, 2023 12:14
[2023-02-27] MEDS ORDERED: SUCCINYLCHOLINE INJ 20 MG/1 ML 10 ML VIAL INJ ONE (12:24)
[2023-02-27] MEDS ORDERED: proPOfol INJECTION 200 MG/20 ML VIAL IV ONE (12:24)
--- NOTE | 2023-02-27 12:58 | Progress Note ---
Subjective Date Seen by a Provider: Feb 27, 2023 Time Seen by a Provider: 12:00 Subjective/Events-last exam patient remains critically ill. intubated today. cxr looks like ARDS picture. still having maroon/red stools with known hx radiation proctitis. hb increase appropriate per 1 unit PRBC. Objective Exam Vital Signs Date Time Temp Pulse Resp B/P (MAP) Pulse Ox O2 Delivery O2 Flow Rate FiO2 02/27/23 12:49 75 02/27/23 12:00 82 20 108/68 (79) Mechanical Ventilator 100.00 02/27/23 11:54 37.4 02/27/23 11:00 89 20 107/70 (80) 100 Mechanical Ventilator 100.00 02/27/23 10:18 98 32 100 100 02/27/23 10:00 86 22 103/79 (87) 100 Mechanical Ventilator 100.00 02/27/23 09:39 74 27 100 100 02/27/23 09:13 79 122/82 02/27/23 09:00 89 19 122/82 (97) 97 Mechanical Ventilator 100.00 02/27/23 08:46 81 35 106/74 92 NIV Bilevel 50 02/27/23 08:00 98 146/91 (98) 94 NIV Bilevel 50.00 02/27/23 07:38 35.8 92 35 126/78 (94) 99 NIV Bilevel 50.00 02/27/23 07:32 92 NIV Bilevel 40 02/27/23 07:00 89 02/27/23 07:00 85 27 112/66 (80) 99 NIV Bilevel 40.00 02/27/23 06:59 87 40 97 30.00 02/27/23 06:43 36.2 20 20 111/72 99 NIV Bilevel 40 02/27/23 06:28 36.2 90 28 115/73 96 NIV Bilevel 40 02/27/23 06:00 87 38 108/60 (76) 96 NIV Bilevel 40.00 02/27/23 05:00 88 31 95/61 (72) 95 NIV Bilevel 40.00 02/27/23 04:00 90 25 97/66 (76) 94 NIV Bilevel 40.00 02/27/23 03:36 97 NIV Bilevel 40 02/27/23 03:00 93 25 86/58 (67) 91 NIV Bilevel 40.00 02/27/23 02:40 95 23 92 40.00 02/27/23 02:00 102 25 115/74 (88) 98 NIV Bilevel 40.00 02/27/23 01:00 85 20 106/62 (77) 96 NIV Bilevel 40.00 02/27/23 00:07 87 02/27/23 00:00 36.6 02/27/23 00:00 86 23 112/68 (83) 96 NIV Bilevel 40.00 02/26/23 23:52 96 NIV Bilevel 40 02/26/23 23:43 80 105/62 02/26/23 23:00 81 25 105/64 (78) 96 NIV Bilevel 40.00 02/26/23 22:33 99 36 97 40.00 02/26/23 22:00 99 24 122/80 (94) 97 NIV Bilevel 40.00 02/26/23 21:00 86 18 98/61 (73) 95 NIV Bilevel 40.00 02/26/23 20:26 36.1 NIV Bilevel 40.00 02/26/23 20:00 98 NIV Bilevel 40 02/26/23 20:00 88 23 93/56 (68) 97 NIV Bilevel 40.00 02/26/23 19:22 106 02/26/23 19:00 98 26 100/59 (73) 97 NIV Bilevel 40.00 02/26/23 18:47 96 25 99 40.00 02/26/23 18:00 98 26 105/69 (79) 100 NIV Bilevel 45.00 02/26/23 17:00 88/59 (66) 02/26/23 16:30 96 NIV Bilevel 80 02/26/23 16:00 88 26 96/66 (80) 100 NIV Bilevel 55.00 02/26/23 15:15 78 21 100 60.00 02/26/23 15:00 89 36 92/71 (76) 88 Room Air 02/26/23 13:59 92 0 100 02/26/23 13:00 84 68 103/72 (79) 02/26/23 13:00 84 02/26/23 12:59 90 38 100 I & O 02/27/23 06:59 Intake Total 1575 ml Output Total 2775 ml Balance -1200 ml Capillary Refill : Less Than 3 Seconds General Appearance: No Apparent Distress HEENT: PERRL/EOMI Neck: Full Range of Motion Respiratory: Chest Non Tender, Decreased Breath Sounds, Rhonci Cardiovascular: Regular Rate, Rhythm Gastrointestinal: soft Extremity: Normal Capillary Refill Neurologic/Psychiatric: Other (on vent/sedated) Skin: Normal Color Lymphatic: No Adenopathy Results Lab Laboratory Tests 02/26/23 13:40: White Blood Count 13.7H, Red Blood Count 3.46L, Hemoglobin 8.7L, Hematocrit 28L, Mean Corpuscular Volume 80, Mean Corpuscular Hemoglobin 25, Mean Corpuscular Hemoglobin Concent 31L, Red Cell Distribution Width 19.5H, Platelet Count 119L, Mean Platelet Volume 11.0, Immature Granulocyte % (Auto) 1, Neutrophils (%) (Auto) 92H, Lymphocytes (%) (Auto) 1L, Monocytes (%) (Auto) 5, Eosinophils (%) (Auto) 0, Basophils (%) (Auto) 0, Neutrophils # (Auto) 12.7H, Lymphocytes # (Auto) 0.2L, Monocytes # (Auto) 0.7, Eosinophils # (Auto) 0.0, Basophils # (Au to) 0.0, Immature Granulocyte # (Auto) 0.1, Percent Immature Platelet Fraction 6.7, Sodium Level 138, Potassium Level 4.4, Chloride Level 105, Carbon Dioxide Level 25, Anion Gap 8, Blood Urea Nitrogen 11, Creatinine 0.68, Estimat Glomerular Filtration Rate 103, BUN/Creatinine Ratio 16, Glucose Level 107H, Calcium Level 7.2L 02/27/23 04:19: White Blood Count 9.2, Red Blood Count 2.63L, Hemoglobin 6.6#*L, Hematocrit 21L, Mean Corpuscular Volume 81, Mean Corpuscular Hemoglobin 25, Mean Corpuscular Hemoglobin Concent 31L, Red Cell Distribution Width 19.8H, Platelet Count 104L, Mean Platelet Volume 11.4, Immature Granulocyte % (Auto) 1, Neutrophils (%) (Auto) 91H, Lymphocytes (%) (Auto) 2L, Monocytes (%) (Auto) 6, Eosinophils (%) (Auto) 1, Basophils (%) (Auto) 0, Neutrophils # (Auto) 8.4H, Lymphocytes # (Auto) 0.1L, Monocytes # (Auto) 0.5, Eosinophils # (Auto) 0.1, Basophils # (Auto) 0.0, Immature Granulocyte # (Auto) 0.1, Percent Immature Platelet Fraction 5.8, Sodium Level 142, Potassium Level 3.3L, Chloride Level 108H, Carbon Dioxide Level 25, Anion Gap 9, Blood Urea Nitrogen 14, Creatinine 0.70, E stimat Glomerular Filtration Rate 102, BUN/Creatinine Ratio 20, Glucose Level 114H, Calcium Level 7.7L, Corrected Calcium 9.0, Phosphorus Level 2.2L, Magnesium Level 2.0, Total Bilirubin 1.5H, Aspartate Amino Transf (AST/SGOT) 51H , Alanine Aminotransferase (ALT/SGPT) 294H, Alkaline Phosphatase 41, Total Protein 4.3L, Albumin 2.4L, Triglycerides Level 69 02/27/23 07:35: Arterial Blood pH 7.49H, Arterial Blood Partial Pressure CO2 35, Arterial Blood Partial Pressure O2 83, Arterial Blood HCO3 27, Arterial Blood Total CO2 27.8, Arterial Blood Oxygen Saturation 98, Arterial Blood Base Excess 3.5H, Blood Gas Ventilator Setting NO, Blood Gas Inspired Oxygen 50% FI02/BIPAP 02/27/23 09:45: White Blood Count 11.1H, Red Blood Count 3.19L, Hemoglobin 8.5#L, Hematocrit 26L , Mean Corpuscular Volume 83, Mean Corpuscular Hemoglobin 27, Mean Corpuscular Hemoglobin Concent 32, Red Cell Distribution Width 18.6H, Platelet Count 109L, Mean Platelet Volume 12.0, Immature Granulocyte % (Auto) 1, Neutrophils (%) (Auto) 92H, Lymphocytes (%) (Auto) 2L, Monocytes (%) (Auto) 5, Eosinophils (%) (Auto) 1, Basophils (%) (Auto) 0, Neutrophils # (Auto) 10.2H, Lymphocytes # (Auto) 0.2L, Monocytes # (Auto) 0.5, Eosinophils # (Auto) 0.1, Basophils # (Auto) 0.0, Immature Granulocyte # (Auto) 0.1, Prothrombin Time 17.2H, INR Comment 1.3, Fibrinogen 580H 02/27/23 10:01: Arterial Blood pH 7.49H, Arterial Blood Partial Pressure CO2 33L, Arterial Blood Partial Pressure O2 148H, Arterial Blood HCO3 25, Arterial Blood Total CO2 26.1, Arterial Blood Oxygen Saturation 99, Arterial Blood Base Excess 2.2, Blood Gas Ventilator Setting NO, Blood Gas Inspired Oxygen 100% 02/27/23 11:38: Glucometer 108 Microbiology 02/22/23 Blood Culture - Preliminary, Resulted 02/22/23 Urine Culture - Final, Complete NO GROWTH 02/22/23 MRSA Screen - Final, Complete MRSA not isolated Assessment/Plan Assessment/Plan Assess & Plan/Chief Complaint anemia and rectal bleed due to radiation proctitis. patient critically ill. has had 2 maroon BM's. cont current therapies for ETOH detox. cont PPI if rectal bleed does develop will recommend PO glucocorticoids vs. sucralfate enemas. may also have UGI bleed component. currently on BID PPI Clinical Quality Measures DVT/VTE Risk/Contraindication: Other: GI BLEED FATMATA JUNIOR MD Feb 27, 2023 12:57
[2023-02-27] MEDS: DexMEDEtomidine 1,000mcg/250ml 250 ML IV SCH ×2 (13:27→23:39)
[2023-02-27] MEDS: ACETAMINOPHEN 325 MG TABLET PO PRN (23:39)
[2023-02-28] MEDS: PIPERACILLIN/Tazobactam 4.5 GM in NS (IVPB) 100 ML 100 ML IV SCH ×3 (01:09→18:32)
[2023-02-28] MEDS: RT-Ipratropium/Albuterol NEB 3 ML VIAL INH SCH ×6 (02:27→23:01)
[2023-02-28 02:28] VITALS: BP 108/69
[2023-02-28 03:28] LABS: BASOPHILS % (AUTO) 0 % (0-10); HEMOGLOBIN 8.1 g/dL (13.3-17.7); MONOCYTES # (AUTO) 0.5 10^3/uL (0.0-1.0); MONOCYTES % (AUTO) 6 % (0-12); NEUTROPHILS # (AUTO) 6.6 10^3/uL (1.8-7.8)
[2023-02-28 03:30] LABS: EOSINOPHILS # (AUTO) 0.2 10^3/uL (0.0-0.3); EOSINOPHILS % (AUTO) 3 % (0-10); HEMATOCRIT 25 % (40-54); LYMPHOCYTES # (AUTO) 0.5 10^3/uL (1.0-4.0); LYMPHOCYTES % (AUTO) 6 % (12-44); MEAN CORPUSCULAR HEMOGLOBIN 27 pg (25-34); MEAN CORPUSCULAR HGB CONC 32 g/dL (32-36); MEAN CORPUSCULAR VOLUME 83 fL (80-99); NEUTROPHILS % (AUTO) 84 % (42-75); PLATELET COUNT 101 10^3/uL (130-400); WHITE BLOOD COUNT 7.8 10^3/uL (4.3-11.0)
[2023-02-28 03:41] LABS: ALBUMIN 2.3 GM/DL (3.2-4.5); POTASSIUM 4.2 MMOL/L (3.6-5.0)
[2023-02-28 03:42] LABS: CALCIUM 7.5 MG/DL (8.5-10.1)
[2023-02-28 03:45] LABS: BILIRUBIN,TOTAL 1.5 MG/DL (0.1-1.0)
[2023-02-28 03:47] LABS: CREATININE SERUM 0.73 MG/DL (0.60-1.30); PHOSPHORUS 2.3 MG/DL (2.3-4.7)
[2023-02-28 04:21] LABS: ANISOCYTOSIS MODERATE; BAND NEUTROPHILS 3 %; EOSINOPHILS % (MANUAL) 4 %; LYMPHOCYTES % (MANUAL) 4 %; MONOCYTES % (MANUAL) 3 %; NEUTROPHILS % (MANUAL) 86 %; POLYCHROMASIA SLIGHT; TEAR DROP CELLS SLIGHT
[2023-02-28 04:22] LABS: BURR CELLS MARKED
[2023-02-28] MEDS: LACTULOSE 10 GM/15 ML 30 ML POUR BOTTLE FOR ENEMA PR SCH ×5 (04:28→20:01)
[2023-02-28 04:41] LABS: ABG BASE EXCESS 1.5 MMOL/L (-2.5-2.5); ABG OXYGEN SATURATION 100 % (94-100); ABG PCO2 34 MMHG (35-45); ABG PH 7.47 (7.37-7.43); ABG PO2 113 MMHG (79-93); ABG TCO2 25.7 MMOL/L (21.0-31.0)
[2023-02-28 04:43] LABS: INSPIRED O2 40%; VENTILATOR YES
[2023-02-28] MEDS: MAGNESIUM 1 GM/100 ML IVPB 100 ML IV SCH (05:14)
[2023-02-28] MEDS: POTASSIUM CL 10MEQ/50ML IVPB 50 ML IV SCH (05:14)
[2023-02-28] MEDS: POTASSIUM CHLORIDE 20 MEQ TABLET PO SCH (05:14)
[2023-02-28 07:08] VITALS: BP 118/74
[2023-02-28] MEDS: PANTOPRAZOLE INJECTION 40 MG VIAL IV SCH ×2 (08:43→20:10)
--- NOTE | 2023-02-28 08:54 | Diagnostic Imaging Report ---
EXAMINATION: Chest radiograph, portable AP view. DATE: 02/28/2023 8:46 AM INDICATION: 68-year-old male, acute respiratory distress syndrome. COMPARISON: February 27, 2023. FINDINGS: The endotracheal tube is near the level of the thoracic inlet. Recommend advancement. The tip of the catheter is approximately 9.3 cm above the level of the jayy. The left-sided PICC line overlies the upper SVC. The nasogastric tube is in the stomach. Heart size and mediastinal contours are unchanged. There is no identified pneumothorax. There is multifocal bilateral lung consolidation which is improved since the comparison exam. There are gas filled distended segments of bowel which are previously present. IMPRESSION: 1. Extensive multifocal bilateral lung consolidation with interval improvement since February 27, 2023. 2. The endotracheal tube tip is near the level of thoracic inlet. Recommend advancement. Additional support lines and tubes as above. Dictated by: Dictated on workstation # [id number]
--- NOTE | 2023-02-28 09:05 | Diagnostic Imaging Report ---
EXAMINATION: Abdominal radiographs, single view, 2 images. DATE: February 28, 2023. CLINICAL INDICATION: 68-year-old male, abdominal pain. COMPARISON: Abdominal radiographs February 24, 2023. COMMENTS: There are dilated segments of colon particularly the right colon which measure up to 13.2 cm in diameter. This previously measured roughly 9.8 cm diameter February 24, 2023. This is increased. There is no identified pneumatosis, portal venous gas, or free intraperitoneal air on supine assessment. There is nonspecific left basilar airspace consolidation. IMPRESSION: 1. Significant distention of the colon up to 13.2 cm in size. Distal colonic obstruction and ileus are both differential considerations. Dictated by: Dictated on workstation # [id number]
[2023-02-28] MEDS: DOCUSATE SODIUM 100 MG CAPSULE PO SCH ×2 (09:10→20:17)
[2023-02-28] MEDS: SENNOSIDES 8.6 MG TABLET PO SCH ×2 (09:10→20:17)
[2023-02-28] MEDS: LACTULOSE SYRUP 10GM/15ML 30ML UDC PO SCH ×3 (09:10→20:17)
[2023-02-28] MEDS: THIAMINE IV SCH (09:39)
[2023-02-28] MEDS: NS IV SCH (09:39)
[2023-02-28] MEDS: FOLIC ACID IV SCH (09:39)
[2023-02-28 10:42] VITALS: BP 110/75
--- NOTE | 2023-02-28 11:04 | Progress Note ---
Subjective Date Seen by a Provider: Feb 28, 2023 Time Seen by a Provider: 11:00 Subjective/Events-last exam Patient remains the same Intubation maintained Hgb stable Multisystem organ failure continues Poor reserve making it unlikely a good outcome Review of Systems General: Fatigue Objective Exam Last Set of Vital Signs Vital Signs Date Time Temp Pulse Resp B/P (MAP) Pulse Ox O2 Delivery O2 Flow Rate FiO2 02/28/23 10:42 81 18 99 30 02/28/23 10:00 110/80 (89) Mechanical Ventilator 30.00 02/28/23 07:35 36.5 Capillary Refill : Less Than 3 Seconds I&O Intake and Output 02/27/23 23:59 Intake Total 1100 ml Output Total 880 ml Balance 220 ml Intake Oral 0 ml IV Total 1100 ml Output Urine Total 880 ml General: Other (edated and intubated) Lungs: Clear to Auscultation Heart: Regular Rate Results Lab Laboratory Tests 02/27/23 11:38: Glucometer 108 02/27/23 17:45: Glucometer 123H 02/28/23 03:17: White Blood Count 7.8, Red Blood Count 3.04L, Hemoglobin 8.1L, Hematocrit 25L, Mean Corpuscular Volume 83, Mean Corpuscular Hemoglobin 27, Mean Corpuscular Hemoglobin Concent 32, Red Cell Distribution Width 19.7H, Platelet Count 101L, Mean Platelet Volume 11.0, Immature Granulocyte % (Auto) 1, Neutrophils (%) (Auto) 84H, Lymphocytes (%) (Auto) 6L, Monocytes (%) (Auto) 6, Eosinophils (%) (Auto) 3, Basophils (%) (Auto) 0, Neutrophils # (Auto) 6.6, Lymphocytes # (Auto) 0.5L, Monocytes # (Auto) 0.5, Eosinophils # (Auto) 0.2, Basophils # (Auto) 0.0, Immature Granulocyte # (Auto) 0.1, Neutrophils % (Manual) 86, Lymphocytes % (Manual) 4, Monocytes % (Manual) 3, Eosinophils % (Manual) 4, Band Neutrophils 3, Smudge Cells SLIGHT, Percent Immature Platelet Fraction 5.5, Polychromasia SLIGHT, Anisocytosis MODERATE, Tear Drop Cells SLIGHT, [place] Cells MARKED, Sodium Level 139, Potassium Level 4.2, Chloride Level 110H, Carbon Dioxide Level 23, Anion Gap 6, Blood Urea Nitrogen 11, Creatinine 0.73, Estimat Glomerular Filtration Rate 100, BUN/Creatinine Ratio 15, Glucose Level 111H, Calcium Level 7.5L, Corrected Calcium 8.9, Phosphorus Level 2.3, Magnesium Level 2.0, Total Bilirubin 1.5H, Aspartate Amino Transf (AST/SGOT) 27, Alanine Aminotransferase (ALT/SGPT) 196H, Alkaline Phosphatase 47, Total Protein 5.0L, Albumin 2.3L 02/28/23 04:26: Arterial Blood pH 7.47H, Arterial Blood Partial Pressure CO2 34L, Arterial Blood Partial Pressure O2 113H, Arterial Blood HCO3 25, Arterial Blood Total CO2 25.7, Arterial Blood Oxygen Saturation 100, Arterial Blood Base Excess 1.5, Blood Gas Ventilator Setting YES, Blood Gas Inspired Oxygen 40% Microbiology 02/27/23 Gram Stain - Final, Resulted 02/27/23 Sputum Culture - Preliminary, Resulted 02/22/23 Blood Culture - Final, Complete 02/22/23 Urine Culture - Final, Complete NO GROWTH Assessment/Plan Assessment/Plan Assess & Plan/Chief Complaint Intubation Comfort care protocol likely soon Continue supportive care Clinical Quality Measures DVT/VTE Risk/Contraindication: Other: GI BLEED TAMIKA WOLFE DO Feb 28, 2023 11:04
[2023-02-28] MEDS: DexMEDEtomidine 1,000mcg/250ml 250 ML IV SCH ×2 (11:15→21:56)
--- NOTE | 2023-02-28 11:21 | Progress Note ---
Subjective Date Seen by a Provider: Feb 28, 2023 Time Seen by a Provider: 11:00 Subjective/Events-last exam on vent/sedated. remains critically ill. family deciding on CC measure. Hb stable with no signs clinical bleed. Objective Exam Vital Signs Date Time Temp Pulse Resp B/P (MAP) Pulse Ox O2 Delivery O2 Flow Rate FiO2 02/28/23 10:42 81 18 99 30 02/28/23 10:00 87 19 110/80 (89) 98 Mechanical Ventilator 30.00 02/28/23 09:38 93 108/75 02/28/23 09:00 104 20 105/79 (88) 93 Mechanical Ventilator 30.00 02/28/23 08:00 74 17 121/80 (97) 100 Mechanical Ventilator 30.00 02/28/23 07:35 36.5 02/28/23 07:08 70 18 100 30 02/28/23 07:00 71 02/28/23 07:00 71 118/76 (92) 100 Mechanical Ventilator 30.00 02/28/23 06:00 77 17 120/78 (92) 99 Mechanical Ventilator 30.00 02/28/23 05:43 147 02/28/23 05:09 89 125/79 02/28/23 05:00 79 17 124/81 (95) 99 Mechanical Ventilator 30.00 02/28/23 04:54 30 02/28/23 04:53 Mechanical Ventilator 30.00 02/28/23 04:44 89 125/79 02/28/23 04:00 89 23 125/79 (94) 100 Mechanical Ventilator 40.00 02/28/23 04:00 100 Mechanical Ventilator 40 02/28/23 03:39 89 125/79 02/28/23 03:12 37.2 02/28/23 03:00 89 20 117/54 (75) 100 Mechanical Ventilator 40.00 02/28/23 02:28 72 20 100 40 02/28/23 02:00 73 19 104/71 (82) 100 Mechanical Ventilator 40.00 02/28/23 01:09 75 102/69 02/28/23 01:00 73 19 105/70 (82) 100 Mechanical Ventilator 40.00 02/28/23 00:09 37.2 02/28/23 00:07 75 02/28/23 00:00 75 20 102/69 (80) 100 Mechanical Ventilator 40.00 02/27/23 23:50 100 Mechanical Ventilator 40 02/27/23 23:39 77 104/66 02/27/23 23:39 38.2 02/27/23 23:33 38.2 02/27/23 23:00 77 19 104/66 (79) 100 Mechanical Ventilator 40.00 02/27/23 22:21 74 20 100 40 02/27/23 22:00 75 20 99/63 (75) 100 Mechanical Ventilator 40.00 02/27/23 21:00 77 20 109/69 (82) 100 Mechanical Ventilator 40.00 02/27/23 20:49 77 109/69 02/27/23 20:49 77 109/69 02/27/23 20:00 81 19 113/70 (84) 100 Mechanical Ventilator 40.00 02/27/23 19:59 100 Mechanical Ventilator 40 02/27/23 19:50 37.7 02/27/23 19:14 85 02/27/23 19:00 86 19 119/75 (90) 100 Mechanical Ventilator 40.00 02/27/23 18:39 86 20 100 40 02/27/23 18:09 79 111/73 02/27/23 18:00 80 20 120/78 (92) 100 Mechanical Ventilator 40.00 02/27/23 17:00 86 20 123/77 (92) 100 Mechanical Ventilator 40.00 02/27/23 17:00 79 111/73 02/27/23 16:49 79 111/73 02/27/23 16:49 79 111/73 02/27/23 16:00 79 19 111/73 (86) 97 Mechanical Ventilator 100.00 02/27/23 16:00 98 Mechanical Ventilator 40 02/27/23 15:24 36.9 02/27/23 15:00 77 22 111/70 (82) 97 Mechanical Ventilator 100.00 02/27/23 14:56 75 20 100 75 02/27/23 14:00 73 20 99/66 (75) 100 Mechanical Ventilator 100.00 02/27/23 13:27 74 97/68 02/27/23 13:27 74 97/68 02/27/23 13:00 74 19 97/68 (78) 100 Mechanical Ventilator 100.00 02/27/23 12:55 78 02/27/23 12:49 75 02/27/23 12:15 92 Mechanical Ventilator 100 02/27/23 12:00 82 20 108/68 (79) Mechanical Ventilator 100.00 02/27/23 11:54 37.4 I & O 02/28/23 06:59 Intake Total 1200 ml Output Total 980 ml Balance 220 ml Capillary Refill : Less Than 3 Seconds General Appearance: No Apparent Distress HEENT: PERRL/EOMI Neck: Full Range of Motion Respiratory: Decreased Breath Sounds, Rhonci, Wheezing Cardiovascular: Regular Rate, Rhythm Gastrointestinal: soft Extremity: Normal Capillary Refill Neurologic/Psychiatric: Other (on vent/sedated) Skin: Normal Color Lymphatic: No Adenopathy Results Lab Laboratory Tests 02/27/23 11:38: Glucometer 108 02/27/23 17:45: Glucometer 123H 02/28/23 03:17: White Blood Count 7.8, Red Blood Count 3.04L, Hemoglobin 8.1L, Hematocrit 25L, Mean Corpuscular Volume 83, Mean Corpuscular Hemoglobin 27, Mean Corpuscular Hemoglobin Concent 32, Red Cell Distribution Width 19.7H, Platelet Count 101L, Mean Platelet Volume 11.0, Immature Granulocyte % (Auto) 1, Neutrophils (%) (Auto) 84H, Lymphocytes (%) (Auto) 6L, Monocytes (%) (Auto) 6, Eosinophils (%) (Auto) 3, Basophils (%) (Auto) 0, Neutrophils # (Auto) 6.6, Lymphocytes # (Auto) 0.5L, Monocytes # (Auto) 0.5, Eosinophils # (Auto) 0.2, Basophils # (Auto) 0.0, Immature Granulocyte # (Auto) 0.1, Neutrophils % (Manual) 86, Lymphocytes % (Manual) 4, Monocytes % (Manual) 3, Eosinophils % (Manual) 4, Band Neutrophils 3, Smudge Cells SLIGHT, Percent Immature Platelet Fraction 5.5, Polychromasia SLIGHT, Anisocytosis MODERATE, Tear Drop Cells SLIGHT, [place] Cells MARKED, Sodium Level 139, Potassium Level 4.2, Chloride Level 110H, Carbon Dioxide Level 23, Anion Gap 6, Blood Urea Nitrogen 11, Creatinine 0.73, Estimat Glomerular Filtration Rate 100, BUN/Creatinine Ratio 15, Glucose Level 111H, Calcium Level 7.5L, Corrected Calcium 8.9, Phosphorus Level 2.3, Magnesium Level 2.0, Total Bilirubin 1.5H, Aspartate Amino Transf (AST/SGOT) 27, Alanine Aminotransferase (ALT/SGPT) 196H, Alkaline Phosphatase 47, Total Protein 5.0L, Albumin 2.3L 02/28/23 04:26: Arterial Blood pH 7.47H, Arterial Blood Partial Pressure CO2 34L, Arterial Blood Partial Pressure O2 113H, Arterial Blood HCO3 25, Arterial Blood Total CO2 25.7, Arterial Blood Oxygen Saturation 100, Arterial Blood Base Excess 1.5, Blood Gas Ventilator Setting YES, Blood Gas Inspired Oxygen 40% Microbiology 02/27/23 Gram Stain - Final, Resulted 02/27/23 Sputum Culture - Preliminary, Resulted 02/22/23 Blood Culture - Final, Complete 02/22/23 Urine Culture - Final, Complete NO GROWTH Assessment/Plan Assessment/Plan Assess & Plan/Chief Complaint anemia and rectal bleed due to radiation proctitis. patient critically ill. currently no clinical bleeding with stable Hb. cont current therapies for ETOH detox. cont PPI if rectal bleed does develop will recommend PO glucocorticoids vs. sucralfate enemas. may also have UGI bleed component. currently on BID PPI Clinical Quality Measures DVT/VTE Risk/Contraindication: Other: GI BLEED FATMATA JUNIOR MD Feb 28, 2023 11:20
--- NOTE | 2023-02-28 11:21 | Tele-ICU Progress Note ---
Subjective Date Seen by a Provider: Feb 28, 2023 Time Seen by a Provider: 09:00 Subjective/Events-last exam (Tele-ICU Physician , Progress Note ) Service provided via interactive audio and video telecommunications E-CARE system to a patient admitted to ICU bed in [facility]. Patient is seen today due to persistent need of ICU care Available chart/ vitals / labs / Images reviewed Video assessment done using teleICU camera, rest of exam as per RN He is a 68-year-old male with history of intermittent rectal bleeding presented to the emergency room with complaint of fatigue and rectal bleeding intermittently. He is found to have a severe anemia with a hemoglobin of 3.5 g and subsequently he was transfused 4 units of packed red blood cells and his hemoglobin improved to 9.0 g today. He has a borderline blood pressure of 96/58 this a.m. However he has initially some lactic acidosis and his mental status has been waxing and waning. Today his girlfriend told the staff apparently that she is a closet alcoholic. Hence he is started on banana bag as well as a CIWA protocol. He has a.'s of extreme anxiety. 02/28/23 Patient yesterday has drop in hemoglobin to 6.6 and received packed red blood cells. Later patient developed respiratory distress requiring intubation and mechanical ventilation. Today I have reviewed the x-ray which did not show significant pulmonary infiltrates except left basilar some atelectasis however below the diaphragm he has a dilated loops of bowel hence I ordered a follow-up chest x-ray as well as KUB x-ray which is showing the right colon markedly distended and the radiologist is concerned about the possibility of colon obstruction. I have discussed with the SHUTTLECOCK ASSEMBLER and advised her to contact the surgeon regarding these findings. He is OGT is not putting putting out much of fluid. Urine is dark. He is currently on IV Saida and, Precedex. Vent settings are respiratory rate of 18, tidal volume 500, FiO2 30% and PEEP of 5. Impression 1. Severe gastrointestinal bleeding could be lower GI bleed however upper GI bleed cannot be ruled out 2. Alcohol abuse disorder with alcohol withdrawal syndrome 3. Severe acute and chronic blood loss anemia requiring transfusion. 4. Acute hypoxic respiratory failure. 5. Left basilar atelectasis. 6.KUB concerning for Right colon obstruction vs ileus. Recommendations 1. Continue Mechanical ventillation, not ready for sbt. 2. General surgeon to evalute for KUB abnormalities. SHUTTLECOCK ASSEMBLER alerted. 3. Continue thiamine and folic acid along with multivitamins. 4. SCDs for DVT prophylaxis. 5. Avoid any NSAIDs and anticoagulants. Due to GI bleeding and anemia. Coordination of care with primary care physician and bedside consultants. Discussed with the bedside SHUTTLECOCK ASSEMBLER Heriberto. I am remotely monitoring this patient from Tele icu station in [place]. I am unable to do the bedside exam, and history/physical and pertinent information is taken from other notes in the computer and bedside staff. Certain portions of this document may have been dictated utilizing voice recognition technology such as [employer]. Inherent to this technology, typographical and grammatical errors may exist. As much as I am diligent to identify and correct to these mistakes, some errors may remain in the document. Critical care time devoted to this patient today is approximately is 40 minutes.-- Sepsis Event - Inpatient/Obs Sepsis Event Evaluation Height, Weight, BMI Height: '" Weight: lbs. oz. kg; 23.42 BMI Method: Exam Exam Patient acknowledged, consented, and participated in this virtual visit which was conducted using real time audio/video Vital Signs Date Time Temp Pulse Resp B/P (MAP) Pulse Ox O2 Delivery O2 Flow Rate FiO2 02/28/23 10:42 81 18 99 30 02/28/23 10:00 87 19 110/80 (89) 98 Mechanical Ventilator 30.00 02/28/23 09:38 93 108/75 02/28/23 09:00 104 20 105/79 (88) 93 Mechanical Ventilator 30.00 02/28/23 08:00 74 17 121/80 (97) 100 Mechanical Ventilator 30.00 02/28/23 07:35 36.5 02/28/23 07:08 70 18 100 30 02/28/23 07:00 71 02/28/23 07:00 71 118/76 (92) 100 Mechanical Ventilator 30.00 02/28/23 06:00 77 17 120/78 (92) 99 Mechanical Ventilator 30.00 02/28/23 05:43 147 02/28/23 05:09 89 125/79 02/28/23 05:00 79 17 124/81 (95) 99 Mechanical Ventilator 30.00 02/28/23 04:54 30 02/28/23 04:53 Mechanical Ventilator 30.00 02/28/23 04:44 89 125/79 02/28/23 04:00 89 23 125/79 (94) 100 Mechanical Ventilator 40.00 02/28/23 04:00 100 Mechanical Ventilator 40 02/28/23 03:39 89 125/79 02/28/23 03:12 37.2 02/28/23 03:00 89 20 117/54 (75) 100 Mechanical Ventilator 40.00 02/28/23 02:28 72 20 100 40 02/28/23 02:00 73 19 104/71 (82) 100 Mechanical Ventilator 40.00 02/28/23 01:09 75 102/69 02/28/23 01:00 73 19 105/70 (82) 100 Mechanical Ventilator 40.00 02/28/23 00:09 37.2 02/28/23 00:07 75 02/28/23 00:00 75 20 102/69 (80) 100 Mechanical Ventilator 40.00 02/27/23 23:50 100 Mechanical Ventilator 40 02/27/23 23:39 77 104/66 02/27/23 23:39 38.2 02/27/23 23:33 38.2 02/27/23 23:00 77 19 104/66 (79) 100 Mechanical Ventilator 40.00 02/27/23 22:21 74 20 100 40 02/27/23 22:00 75 20 99/63 (75) 100 Mechanical Ventilator 40.00 02/27/23 21:00 77 20 109/69 (82) 100 Mechanical Ventilator 40.00 02/27/23 20:49 77 109/69 02/27/23 20:49 77 109/69 02/27/23 20:00 81 19 113/70 (84) 100 Mechanical Ventilator 40.00 02/27/23 19:59 100 Mechanical Ventilator 40 02/27/23 19:50 37.7 02/27/23 19:14 85 02/27/23 19:00 86 19 119/75 (90) 100 Mechanical Ventilator 40.00 02/27/23 18:39 86 20 100 40 02/27/23 18:09 79 111/73 02/27/23 18:00 80 20 120/78 (92) 100 Mechanical Ventilator 40.00 02/27/23 17:00 86 20 123/77 (92) 100 Mechanical Ventilator 40.00 02/27/23 17:00 79 111/73 02/27/23 16:49 79 111/73 02/27/23 16:49 79 111/73 02/27/23 16:00 79 19 111/73 (86) 97 Mechanical Ventilator 100.00 02/27/23 16:00 98 Mechanical Ventilator 40 02/27/23 15:24 36.9 02/27/23 15:00 77 22 111/70 (82) 97 Mechanical Ventilator 100.00 02/27/23 14:56 75 20 100 75 02/27/23 14:00 73 20 99/66 (75) 100 Mechanical Ventilator 100.00 02/27/23 13:27 74 97/68 02/27/23 13:27 74 97/68 02/27/23 13:00 74 19 97/68 (78) 100 Mechanical Ventilator 100.00 02/27/23 12:55 78 02/27/23 12:49 75 02/27/23 12:15 92 Mechanical Ventilator 100 02/27/23 12:00 82 20 108/68 (79) Mechanical Ventilator 100.00 02/27/23 11:54 37.4 I & O 02/28/23 06:59 Intake Total 1200 ml Output Total 980 ml Balance 220 ml Height & Weight Height: '" Weight: lbs. oz. kg; 23.42 BMI Method: General Appearance: No Apparent Distress HEENT: PERRL/EOMI Neck: Full Range of Motion Respiratory: Chest Non Tender, Decreased Breath Sounds, Rhonci Cardiovascular: Regular Rate, Rhythm Capillary Refill: Less Than 3 Seconds Gastrointestinal: soft Extremity: Normal Capillary Refill Neurologic/Psychiatric: Other (on vent/sedated) Skin: Normal Color Lymphatic: No Adenopathy Results Lab Laboratory Tests 02/26/23 13:40 02/27/23 04:19 02/27/23 09:45 02/28/23 03:17 Assessment/Plan Assessment/Plan as above Critical Care: Ventilator Management Time spent with patient (mins): 40 PRAKASH MATA MD Feb 28, 2023 11:21
--- NOTE | 2023-02-28 13:40 | Cardiology Progress Note ---
Subjective Date Seen by Provider: Feb 28, 2023 Time Seen by Provider: 13:31 Subjective/Events-last exam Remains intubated, ventilator dependent. The family is deciding regarding further care . Review of Systems Gastrointestinal: No: Nausea, Vomiting, Abdominal Pain, Diarrhea, Constipation, Melena, Hematochezia, Other Genitourinary: No Dysuria, No Frequency, No Incontinence, No Hematuria, No Retention, No Other Musculoskeletal: No: other, neck pain, shoulder pain, arm pain, back pain, hand pain, leg pain, foot pain Exam Vital Signs Vital Signs Date Time Temp Pulse Resp B/P (MAP) Pulse Ox O2 Delivery O2 Flow Rate FiO2 02/28/23 13:00 71 18 108/72 (81) 99 Mechanical Ventilator 30.00 02/28/23 11:27 36.2 02/28/23 10:42 30 Physical Exam Intubated, sedated, ventilator dependent. Neck supple. Lungs bilateral rhonchi. Heart: S1-S2, distant sounds, regular rhythm, no murmurs Abdomen: Soft, not distended, not tender. Extremities: No edema Labs Laboratory Tests Test 02/27/23 17:45 02/28/23 03:17 02/28/23 04:26 Range/Units Glucometer 123 H 70-110 MG/DL White Blood Count 7.8 4.3-11.0 10^3/uL Red Blood Count 3.04 L 4.30-5.52 10^6/uL Hemoglobin 8.1 L 13.3-17.7 g/dL Hematocrit 25 L 40-54 % Mean Corpuscular Volume 83 80-99 fL Mean Corpuscular Hemoglobin 27 25-34 pg Mean Corpuscular Hemoglobin Concent 32 32-36 g/dL Red Cell Distribution Width 19.7 H 10.0-14.5 % Platelet Count 101 L 130-400 10^3/uL Mean Platelet Volume 11.0 9.0-12.2 fL Immature Granulocyte % (Auto) 1 % Neutrophils (%) (Auto) 84 H 42-75 % Lymphocytes (%) (Auto) 6 L 12-44 % Monocytes (%) (Auto) 6 0-12 % Eosinophils (%) (Auto) 3 0-10 % Basophils (%) (Auto) 0 0-10 % Neutrophils # (Auto) 6.6 1.8-7.8 10^3/uL Lymphocytes # (Auto) 0.5 L 1.0-4.0 10^3/uL Monocytes # (Auto) 0.5 0.0-1.0 10^3/uL Eosinophils # (Auto) 0.2 0.0-0.3 10^3/uL Basophils # (Auto) 0.0 0.0-0.1 10^3/uL Immature Granulocyte # (Auto) 0.1 0.0-0.1 10^3/uL Neutrophils % (Manual) 86 % Lymphocytes % (Manual) 4 % Monocytes % (Manual) 3 % Eosinophils % (Manual) 4 % Band Neutrophils 3 % Smudge Cells SLIGHT Percent Immature Platelet Fraction 5.5 0.0-7.6 % Polychromasia SLIGHT Anisocytosis MODERATE Tear Drop Cells SLIGHT Silver Cells MARKED Sodium Level 139 135-145 MMOL/L Potassium Level 4.2 3.6-5.0 MMOL/L Chloride Level 110 H 98-107 MMOL/L Carbon Dioxide Level 23 21-32 MMOL/L Anion Gap 6 5-14 MMOL/L Blood Urea Nitrogen 11 7-18 MG/DL Creatinine 0.73 0.60-1.30 MG/DL Estimat Glomerular Filtration Rate 100 BUN/Creatinine Ratio 15 Glucose Level 111 H 70-105 MG/DL Calcium Level 7.5 L 8.5-10.1 MG/DL Corrected Calcium 8.9 8.5-10.1 MG/DL Phosphorus Level 2.3 2.3-4.7 MG/DL Magnesium Level 2.0 1.6-2.4 MG/DL Total Bilirubin 1.5 H 0.1-1.0 MG/DL Aspartate Amino Transf (AST/SGOT) 27 5-34 U/L Alanine Aminotransferase (ALT/SGPT) 196 H 0-55 U/L Alkaline Phosphatase 47 40-136 U/L Total Protein 5.0 L 6.4-8.2 GM/DL Albumin 2.3 L 3.2-4.5 GM/DL Arterial Blood pH 7.47 H 7.37-7.43 Arterial Blood Partial Pressure CO2 34 L 35-45 MMHG Arterial Blood Partial Pressure O2 113 H 79-93 MMHG Arterial Blood HCO3 25 23-27 MMOL/L Arterial Blood Total CO2 25.7 21.0-31.0 MMOL/L Arterial Blood Oxygen Saturation 100 94-100 % Arterial Blood Base Excess 1.5 -2.5-2.5 MMOL/L Blood Gas Ventilator Setting YES Blood Gas Inspired Oxygen 40% A/P-Cardiology Admission Diagnosis Generalized weakness Type II myocardial infarction Lactic acidosis Acute delirium Assessment/Plan Acute respiratory failure: Intubated Managed by medical team Anemia, drop in H&H, received blood transfusion Managed by medical team Congestive heart failure, acute left ventricular systolic dysfunction, probably nonischemic cardiomyopathy Questionable underlying alcoholism and it might be secondary to alcoholic heart disease. Continue present therapy Acute change in mental status, probably metabolic secondary to heavy alcoholism, alcoholic liver disease or metabolic acidosis. Management per ICU team. History of intermittent rectal bleed. Management by medical team History of prostate cancer Questionable history of alcohol use, elevated liver enzymes. Questionable de lirium tremens Patient received Precedex Managed by medical team Sinus tachycardia, multifactorial: Continue present therapy BRICE FELIZ MD Feb 28, 2023 13:39
[2023-02-28 14:53] VITALS: BP 104/71
[2023-02-28 22:57] VITALS: BP 107/69
[2023-03-01] MEDS: LACTULOSE 10 GM/15 ML 30 ML POUR BOTTLE FOR ENEMA PR SCH ×6 (00:11→21:11)
[2023-03-01] MEDS: PIPERACILLIN/Tazobactam 4.5 GM in NS (IVPB) 100 ML 100 ML IV SCH ×3 (01:50→17:56)
[2023-03-01 02:45] VITALS: BP 106/71
[2023-03-01 03:32] LABS: BASOPHILS % (AUTO) 0 % (0-10); HEMATOCRIT 26 % (40-54); LYMPHOCYTES # (AUTO) 0.4 10^3/uL (1.0-4.0); MEAN CORPUSCULAR HEMOGLOBIN 27 pg (25-34); MEAN CORPUSCULAR HGB CONC 31 g/dL (32-36); MEAN CORPUSCULAR VOLUME 84 fL (80-99)
[2023-03-01 03:34] LABS: EOSINOPHILS # (AUTO) 0.6 10^3/uL (0.0-0.3); EOSINOPHILS % (AUTO) 9 % (0-10); LYMPHOCYTES % (AUTO) 6 % (12-44); MEAN PLATELET VOLUME 11.7 fL (9.0-12.2); MONOCYTES # (AUTO) 0.3 10^3/uL (0.0-1.0); MONOCYTES % (AUTO) 5 % (0-12); NEUTROPHILS # (AUTO) 5.3 10^3/uL (1.8-7.8); NEUTROPHILS % (AUTO) 79 % (42-75); PLATELET COUNT 124 10^3/uL (130-400); WHITE BLOOD COUNT 6.7 10^3/uL (4.3-11.0)
[2023-03-01 03:45] LABS: ALBUMIN 2.2 GM/DL (3.2-4.5)
[2023-03-01 03:46] LABS: CALCIUM 7.4 MG/DL (8.5-10.1)
[2023-03-01 03:48] LABS: TOTAL PROTEIN 4.9 GM/DL (6.4-8.2)
[2023-03-01 03:49] LABS: BILIRUBIN,TOTAL 0.9 MG/DL (0.1-1.0)
[2023-03-01 03:51] LABS: CREATININE SERUM 0.63 MG/DL (0.60-1.30); PHOSPHORUS 2.6 MG/DL (2.3-4.7)
[2023-03-01 03:54] LABS: MAGNESIUM 1.8 MG/DL (1.6-2.4)
[2023-03-01] MEDS: POTASSIUM CL 10MEQ/50ML IVPB 50 ML IV SCH (05:31)
[2023-03-01] MEDS: MAGNESIUM 1 GM/100 ML IVPB 100 ML IV SCH (05:31)
[2023-03-01] MEDS: POTASSIUM CHLORIDE 20 MEQ TABLET PO SCH (05:31)
[2023-03-01 05:34] LABS: ABG BASE EXCESS 2.2 MMOL/L (-2.5-2.5); ABG OXYGEN SATURATION 99 % (94-100); ABG PCO2 33 MMHG (35-45); ABG PH 7.49 (7.37-7.43); ABG PO2 83 MMHG (79-93); ABG TCO2 26.1 MMOL/L (21.0-31.0); INSPIRED O2 100%; VENTILATOR YES
[2023-03-01 06:27] VITALS: BP 102/63
[2023-03-01] MEDS: RT-Ipratropium/Albuterol NEB 3 ML VIAL INH SCH ×5 (06:27→21:40)
[2023-03-01] MEDS: DexMEDEtomidine 1,000mcg/250ml 250 ML IV SCH ×2 (08:56→21:13)
[2023-03-01] MEDS: LACTULOSE SYRUP 10GM/15ML 30ML UDC PO SCH ×3 (08:56→21:11)
[2023-03-01] MEDS: PANTOPRAZOLE INJECTION 40 MG VIAL IV SCH ×2 (08:56→21:13)
--- NOTE | 2023-03-01 09:04 | Diagnostic Imaging Report ---
Indication: Abdominal distention. Compared with study one day prior. Maximal gaseous dilatation of the colon in the right upper quadrant is unchanged at 13.2 cm. No air containing pathological small bowel dilatation. No abnormal fecal loading. OG catheter in the stomach. Old rib deformities chronic, some basilar interstitial lung disease stable. Impression: Marked gaseous dilatation of the proximal colon unchanged in magnitude from prior. No small bowel dilatation or abnormal fecal loading. Dictated by: Dictated on workstation # [id number]
[2023-03-01] MEDS: DOCUSATE SODIUM 100 MG CAPSULE PO SCH ×2 (09:18→21:11)
[2023-03-01] MEDS: SENNOSIDES 8.6 MG TABLET PO SCH ×2 (09:19→21:11)
[2023-03-01] MEDS: NS IV SCH (09:26)
[2023-03-01] MEDS: THIAMINE IV SCH (09:26)
[2023-03-01] MEDS: FOLIC ACID IV SCH (09:26)
--- NOTE | 2023-03-01 09:49 | Progress Note ---
Subjective Date Seen by a Provider: Mar 01, 2023 Time Seen by a Provider: 09:30 Subjective/Events-last exam pt remains critically ill. on vent/sedated. ileus. hb remains stable. Objective Exam Vital Signs Date Time Temp Pulse Resp B/P (MAP) Pulse Ox O2 Delivery O2 Flow Rate FiO2 03/01/23 09:00 73 18 101/66 (79) 99 Mechanical Ventilator 25.00 03/01/23 08:05 36.5 03/01/23 08:00 77 18 106/63 (74) 99 Mechanical Ventilator 25.00 03/01/23 07:00 80 03/01/23 07:00 79 17 110/64 (79) 98 Mechanical Ventilator 25.00 03/01/23 06:27 75 18 100 25 03/01/23 06:00 75 17 102/63 (76) 99 Mechanical Ventilator 25.00 03/01/23 05:00 78 18 106/69 (81) 100 Mechanical Ventilator 25.00 03/01/23 04:42 81 108/71 03/01/23 04:11 81 108/71 03/01/23 04:00 81 18 108/71 (83) 98 Mechanical Ventilator 25.00 03/01/23 03:20 97 Mechanical Ventilator 25 03/01/23 03:18 37.1 03/01/23 03:00 92 20 98/65 (76) 97 Mechanical Ventilator 25.00 03/01/23 02:45 73 18 99 25 03/01/23 02:00 75 18 103/69 (80) 99 Mechanical Ventilator 25.00 03/01/23 01:56 76 107/70 03/01/23 01:00 76 18 107/70 (82) 99 Mechanical Ventilator 25.00 03/01/23 00:13 76 03/01/23 00:13 99 Mechanical Ventilator 25 03/01/23 00:11 74 107/69 03/01/23 00:06 36.6 03/01/23 00:00 76 18 112/70 (84) 99 Mechanical Ventilator 25.00 02/28/23 23:18 74 107/69 02/28/23 23:00 74 19 94/62 (73) 99 Mechanical Ventilator 25.00 02/28/23 22:57 74 18 99 25 02/28/23 22:00 73 18 101/68 (79) 99 Mechanical Ventilator 25.00 02/28/23 21:56 75 106/67 02/28/23 21:00 75 17 106/67 (80) 98 Mechanical Ventilator 25.00 02/28/23 20:00 73 17 104/71 (82) 99 Mechanical Ventilator 25.00 02/28/23 19:30 71 02/28/23 19:26 99 Mechanical Ventilator 25 02/28/23 19:18 69 99/69 02/28/23 19:16 36.6 Mechanical Ventilator 25.00 02/28/23 19:06 69 18 99 25 02/28/23 19:00 69 17 97/68 (78) 100 Mechanical Ventilator 30.00 02/28/23 18:00 68 18 99/69 (81) 100 Mechanical Ventilator 30.00 02/28/23 18:00 99 Mechanical Ventilator 30 02/28/23 17:00 71 17 101/72 (80) 99 Mechanical Ventilator 30.00 02/28/23 16:00 70 18 106/75 (84) 100 Mechanical Ventilator 30.00 02/28/23 16:00 99 Mechanical Ventilator 30 02/28/23 15:00 71 18 105/74 (87) 99 Mechanical Ventilator 30.00 02/28/23 14:53 70 18 100 30 02/28/23 14:26 68 107/81 02/28/23 14:00 70 17 106/75 (88) 100 Mechanical Ventilator 30.00 02/28/23 13:00 71 18 108/72 (81) 99 Mechanical Ventilator 30.00 02/28/23 12:29 77 02/28/23 12:00 77 17 106/77 (86) 98 Mechanical Ventilator 30.00 02/28/23 12:00 99 Mechanical Ventilator 30 02/28/23 11:27 36.2 02/28/23 11:00 83 18 114/77 (91) 96 Mechanical Ventilator 30.00 02/28/23 10:42 81 18 99 30 02/28/23 10:00 87 19 110/80 (89) 98 Mechanical Ventilator 30.00 I & O 03/01/23 06:59 Intake Total 650 ml Output Total 875 ml Balance -225 ml Capillary Refill : Less Than 3 Seconds General Appearance: No Apparent Distress HEENT: PERRL/EOMI Neck: Full Range of Motion Respiratory: Rhonci, Wheezing Cardiovascular: Regular Rate, Rhythm Gastrointestinal: soft, distended Extremity: Normal Capillary Refill Neurologic/Psychiatric: Other (on vent/sedated) Skin: Normal Color Lymphatic: No Adenopathy Results Lab Laboratory Tests 03/01/23 03:20: White Blood Count 6.7, Red Blood Count 3.02L, Hemoglobin 8.0L, Hematocrit 26L, Mean Corpuscular Volume 84, Mean Corpuscular Hemoglobin 27, Mean Corpuscular Hemoglobin Concent 31L, Red Cell Distribution Width 19.9H, Platelet Count 124L, Mean Platelet Volume 11.7, Immature Granulocyte % (Auto) 1, Neutrophils (%) (Auto) 79H, Lymphocytes (%) (Auto) 6L, Monocytes (%) (Auto) 5, Eosinophils (%) (Auto) 9, Basophils (%) (Auto) 0, Neutrophils # (Auto) 5.3, Lymphocytes # (Auto) 0.4L, Monocytes # (Auto) 0.3, Eosinophils # (Auto) 0.6H, Basophils # (Auto) 0.0, Immature Granulocyte # (Auto) 0.1, Percent Immature Platelet Fraction 4.5, Sodium Level 139, Potassium Level 4.0, Chloride Level 109H, Carbon Dioxide Level 22, Anion Gap 8, Blood Urea Nitrogen 11, Creatinine 0.63, Estimat Glomerular Filtration Rate 105, BUN/Creatinine Ratio 17, Glucose Level 89, Calcium Level 7.4L, Corrected Calcium 8.8, Phosphorus Level 2.6, Magnesium Level 1.8, Total Bilirubin 0.9, Aspartate Amino Transf (AST/SGOT) 22, Alanine Aminotransferase (ALT/SGPT) 126H, Alkaline Phosphatase 46, Total Protein 4.9L, Albumin 2.2L, Triglycerides Level 808#H 03/01/23 05:33: Arterial Blood pH 7.49H, Arterial Blood Partial Pressure CO2 33L, Arterial Blood Partial Pressure O2 83, Arterial Blood HCO3 25, Arterial Blood Total CO2 26.1, Arterial Blood Oxygen Saturation 99, Arterial Blood Base Excess 2.2, Blood Gas Ventilator Setting YES, Blood Gas Inspired Oxygen 100% Microbiology 02/27/23 Gram Stain - Final, Resulted 02/27/23 Sputum Culture - Preliminary, Resulted 02/22/23 Blood Culture - Final, Complete 02/22/23 Urine Culture - Final, Complete NO GROWTH Assessment/Plan Assessment/Plan Assess & Plan/Chief Complaint anemia and rectal bleed due to radiation proctitis. patient critically ill. currently no clinical bleeding with stable Hb. cont current therapies for ETOH detox. cont PPI if rectal bleed does develop will recommend PO glucocorticoids vs. sucralfate enemas. may also have UGI bleed component. currently on BID PPI. pt currently has ileus due to multisystem organ failure. will await using his GI tract for alimentation. may add laxative/prokinetic at some point. Clinical Quality Measures DVT/VTE Risk/Contraindication: Other: GI BLEED FATMATA JUNIOR MD Mar 01, 2023 09:49
[2023-03-01 10:19] VITALS: BP 107/66
--- NOTE | 2023-03-01 11:37 | Tele-ICU Progress Note ---
Subjective Date Seen by a Provider: Mar 01, 2023 Time Seen by a Provider: 11:37 Subjective/Events-last exam (Tele-ICU Physician , Progress Note ) Service provided via interactive audio and video telecommunications E-CARE system to a patient admitted to ICU bed in [facility]. Patient is seen today due to persistent need of ICU care Available chart/ vitals / labs / Images reviewed Video assessment done using teleICU camera, rest of exam as per RN Discussed with RN Events overnight : Afebrile hemodynamically stable Respiratory - 6L I/O = neg Drips: no IVF Pressors- no VENT SETTINGS and ABG reviewed NOT CANDIDATE for SBTreviewed possible contraindications including Cardio vascular Stability /Sedation Score / FI02/PEEP / ABG / CXR/ secretions Sedation, discussed with RN, RASS - 2 on propofol 45 Hospital course: (02-22) 68 y/o M -LGI Bleed - Anemia - Hgb 3.5 - 4 PRBC transfused., precedex gtt for anxiety 02/23 - hb stable after 4 units, agitated - on precedex , elv LFT - abx started , US liver 02/24 - ECHO EF 25 % , precedex , stable HB 02/25- Resp distress --> lasix 40 --> 5 L urine output 02/26 - + bloody BM , Hb 8.1, precedex 0.5, lasix 40 , BIPAP 02/27 - hb 6.6- 1uPRBC transfusion , INTUBATED 03/01 fio2 25% , KUB same - illeus A/P Acute resp failure ( VO and PNA -INTUBATED 02/27 -AC 18 500 25 % + 5 - full support Cardiomyopathy - ECHO 02/24/2023 - EF 25%, RVSP 35 mm Hg - ? etiology ( etoh? , anemia? CAD? , - TSH wnl - cards on case - follow recom - negative fluid status , cont diuresis PRN Severe anemia with Hb 3.6 - presumed ABLA ( s/p Colonoscopy with biopsy and polypectomy 06/2022 ( suspected proctitis but the pathology called it a hyperplastic polyp, CT abd/p 06/2022) -Improved to 9.1 after 4u pRBC transfusion --> Hb drop to 6.6 02/27 again with bloody BM--transfusion 1 uPRBC -PPI bid -Sx consulted- w/up when more stable Ileus - followed by Sx -LIS NG - minimal Elevated LFT- IMPROVING - ? ischemia with severe anemia - US-holesterolosis of the liver, likely indicating some level of biliary dyskinesia - as per sx Anxiety/confusion- as per chart has "anxiety and panic attacks" and h/o attempts to "wean off xanax" - nonfocal exam, IMPROVING - elev ammonia on 02/23- tx with lactulose - > normalized - ? ETON use- ? DT - precedex - off , propofol Thrombocytopenia ( not on heparin products ) -check INR and fibrinogen Hematuria - with follow for now - intermittent H/o prostate CA -s/p prostatectomy Nutritions - ? TPN - will ask sx for recom Lines : PICC 02/25 left , (Central Line Necessity Reviewed) Sahu: + OG: Nutrition: npo Analgesia: Anxiety/ delirium VTE Prophylaxis: scd Stress Ulcer Prophylaxis: ppi Plans in collaboration with bedside consultants and IM MDs. Discussed with RN to reach out if any questions or concerns A total of 35 minutes of critical care time was devoted to this patient today, required to treat and/or prevent further deterioration of critical care condition ( as above ) . I am remotely monitoring this patient from another state. I am unable to do the bedside exam, and history/physical and pertinent information is taken from other notes in the computer and bedside staff. . Sepsis Event Evaluation Height, Weight, BMI Height: '" Weight: lbs. oz. kg; 23.46 BMI Method: Exam Exam Patient acknowledged, consented, and participated in this virtual visit which was conducted using real time audio/video Vital Signs Date Time Temp Pulse Resp B/P (MAP) Pulse Ox O2 Delivery O2 Flow Rate FiO2 03/01/23 11:28 36.9 03/01/23 11:00 78 18 105/64 (77) 99 Mechanical Ventilator 25.00 03/01/23 10:19 73 18 100 25 03/01/23 10:00 73 17 100/64 (71) 100 Mechanical Ventilator 25.00 03/01/23 09:00 73 18 101/66 (79) 99 Mechanical Ventilator 25.00 03/01/23 08:05 36.5 03/01/23 08:00 77 18 106/63 (74) 99 Mechanical Ventilator 25.00 03/01/23 08:00 99 Mechanical Ventilator 30 03/01/23 07:00 80 03/01/23 07:00 79 17 110/64 (79) 98 Mechanical Ventilator 25.00 03/01/23 06:27 75 18 100 25 03/01/23 06:00 75 17 102/63 (76) 99 Mechanical Ventilator 25.00 03/01/23 05:00 78 18 106/69 (81) 100 Mechanical Ventilator 25.00 03/01/23 04:42 81 108/71 03/01/23 04:11 81 108/71 03/01/23 04:00 81 18 108/71 (83) 98 Mechanical Ventilator 25.00 03/01/23 03:20 97 Mechanical Ventilator 25 03/01/23 03:18 37.1 03/01/23 03:00 92 20 98/65 (76) 97 Mechanical Ventilator 25.00 03/01/23 02:45 73 18 99 25 03/01/23 02:00 75 18 103/69 (80) 99 Mechanical Ventilator 25.00 03/01/23 01:56 76 107/70 03/01/23 01:00 76 18 107/70 (82) 99 Mechanical Ventilator 25.00 03/01/23 00:13 76 03/01/23 00:13 99 Mechanical Ventilator 25 03/01/23 00:11 74 107/69 03/01/23 00:06 36.6 03/01/23 00:00 76 18 112/70 (84) 99 Mechanical Ventilator 25.00 02/28/23 23:18 74 107/69 02/28/23 23:00 74 19 94/62 (73) 99 Mechanical Ventilator 25.00 02/28/23 22:57 74 18 99 25 02/28/23 22:00 73 18 101/68 (79) 99 Mechanical Ventilator 25.00 02/28/23 21:56 75 106/67 02/28/23 21:00 75 17 106/67 (80) 98 Mechanical Ventilator 25.00 02/28/23 20:00 73 17 104/71 (82) 99 Mechanical Ventilator 25.00 02/28/23 19:30 71 02/28/23 19:26 99 Mechanical Ventilator 25 02/28/23 19:18 69 99/69 02/28/23 19:16 36.6 Mechanical Ventilator 25.00 02/28/23 19:06 69 18 99 25 02/28/23 19:00 69 17 97/68 (78) 100 Mechanical Ventilator 30.00 02/28/23 18:00 68 18 99/69 (81) 100 Mechanical Ventilator 30.00 02/28/23 18:00 99 Mechanical Ventilator 30 02/28/23 17:00 71 17 101/72 (80) 99 Mechanical Ventilator 30.00 02/28/23 16:00 70 18 106/75 (84) 100 Mechanical Ventilator 30.00 02/28/23 16:00 99 Mechanical Ventilator 30 02/28/23 15:00 71 18 105/74 (87) 99 Mechanical Ventilator 30.00 02/28/23 14:53 70 18 100 30 02/28/23 14:26 68 107/81 02/28/23 14:00 70 17 106/75 (88) 100 Mechanical Ventilator 30.00 02/28/23 13:00 71 18 108/72 (81) 99 Mechanical Ventilator 30.00 02/28/23 12:29 77 02/28/23 12:00 77 17 106/77 (86) 98 Mechanical Ventilator 30.00 02/28/23 12:00 99 Mechanical Ventilator 30 I & O 03/01/23 06:59 Intake Total 650 ml Output Total 875 ml Balance -225 ml Height & Weight Height: '" Weight: lbs. oz. kg; 23.46 BMI Method: General Appearance: No Apparent Distress HEENT: PERRL/EOMI Neck: Full Range of Motion Respiratory: Rhonci, Wheezing Cardiovascular: Regular Rate, Rhythm Capillary Refill: Less Than 3 Seconds Gastrointestinal: soft, distended Extremity: Normal Capillary Refill Neurologic/Psychiatric: Other (on vent/sedated) Skin: Normal Color Lymphatic: No Adenopathy Results Lab Laboratory Tests 02/28/23 03:17 03/01/23 03:20 Assessment/Plan Assessment/Plan 1 VIKAS MIGUEL MD Mar 01, 2023 11:37
--- NOTE | 2023-03-01 11:50 | Cardiology Progress Note ---
Subjective Date Seen by Provider: Mar 01, 2023 Time Seen by Provider: 11:47 Subjective/Events-last exam No significant changes. Remains intubated and sedated. Hemodynamically stable, in sinus rhythm. No clear signs of GI bleeding Exam Vital Signs Vital Signs Date Time Temp Pulse Resp B/P (MAP) Pulse Ox O2 Delivery O2 Flow Rate FiO2 03/01/23 11:28 36.9 03/01/23 11:00 78 18 99 Mechanical Ventilator 25.00 03/01/23 10:19 25 Physical Exam Intubated sedated, no acute distress. Neck supple. Lungs clear anteriorly. Heart: S1-S2, regular rhythm, no murmurs. Abdomen soft. Extremities no edema. Labs Laboratory Tests Test 03/01/23 03:20 03/01/23 05:33 Range/Units White Blood Count 6.7 4.3-11.0 10^3/uL Red Blood Count 3.02 L 4.30-5.52 10^6/uL Hemoglobin 8.0 L 13.3-17.7 g/dL Hematocrit 26 L 40-54 % Mean Corpuscular Volume 84 80-99 fL Mean Corpuscular Hemoglobin 27 25-34 pg Mean Corpuscular Hemoglobin Concent 31 L 32-36 g/dL Red Cell Distribution Width 19.9 H 10.0-14.5 % Platelet Count 124 L 130-400 10^3/uL Mean Platelet Volume 11.7 9.0-12.2 fL Immature Granulocyte % (Auto) 1 % Neutrophils (%) (Auto) 79 H 42-75 % Lymphocytes (%) (Auto) 6 L 12-44 % Monocytes (%) (Auto) 5 0-12 % Eosinophils (%) (Auto) 9 0-10 % Basophils (%) (Auto) 0 0-10 % Neutrophils # (Auto) 5.3 1.8-7.8 10^3/uL Lymphocytes # (Auto) 0.4 L 1.0-4.0 10^3/uL Monocytes # (Auto) 0.3 0.0-1.0 10^3/uL Eosinophils # (Auto) 0.6 H 0.0-0.3 10^3/uL Basophils # (Auto) 0.0 0.0-0.1 10^3/uL Immature Granulocyte # (Auto) 0.1 0.0-0.1 10^3/uL Percent Immature Platelet Fraction 4.5 0.0-7.6 % Sodium Level 139 135-145 MMOL/L Potassium Level 4.0 3.6-5.0 MMOL/L Chloride Level 109 H 98-107 MMOL/L Carbon Dioxide Level 22 21-32 MMOL/L Anion Gap 8 5-14 MMOL/L Blood Urea Nitrogen 11 7-18 MG/DL Creatinine 0.63 0.60-1.30 MG/DL Estimat Glomerular Filtration Rate 105 BUN/Creatinine Ratio 17 Glucose Level 89 70-105 MG/DL Calcium Level 7.4 L 8.5-10.1 MG/DL Corrected Calcium 8.8 8.5-10.1 MG/DL Phosphorus Level 2.6 2.3-4.7 MG/DL Magnesium Level 1.8 1.6-2.4 MG/DL Total Bilirubin 0.9 0.1-1.0 MG/DL Aspartate Amino Transf (AST/SGOT) 22 5-34 U/L Alanine Aminotransferase (ALT/SGPT) 126 H 0-55 U/L Alkaline Phosphatase 46 40-136 U/L Total Protein 4.9 L 6.4-8.2 GM/DL Albumin 2.2 L 3.2-4.5 GM/DL Triglycerides Level 808 #H <150 MG/DL Arterial Blood pH 7.49 H 7.37-7.43 Arterial Blood Partial Pressure CO2 33 L 35-45 MMHG Arterial Blood Partial Pressure O2 83 79-93 MMHG Arterial Blood HCO3 25 23-27 MMOL/L Arterial Blood Total CO2 26.1 21.0-31.0 MMOL/L Arterial Blood Oxygen Saturation 99 94-100 % Arterial Blood Base Excess 2.2 -2.5-2.5 MMOL/L Blood Gas Ventilator Setting YES Blood Gas Inspired Oxygen 100% A/P-Cardiology Admission Diagnosis Generalized weakness Type II myocardial infarction Lactic acidosis Acute delirium Assessment/Plan Acute respiratory failure: Intubated Managed by medical team Anemia, drop in H&H, received blood transfusion. No evidence of continuing bleeding Managed by medical team Congestive heart failure, acute left ventricular systolic dysfunction, probably nonischemic cardiomyopathy Questionable underlying alcoholism and it might be secondary to alcoholic heart disease. Continue present therapy Acute change in mental status, probably metabolic secondary to heavy alcoholism, alcoholic liver disease or metabolic acidosis. Management per ICU team. History of intermittent rectal bleed. No signs of acute bleeding. Management by medical team History of prostate cancer Questionable history of alcohol use, elevated liver enzymes. Questionable delirium tremens Patient received Precedex Managed by medical team Sinus tachycardia, multifactorial: Resolved. Continue present therapy BRICE FELIZ MD Mar 01, 2023 11:50
[2023-03-01] MEDS: MIDAZOLAM DRIP PRE-MIX 100 ML IV SCH (13:01)
--- NOTE | 2023-03-01 13:33 | Progress Note ---
Subjective Date Seen by a Provider: Mar 01, 2023 Time Seen by a Provider: 09:00 Subjective/Events-last exam Patient remains intubated Vital stable Sedation good Reviewed meds and labs Prognosis guarded Objective Exam Last Set of Vital Signs Vital Signs Date Time Temp Pulse Resp B/P (MAP) Pulse Ox O2 Delivery O2 Flow Rate FiO2 03/01/23 13:01 73 18 105/63 03/01/23 13:00 99 Mechanical Ventilator 25.00 03/01/23 12:00 30 03/01/23 11:28 36.9 Capillary Refill : Less Than 3 Seconds I&O Intake and Output 02/28/23 23:59 Intake Total 650 ml Output Total 975 ml Balance -325 ml Intake Oral 0 ml IV Total 650 ml Output Urine Total 875 ml Gastric Drainage Total 100 ml General: No Acute Distress, Other (Sedated and intubated) Lungs: Clear to Auscultation Heart: Regular Rate Results Lab Laboratory Tests 03/01/23 03:20: White Blood Count 6.7, Red Blood Count 3.02L, Hemoglobin 8.0L, Hematocrit 26L, Mean Corpuscular Volume 84, Mean Corpuscular Hemoglobin 27, Mean Corpuscular Hemoglobin Concent 31L, Red Cell Distribution Width 19.9H, Platelet Count 124L, Mean Platelet Volume 11.7, Immature Granulocyte % (Auto) 1, Neutrophils (%) (Auto) 79H, Lymphocytes (%) (Auto) 6L, Monocytes (%) (Auto) 5, Eosinophils (%) (Auto) 9, Basophils (%) (Auto) 0, Neutrophils # (Auto) 5.3, Lymphocytes # (Auto) 0.4L, Monocytes # (Auto) 0.3, Eosinophils # (Auto) 0.6H, Basophils # (Auto) 0.0, Immature Granulocyte # (Auto) 0.1, Percent Immature Platelet Fraction 4.5, Sodium Level 139, Potassium Level 4.0, Chloride Level 109H, Carbon Dioxide Level 22, Anion Gap 8, Blood Urea Nitrogen 11, Creatinine 0.63, Estimat Glomerular Filtration Rate 105, BUN/Creatinine Ratio 17, Glucose Level 89, Calcium Level 7.4L, Corrected Calcium 8.8, Phosphorus Level 2.6, Magnesium Level 1.8, Total Bilirubin 0.9, Aspartate Amino Transf (AST/SGOT) 22, Alanine Aminotransferase (ALT/SGPT) 126H, Alkaline Phosphatase 46, Total Protein 4.9L, Albumin 2.2L, Triglycerides Level 808#H 03/01/23 05:33: Arterial Blood pH 7.49H, Arterial Blood Partial Pressure CO2 33L, Arterial Blood Partial Pressure O2 83, Arterial Blood HCO3 25, Arterial Blood Total CO2 26.1, Arterial Blood Oxygen Saturation 99, Arterial Blood Base Excess 2.2, Blood Gas Ventilator Setting YES, Blood Gas Inspired Oxygen 100% 03/01/23 12:13: Glucometer 85 Microbiology 02/27/23 Gram Stain - Final, Complete 02/27/23 Sputum Culture - Final, Complete 02/22/23 Blood Culture - Final, Complete 02/22/23 Urine Culture - Final, Complete NO GROWTH Assessment/Plan Assessment/Plan Assess & Plan/Chief Complaint Intubation Comfort care protocol likely soon Continue supportive care Clinical Quality Measures DVT/VTE Risk/Contraindication: Other: GI BLEED TAMIKA WOLFE DO Mar 01, 2023 13:33
[2023-03-01 14:00] VITALS: BP 124/79
[2023-03-01 18:53] VITALS: BP 127/90
[2023-03-01 21:40] VITALS: BP 107/63
[2023-03-02] VITALS (8 sets, daily range): BP systolic 99–133; BP diastolic 61–77
[2023-03-02] MEDS: LACTULOSE 10 GM/15 ML 30 ML POUR BOTTLE FOR ENEMA PR SCH ×6 (00:47→20:11)
[2023-03-02] MEDS: MIDAZOLAM DRIP PRE-MIX 100 ML IV SCH ×3 (00:47→23:18)
[2023-03-02] MEDS: RT-Ipratropium/Albuterol NEB 3 ML VIAL INH SCH ×6 (02:03→21:45)
[2023-03-02] MEDS: PIPERACILLIN/Tazobactam 4.5 GM in NS (IVPB) 100 ML 100 ML IV SCH ×3 (03:28→18:23)
[2023-03-02 04:16] LABS: ABG BASE EXCESS -1.6 MMOL/L (-2.5-2.5); ABG OXYGEN SATURATION 100 % (94-100); ABG PCO2 31 MMHG (35-45); ABG PH 7.45 (7.37-7.43); ABG PO2 109 MMHG (79-93); ABG TCO2 22.5 MMOL/L (21.0-31.0)
[2023-03-02 04:17] LABS: INSPIRED O2 25%; VENTILATOR NO
[2023-03-02 05:12] LABS: BASOPHILS % (AUTO) 0 % (0-10); EOSINOPHILS # (AUTO) 0.5 10^3/uL (0.0-0.3); EOSINOPHILS % (AUTO) 7 % (0-10); HEMATOCRIT 26 % (40-54); HEMOGLOBIN 7.6 g/dL (13.3-17.7); LYMPHOCYTES # (AUTO) 0.4 10^3/uL (1.0-4.0); LYMPHOCYTES % (AUTO) 5 % (12-44); MEAN CORPUSCULAR HEMOGLOBIN 25 pg (25-34); MEAN CORPUSCULAR HGB CONC 30 g/dL (32-36); MEAN CORPUSCULAR VOLUME 85 fL (80-99); MEAN PLATELET VOLUME 10.7 fL (9.0-12.2); MONOCYTES # (AUTO) 0.4 10^3/uL (0.0-1.0); MONOCYTES % (AUTO) 5 % (0-12); NEUTROPHILS # (AUTO) 5.9 10^3/uL (1.8-7.8); NEUTROPHILS % (AUTO) 82 % (42-75); PLATELET COUNT 152 10^3/uL (130-400); WHITE BLOOD COUNT 7.2 10^3/uL (4.3-11.0)
[2023-03-02 05:24] LABS: ALBUMIN 2.2 GM/DL (3.2-4.5); POTASSIUM 3.6 MMOL/L (3.6-5.0)
[2023-03-02 05:26] LABS: CALCIUM 7.4 MG/DL (8.5-10.1)
--- NOTE | 2023-03-02 05:26 | Progress Note ---
Subjective Date Seen by a Provider: Mar 02, 2023 Time Seen by a Provider: 09:00 Subjective/Events-last exam Still intubated Labs reviewed SBT possibly Palliative care consulted Patient will likely need hospice if is able to be intubated Objective Exam Last Set of Vital Signs Vital Signs Date Time Temp Pulse Resp B/P (MAP) Pulse Ox O2 Delivery O2 Flow Rate FiO2 03/02/23 04:00 69 18 114/72 (88) 100 Mechanical Ventilator 25.00 03/02/23 03:42 25 03/02/23 00:00 36.2 Capillary Refill : Less Than 3 Seconds I&O Intake and Output 03/02/23 00:00 Intake Total 1151.2 ml Output Total 975 ml Balance 176.2 ml Intake Oral 0 ml IV Total 1151.2 ml Output Urine Total 975 ml General: Other (sedated and intubated) Lungs: Clear to Auscultation Heart: Regular Rate Results Lab Laboratory Tests 03/01/23 05:33: Arterial Blood pH 7.49H, Arterial Blood Partial Pressure CO2 33L, Arterial Blood Partial Pressure O2 83, Arterial Blood HCO3 25, Arterial Blood Total CO2 26.1, Arterial Blood Oxygen Saturation 99, Arterial Blood Base Excess 2.2, Blood Gas Ventilator Setting YES, Blood Gas Inspired Oxygen 100% 03/01/23 12:13: Glucometer 85 03/01/23 18:29: Glucometer 90 03/02/23 01:01: Glucometer 73 03/02/23 04:10: Arterial Blood pH 7.45H, Arterial Blood Partial Pressure CO2 31L, Arterial Blood Partial Pressure O2 109H, Arterial Blood HCO3 22L, Arterial Blood Total CO2 22.5, Arterial Blood Oxygen Saturation 100, Arterial Blood Base Excess -1.6, Blood Gas Ventilator Setting NO, Blood Gas Inspired Oxygen 25% 03/02/23 05:00: White Blood Count 7.2, Red Blood Count 3.00L, Hemoglobin 7.6L, Hematocrit 26L, Mean Corpuscular Volume 85, Mean Corpuscular Hemoglobin 25, Mean Corpuscular Hemoglobin Concent 30L, Red Cell Distribution Width 20.1H, Platelet Count 152, Mean Platelet Volume 10.7, Immature Granulocyte % (Auto) 1, Neutrophils (%) (Auto) 82H, Lymphocytes (%) (Auto) 5L, Monocytes (%) (Auto) 5, Eosinophils (%) (Auto) 7, Basophils (%) (Auto) 0, Neutrophils # (Auto) 5.9, Lymphocytes # (Auto) 0.4L, Monocytes # (Auto) 0.4, Eosinophils # (Auto) 0.5H, Basophils # (Auto) 0.0, Immature Granulocyte # (Auto) 0.1, Sodium Level 141, Potassium Level 3.6, Albumin 2.2L Microbiology 02/27/23 Gram Stain - Final, Complete 02/27/23 Sputum Culture - Final, Complete 02/22/23 Blood Culture - Final, Complete 02/22/23 Urine Culture - Final, Complete NO GROWTH Assessment/Plan Assessment/Plan Assess & Plan/Chief Complaint Assessment: Presumed alcohol induced liver injury Acute Respiratory Failure Anemia due to possible GI bleed Congestive Heart Failure H/o prostate cancer Anxiety Plan: Presumed alcohol induced liver injury -AST is down from 120. ALT is down from 502. -continue supportive care and monitor labs -poor prognosis Acute Respiratory Failure and pneumonia -decision was made to proceed with intubation due to pt's status -continue supportive care -poor prognosis Anemia due to possible GI bleed -Hgb has decreased to 6.6 -continue to monitor Congestive Heart Failure -probably metabolic secondary to heavy alcoholism, alcoholic liver disease or metabolic acidosis - per cardiology H/o prostate cancer Anxiety -continue to monitor and treat as needed Clinical Quality Measures DVT/VTE Risk/Contraindication: Other: GI BLEED TAMIKA WOLFE DO Mar 02, 2023 05:25
[2023-03-02 05:27] LABS: TOTAL PROTEIN 4.4 GM/DL (6.4-8.2)
[2023-03-02 05:30] LABS: PHOSPHORUS 2.5 MG/DL (2.3-4.7)
[2023-03-02 05:31] LABS: CREATININE SERUM 0.61 MG/DL (0.60-1.30)
[2023-03-02 05:33] LABS: MAGNESIUM 1.8 MG/DL (1.6-2.4)
[2023-03-02] MEDS ORDERED: POTASSIUM CL 10MEQ/50ML IVPB 50 ML IV ONE (05:46)
[2023-03-02] MEDS ORDERED: MAGNESIUM 1 GM/100 ML IVPB 200 ML IV ONE (05:46)
[2023-03-02] MEDS: MAGNESIUM 1 GM/100 ML IVPB 100 ML IV SCH ×3 (05:54→05:56)
[2023-03-02] MEDS: POTASSIUM CHLORIDE 20 MEQ TABLET PO SCH (05:55)
[2023-03-02] MEDS: POTASSIUM CL 10MEQ/50ML IVPB 50 ML IV SCH ×4 (05:55→07:32)
[2023-03-02] MEDS: DexMEDEtomidine 1,000mcg/250ml 250 ML IV SCH ×2 (06:17→14:37)
[2023-03-02] MEDS: DOCUSATE SODIUM 100 MG CAPSULE PO SCH ×2 (07:34→20:12)
[2023-03-02] MEDS: SENNOSIDES 8.6 MG TABLET PO SCH ×2 (07:34→20:12)
[2023-03-02] MEDS: LACTULOSE SYRUP 10GM/15ML 30ML UDC PO SCH ×3 (07:35→20:12)
[2023-03-02] MEDS: PANTOPRAZOLE INJECTION 40 MG VIAL IV SCH ×2 (08:28→20:18)
[2023-03-02] MEDS: NS IV SCH (08:29)
[2023-03-02] MEDS: FOLIC ACID IV SCH (08:29)
[2023-03-02] MEDS: THIAMINE IV SCH (08:29)
--- NOTE | 2023-03-02 08:37 | Diagnostic Imaging Report ---
INDICATION: Respiratory failure. EXAMINATION: Portable chest at 4:49 AM. FINDINGS: The ET tube tip is at the thoracic inlet. The left upper extremity PICC line tip projects over the SVC. The NG tube enters the stomach. There is some atelectasis or infiltrate in the left lung base. The right lung is clear. There are no effusions or pneumothoraces. IMPRESSION: Improved aeration of the lungs compared to 02/28/2023 with some residual left basilar infiltrate and/or atelectasis. Dictated by: Dictated on workstation # [id number]
--- NOTE | 2023-03-02 09:13 | Tele-ICU Progress Note ---
Subjective Date Seen by a Provider: Mar 02, 2023 Time Seen by a Provider: 09:08 Subjective/Events-last exam (Tele-ICU Physician , Progress Note ) Service provided via interactive audio and video telecommunications E-CARE system to a patient admitted to ICU bed in [facility]. Patient is seen today due to persistent need of ICU care I am remotely monitoring this patient from another state. I am unable to do the bedside exam, and history/physical and pertinent information is taken from other notes in the computer and bedside staff. Available chart/ vitals / labs / Images reviewed Video assessment done using teleICU camera, rest of exam as per RN Discussed with RN Events overnight : 68 yo M with LGI and severe anemia, 3.5, given 4 U PRBC, had to be intubated on 02/27, Hb today 7.6, no further bleeding, has NG in no coffee grounds no bleeding Now on rate AC 18, Vt 500, FIO2 21%, PEEP 5 On IV Precedex @ 1.5, IV Versed @ 5, RASS -2, + cough, not much secretions Remains on IV Zosyn, blood and sputum cultures negative so far Has LUE PICC-site looks ok, inserted 02/25, ET ok, CXR shows bilateral infiltrates, Has been heavy user of EtOH, thought to have radiation proctitis, has had prostate Ca in past Sepsis Event Evaluation Height, Weight, BMI Height: '" Weight: lbs. oz. kg; 23.46 BMI Method: Exam Exam Patient acknowledged, consented, and participated in this virtual visit which was conducted using real time audio/video Vital Signs Date Time Temp Pulse Resp B/P (MAP) Pulse Ox O2 Delivery O2 Flow Rate FiO2 03/02/23 09:00 75 17 103/68 (80) 97 Mechanical Ventilator 21.00 03/02/23 08:00 79 19 93/64 (74) 96 Mechanical Ventilator 21.00 03/02/23 08:00 98 Mechanical Ventilator 21 03/02/23 07:57 36.7 03/02/23 07:26 85 03/02/23 07:00 84 19 98/61 (73) 96 Mechanical Ventilator 21.00 03/02/23 06:55 85 19 96 25 03/02/23 06:00 71 18 128/82 (100) 100 Mechanical Ventilator 25.00 03/02/23 05:00 72 18 119/58 (69) 99 Mechanical Ventilator 25.00 03/02/23 04:00 69 18 114/72 (88) 100 Mechanical Ventilator 25.00 03/02/23 03:42 100 Mechanical Ventilator 25 03/02/23 03:00 78 18 114/66 (84) 100 Mechanical Ventilator 25.00 03/02/23 02:03 80 18 99 25 03/02/23 02:00 74 18 111/68 (81) 100 Mechanical Ventilator 25.00 03/02/23 01:00 72 25 117/70 (89) 100 Mechanical Ventilator 25.00 03/02/23 01:00 72 03/02/23 00:47 79 19 107/63 03/02/23 00:00 74 25 112/68 (89) 100 Mechanical Ventilator 25.00 03/02/23 00:00 36.2 03/02/23 00:00 100 Mechanical Ventilator 25 03/01/23 23:00 74 25 110/67 (83) 100 Mechanical Ventilator 25.00 03/01/23 22:00 37.3 03/01/23 22:00 79 25 110/66 (83) 100 Mechanical Ventilator 25.00 03/01/23 21:40 79 19 100 25 03/01/23 21:13 82 114/70 03/01/23 21:00 83 25 114/70 (89) 99 Mechanical Ventilator 25.00 03/01/23 20:00 90 25 113/68 (85) 99 Mechanical Ventilator 25.00 03/01/23 20:00 37.6 03/01/23 20:00 100 Mechanical Ventilator 25 03/01/23 19:45 90 25 99/58 (76) 98 Mechanical Ventilator 25.00 03/01/23 19:30 92 25 113/75 (91) 99 Mechanical Ventilator 25.00 03/01/23 19:15 89 25 125/72 (94) 98 Mechanical Ventilator 25.00 03/01/23 19:00 98 25 120/84 (96) 99 Mechanical Ventilator 25.00 03/01/23 19:00 98 03/01/23 18:53 99 25 98 25 03/01/23 18:00 86 22 113/70 (82) 96 Mechanical Ventilator 25.00 03/01/23 17:00 87 18 126/78 (94) 97 Mechanical Ventilator 25.00 03/01/23 16:00 87 14 125/80 (96) 96 Mechanical Ventilator 25.00 03/01/23 16:00 99 Mechanical Ventilator 25 03/01/23 15:00 89 18 116/75 (89) 99 Mechanical Ventilator 25.00 03/01/23 14:00 80 28 124/79 (96) 98 Mechanical Ventilator 25.00 03/01/23 14:00 86 22 100 25 03/01/23 13:01 73 18 105/63 03/01/23 13:00 71 18 105/63 (75) 99 Mechanical Ventilator 25.00 03/01/23 12:34 77 03/01/23 12:00 75 19 103/62 (72) 99 Mechanical Ventilator 25.00 03/01/23 12:00 99 Mechanical Ventilator 30 03/01/23 11:28 36.9 03/01/23 11:00 78 18 105/64 (77) 99 Mechanical Ventilator 25.00 03/01/23 10:19 73 18 100 25 03/01/23 10:00 73 17 100/64 (71) 100 Mechanical Ventilator 25.00 I & O 03/02/23 06:59 Intake Total 951.2 ml Output Total 1150 ml Balance -198.8 ml Height & Weight Height: '" Weight: lbs. oz. kg; 23.46 BMI Method: General Appearance: No Apparent Distress HEENT: PERRL/EOMI Neck: Full Range of Motion Respiratory: Rhonci, Wheezing Cardiovascular: Regular Rate, Rhythm Capillary Refill: Less Than 3 Seconds Gastrointestinal: soft, distended Extremity: Normal Capillary Refill Neurologic/Psychiatric: Other (on vent/sedated) Skin: Normal Color Lymphatic: No Adenopathy Results Lab Laboratory Tests 03/01/23 03:20 03/02/23 05:00 Assessment/Plan Assessment/Plan Acute resp failure, will continue on vent for now until see improvement in oxygenation and CXR, Continue IV Fentnayl and Precedex CXR from today looks a little better, would try on SBT but would not extubate, Also looks like cuff in ET is overinflated, will have RT check cuff pressure Critical Care: Critically Ill Patient Time spent with patient (mins): 25 BRITTNI DELANEY MD Mar 02, 2023 09:13
[2023-03-02] MEDS: D5 1/2 NS 1,000 ML IV 1,000 ML IV SCH (20:18)
--- NOTE | 2023-03-02 21:07 | Progress Note ---
Subjective Date Seen by a Provider: Mar 02, 2023 Time Seen by a Provider: 21:00 Subjective/Events-last exam on vent/sedated. improvement in blood gases however no recommendation to extubated due aspiration/recurrence risk. hb stable and currently no signs of clinical bleed. Objective Exam Vital Signs Date Time Temp Pulse Resp B/P (MAP) Pulse Ox O2 Delivery O2 Flow Rate FiO2 03/02/23 20:08 100 Mechanical Ventilator 25 03/02/23 19:33 37.3 03/02/23 19:18 36.9 72 97 21 03/02/23 18:55 72 18 97 21 03/02/23 18:00 70 20 133/76 (95) 96 Mechanical Ventilator 21.00 03/02/23 17:00 75 18 135/80 (98) 99 Mechanical Ventilator 21.00 03/02/23 16:00 70 12 110/65 (80) 97 Mechanical Ventilator 21.00 03/02/23 15:48 97 Mechanical Ventilator 21 03/02/23 15:42 36.9 03/02/23 15:00 74 25 119/75 (90) 97 Mechanical Ventilator 21.00 03/02/23 14:43 73 18 100 21 03/02/23 14:37 69 121/75 03/02/23 14:00 72 43 116/71 (86) 96 Mechanical Ventilator 21.00 03/02/23 13:00 76 20 130/81 (97) 97 Mechanical Ventilator 21.00 03/02/23 12:31 70 03/02/23 12:31 115 03/02/23 12:00 98 Mechanical Ventilator 21 03/02/23 12:00 74 20 121/71 (88) 97 Mechanical Ventilator 21.00 03/02/23 11:49 35.9 03/02/23 11:47 71 20 98 21 03/02/23 11:29 78 33 94 21 03/02/23 11:11 83 03/02/23 11:00 68 17 104/63 (77) 98 Mechanical Ventilator 21.00 03/02/23 10:00 73 19 99/63 (75) 97 Mechanical Ventilator 21.00 03/02/23 09:48 151 03/02/23 09:20 74 18 97 21 03/02/23 09:00 75 17 103/68 (80) 97 Mechanical Ventilator 21.00 03/02/23 08:00 79 19 93/64 (74) 96 Mechanical Ventilator 21.00 03/02/23 08:00 98 Mechanical Ventilator 21 03/02/23 07:57 36.7 03/02/23 07:26 85 03/02/23 07:00 84 19 98/61 (73) 96 Mechanical Ventilator 21.00 03/02/23 06:55 85 19 96 25 03/02/23 06:00 71 18 128/82 (100) 100 Mechanical Ventilator 25.00 03/02/23 05:00 72 18 119/58 (69) 99 Mechanical Ventilator 25.00 03/02/23 04:00 69 18 114/72 (88) 100 Mechanical Ventilator 25.00 03/02/23 03:42 100 Mechanical Ventilator 25 03/02/23 03:00 78 18 114/66 (84) 100 Mechanical Ventilator 25.00 03/02/23 02:03 80 18 99 25 03/02/23 02:00 74 18 111/68 (81) 100 Mechanical Ventilator 25.00 03/02/23 01:00 72 25 117/70 (89) 100 Mechanical Ventilator 25.00 03/02/23 01:00 72 03/02/23 00:47 79 19 107/63 03/02/23 00:00 74 25 112/68 (89) 100 Mechanical Ventilator 25.00 03/02/23 00:00 36.2 03/02/23 00:00 100 Mechanical Ventilator 25 03/01/23 23:00 74 25 110/67 (83) 100 Mechanical Ventilator 25.00 03/01/23 22:00 37.3 03/01/23 22:00 79 25 110/66 (83) 100 Mechanical Ventilator 25.00 03/01/23 21:40 79 19 100 25 03/01/23 21:13 82 114/70 I & O 03/02/23 06:59 Intake Total 951.2 ml Output Total 1150 ml Balance -198.8 ml Capillary Refill : Less Than 3 Seconds General Appearance: No Apparent Distress HEENT: PERRL/EOMI Neck: Full Range of Motion Respiratory: Rhonci, Wheezing Cardiovascular: Regular Rate, Rhythm Gastrointestinal: soft, distended Extremity: Normal Capillary Refill Neurologic/Psychiatric: Other (vent/sedated) Skin: Normal Color Lymphatic: No Adenopathy Results Lab Laboratory Tests 03/02/23 01:01: Glucometer 73 03/02/23 04:10: Arterial Blood pH 7.45H, Arterial Blood Partial Pressure CO2 31L, Arterial Blood Partial Pressure O2 109H, Arterial Blood HCO3 22L, Arterial Blood Total CO2 22.5, Arterial Blood Oxygen Saturation 100, Arterial Blood Base Excess -1.6, Blood Gas Ventilator Setting NO, Blood Gas Inspired Oxygen 25% 03/02/23 05:00: White Blood Count 7.2, Red Blood Count 3.00L, Hemoglobin 7.6L, Hematocrit 26L, Mean Corpuscular Volume 85, Mean Corpuscular Hemoglobin 25, Mean Corpuscular Hemoglobin Concent 30L, Red Cell Distribution Width 20.1H, Platelet Count 152, Mean Platelet Volume 10.7, Immature Granulocyte % (Auto) 1, Neutrophils (%) (Auto) 82H, Lymphocytes (%) (Auto) 5L, Monocytes (%) (Auto) 5, Eosinophils (%) (Auto) 7, Basophils (%) (Auto) 0, Neutrophils # (Auto) 5.9, Lymphocytes # (Auto) 0.4L, Monocytes # (Auto) 0.4, Eosinophils # (Auto) 0.5H, Basophils # (Auto) 0.0, Immature Granulocyte # (Auto) 0.1, Sodium Level 141, Potassium Level 3.6, Chloride Level 112H, Carbon Dioxide Level 22, Anion Gap 7, Blood Urea Nitrogen 12, Creatinine 0.61, Estimat Glomerular Filtration Rate 106, BUN/Creatinine Ratio 20, Glucose Level 77, Calcium Level 7.4L, Corrected Calcium 8.8, Phosphorus Level 2.5, Magnesium Level 1.8, Total Bilirubin 1.0, Aspartate Amino Transf (AST/SGOT) 35H, Alanine Aminotransferase (ALT/SGPT) 92H, Alkaline Phosphatase 62, Total Protein 4.4L, Albumin 2.2L 03/02/23 11:41: Glucometer 75 03/02/23 17:37: Glucometer 67L Microbiology 02/27/23 Gram Stain - Final, Complete 02/27/23 Sputum Culture - Final, Complete 02/22/23 Blood Culture - Final, Complete 02/22/23 Urine Culture - Final, Complete NO GROWTH Assessment/Plan Assessment/Plan Assess & Plan/Chief Complaint anemia and rectal bleed due to radiation proctitis. patient critically ill. currently no clinical bleeding with stable Hb. cont current therapies for ETOH detox. cont PPI if rectal bleed does develop will recommend PO glucocorticoids vs. sucralfate enemas. may also have UGI bleed component. currently on BID PPI. pt currently has ileus due to multisystem organ failure. will await using his GI tract for alimentation. may add laxative/prokinetic at some point. Clinical Quality Measures DVT/VTE Risk/Contraindication: Other: GI BLEED FATMATA JUNIOR MD Mar 02, 2023 21:07
[2023-03-03] MEDS: LACTULOSE 10 GM/15 ML 30 ML POUR BOTTLE FOR ENEMA PR SCH ×3 (00:06→07:23)
[2023-03-03] MEDS: DexMEDEtomidine 1,000mcg/250ml 250 ML IV SCH ×3 (00:43→17:47)
[2023-03-03] MEDS: PIPERACILLIN/Tazobactam 4.5 GM in NS (IVPB) 100 ML 100 ML IV SCH ×2 (02:28→09:23)
[2023-03-03 02:54] VITALS: BP 98/62
[2023-03-03] MEDS: RT-Ipratropium/Albuterol NEB 3 ML VIAL INH SCH ×6 (02:54→21:37)
[2023-03-03 03:51] LABS: BASOPHILS % (AUTO) 0 % (0-10); EOSINOPHILS # (AUTO) 0.4 10^3/uL (0.0-0.3); EOSINOPHILS % (AUTO) 5 % (0-10); HEMATOCRIT 25 % (40-54); HEMOGLOBIN 7.3 g/dL (13.3-17.7); LYMPHOCYTES # (AUTO) 0.3 10^3/uL (1.0-4.0); LYMPHOCYTES % (AUTO) 4 % (12-44); MEAN CORPUSCULAR HEMOGLOBIN 25 pg (25-34); MEAN CORPUSCULAR HGB CONC 30 g/dL (32-36); MEAN CORPUSCULAR VOLUME 84 fL (80-99); MEAN PLATELET VOLUME 10.3 fL (9.0-12.2); MONOCYTES # (AUTO) 0.3 10^3/uL (0.0-1.0); MONOCYTES % (AUTO) 5 % (0-12); NEUTROPHILS # (AUTO) 6.3 10^3/uL (1.8-7.8); NEUTROPHILS % (AUTO) 85 % (42-75); PLATELET COUNT 186 10^3/uL (130-400); WHITE BLOOD COUNT 7.4 10^3/uL (4.3-11.0)
[2023-03-03 04:15] LABS: ABG BASE EXCESS -0.3 MMOL/L (-2.5-2.5); ABG OXYGEN SATURATION 97 % (94-100); ABG PCO2 30 MMHG (35-45); ABG PH 7.48 (7.37-7.43); ABG PO2 73 MMHG (79-93); ABG TCO2 23.2 MMOL/L (21.0-31.0)
[2023-03-03 04:15] LABS: POTASSIUM 3.7 MMOL/L (3.6-5.0)
[2023-03-03 04:16] LABS: CALCIUM 6.9 MG/DL (8.5-10.1)
[2023-03-03 04:16] LABS: INSPIRED O2 21%; VENTILATOR YES
[2023-03-03 04:18] LABS: TOTAL PROTEIN 4.3 GM/DL (6.4-8.2)
[2023-03-03 04:19] LABS: BILIRUBIN,TOTAL 0.7 MG/DL (0.1-1.0)
[2023-03-03 04:21] LABS: CREATININE SERUM 0.6 MG/DL (0.60-1.30); PHOSPHORUS 2.4 MG/DL (2.3-4.7)
[2023-03-03 04:24] LABS: MAGNESIUM 1.8 MG/DL (1.6-2.4)
[2023-03-03] MEDS ORDERED: POTASSIUM CL 10MEQ/50ML IVPB 100 ML IV ONE (04:39)
[2023-03-03] MEDS ORDERED: MAGNESIUM 1 GM/100 ML IVPB 200 ML IV ONE (04:39)
[2023-03-03] MEDS: POTASSIUM CL 10MEQ/50ML IVPB 50 ML IV SCH ×2 (04:47→04:58)
[2023-03-03] MEDS: MAGNESIUM 1 GM/100 ML IVPB 100 ML IV SCH ×2 (04:47→04:58)
[2023-03-03] MEDS: POTASSIUM CHLORIDE 20 MEQ TABLET PO SCH (04:58)
[2023-03-03] MEDS: D5 1/2 NS 1,000 ML IV 1,000 ML IV SCH ×2 (07:39→17:48)
[2023-03-03] MEDS: PANTOPRAZOLE INJECTION 40 MG VIAL IV SCH ×2 (07:39→20:18)
[2023-03-03] MEDS: FOLIC ACID IV SCH (07:40)
[2023-03-03] MEDS: LACTULOSE SYRUP 10GM/15ML 30ML UDC PO SCH (07:40)
[2023-03-03] MEDS: NS IV SCH (07:40)
[2023-03-03] MEDS: SENNOSIDES 8.6 MG TABLET PO SCH ×2 (07:40→20:18)
[2023-03-03] MEDS: DOCUSATE SODIUM 100 MG CAPSULE PO SCH ×2 (07:40→20:18)
[2023-03-03] MEDS: THIAMINE IV SCH (07:40)
[2023-03-03 08:00] VITALS: BP 84/51
--- NOTE | 2023-03-03 08:24 | Progress Note ---
Subjective Date Seen by a Provider: Mar 03, 2023 Time Seen by a Provider: 11:00 Subjective/Events-last exam Patient about the same Still remains intubated Remains stable Hemoglobin trending down so may need transfusion tomorrow Overall poor prognosis remains Objective Exam Last Set of Vital Signs Vital Signs Date Time Temp Pulse Resp B/P (MAP) Pulse Ox O2 Delivery O2 Flow Rate FiO2 03/03/23 08:04 36.4 03/03/23 08:00 62 18 98 21 03/03/23 06:00 Mechanical Ventilator 21.00 Capillary Refill : Less Than 3 Seconds I&O Intake and Output 03/02/23 23:59 Intake Total 100 ml Output Total 1300 ml Balance -1200 ml Intake Oral 0 ml IV Total 100 ml Output Urine Total 1300 ml General: Other (Sedated and intubated) Lungs: Clear to Auscultation Heart: Regular Rate Results Lab Laboratory Tests 03/02/23 11:41: Glucometer 75 03/02/23 17:37: Glucometer 67L 03/02/23 23:45: Glucometer 100 03/03/23 03:35: White Blood Count 7.4, Red Blood Count 2.93L, Hemoglobin 7.3L, Hematocrit 25L, Mean Corpuscular Volume 84, Mean Corpuscular Hemoglobin 25, Mean Corpuscular Hemoglobin Concent 30L, Red Cell Distribution Width 20.4H, Platelet Count 186, Mean Platelet Volume 10.3, Immature Granulocyte % (Auto) 1, Neutrophils (%) (Auto) 85H, Lymphocytes (%) (Auto) 4L, Monocytes (%) (Auto) 5, Eosinophils (%) (Auto) 5, Basophils (%) (Auto) 0, Neutrophils # (Auto) 6.3, Lymphocytes # (Auto) 0.3L, Monocytes # (Auto) 0.3, Eosinophils # (Auto) 0.4H, Basophils # (Auto) 0.0, Immature Granulocyte # (Auto) 0.1, Sodium Level 139, Potassium Level 3.7, Chloride Level 112H, Carbon Dioxide Level 22, Anion Gap 5, Blood Urea Nitrogen 10, Creatinine 0.60, Estimat Glomerular Filtration Rate 106, BUN/Creatinine Ratio 17, Glucose Level 108H, Calcium Level 6.9L, Corrected Calcium 8.5, Phosphorus Level 2.4, Magnesium Level 1.8, Total Bilirubin 0.7, Aspartate Amino Transf (AST/SGOT) 26, Alanine Aminotransferase (ALT/SGPT) 67H, Alkaline Phosphat ase 61, Total Protein 4.3L, Albumin 2.0L 03/03/23 04:06: Arterial Blood pH 7.48H, Arterial Blood Partial Pressure CO2 30L, Arterial Blood Partial Pressure O2 73L, Arterial Blood HCO3 22L, Arterial Blood Total CO2 23.2, Arterial Blood Oxygen Saturation 97, Arterial Blood Base Excess -0.3, Blood Gas Ventilator Setting YES, Blood Gas Inspired Oxygen 21% Microbiology 02/27/23 Gram Stain - Final, Complete 02/27/23 Sputum Culture - Final, Complete 02/22/23 Blood Culture - Final, Complete 02/22/23 Urine Culture - Final, Complete NO GROWTH Assessment/Plan Assessment/Plan Assess & Plan/Chief Complaint Assessment: Presumed alcohol induced liver injury Acute Respiratory Failure Anemia due to possible GI bleed Congestive Heart Failure H/o prostate cancer Anxiety Plan: Poor prognosis Family wants to continue ventilator may need trach and PEG very soon if unable to wean Poor quality of life assessed if he is extubated Clinical Quality Measures DVT/VTE Risk/Contraindication: Other: GI BLEED TAMIKA WOLFE DO Mar 03, 2023 08:24
--- NOTE | 2023-03-03 08:45 | Tele-ICU Progress Note ---
Subjective Date Seen by a Provider: Mar 03, 2023 Time Seen by a Provider: 08:44 Subjective/Events-last exam (Tele-ICU Physician , Progress Note ) Service provided via interactive audio and video telecommunications E-CARE system to a patient admitted to ICU bed in [facility]. Patient is seen today due to persistent need of ICU care Available chart/ vitals / labs / Images reviewed Video assessment done using teleICU camera, rest of exam as per RN Discussed with RN Events overnight : Afebrile hemodynamically stable Respiratory - 6L I/O = neg Drips: no IVF Pressors- no VENT SETTINGS and ABG reviewed NOT CANDIDATE for SBTreviewed possible contraindications including Cardio vascular Stability /Sedation Score / FI02/PEEP / ABG / CXR/ secretions Sedation, discussed with RN, RASS - 1 versed 10 , precedex 1.5 Hospital course: (02-22) 68 y/o M -LGI Bleed - Anemia - Hgb 3.5 - 4 PRBC transfused., precedex gtt for anxiety 02/23 - hb stable after 4 units, agitated - on precedex , elv LFT - abx started , US liver 02/24 - ECHO EF 25 % , precedex , stable HB 02/25- Resp distress --> lasix 40 --> 5 L urine output 02/26 - + bloody BM , Hb 8.1, precedex 0.5, lasix 40 , BIPAP 02/27 - hb 6.6- 1uPRBC transfusion , INTUBATED 03/01 fio2 25% , KUB same - illeus 03/02--SBT 03/02 20 min with rr 30s on precedex 03/03- hb 7.3 , fio1 21% , stop laculose A/P Acute resp failure ( VO and PNA -INTUBATED 02/27 -AC 18 500 25 % + 5 - full support -SBT 03/02 20 min with rr 30s on precedex Cardiomyopathy - ECHO 02/24/2023 - EF 25%, RVSP 35 mm Hg - ? etiology ( etoh? , anemia? CAD? , - TSH wnl - cards on case - follow recom - negative fluid status , cont diuresis PRN Severe anemia with Hb 3.6 - presumed ABLA ( s/p Colonoscopy with biopsy and polypectomy 06/2022 ( suspected proctitis but the pathology called it a hyperplastic polyp, CT abd/p 06/2022) -Improved to 9.1 after 4u pRBC transfusion -->intermittent bloody BM - bloody BM--transfusion 1 uPRBC in addirtrion -PPI bid -Sx consulted- w/up when more stable Ileus - followed by Sx -LIS NG - minimal Elevated LFT- IMPROVING - ? ischemia with severe anemia - US-holesterolosis of the liver, likely indicating some level of biliary dyskinesia - as per sx Anxiety/confusion- as per chart has "anxiety and panic attacks" and h/o attempts to "wean off xanax" - nonfocal exam, IMPROVING - elev ammonia on 02/23- tx with lactulose - > normalized - recheck , if Ok - stop laculose - ? ETON use- ? DT -versed 10 , precedex 1.5 Thrombocytopenia ( not on heparin products ) -INR and fibrinogen reasonable range -IMPROVED Hematuria - with follow for now - intermittent H/o prostate CA -s/p prostatectomy Nutritions - ? TPN - will ask sx for recom - started on D5 04/14 for low glucose Lines : PICC 02/25 left , (Central Line Necessity Reviewed) Sahu: + OG: Nutrition: npo Analgesia: Anxiety/ delirium VTE Prophylaxis: scd Stress Ulcer Prophylaxis: ppi Plans in collaboration with bedside consultants and IM MDs. Discussed with RN to reach out if any questions or concerns A total of 35 minutes of critical care time was devoted to this patient today, required to treat and/or prevent further deterioration of critical care condition ( as above ) . I am remotely monitoring this patient from another state. I am unable to do the bedside exam, and history/physical and pertinent information is taken from other notes in the computer and bedside staff. . Sepsis Event Evaluation Height, Weight, BMI Height: '" Weight: lbs. oz. kg; 23.33 BMI Method: Exam Exam Patient acknowledged, consented, and participated in this virtual visit which was conducted using real time audio/video Vital Signs Date Time Temp Pulse Resp B/P (MAP) Pulse Ox O2 Delivery O2 Flow Rate FiO2 03/03/23 08:04 36.4 03/03/23 08:00 97 Mechanical Ventilator 21 03/03/23 08:00 62 18 98 21 03/03/23 06:00 67 18 97/58 (71) 96 Mechanical Ventilator 21.00 03/03/23 05:00 73 18 111/68 (85) 97 Mechanical Ventilator 21.00 03/03/23 04:00 70 18 103/63 (77) 98 Mechanical Ventilator 21.00 03/03/23 03:28 36.7 03/03/23 03:17 100 Mechanical Ventilator 25 03/03/23 03:00 70 18 94/57 (71) 96 Mechanical Ventilator 21.00 03/03/23 02:54 69 18 97 21 03/03/23 02:00 71 18 97/59 (71) 95 Mechanical Ventilator 21.00 03/03/23 01:00 74 18 102/60 (72) 96 Mechanical Ventilator 21.00 03/03/23 01:00 74 03/03/23 00:43 80 99/56 03/03/23 00:21 37.1 03/03/23 00:05 100 Mechanical Ventilator 25 03/03/23 00:00 77 18 104/59 (69) 95 Mechanical Ventilator 21.00 03/02/23 23:18 71 18 102/59 03/02/23 23:00 72 18 111/60 (79) 96 Mechanical Ventilator 21.00 03/02/23 22:00 75 18 103/63 (79) 95 Mechanical Ventilator 21.00 03/02/23 21:45 73 18 95 21 03/02/23 21:00 79 18 124/72 (92) 96 Mechanical Ventilator 21.00 03/02/23 20:08 100 Mechanical Ventilator 25 03/02/23 20:00 75 18 101/54 (69) 96 Mechanical Ventilator 21.00 03/02/23 19:33 37.3 03/02/23 19:18 36.9 72 97 21 03/02/23 19:00 85 18 128/74 (93) 94 Mechanical Ventilator 21.00 03/02/23 19:00 90 03/02/23 18:55 72 18 97 21 03/02/23 18:00 70 20 133/76 (95) 96 Mechanical Ventilator 21.00 03/02/23 17:00 75 18 135/80 (98) 99 Mechanical Ventilator 21.00 03/02/23 16:00 70 12 110/65 (80) 97 Mechanical Ventilator 21.00 03/02/23 15:48 97 Mechanical Ventilator 21 03/02/23 15:42 36.9 03/02/23 15:00 74 25 119/75 (90) 97 Mechanical Ventilator 21.00 03/02/23 14:43 73 18 100 21 03/02/23 14:37 69 121/75 03/02/23 14:00 72 43 116/71 (86) 96 Mechanical Ventilator 21.00 03/02/23 13:00 76 20 130/81 (97) 97 Mechanical Ventilator 21.00 03/02/23 12:31 70 03/02/23 12:31 115 03/02/23 12:00 98 Mechanical Ventilator 21 03/02/23 12:00 74 20 121/71 (88) 97 Mechanical Ventilator 21.00 03/02/23 11:49 35.9 03/02/23 11:47 71 20 98 21 03/02/23 11:29 78 33 94 21 03/02/23 11:11 83 03/02/23 11:00 68 17 104/63 (77) 98 Mechanical Ventilator 21.00 03/02/23 10:00 73 19 99/63 (75) 97 Mechanical Ventilator 21.00 03/02/23 09:48 151 03/02/23 09:20 74 18 97 21 03/02/23 09:00 75 17 103/68 (80) 97 Mechanical Ventilator 21.00 I & O 03/03/23 06:59 Intake Total 300 ml Output Total 1175 ml Balance -875 ml Height & Weight Height: '" Weight: lbs. oz. kg; 23.33 BMI Method: General Appearance: No Apparent Distress HEENT: PERRL/EOMI Neck: Full Range of Motion Respiratory: Rhonci, Wheezing Cardiovascular: Regular Rate, Rhythm Capillary Refill: Less Than 3 Seconds Gastrointestinal: soft, distended Extremity: Normal Capillary Refill Neurologic/Psychiatric: Other (vent/sedated) Skin: Normal Color Lymphatic: No Adenopathy Results Lab Laboratory Tests 03/02/23 05:00 03/03/23 03:35 Assessment/Plan Assessment/Plan 1 VIKAS MIGUEL MD Mar 03, 2023 08:45
[2023-03-03] MEDS: MIDAZOLAM DRIP PRE-MIX 100 ML IV SCH ×2 (08:58→20:26)
[2023-03-03 08:59] VITALS: BP 96/58
[2023-03-03 09:41] LABS: AMMONIA 25 UMOL/L (11-32)
[2023-03-03 09:43] LABS: TRIGLYCERIDES 124 MG/DL (<150)
[2023-03-03] MEDS ORDERED: LACTULOSE 10 GM/15 ML 30 ML POUR BOTTLE FOR ENEMA PR PRN (10:00)
[2023-03-03] MEDS ORDERED: LACTULOSE SYRUP 10GM/15ML 30ML UDC PO PRN (10:00)
--- NOTE | 2023-03-03 14:23 | Cardiology Progress Note ---
Subjective Date Seen by Provider: Mar 03, 2023 Time Seen by Provider: 09:00 Subjective/Events-last exam No significant changes. Patient remains intubated and ventilator dependent. In sinus rhythm. Blood pressure is borderline Exam Vital Signs Vital Signs Date Time Temp Pulse Resp B/P (MAP) Pulse Ox O2 Delivery O2 Flow Rate FiO2 03/03/23 12:57 63 03/03/23 11:47 37.0 03/03/23 11:26 98 Mechanical Ventilator 21 03/03/23 11:00 18 21.00 Physical Exam Intubated, sedated. Neck supple. Heart: S1-S2, regular rhythm. Lungs mechanical sounds. Abdomen soft. Extremities no edema Labs Laboratory Tests Test 03/02/23 17:37 03/02/23 23:45 03/03/23 03:35 03/03/23 04:06 Range/Units Glucometer 67 L 100 70-110 MG/DL White Blood Count 7.4 4.3-11.0 10^3/uL Red Blood Count 2.93 L 4.30-5.52 10^6/uL Hemoglobin 7.3 L 13.3-17.7 g/dL Hematocrit 25 L 40-54 % Mean Corpuscular Volume 84 80-99 fL Mean Corpuscular Hemoglobin 25 25-34 pg Mean Corpuscular Hemoglobin Concent 30 L 32-36 g/dL Red Cell Distribution Width 20.4 H 10.0-14.5 % Platelet Count 186 130-400 10^3/uL Mean Platelet Volume 10.3 9.0-12.2 fL Immature Granulocyte % (Auto) 1 % Neutrophils (%) (Auto) 85 H 42-75 % Lymphocytes (%) (Auto) 4 L 12-44 % Monocytes (%) (Auto) 5 0-12 % Eosinophils (%) (Auto) 5 0-10 % Basophils (%) (Auto) 0 0-10 % Neutrophils # (Auto) 6.3 1.8-7.8 10^3/uL Lymphocytes # (Auto) 0.3 L 1.0-4.0 10^3/uL Monocytes # (Auto) 0.3 0.0-1.0 10^3/uL Eosinophils # (Auto) 0.4 H 0.0-0.3 10^3/uL Basophils # (Auto) 0.0 0.0-0.1 10^3/uL Immature Granulocyte # (Auto) 0.1 0.0-0.1 10^3/uL Sodium Level 139 135-145 MMOL/L Potassium Level 3.7 3.6-5.0 MMOL/L Chloride Level 112 H 98-107 MMOL/L Carbon Dioxide Level 22 21-32 MMOL/L Anion Gap 5 5-14 MMOL/L Blood Urea Nitrogen 10 7-18 MG/DL Creatinine 0.60 0.60-1.30 MG/DL Estimat Glomerular Filtration Rate 106 BUN/Creatinine Ratio 17 Glucose Level 108 H 70-105 MG/DL Calcium Level 6.9 L 8.5-10.1 MG/DL Corrected Calcium 8.5 8.5-10.1 MG/DL Phosphorus Level 2.4 2.3-4.7 MG/DL Magnesium Level 1.8 1.6-2.4 MG/DL Total Bilirubin 0.7 0.1-1.0 MG/DL Aspartate Amino Transf (AST/SGOT) 26 5-34 U/L Alanine Aminotransferase (ALT/SGPT) 67 H 0-55 U/L Alkaline Phosphatase 61 40-136 U/L Total Protein 4.3 L 6.4-8.2 GM/DL Albumin 2.0 L 3.2-4.5 GM/DL Arterial Blood pH 7.48 H 7.37-7.43 Arterial Blood Partial Pressure CO2 30 L 35-45 MMHG Arterial Blood Partial Pressure O2 73 L 79-93 MMHG Arterial Blood HCO3 22 L 23-27 MMOL/L Arterial Blood Total CO2 23.2 21.0-31.0 MMOL/L Arterial Blood Oxygen Saturation 97 94-100 % Arterial Blood Base Excess -0.3 -2.5-2.5 MMOL/L Blood Gas Ventilator Setting YES Blood Gas Inspired Oxygen 21% Test 03/03/23 09:05 03/03/23 11:50 Range/Units Ammonia 25 11-32 UMOL/L Triglycerides Level 124 <150 MG/DL Glucometer 108 70-110 MG/DL A/P-Cardiology Admission Diagnosis Generalized weakness Type II myocardial infarction Lactic acidosis Acute delirium Assessment/Plan Acute respiratory failure: Intubated Managed by medical team Borderline arterial pressure: Continue to monitor. Continue present therapy Anemia, drop in H&H, received blood transfusion. No evidence of continuing bleeding Managed by medical team Congestive heart failure, acute left ventricular systolic dysfunction, probably nonischemic cardiomyopathy Questionable underlying alcoholism and it might be secondary to alcoholic heart disease. Continue present therapy Acute change in mental status, probably metabolic secondary to heavy alcoholism, alcoholic liver disease or metabolic acidosis. Management per ICU team. History of intermittent rectal bleed. No signs of acute bleeding. Management by medical team History of prostate cancer Questionable history of alcohol use, elevated liver enzymes. Questionable delirium tremens Patient received Precedex Managed by medical team BRICE FELIZ MD Mar 03, 2023 14:23
[2023-03-03 15:15] VITALS: BP 102/64
[2023-03-03 18:10] VITALS: BP 100/64
[2023-03-03 21:37] VITALS: BP 102/60
[2023-03-04] VITALS (7 sets, daily range): BP systolic 93–131; BP diastolic 59–84
[2023-03-04] MEDS: RT-Ipratropium/Albuterol NEB 3 ML VIAL INH SCH ×6 (02:28→21:54)
[2023-03-04] MEDS: DexMEDEtomidine 1,000mcg/250ml 250 ML IV SCH ×2 (03:02→16:19)
[2023-03-04 04:40] LABS: ABG BASE EXCESS -0.6 MMOL/L (-2.5-2.5); ABG OXYGEN SATURATION 98 % (94-100); ABG PCO2 35 MMHG (35-45); ABG PH 7.43 (7.37-7.43); ABG PO2 75 MMHG (79-93); ABG TCO2 24.3 MMOL/L (21.0-31.0)
[2023-03-04 04:41] LABS: INSPIRED O2 21%; VENTILATOR YES
[2023-03-04 05:28] LABS: ALBUMIN 2.1 GM/DL (3.2-4.5); POTASSIUM 3.9 MMOL/L (3.6-5.0)
[2023-03-04 05:30] LABS: CALCIUM 7.1 MG/DL (8.5-10.1)
--- NOTE | 2023-03-04 05:30 | Progress Note ---
Subjective Date Seen by a Provider: Mar 04, 2023 Time Seen by a Provider: 11:00 Subjective/Events-last exam Patient remained stable May be able to perform an SBT Hemoglobin stable Patient overall has poor reserve and has a poor prognosis given his severe alcoholism Objective Exam Last Set of Vital Signs Vital Signs Date Time Temp Pulse Resp B/P (MAP) Pulse Ox O2 Delivery O2 Flow Rate FiO2 03/04/23 04:00 98 Mechanical Ventilator 21 03/04/23 04:00 65 14 108/74 (85) 21.00 03/04/23 04:00 36.3 Capillary Refill : Less Than 3 Seconds I&O Intake and Output 03/04/23 00:00 Intake Total 300 ml Output Total 1150 ml Balance -850 ml Intake Oral 0 ml IV Total 300 ml Output Urine Total 950 ml Gastric Drainage Total 200 ml General: Other (Sedated and intubated) Lungs: Clear to Auscultation Heart: Regular Rate Results Lab Laboratory Tests 03/03/23 09:05: Ammonia 25, Triglycerides Level 124 03/03/23 11:50: Glucometer 108 03/03/23 17:49: Glucometer 109 03/03/23 23:36: Glucometer 116H 03/04/23 04:25: Arterial Blood pH 7.43, Arterial Blood Partial Pressure CO2 35, Arterial Blood Partial Pressure O2 75L, Arterial Blood HCO3 23, Arterial Blood Total CO2 24.3, Arterial Blood Oxygen Saturation 98, Arterial Blood Base Excess -0.6, Blood Gas Ventilator Setting YES, Blood Gas Inspired Oxygen 21% 03/04/23 05:10: Sodium Level 137, Potassium Level 3.9, Chloride Level 110H, Calcium Level 7.1L, Corrected Calcium 8.6, Albumin 2.1L Microbiology 02/27/23 Gram Stain - Final, Complete 02/27/23 Sputum Culture - Final, Complete 02/22/23 Blood Culture - Final, Complete 02/22/23 Urine Culture - Final, Complete NO GROWTH Assessment/Plan Assessment/Plan Assess & Plan/Chief Complaint Assessment: Presumed alcohol induced liver injury Acute Respiratory Failure Anemia due to possible GI bleed Congestive Heart Failure H/o prostate cancer Anxiety Plan: Poor prognosis Family wants to continue ventilator may need trach and PEG very soon if unable to wean Poor quality of life assessed if he is extubated Clinical Quality Measures DVT/VTE Risk/Contraindication: Other: GI BLEED TAMIKA WOLFE DO Mar 04, 2023 05:30
[2023-03-04 05:31] LABS: TOTAL PROTEIN 4.4 GM/DL (6.4-8.2)
[2023-03-04 05:33] LABS: BILIRUBIN,TOTAL 0.5 MG/DL (0.1-1.0)
[2023-03-04 05:34] LABS: PHOSPHORUS 2.9 MG/DL (2.3-4.7)
[2023-03-04 05:35] LABS: CREATININE SERUM 0.61 MG/DL (0.60-1.30)
[2023-03-04 05:38] LABS: MAGNESIUM 1.9 MG/DL (1.6-2.4)
[2023-03-04] MEDS: POTASSIUM CL 10MEQ/50ML IVPB 50 ML IV SCH (05:49)
[2023-03-04] MEDS: POTASSIUM CHLORIDE 20 MEQ TABLET PO SCH (05:49)
[2023-03-04] MEDS: MAGNESIUM 1 GM/100 ML IVPB 100 ML IV SCH (05:49)
[2023-03-04] MEDS: MIDAZOLAM DRIP PRE-MIX 100 ML IV SCH ×2 (05:53→19:55)
[2023-03-04 06:36] LABS: BASOPHILS % (AUTO) 0 % (0-10); EOSINOPHILS # (AUTO) 0.2 10^3/uL (0.0-0.3); EOSINOPHILS % (AUTO) 3 % (0-10); HEMATOCRIT 24 % (40-54); HEMOGLOBIN 7.3 g/dL (13.3-17.7); LYMPHOCYTES # (AUTO) 0.3 10^3/uL (1.0-4.0); LYMPHOCYTES % (AUTO) 5 % (12-44); MEAN CORPUSCULAR HEMOGLOBIN 26 pg (25-34); MEAN CORPUSCULAR HGB CONC 30 g/dL (32-36); MEAN CORPUSCULAR VOLUME 85 fL (80-99); MEAN PLATELET VOLUME 10.6 fL (9.0-12.2); MONOCYTES # (AUTO) 0.4 10^3/uL (0.0-1.0); MONOCYTES % (AUTO) 5 % (0-12); NEUTROPHILS # (AUTO) 5.9 10^3/uL (1.8-7.8); NEUTROPHILS % (AUTO) 86 % (42-75); PLATELET COUNT 214 10^3/uL (130-400); WHITE BLOOD COUNT 6.9 10^3/uL (4.3-11.0)
[2023-03-04] MEDS: SENNOSIDES 8.6 MG TABLET PO SCH ×2 (08:00→20:21)
[2023-03-04] MEDS: D5 1/2 NS 1,000 ML IV 1,000 ML IV SCH ×2 (08:00→21:05)
[2023-03-04] MEDS: PANTOPRAZOLE INJECTION 40 MG VIAL IV SCH ×2 (08:00→19:55)
[2023-03-04] MEDS: DOCUSATE SODIUM 100 MG CAPSULE PO SCH ×2 (08:00→20:21)
[2023-03-04] MEDS: FOLIC ACID IV SCH (08:19)
[2023-03-04] MEDS: NS IV SCH (08:19)
[2023-03-04] MEDS: THIAMINE IV SCH (08:19)
--- NOTE | 2023-03-04 08:30 | Tele-ICU Progress Note ---
Subjective Date Seen by a Provider: Mar 04, 2023 Time Seen by a Provider: 08:30 Subjective/Events-last exam (Tele-ICU Physician , Progress Note ) Service provided via interactive audio and video telecommunications E-CARE system to a patient admitted to ICU bed in [facility]. Patient is seen today due to persistent need of ICU care Available chart/ vitals / labs / Images reviewed Video assessment done using teleICU camera, rest of exam as per RN Discussed with RN Events overnight : Afebrile hemodynamically stable Respiratory - 21% I/O = neg Drips: d51/2 83 Pressors- no VENT SETTINGS and ABG reviewed NOT CANDIDATE for SBTreviewed possible contraindications including Ca rdiovascular Stability /Sedation Score / FI02/PEEP / ABG / CXR/ secretions Sedation, discussed with RN, RASS - 1 versed 10 , precedex 1.5 Hospital course: (02-22) 68 y/o M -LGI Bleed - Anemia - Hgb 3.5 - 4 PRBC transfused., precedex gtt for anxiety 02/23 - hb stable after 4 units, agitated - on precedex , elv LFT - abx started , US liver 02/24 - ECHO EF 25 % , precedex , stable HB 02/25- Resp distress --> lasix 40 --> 5 L urine output 02/26 - + bloody BM , Hb 8.1, precedex 0.5, lasix 40 , BIPAP 02/27 - hb 6.6- 1uPRBC transfusion , INTUBATED 03/01 fio2 25% , KUB same - illeus 03/02--SBT 03/02 20 min with rr 30s on precedex 03/03- hb 7.3 , fio1 21% , stop laculose , failed SBT A/P Acute resp failure ( VO and PNA -INTUBATED 02/27 -AC 18 500 21 % + 5 - full support -SBT 03/02 20 min with rr 30s on precedex - WILL KEEP TO TRY AGAIN TODAY - getting better otherwise - respiratory muscle weakness and low EF are mostly contributing factors Cardiomyopathy - ECHO 02/24/2023 - EF 25%, RVSP 35 mm Hg - ? etiology ( etoh? , anemia? CAD? , - TSH wnl - cards on case - follow recom - negative fluid status , cont diuresis PRN Severe anemia with Hb 3.6 - presumed ABLA ( s/p Colonoscopy with biopsy and polypectomy 06/2022 ( suspected proctitis but the pathology called it a hyperplastic polyp, CT abd/p 06/2022) -Improved to 9.1 after 4u pRBC transfusion -->intermittent bloody BM - bloody BM--transfusion 1 uPRBC in addirtrion -PPI bid -Sx consulted- w/up when more stable Ileus - followed by Sx -LIS NG - minimal - ?RESUME FEEDING ? Nutritions - ? TPN vs strt TF - - will ask sx for recom -respiratory muscle weakness suspected preventing weaning off vent - started on D5 / for low glucose - abd soft today - ? start TF Elevated LFT- RESOLVED - ? ischemia with severe anemia - US-holesterolosis of the liver, likely indicating some level of biliary dyskinesia - as per sx Anxiety/confusion- as per chart has "anxiety and panic attacks" and h/o attempts to "wean off xanax" - nonfocal exam, IMPROVING - elev ammonia on 02/23- tx with lactulose - > normalized - recheck , if Ok - stop laculose - ? ETON use- ? DT -versed 10 , precedex 1.5 Thrombocytopenia ( not on heparin products ) -INR and fibrinogen reasonable range -RESOLVED Hematuria - with follow for now - intermittent - RESOLVED H/o prostate CA -s/p prostatectomy Lines : PICC 02/25 left , (Central Line Necessity Reviewed) Sahu: + OG: Nutrition: npo Analgesia: Anxiety/ delirium VTE Prophylaxis: scd Stress Ulcer Prophylaxis: ppi Plans in collaboration with bedside consultants and IM MDs. Discussed with RN to reach out if any questions or concerns A total of 35 minutes of critical care time was devoted to this patient today, required to treat and/or prevent further deterioration of critical care condition ( as above ) . I am remotely monitoring this patient from another state. I am unable to do the bedside exam, and history/physical and pertinent information is taken from other notes in the computer and bedside staff. . Sepsis Event Evaluation Height, Weight, BMI Height: '" Weight: lbs. oz. kg; 23.33 BMI Method: Exam Exam Patient acknowledged, consented, and participated in this virtual visit which was conducted using real time audio/video Vital Signs Date Time Temp Pulse Resp B/P (MAP) Pulse Ox O2 Delivery O2 Flow Rate FiO2 03/04/23 08:20 61 18 97/66 03/04/23 08:00 36.2 03/04/23 07:21 97 Mechanical Ventilator 21.00 03/04/23 06:46 60 14 98 21 03/04/23 06:00 61 14 109/67 (81) 97 Mechanical Ventilator 21.00 03/04/23 05:53 61 16 110/66 03/04/23 05:00 64 14 110/67 (81) 97 Mechanical Ventilator 21.00 03/04/23 04:00 98 Mechanical Ventilator 21 03/04/23 04:00 65 14 108/74 (85) 97 Mechanical Ventilator 21.00 03/04/23 04:00 36.3 03/04/23 03:02 66 03/04/23 03:00 67 14 96/62 (73) 98 Mechanical Ventilator 21.00 03/04/23 02:28 64 16 98 21 03/04/23 02:00 67 14 93/61 (72) 96 Mechanical Ventilator 21.00 03/04/23 01:00 70 14 100/64 (76) 96 Mechanical Ventilator 21.00 03/04/23 01:00 74 03/04/23 00:00 98 Mechanical Ventilator 21 03/04/23 00:00 68 14 99/68 (80) 96 Mechanical Ventilator 21.00 03/03/23 23:21 38.3 03/03/23 23:00 70 14 101/63 (78) 97 Mechanical Ventilator 21.00 03/03/23 22:25 74 03/03/23 22:00 78 14 97/59 (77) 94 Mechanical Ventilator 21.00 03/03/23 21:37 74 19 95 21 03/03/23 21:00 71 14 99/56 (72) 94 Mechanical Ventilator 21.00 03/03/23 20:26 62 16 100/62 03/03/23 20:00 98 Mechanical Ventilator 21 03/03/23 20:00 71 21 108/63 (78) 95 Mechanical Ventilator 21.00 03/03/23 19:00 64 03/03/23 19:00 37.2 63 16 100/64 (76) 98 Mechanical Ventilator 21.00 03/03/23 18:10 61 16 97 21 03/03/23 18:00 61 16 101/62 (75) 97 Mechanical Ventilator 21.00 03/03/23 17:00 63 16 101/64 (76) 97 Mechanical Ventilator 21.00 03/03/23 16:00 64 17 101/63 (76) 97 Mechanical Ventilator 21.00 03/03/23 16:00 96 Mechanical Ventilator 21 03/03/23 15:43 37.1 03/03/23 15:15 61 16 97 21 03/03/23 15:00 62 16 100/66 (77) 97 Mechanical Ventilator 21.00 03/03/23 14:00 62 17 99/66 (77) 97 Mechanical Ventilator 21.00 03/03/23 13:00 70 20 107/66 (80) 97 Mechanical Ventilator 21.00 03/03/23 12:57 63 03/03/23 12:00 64 15 99/64 (76) 97 Mechanical Ventilator 21.00 03/03/23 11:47 37.0 03/03/23 11:26 98 Mechanical Ventilator 21 03/03/23 11:00 64 18 93/56 (68) 98 Mechanical Ventilator 21.00 03/03/23 10:00 65 27 100/60 (73) 98 Mechanical Ventilator 21.00 03/03/23 09:00 65 21 96/58 (71) 97 Mechanical Ventilator 21.00 03/03/23 08:59 65 21 97 21 03/03/23 08:58 65 98/56 03/03/23 08:58 65 98/56 I & O 03/04/23 07:00 Intake Total 0 ml Output Total 1500 ml Balance -1500 ml Height & Weight Height: '" Weight: lbs. oz. kg; 23.33 BMI Method: General Appearance: No Apparent Distress HEENT: PERRL/EOMI Neck: Full Range of Motion Respiratory: Rhonci, Wheezing Cardiovascular: Regular Rate, Rhythm Capillary Refill: Less Than 3 Seconds Gastrointestinal: soft, distended Extremity: Normal Capillary Refill Neurologic/Psychiatric: Other (vent/sedated) Skin: Normal Color Lymphatic: No Adenopathy Results Lab Laboratory Tests 03/03/23 03:35 03/04/23 05:10 Assessment/Plan Assessment/Plan 1 VIKAS MIGUEL MD Mar 04, 2023 08:30
--- NOTE | 2023-03-04 11:45 | Progress Note ---
Subjective Date Seen by a Provider: Mar 04, 2023 Time Seen by a Provider: 11:00 Subjective/Events-last exam undergoing vent ween trials. appears struggles after 30 minutes. no clinical bleed. Hb stable. Objective Exam Vital Signs Date Time Temp Pulse Resp B/P (MAP) Pulse Ox O2 Delivery O2 Flow Rate FiO2 03/04/23 11:30 76 22 96 21 03/04/23 11:24 73 16 105/72 03/04/23 11:06 73 16 108/64 03/04/23 10:36 71 16 111/65 03/04/23 10:11 64 15 99 21 03/04/23 10:02 65 12 93/59 03/04/23 08:48 62 18 95/64 03/04/23 08:20 61 18 97/66 03/04/23 08:00 36.2 03/04/23 07:21 97 Mechanical Ventilator 21.00 03/04/23 06:46 60 14 98 21 03/04/23 06:00 61 14 109/67 (81) 97 Mechanical Ventilator 21.00 03/04/23 05:53 61 16 110/66 03/04/23 05:00 64 14 110/67 (81) 97 Mechanical Ventilator 21.00 03/04/23 04:00 98 Mechanical Ventilator 21 03/04/23 04:00 65 14 108/74 (85) 97 Mechanical Ventilator 21.00 03/04/23 04:00 36.3 03/04/23 03:02 66 03/04/23 03:00 67 14 96/62 (73) 98 Mechanical Ventilator 21.00 03/04/23 02:28 64 16 98 21 03/04/23 02:00 67 14 93/61 (72) 96 Mechanical Ventilator 21.00 03/04/23 01:00 70 14 100/64 (76) 96 Mechanical Ventilator 21.00 03/04/23 01:00 74 03/04/23 00:00 98 Mechanical Ventilator 21 03/04/23 00:00 68 14 99/68 (80) 96 Mechanical Ventilator 21.00 03/03/23 23:21 38.3 03/03/23 23:00 70 14 101/63 (78) 97 Mechanical Ventilator 21.00 03/03/23 22:25 74 03/03/23 22:00 78 14 97/59 (77) 94 Mechanical Ventilator 21.00 03/03/23 21:37 74 19 95 21 03/03/23 21:00 71 14 99/56 (72) 94 Mechanical Ventilator 21.00 03/03/23 20:26 62 16 100/62 03/03/23 20:00 98 Mechanical Ventilator 21 03/03/23 20:00 71 21 108/63 (78) 95 Mechanical Ventilator 21.00 03/03/23 19:00 64 03/03/23 19:00 37.2 63 16 100/64 (76) 98 Mechanical Ventilator 21.00 03/03/23 18:10 61 16 97 21 03/03/23 18:00 61 16 101/62 (75) 97 Mechanical Ventilator 21.00 03/03/23 17:00 63 16 101/64 (76) 97 Mechanical Ventilator 21.00 03/03/23 16:00 64 17 101/63 (76) 97 Mechanical Ventilator 21.00 03/03/23 16:00 96 Mechanical Ventilator 21 03/03/23 15:43 37.1 03/03/23 15:15 61 16 97 21 03/03/23 15:00 62 16 100/66 (77) 97 Mechanical Ventilator 21.00 03/03/23 14:00 62 17 99/66 (77) 97 Mechanical Ventilator 21.00 03/03/23 13:00 70 20 107/66 (80) 97 Mechanical Ventilator 21.00 03/03/23 12:57 63 03/03/23 12:00 64 15 99/64 (76) 97 Mechanical Ventilator 21.00 03/03/23 11:47 37.0 I & O 03/04/23 06:59 Intake Total 0 ml Output Total 1500 ml Balance -1500 ml Capillary Refill : Less Than 3 Seconds General Appearance: No Apparent Distress HEENT: PERRL/EOMI Neck: Full Range of Motion Respiratory: Decreased Breath Sounds, Rhonci Cardiovascular: Regular Rate, Rhythm Gastrointestinal: normal bowel sounds, soft Extremity: Normal Capillary Refill Neurologic/Psychiatric: Alert Skin: Normal Color Lymphatic: No Adenopathy Results Lab Laboratory Tests 03/03/23 11:50: Glucometer 108 03/03/23 17:49: Glucometer 109 03/03/23 23:36: Glucometer 116H 03/04/23 04:25: Arterial Blood pH 7.43, Arterial Blood Partial Pressure CO2 35, Arterial Blood Partial Pressure O2 75L, Arterial Blood HCO3 23, Arterial Blood Total CO2 24.3, Arterial Blood Oxygen Saturation 98, Arterial Blood Base Excess -0.6, Blood Gas Ventilator Setting YES, Blood Gas Inspired Oxygen 21% 03/04/23 05:10: White Blood Count 6.9, Red Blood Count 2.86L, Hemoglobin 7.3L, Hematocrit 24L, Mean Corpuscular Volume 85, Mean Corpuscular Hemoglobin 26, Mean Corpuscular Hemoglobin Concent 30L, Red Cell Distribution Width 20.6H, Platelet Count 214, Mean Platelet Volume 10.6, Immature Granulocyte % (Auto) 2, Neutrophils (%) (A uto) 86H, Lymphocytes (%) (Auto) 5L, Monocytes (%) (Auto) 5, Eosinophils (%) (Auto) 3, Basophils (%) (Auto) 0, Neutrophils # (Auto) 5.9, Lymphocytes # (Auto) 0.3L, Monocytes # (Auto) 0.4, Eosinophils # (Auto) 0.2, Basophils # (Auto) 0.0, Immature Granulocyte # (Auto) 0.1, Sodium Level 137, Potassium Level 3.9, Chloride Level 110H, Carbon Dioxide Level 24, Anion Gap 3L, Blood Urea Nitrogen 8, Creatinine 0.61, Estimat Glomerular Filtration Rate 106, BUN/Creatinine Ratio 13, Glucose Level 126H, Calcium Level 7.1L, Corrected Calcium 8.6, Phosphorus Level 2.9, Magnesium Level 1.9, Total Bilirubin 0.5, Aspartate Amino Transf (AST/SGOT) 17, Alanine Aminotransferase (ALT/SGPT) 51, Alkaline Phosphatase 57, Total Protein 4.4L, Albumin 2.1L Microbiology 02/27/23 Gram Stain - Final, Complete 02/27/23 Sputum Culture - Final, Complete 02/22/23 Blood Culture - Final, Complete 02/22/23 Urine Culture - Final, Complete NO GROWTH Assessment/Plan Assessment/Plan Assess & Plan/Chief Complaint anemia and rectal bleed due to radiation proctitis. patient critically ill. currently no clinical bleeding with stable Hb. cont current therapies for ETOH detox. cont PPI if rectal bleed does develop will recommend PO glucocorticoids vs. sucralfate enemas. may also have UGI bleed component. currently on BID PPI. trials of vent ween now and will see if he can be extubated. if trials fail, family requests trach & PEG. Clinical Quality Measures DVT/VTE Risk/Contraindication: Other: GI BLEED FATMATA JUNIOR MD Mar 04, 2023 11:45
[2023-03-04 12:47] LABS: ABG BASE EXCESS 0.4 MMOL/L (-2.5-2.5); ABG OXYGEN SATURATION 97 % (94-100); ABG PCO2 31 MMHG (35-45); ABG PH 7.48 (7.37-7.43); ABG PO2 74 MMHG (79-93); ABG TCO2 24.1 MMOL/L (21.0-31.0)
[2023-03-04 12:48] LABS: INSPIRED O2 21%; VENTILATOR YES
[2023-03-04] MEDS: ACETAMINOPHEN 325 MG TABLET PO PRN (16:19)
[2023-03-04] MEDS: fentaNYL INJECTION 100 MCG/2 ML VIAL IVP PRN (16:31)
[2023-03-05 02:26] VITALS: BP 103/61
[2023-03-05] MEDS: RT-Ipratropium/Albuterol NEB 3 ML VIAL INH SCH ×6 (02:26→21:53)
[2023-03-05] MEDS: DexMEDEtomidine 1,000mcg/250ml 250 ML IV SCH ×3 (02:45→23:10)
[2023-03-05 04:31] LABS: ABG BASE EXCESS -1.7 MMOL/L (-2.5-2.5); ABG OXYGEN SATURATION 98 % (94-100); ABG PCO2 33 MMHG (35-45); ABG PH 7.43 (7.37-7.43); ABG PO2 83 MMHG (79-93); ABG TCO2 22.9 MMOL/L (21.0-31.0)
[2023-03-05 04:32] LABS: INSPIRED O2 100%; VENTILATOR YES
--- NOTE | 2023-03-05 05:27 | Progress Note ---
Subjective Date Seen by a Provider: Mar 05, 2023 Time Seen by a Provider: 10:00 Subjective/Events-last exam Remains intubated Fever noted CXR ordered Elevated wbc Prognosis remains very poor Objective Exam Last Set of Vital Signs Vital Signs Date Time Temp Pulse Resp B/P (MAP) Pulse Ox O2 Delivery O2 Flow Rate FiO2 03/05/23 05:00 68 17 109/69 (82) 99 Mechanical Ventilator 21.00 03/05/23 02:26 21 03/04/23 16:21 36.3 Capillary Refill : Less Than 3 Seconds I&O Intake and Output 03/05/23 00:00 Intake Total 2590 ml Output Total 1750 ml Balance 840 ml Intake Oral 0 ml IV Total 2350 ml Tube Feeding 40 ml Enteral Flush 100 ml Other 100 ml Output Urine Total 1650 ml Gastric Drainage Total 100 ml # Bowel Movements 1 General: Other (sedated and intubated) Lungs: Clear to Auscultation Heart: Regular Rate Results Lab Laboratory Tests 03/04/23 12:38: Arterial Blood pH 7.48H, Arterial Blood Partial Pressure CO2 31L, Arterial Blood Partial Pressure O2 74L, Arterial Blood HCO3 23, Arterial Blood Total CO2 24.1, Arterial Blood Oxygen Saturation 97, Arterial Blood Base Excess 0.4, Blood Gas Ventilator Setting YES, Blood Gas Inspired Oxygen 21% 03/04/23 18:07: Glucometer 102 03/05/23 01:24: Glucometer 104 03/05/23 04:20: Arterial Blood pH 7.43, Arterial Blood Partial Pressure CO2 33L, Arterial Blood Partial Pressure O2 83, Arterial Blood HCO3 22L, Arterial Blood Total CO2 22.9, Arterial Blood Oxygen Saturation 98, Arterial Blood Base Excess -1.7, Blood Gas Ventilator Setting YES, Blood Gas Inspired Oxygen 100% Microbiology 02/27/23 Gram Stain - Final, Complete 02/27/23 Sputum Culture - Final, Complete 02/22/23 Blood Culture - Final, Complete 02/22/23 Urine Culture - Final, Complete NO GROWTH Assessment/Plan Assessment/Plan Assess & Plan/Chief Complaint Assessment: Presumed alcohol induced liver injury Acute Respiratory Failure Anemia due to possible GI bleed Congestive Heart Failure H/o prostate cancer Anxiety Plan: Poor prognosis Family wants to continue ventilator may need trach and PEG very soon if unable to wean Poor quality of life assessed if he is extubated Clinical Quality Measures DVT/VTE Risk/Contraindication: Other: GI BLEED TAMIKA WOLFE DO Mar 05, 2023 05:27
[2023-03-05 05:45] LABS: BASOPHILS # (AUTO) 0.1 10^3/uL (0.0-0.1); BASOPHILS % (AUTO) 0 % (0-10); EOSINOPHILS # (AUTO) 0.2 10^3/uL (0.0-0.3); EOSINOPHILS % (AUTO) 2 % (0-10); HEMATOCRIT 32 % (40-54); HEMOGLOBIN 9.6 g/dL (13.3-17.7); LYMPHOCYTES # (AUTO) 0.4 10^3/uL (1.0-4.0); LYMPHOCYTES % (AUTO) 4 % (12-44); MEAN CORPUSCULAR HEMOGLOBIN 26 pg (25-34); MEAN CORPUSCULAR HGB CONC 30 g/dL (32-36); MEAN CORPUSCULAR VOLUME 85 fL (80-99); MEAN PLATELET VOLUME 11.3 fL (9.0-12.2); MONOCYTES # (AUTO) 0.7 10^3/uL (0.0-1.0); MONOCYTES % (AUTO) 6 % (0-12); NEUTROPHILS # (AUTO) 9.7 10^3/uL (1.8-7.8); NEUTROPHILS % (AUTO) 86 % (42-75); PLATELET COUNT 262 10^3/uL (130-400); WHITE BLOOD COUNT 11.3 10^3/uL (4.3-11.0)
[2023-03-05 05:46] LABS: ALBUMIN 2.5 GM/DL (3.2-4.5); POTASSIUM 4.1 MMOL/L (3.6-5.0)
[2023-03-05 05:48] LABS: CALCIUM 7.7 MG/DL (8.5-10.1)
[2023-03-05 05:49] LABS: TOTAL PROTEIN 5.5 GM/DL (6.4-8.2)
[2023-03-05 05:51] LABS: BILIRUBIN,TOTAL 0.7 MG/DL (0.1-1.0)
[2023-03-05 05:52] LABS: CREATININE SERUM 0.6 MG/DL (0.60-1.30); PHOSPHORUS 3.1 MG/DL (2.3-4.7)
[2023-03-05 05:56] LABS: MAGNESIUM 1.9 MG/DL (1.6-2.4)
[2023-03-05 06:10] LABS: BAND NEUTROPHILS 1 %; BASOPHILS % (MANUAL) 0 %; EOSINOPHILS % (MANUAL) 2 %; HYPOCHROMASIA SLIGHT; LYMPHOCYTES % (MANUAL) 4 %; MONOCYTES % (MANUAL) 2 %; NEUTROPHILS % (MANUAL) 91 %; POIKILOCYTOSIS SLIGHT; POLYCHROMASIA SLIGHT
[2023-03-05 06:11] LABS: ANISOCYTOSIS SLIGHT; ELLIPT/OVALOCYTES SLIGHT; TEAR DROP CELLS SLIGHT
[2023-03-05] MEDS ORDERED: MAGNESIUM 1 GM/100 ML IVPB 200 ML IV ONE (06:30)
[2023-03-05 06:31] VITALS: BP 138/85
[2023-03-05] MEDS: MAGNESIUM 1 GM/100 ML IVPB 100 ML IV SCH ×2 (06:43→06:47)
[2023-03-05] MEDS: POTASSIUM CL 10MEQ/50ML IVPB 50 ML IV SCH (06:45)
[2023-03-05] MEDS: POTASSIUM CHLORIDE 20 MEQ TABLET PO SCH (06:47)
[2023-03-05] MEDS: MIDAZOLAM DRIP PRE-MIX 100 ML IV SCH ×2 (07:33→17:08)
[2023-03-05] MEDS: D5 1/2 NS 1,000 ML IV 1,000 ML IV SCH ×2 (08:10→20:56)
[2023-03-05] MEDS: PANTOPRAZOLE INJECTION 40 MG VIAL IV SCH ×2 (08:10→20:56)
[2023-03-05] MEDS: ACETAMINOPHEN 325 MG TABLET PO PRN (08:11)
[2023-03-05] MEDS: SENNOSIDES 8.6 MG TABLET PO SCH ×2 (08:12→20:13)
[2023-03-05] MEDS: FOLIC ACID IV SCH (08:12)
[2023-03-05] MEDS: NS IV SCH (08:12)
[2023-03-05] MEDS: THIAMINE IV SCH (08:12)
[2023-03-05] MEDS: DOCUSATE SODIUM 100 MG CAPSULE PO SCH ×2 (08:12→20:13)
[2023-03-05] MEDS ORDERED: METOCLOPRAMIDE INJ 10 MG/2 ML IVP PRN (09:30)
--- NOTE | 2023-03-05 09:52 | Diagnostic Imaging Report ---
INDICATION: Tube placement. COMPARISON is made with prior exam of 03/02/2023. FINDINGS: The endotracheal tube is above the thoracic inlet and could be advanced 2 to 3 cm. The heart size is normal. There is patchy bibasilar atelectasis and/or pneumonitis. There is no pleural effusion or pneumothorax. The mediastinum is unremarkable. The left upper extremity PICC line has its tip in the superior vena cava. IMPRESSION: The endotracheal tube remains above the thoracic inlet and could be advanced to 3 cm. Patchy bibasilar atelectasis and/or pneumonitis. Report given to Indu Cuellar RN, at 9:52 AM 03/05/2023/carmelo Dictated by: Dictated on workstation # [id number]
--- NOTE | 2023-03-05 10:31 | Diagnostic Imaging Report ---
INDICATION: Abdominal distention. TECHNIQUE: 2 supine radiographs of the abdomen at 9:33 AM CORRELATION STUDY: 03/01/2023 FINDINGS: Prominent gas distention of particularly the colon. The overall configuration is generally stable. There has been slight reduction of the distal colonic gas. The overall distention appears improved. Maximum distention approximately 10 cm (previously 13.2 cm). The gastric tube tip in the left upper quadrant us generally stable. IMPRESSION: 1. Marked gaseous distention of the colon. The configuration is generally stable with the overall severity of distention slightly diminished from prior. Dictated by: Dictated on workstation # [id number]
[2023-03-05 10:32] VITALS: BP 103/67
[2023-03-05 13:47] VITALS: BP 111/72
--- NOTE | 2023-03-05 14:30 | Cardiology Progress Note ---
Subjective Date Seen by Provider: Mar 05, 2023 Time Seen by Provider: 13:50 Subjective/Events-last exam Remains sedated. In sinus rhythm. Blood pressure is stable. Exam Vital Signs Vital Signs Date Time Temp Pulse Resp B/P (MAP) Pulse Ox O2 Delivery O2 Flow Rate FiO2 03/05/23 14:00 73 15 124/82 (98) 97 Mechanical Ventilator 21.00 03/05/23 13:47 21 03/05/23 12:00 36.5 Physical Exam Intubated and sedated. Neck supple, no JVD. Lungs mechanical sounds. Heart: S1-S2, regular rhythm. Abdomen soft, nontender. Extremities no lower extremities edema, mild upper extremities edema Labs Laboratory Tests Test 03/04/23 18:07 03/05/23 01:24 03/05/23 04:20 03/05/23 05:30 Range/Units Glucometer 102 104 70-110 MG/DL Arterial Blood pH 7.43 7.37-7.43 Arterial Blood Partial Pressure CO2 33 L 35-45 MMHG Arterial Blood Partial Pressure O2 83 79-93 MMHG Arterial Blood HCO3 22 L 23-27 MMOL/L Arterial Blood Total CO2 22.9 21.0-31.0 MMOL/L Arterial Blood Oxygen Saturation 98 94-100 % Arterial Blood Base Excess -1.7 -2.5-2.5 MMOL/L Blood Gas Ventilator Setting YES Blood Gas Inspired Oxygen 100% White Blood Count 11.3 H 4.3-11.0 10^3/uL Red Blood Count 3.76 L 4.30-5.52 10^6/uL Hemoglobin 9.6 #L 13.3-17.7 g/dL Hematocrit 32 L 40-54 % Mean Corpuscular Volume 85 80-99 fL Mean Corpuscular Hemoglobin 26 25-34 pg Mean Corpuscular Hemoglobin Concent 30 L 32-36 g/dL Red Cell Distribution Width 21.2 H 10.0-14.5 % Platelet Count 262 130-400 10^3/uL Mean Platelet Volume 11.3 9.0-12.2 fL Immature Granulocyte % (Auto) 1 % Neutrophils (%) (Auto) 86 H 42-75 % Lymphocytes (%) (Auto) 4 L 12-44 % Monocytes (%) (Auto) 6 0-12 % Eosinophils (%) (Auto) 2 0-10 % Basophils (%) (Auto) 0 0-10 % Neutrophils # (Auto) 9.7 H 1.8-7.8 10^3/uL Lymphocytes # (Auto) 0.4 L 1.0-4.0 10^3/uL Monocytes # (Auto) 0.7 0.0-1.0 10^3/uL Eosinophils # (Auto) 0.2 0.0-0.3 10^3/uL Basophils # (Auto) 0.1 0.0-0.1 10^3/uL Immature Granulocyte # (Auto) 0.1 0.0-0.1 10^3/uL Neutrophils % (Manual) 91 % Lymphocytes % (Manual) 4 % Monocytes % (Manual) 2 % Eosinophils % (Manual) 2 % Basophils % (Manual) 0 % Band Neutrophils 1 % Polychromasia SLIGHT Hypochromasia SLIGHT Poikilocytosis SLIGHT Anisocytosis SLIGHT Macrocytosis SLIGHT Tear Drop Cells SLIGHT Elliptocytes SLIGHT Sodium Level 134 L 135-145 MMOL/L Potassium Level 4.1 3.6-5.0 MMOL/L Chloride Level 107 98-107 MMOL/L Carbon Dioxide Level 20 L 21-32 MMOL/L Anion Gap 7 5-14 MMOL/L Blood Urea Nitrogen 8 7-18 MG/DL Creatinine 0.60 0.60-1.30 MG/DL Estimat Glomerular Filtration Rate 106 BUN/Creatinine Ratio 13 Glucose Level 100 70-105 MG/DL Calcium Level 7.7 L 8.5-10.1 MG/DL Corrected Calcium 8.9 8.5-10.1 MG/DL Phosphorus Level 3.1 2.3-4.7 MG/DL Magnesium Level 1.9 1.6-2.4 MG/DL Total Bilirubin 0.7 0.1-1.0 MG/DL Aspartate Amino Transf (AST/SGOT) 19 5-34 U/L Alanine Aminotransferase (ALT/SGPT) 50 0-55 U/L Alkaline Phosphatase 82 40-136 U/L Total Protein 5.5 L 6.4-8.2 GM/DL Albumin 2.5 L 3.2-4.5 GM/DL Test 03/05/23 11:37 Range/Units Glucometer 112 H 70-110 MG/DL A/P-Cardiology Admission Diagnosis Generalized weakness Type II myocardial infarction Dilated cardiomyopathy Lactic acidosis Acute delirium Assessment/Plan Acute respiratory failure: Intubated Managed by medical team Borderline arterial pressure: Continue to monitor. Continue present therapy Anemia, drop in H&H, received blood transfusion. No evidence of continuing bleeding Managed by medical team Congestive heart failure, acute left ventricular systolic dysfunction, probably nonischemic cardiomyopathy Questionable underlying alcoholism and it might be secondary to alcoholic heart disease. Continue present therapy Will add Jardiance Acute change in mental status, probably metabolic secondary to heavy alcoholism, alcoholic liver disease or metabolic acidosis. Management per ICU team. History of intermittent rectal bleed. No signs of acute bleeding. Management by medical team History of prostate cancer Questionable history of alcohol use, elevated liver enzymes. Questionable delirium tremens Patient received Precedex Managed by medical team BRICE FELIZ MD Mar 05, 2023 14:30
[2023-03-05] MEDS: fentaNYL INJECTION 100 MCG/2 ML VIAL IVP PRN ×2 (15:19→16:59)
--- NOTE | 2023-03-05 17:56 | Tele-ICU Progress Note ---
Subjective Date Seen by a Provider: Mar 05, 2023 Time Seen by a Provider: 17:56 Subjective/Events-last exam (Tele-ICU Physician , Progress Note ) Service provided via interactive audio and video telecommunications E-CARE system to a patient admitted to ICU bed in [facility]. Patient is seen today due to persistent need of ICU care Available chart/ vitals / labs / Images reviewed Video assessment done using teleICU camera, rest of exam as per RN Discussed with RN Events overnight : diarrhea, fever , high residuals FEBRILE hemodynamically stable Respiratory - 21% I/O = neg Drips: d51/2 83 Pressors- no VENT SETTINGS and ABG reviewed NOT CANDIDATE for SBTreviewed possible contraindications including Cardiovascular Stability /Sedation Score / FI02/PEEP / ABG / CXR/ secretions Sedation, discussed with RN, RASS - 1 versed 10 , precedex 1.5 Hospital course: (02-22) 68 y/o M -LGI Bleed - Anemia - Hgb 3.5 - 4 PRBC transfused., precedex gtt for anxiety 02/23 - hb stable after 4 units, agitated - on precedex , elv LFT - abx started , US liver 02/24 - ECHO EF 25 % , precedex , stable HB 02/25- Resp distress --> lasix 40 --> 5 L urine output 02/26 - + bloody BM , Hb 8.1, precedex 0.5, lasix 40 , BIPAP 02/27 - hb 6.6- 1uPRBC transfusion , INTUBATED 03/01 fio2 25% , KUB same - illeus 03/02--SBT 03/02 20 min with rr 30s on precedex 03/03- hb 7.3 , fio1 21% , stop laculose , failed SBT , fever 03/04- SBT , febrile FAILERD SBT with RR? 03/05- thick secretions fever 38 , high residuals /diarrhea A/P Acute resp failure ( VO and PNA -INTUBATED 02/27 -AC 18 500 21 % + 5 - full support -SBT 03/02 20 min with rr 30s on precedex - WILL KEEP TO TRY AGAIN TODAY - getting better otherwise - respiratory muscle weakness and low EF are mostly contributing factors Cardiomyopathy - ECHO 02/24/2023 - EF 25%, RVSP 35 mm Hg - ? etiology ( etoh? , anemia? CAD? , - TSH wnl - cards on case - follow recom - negative fluid status , cont diuresis PRN Fever with elv WBC 03/04 -Zosyn stopped 03/03 -repeat sputum cx, bloos cx -clinically no thromboempolic dx present Severe anemia with Hb 3.6 - presumed ABLA ( s/p Colonoscopy with biopsy and polypectomy 06/2022 ( suspected proctitis but the pathology called it a hyperplastic polyp, CT abd/p 06/2022) -Improved to 9.1 after 4u pRBC transfusion -->intermittent bloody BM - bloody BM--transfusion 1 uPRBC in addirtrion -PPI bid -Sx consulted- w/up when more stable Ileus - followed by Sx -LIS NG - minimal - TF FEEDING 03/04- high rersiduals on 200cc/h - STOPPED . BS hypoactive Nutritions - ? TPN vs strt TF - - will ask sx for recom -respiratory muscle weakness suspected preventing weaning off vent - started on D5 04/14 for low glucose - abd soft today -TF on hold today Elevated LFT- RESOLVED - ? ischemia with severe anemia - US-holesterolosis of the liver, likely indicating some level of biliary dyskinesia - as per sx Anxiety/confusion- as per chart has "anxiety and panic attacks" and h/o attempts to "wean off xanax" - nonfocal exam, IMPROVING - elev ammonia on 02/23- tx with lactulose - > normalized --STOPPED LACTULOSE - ? ETON use- ? DT -versed 10 , precedex 1.5 Thrombocytopenia ( not on heparin products ) -RESOLVED Hematuria - with follow for now - intermittent - RESOLVED H/o prostate CA -s/p prostatectomy Lines : PICC 02/25 left , (Central Line Necessity Reviewed) Sahu: + OG: Nutrition: npo Analgesia: Anxiety/ delirium VTE Prophylaxis: scd Stress Ulcer Prophylaxis: ppi Plans in collaboration with bedside consultants and IM MDs. Discussed with RN to reach out if any questions or concerns A total of 35 minutes of critical care time was devoted to this patient today, required to treat and/or prevent further deterioration of critical care condition ( as above ) . I am remotely monitoring this patient from another state. I am unable to do the bedside exam, and history/physical and pertinent information is taken from other notes in the computer and bedside staff. . Sepsis Event Evaluation Height, Weight, BMI Height: '" Weight: lbs. oz. kg; 23.39 BMI Method: Exam Exam Patient acknowledged, consented, and participated in this virtual visit which was conducted using real time audio/video Vital Signs Date Time Temp Pulse Resp B/P (MAP) Pulse Ox O2 Delivery O2 Flow Rate FiO2 03/05/23 17:08 76 137/88 03/05/23 17:00 89 18 132/86 (101) 96 Mechanical Ventilator 21.00 03/05/23 16:05 37.2 03/05/23 16:00 93 Mechanical Ventilator 21.00 03/05/23 16:00 86 19 134/83 (97) 94 Mechanical Ventilator 21.00 03/05/23 15:00 90 17 142/89 (106) 100 Mechanical Ventilator 21.00 03/05/23 14:00 73 15 124/82 (98) 97 Mechanical Ventilator 21.00 03/05/23 13:47 67 19 97 21 03/05/23 13:00 63 16 106/67 (84) 98 Mechanical Ventilator 21.00 03/05/23 12:45 65 03/05/23 12:00 36.5 03/05/23 12:00 67 16 103/67 (78) 97 Mechanical Ventilator 21.00 03/05/23 12:00 95 Mechanical Ventilator 21.00 03/05/23 11:00 66 15 107/64 (79) 96 Mechanical Ventilator 21.00 03/05/23 10:32 67 19 95 21 03/05/23 10:00 36.7 03/05/23 10:00 64 14 97/63 (73) 97 Mechanical Ventilator 21.00 03/05/23 09:00 69 14 118/74 (91) 96 Mechanical Ventilator 21.00 03/05/23 08:00 74 33 123/71 (88) 94 Mechanical Ventilator 21.00 03/05/23 08:00 38.0 03/05/23 08:00 94 Mechanical Ventilator 21.00 03/05/23 07:33 84 22 150/91 03/05/23 07:00 84 03/05/23 07:00 86 19 127/77 (95) 97 Mechanical Ventilator 21.00 03/05/23 06:45 98 150/91 03/05/23 06:31 98 22 98 21 03/05/23 06:00 90 39 130/83 (99) 97 Mechanical Ventilator 21.00 03/05/23 05:00 68 17 109/69 (82) 99 Mechanical Ventilator 21.00 03/05/23 04:00 67 14 100/65 (77) 98 Mechanical Ventilator 21.00 03/05/23 03:30 98 Mechanical Ventilator 21.00 03/05/23 03:00 70 17 97/61 (73) 97 Mechanical Ventilator 21.00 03/05/23 02:45 70 103/61 03/05/23 02:26 69 19 97 21 03/05/23 02:00 69 38 108/64 (79) 98 Mechanical Ventilator 21.00 03/05/23 01:00 68 28 100/61 (74) 98 Mechanical Ventilator 21.00 03/05/23 00:00 74 16 94/60 (71) 96 Mechanical Ventilator 21.00 03/05/23 00:00 95 Mechanical Ventilator 21.00 03/05/23 00:00 74 03/04/23 23:00 77 17 97/59 (72) 95 Mechanical Ventilator 21.00 03/04/23 22:00 79 16 91/57 (68) 96 Mechanical Ventilator 21.00 03/04/23 21:55 78 19 95 21 03/04/23 21:00 77 22 93/59 (70) 94 Mechanical Ventilator 21.00 03/04/23 20:26 94 Mechanical Ventilator 21.00 03/04/23 20:00 86 21 97/62 (74) 96 Mechanical Ventilator 21.00 03/04/23 19:55 78 18 03/04/23 19:00 70 24 105/72 (83) 98 Mechanical Ventilator 21.00 03/04/23 19:00 70 03/04/23 18:56 71 24 100 21 03/04/23 18:00 67 31 95 I & O 03/05/23 06:59 Intake Total 3120 ml Output Total 1650 ml Balance 1470 ml Height & Weight Height: '" Weight: lbs. oz. kg; 23.39 BMI Method: General Appearance: No Apparent Distress HEENT: PERRL/EOMI Neck: Full Range of Motion Respiratory: Decreased Breath Sounds, Rhonci Cardiovascular: Regular Rate, Rhythm Capillary Refill: Less Than 3 Seconds Gastrointestinal: normal bowel sounds, soft Extremity: Normal Capillary Refill Neurologic/Psychiatric: Alert Skin: Normal Color Lymphatic: No Adenopathy Results Lab Laboratory Tests 03/04/23 05:10 03/05/23 05:30 Assessment/Plan Assessment/Plan 1 VIKAS MIGUEL MD Mar 05, 2023 17:56
[2023-03-05] MEDS ORDERED: guaiFENesin/CODEINE 10ML UDC ONE (18:15)
[2023-03-05] MEDS: guaiFENesin/CODEINE 10ML UDC PO PRN (18:22)
[2023-03-05 18:50] VITALS: BP 149/91
[2023-03-05] MEDS: OXYMETAZOLINE 0.05% NASAL SPRAY 30 ML BTL SCH (20:13)
[2023-03-05] MEDS: SALINE NASAL SPRAY 45 ML BTL SCH (20:13)
[2023-03-05 21:54] VITALS: BP 119/71
[2023-03-06] MEDS: ACETAMINOPHEN 325 MG TABLET PO PRN (00:17)
[2023-03-06 01:43] VITALS: BP 104/63
[2023-03-06] MEDS: RT-Ipratropium/Albuterol NEB 3 ML VIAL INH SCH ×6 (01:43→22:22)
[2023-03-06] MEDS: MIDAZOLAM DRIP PRE-MIX 100 ML IV SCH ×3 (02:16→21:59)
[2023-03-06 03:23] LABS: ABG BASE EXCESS -1.1 MMOL/L (-2.5-2.5); ABG OXYGEN SATURATION 90 % (94-100); ABG PCO2 33 MMHG (35-45); ABG PH 7.44 (7.37-7.43); ABG PO2 57 MMHG (79-93); ABG TCO2 23.4 MMOL/L (21.0-31.0); INSPIRED O2 21%; VENTILATOR YES
[2023-03-06 04:47] LABS: BASOPHILS % (AUTO) 0 % (0-10); EOSINOPHILS % (AUTO) 0 % (0-10); HEMATOCRIT 23 % (40-54); LYMPHOCYTES # (AUTO) 0.2 10^3/uL (1.0-4.0); LYMPHOCYTES % (AUTO) 2 % (12-44); MEAN CORPUSCULAR HEMOGLOBIN 25 pg (25-34); MEAN CORPUSCULAR HGB CONC 31 g/dL (32-36); MEAN CORPUSCULAR VOLUME 83 fL (80-99); MEAN PLATELET VOLUME 10.2 fL (9.0-12.2); MONOCYTES # (AUTO) 0.5 10^3/uL (0.0-1.0); MONOCYTES % (AUTO) 5 % (0-12); NEUTROPHILS # (AUTO) 9.9 10^3/uL (1.8-7.8); NEUTROPHILS % (AUTO) 92 % (42-75); PLATELET COUNT 283 10^3/uL (130-400); WHITE BLOOD COUNT 10.7 10^3/uL (4.3-11.0)
[2023-03-06 05:14] LABS: HEMOGLOBIN 6.9 g/dL (13.3-17.7)
[2023-03-06 05:15] LABS: CALCIUM 7.1 MG/DL (8.5-10.1); CREATININE SERUM 0.59 MG/DL (0.60-1.30); MAGNESIUM 1.8 MG/DL (1.6-2.4); PHOSPHORUS 2.7 MG/DL (2.3-4.7); POTASSIUM 3.9 MMOL/L (3.6-5.0)
[2023-03-06 05:59] LABS: BASOPHILS % (AUTO) 0 % (0-10); EOSINOPHILS % (AUTO) 0 % (0-10); HEMATOCRIT 24 % (40-54); HEMOGLOBIN 7.2 g/dL (13.3-17.7); LYMPHOCYTES # (AUTO) 0.2 10^3/uL (1.0-4.0); LYMPHOCYTES % (AUTO) 2 % (12-44); MEAN CORPUSCULAR HEMOGLOBIN 26 pg (25-34); MEAN CORPUSCULAR HGB CONC 31 g/dL (32-36); MEAN CORPUSCULAR VOLUME 84 fL (80-99); MEAN PLATELET VOLUME 10.4 fL (9.0-12.2); MONOCYTES # (AUTO) 0.5 10^3/uL (0.0-1.0); MONOCYTES % (AUTO) 5 % (0-12); NEUTROPHILS # (AUTO) 9.9 10^3/uL (1.8-7.8); NEUTROPHILS % (AUTO) 92 % (42-75); PLATELET COUNT 291 10^3/uL (130-400); WHITE BLOOD COUNT 10.8 10^3/uL (4.3-11.0)
[2023-03-06] MEDS: POTASSIUM CL 10MEQ/50ML IVPB 50 ML IV SCH ×3 (06:08→06:17)
[2023-03-06] MEDS: MAGNESIUM 1 GM/100 ML IVPB 100 ML IV SCH ×3 (06:08→06:17)
[2023-03-06] MEDS: POTASSIUM CHLORIDE 20 MEQ TABLET PO SCH (06:08)
--- NOTE | 2023-03-06 06:48 | Progress Note ---
Subjective Date Seen by a Provider: Mar 06, 2023 Time Seen by a Provider: 11:00 Subjective/Events-last exam Patient declining Staff aureus pneumonia noted on sputum culture Added vancomycin Met with mother and son again Patient really needs comfort care Trach and PEG placement would be the next step and placement in a ventilator dependent unit Objective Exam Last Set of Vital Signs Vital Signs Date Time Temp Pulse Resp B/P (MAP) Pulse Ox O2 Delivery O2 Flow Rate FiO2 03/06/23 06:00 60 16 94/56 (69) 96 Mechanical Ventilator 21.00 03/06/23 04:36 36.1 03/06/23 01:43 21 Capillary Refill : Less Than 3 Seconds I&O Intake and Output 03/05/23 23:59 Intake Total 630 ml Output Total 2345 ml Balance -1715 ml Intake Oral 0 ml IV Total 350 ml Tube Feeding 80 ml Enteral Flush 100 ml Other 100 ml Output Urine Total 2345 ml # Bowel Movements 1 General: Other (Intubated and sedated) Lungs: Clear to Auscultation Heart: Regular Rate Results Lab Laboratory Tests 03/05/23 11:37: Glucometer 112H 03/05/23 17:33: Glucometer 108 03/06/23 00:08: Glucometer 102 03/06/23 03:15: Arterial Blood pH 7.44H, Arterial Blood Partial Pressure CO2 33L, Arterial Blood Partial Pressure O2 57L, Arterial Blood HCO3 22L, Arterial Blood Total CO2 23.4, Arterial Blood Oxygen Saturation 90L, Arterial Blood Base Excess -1.1, Blood Gas Ventilator Setting YES, Blood Gas Inspired Oxygen 21% 03/06/23 04:30: White Blood Count 10.7, Red Blood Count 2.72L, Hemoglobin 6.9#*L, Hematocrit 23L , Mean Corpuscular Volume 83, Mean Corpuscular Hemoglobin 25, Mean Corpuscular Hemoglobin Concent 31L, Red Cell Distribution Width 21.1H, Platelet Count 283, Mean Platelet Volume 10.2, Immature Granulocyte % (Auto) 1, Neutrophils (%) (A uto) 92H, Lymphocytes (%) (Auto) 2L, Monocytes (%) (Auto) 5, Eosinophils (%) (Auto) 0, Basophils (%) (Auto) 0, Neutrophils # (Auto) 9.9H, Lymphocytes # (Auto) 0.2L, Monocytes # (Auto) 0.5, Eosinophils # (Auto) 0.0, Basophils # (Auto) 0.0, Immature Granulocyte # (Auto) 0.1, Sodium Level 135, Potassium Level 3.9, Chloride Level 108H, Carbon Dioxide Level 19L, Anion Gap 8, Blood Urea Nitrogen 7, Creatinine 0.59L, Estimat Glomerular Filtration Rate 107, BUN/Creatinine Ratio 12, Glucose Level 124H, Calcium Level 7.1L, Phosphorus Level 2.7, Magnesium Level 1.8 03/06/23 05:38: White Blood Count 10.8, Red Blood Count 2.82L, Hemoglobin 7.2L, Hematocrit 24L, Mean Corpuscular Volume 84, Mean Corpuscular Hemoglobin 26, Mean Corpuscular Hemoglobin Concent 31L, Red Cell Distribution Width 21.0H, Platelet Count 291, Mean Platelet Volume 10.4, Immature Granulocyte % (Auto) 1, Neutrophils (%) (Auto) 92H, Lymphocytes (%) (Auto) 2L, Monocytes (%) (Auto) 5, Eosinophils (%) (Auto) 0, Basophils (%) (Auto) 0, Neutrophils # (Auto) 9.9H, Lymphocytes # (Auto) 0.2L, Monocytes # (Auto) 0.5, Eosinophils # (Auto) 0.0, Basophils # (Auto) 0.0, Immature Granulocyte # (Auto) 0.1 Microbiology 02/27/23 Gram Stain - Final, Complete 02/27/23 Sputum Culture - Final, Complete 02/22/23 Blood Culture - Final, Complete 02/22/23 Urine Culture - Final, Complete NO GROWTH Assessment/Plan Assessment/Plan Assess & Plan/Chief Complaint Assessment: Presumed alcohol induced liver injury Acute Respiratory Failure Anemia due to possible GI bleed Congestive Heart Failure H/o prostate cancer Anxiety Plan: Poor prognosis Family wants to continue ventilator may need trach and PEG very soon if unable to wean Poor quality of life assessed if he is extubated Met with mother and son and appears to be leaning towards comfort care protocol Palliative care Clinical Quality Measures DVT/VTE Risk/Contraindication: Other: GI BLEED TAMIKA WOLFE DO Mar 06, 2023 06:48
[2023-03-06 07:08] VITALS: BP 97/58
--- NOTE | 2023-03-06 08:41 | Diagnostic Imaging Report ---
INDICATION: Pain. EXAMINATION: Chest 03/05/2023 COMPARISON to the same date at an earlier time. FINDINGS: The heart is stable. Pulmonary vasculature is slightly congested. There is increasing infiltrate at the right lung base and possibly the left lung base. No effusions. No pneumothorax. ET tube at the thoracic inlet. Enteric tube courses beneath the diaphragm. Left central line tip just enters the SVC. IMPRESSION: 1. Persistent infiltrates, worse at the right lung base. 2. Tubes and lines, as above. Dictated by: Dictated on workstation # [id number]
[2023-03-06] MEDS: DexMEDEtomidine 1,000mcg/250ml 250 ML IV SCH ×2 (09:37→19:19)
[2023-03-06] MEDS: PANTOPRAZOLE INJECTION 40 MG VIAL IV SCH ×2 (09:38→20:38)
[2023-03-06] MEDS: D5 1/2 NS 1,000 ML IV 1,000 ML IV SCH ×2 (09:38→22:08)
[2023-03-06] MEDS: SALINE NASAL SPRAY 45 ML BTL SCH ×4 (09:38→20:38)
[2023-03-06] MEDS: EMPAGLIFLOZIN 10 MG TABLET PO SCH (09:38)
[2023-03-06] MEDS: OXYMETAZOLINE 0.05% NASAL SPRAY 30 ML BTL SCH ×2 (09:38→20:39)
[2023-03-06] MEDS: DOCUSATE SODIUM 100 MG CAPSULE PO SCH ×2 (09:39→20:39)
[2023-03-06] MEDS: SENNOSIDES 8.6 MG TABLET PO SCH ×2 (09:39→20:38)
[2023-03-06 10:46] VITALS: BP 136/77
[2023-03-06] MEDS: fentaNYL INJECTION 100 MCG/2 ML VIAL IVP PRN ×4 (11:26→17:09)
[2023-03-06] MEDS: FOLIC ACID IV SCH (11:27)
[2023-03-06] MEDS: THIAMINE IV SCH (11:27)
[2023-03-06] MEDS: NS IV SCH (11:27)
[2023-03-06] MEDS ORDERED: VANCOMYCIN INJECTION 0.1 MG in NS (IVPB) 250 ML 250 ML IV SCH (11:30)
[2023-03-06] MEDS ORDERED: VANCOMYCIN 1500MG/300ML PREMIX IV NR (12:00)
--- NOTE | 2023-03-06 12:11 | Tele-ICU Progress Note ---
Subjective Date Seen by a Provider: Mar 06, 2023 Time Seen by a Provider: 12:10 Subjective/Events-last exam ... (Tele-ICU Physician , Progress Note ) Service provided via interactive audio and video telecommunications E-CARE system to a patient admitted to ICU bed in [facility]. Patient is seen today due to persistent need of ICU care Available chart/ vitals / labs / Images reviewed Video assessment done using teleICU camera, rest of exam as per RN Discussed with RN Events overnight : diarrhea, fever , high residuals AFEBRILE hemodynamically stable Respiratory - 21% I/O = neg Drips: d51/2 83 Pressors- no VENT SETTINGS and ABG reviewed NOT CANDIDATE for SBTreviewed possible contraindications including Cardiovascular Stability /Sedation Score / FI02/PEEP / ABG / CXR/ secretions Sedation, discussed with RN, RASS - 1 versed 10 , precedex 1.5 prn fentanyl Hospital course: (02-22) 68 y/o M -LGI Bleed - Anemia - Hgb 3.5 - 4 PRBC transfused., precedex gtt for anxiety 02/23 - hb stable after 4 units, agitated - on precedex , elv LFT - abx started , US liver 02/24 - ECHO EF 25 % , precedex , stable HB 02/25- Resp distress --> lasix 40 --> 5 L urine output 02/26 - + bloody BM , Hb 8.1, precedex 0.5, lasix 40 , BIPAP 02/27 - hb 6.6- 1uPRBC transfusion , INTUBATED 03/01 fio2 25% , KUB same - illeus 03/02--SBT 03/02 20 min with rr 30s on precedex 03/03- hb 7.3 , fio1 21% , stop laculose , failed SBT , fever 03/04- SBT , febrile FAILERD SBT with RR? 03/05- thick secretions fever 38 , high residuals /diarrhea, TF on hold 03/06-- Hb 6.9 - ( errounes ) NO transfusion --> 7.2, MRSA in SPUTUM , 21% fio2 , NG output 500 A/P Acute resp failure ( VO and PNA -INTUBATED 02/27 -AC 14 500 21 % + 5 - full support WILL KEEP TO TRY SBT AGAIN TODAY - getting better otherwise - respiratory muscle weakness and low EF are mostly contributing factors Cardiomyopathy - ECHO 02/24/2023 - EF 25%, RVSP 35 mm Hg - ? etiology ( etoh? , anemia? CAD? , - TSH wnl - cards on case - follow recom - negative fluid status , cont diuresis PRN Fever with elv WBC 03/04 -Zosyn stopped 03/03 -repeated MRSA IN SPUTUM and GPC on blood - to resume VANCO - cefepime Severe anemia with Hb 3.6 - presumed ABLA ( s/p Colonoscopy with biopsy and polypectomy 06/2022 ( suspected proctitis but the pathology called it a hyperplastic polyp, CT abd/p 06/2022) -Improved to 9.1 after 4u pRBC transfusion -->intermittent bloody BM - bloody BM--transfusion 1 uPRBC in addirtrion -03/06-- Hb 6.9 - ( errounes ) NO transfusion --> 7.2, -PPI bid -Sx consulted- w/up when more stable Ileus - followed by Sx -LIS NG - minimal - TF FEEDING 03/04- high rersiduals on 200cc/h - STOPPED . BS hypoactive Nutritions - ? TPN vs strt TF - - will ask sx for recom -respiratory muscle weakness suspected preventing weaning off vent - started on D5 1/2 for low glucose - abd soft today -TF on hold today Elevated LFT- RESOLVED - ? ischemia with severe anemia - US-holesterolosis of the liver, likely indicating some level of biliary dyskinesia - as per sx Anxiety/confusion- as per chart has "anxiety and panic attacks" and h/o attempts to "wean off xanax" - nonfocal exam, IMPROVING - elev ammonia on 02/23- tx with lactulose - > normalized --STOPPED LACTULOSE - ? ETON use- ? DT -versed 10 , precedex 1.5 Thrombocytopenia ( not on heparin products ) -RESOLVED Hematuria - with follow for now - intermittent H/o prostate CA -s/p prostatectomy Lines : PICC 02/25 left , (Central Line Necessity Reviewed) Sahu: + OG: + Nutrition: npo Analgesia: Anxiety/ delirium VTE Prophylaxis: scd Stress Ulcer Prophylaxis: ppi Plans in collaboration with bedside consultants and IM MDs. Discussed with RN to reach out if any questions or concerns A total of 35 minutes of critical care time was devoted to this patient today, required to treat and/or prevent further deterioration of critical care condition ( as above ) . I am remotely monitoring this patient from another state. I am unable to do the bedside exam, and history/physical and pertinent information is taken from other notes in the computer and bedside staff. . Sepsis Event Evaluation Height, Weight, BMI Height: '" Weight: lbs. oz. kg; 23.39 BMI Method: Exam Exam Patient acknowledged, consented, and participated in this virtual visit which was conducted using real time audio/video Vital Signs Date Time Temp Pulse Resp B/P (MAP) Pulse Ox O2 Delivery O2 Flow Rate FiO2 03/06/23 11:16 36.7 03/06/23 11:00 78 18 129/71 (90) 96 Mechanical Ventilator 21.00 03/06/23 10:00 70 14 136/77 (96) 97 Mechanical Ventilator 21.00 03/06/23 09:37 78 03/06/23 09:00 64 15 113/63 (80) 95 Mechanical Ventilator 21.00 03/06/23 08:00 64 19 94/61 (72) 94 Mechanical Ventilator 21.00 03/06/23 07:51 36.3 03/06/23 07:00 58 03/06/23 07:00 57 13 91/56 (68) 94 Mechanical Ventilator 21.00 03/06/23 06:00 60 16 94/56 (69) 96 Mechanical Ventilator 21.00 03/06/23 05:00 64 15 106/67 (80) 96 Mechanical Ventilator 21.00 03/06/23 04:36 36.1 03/06/23 04:00 63 15 104/61 (75) 95 Mechanical Ventilator 21.00 03/06/23 04:00 93 Mechanical Ventilator 21.00 03/06/23 03:00 67 15 103/62 (76) 95 Mechanical Ventilator 21.00 03/06/23 02:16 75 18 104/63 03/06/23 02:00 74 16 103/64 (77) 96 Mechanical Ventilator 21.00 03/06/23 01:43 75 18 96 21 03/06/23 01:00 82 15 109/64 (79) 95 Mechanical Ventilator 21.00 03/06/23 00:47 37.1 03/06/23 00:17 38.0 03/06/23 00:16 85 03/06/23 00:13 38.0 03/06/23 00:00 93 Mechanical Ventilator 21.00 03/06/23 00:00 86 17 119/70 (86) 93 Mechanical Ventilator 21.00 03/05/23 23:10 94 120/71 03/05/23 23:00 94 11 120/71 (87) 94 Mechanical Ventilator 21.00 03/05/23 22:00 82 16 119/72 (88) 93 Mechanical Ventilator 21.00 03/05/23 21:54 81 18 93 21 03/05/23 21:00 81 21 126/87 (100) 93 Mechanical Ventilator 21.00 03/05/23 20:00 93 Mechanical Ventilator 21.00 03/05/23 20:00 85 18 144/84 (104) 96 Mechanical Ventilator 21.00 03/05/23 19:07 84 03/05/23 19:00 82 23 140/84 (102) 96 Mechanical Ventilator 21.00 03/05/23 18:50 93 25 96 21 03/05/23 18:00 77 21 134/90 (108) 94 Mechanical Ventilator 21.00 03/05/23 17:08 76 137/88 03/05/23 17:00 89 18 132/86 (101) 96 Mechanical Ventilator 21.00 03/05/23 16:05 37.2 03/05/23 16:00 93 Mechanical Ventilator 21.00 03/05/23 16:00 86 19 134/83 (97) 94 Mechanical Ventilator 21.00 03/05/23 15:00 90 17 142/89 (106) 100 Mechanical Ventilator 21.00 03/05/23 14:00 73 15 124/82 (98) 97 Mechanical Ventilator 21.00 03/05/23 13:47 67 19 97 21 03/05/23 13:00 63 16 106/67 (84) 98 Mechanical Ventilator 21.00 03/05/23 12:45 65 I & O 03/06/23 06:59 Intake Total 100 ml Output Total 2145 ml Balance -2045 ml Height & Weight Height: '" Weight: lbs. oz. kg; 23.39 BMI Method: General Appearance: No Apparent Distress HEENT: PERRL/EOMI Neck: Full Range of Motion Respiratory: Decreased Breath Sounds, Rhonci Cardiovascular: Regular Rate, Rhythm Capillary Refill: Less Than 3 Seconds Gastrointestinal: normal bowel sounds, soft Extremity: Normal Capillary Refill Neurologic/Psychiatric: Alert Skin: Normal Color Lymphatic: No Adenopathy Results Lab Laboratory Tests 03/05/23 05:30 03/06/23 04:30 03/06/23 05:38 Assessment/Plan Assessment/Plan 1 VIKAS MIGUEL MD Mar 06, 2023 12:11
[2023-03-06 14:58] VITALS: BP 99/82
[2023-03-06 18:23] VITALS: BP 123/71
[2023-03-06] MEDS: guaiFENesin/CODEINE 10ML UDC PO PRN (18:54)
[2023-03-06 22:19] VITALS: BP 117/57
[2023-03-06] MEDS: VANCOMYCIN 1250 MG/NS 250 ML PREMIX IV SCH (23:13)
[2023-03-07] VITALS (10 sets, daily range): BP systolic 92–119; BP diastolic 53–79
[2023-03-07] MEDS: RT-Ipratropium/Albuterol NEB 3 ML VIAL INH SCH ×6 (02:22→21:45)
[2023-03-07 03:46] LABS: BASOPHILS % (AUTO) 0 % (0-10); EOSINOPHILS # (AUTO) 0.1 10^3/uL (0.0-0.3); EOSINOPHILS % (AUTO) 0 % (0-10); HEMATOCRIT 23 % (40-54); LYMPHOCYTES # (AUTO) 0.2 10^3/uL (1.0-4.0); LYMPHOCYTES % (AUTO) 1 % (12-44); MEAN CORPUSCULAR HEMOGLOBIN 25 pg (25-34); MEAN CORPUSCULAR HGB CONC 30 g/dL (32-36); MEAN CORPUSCULAR VOLUME 84 fL (80-99); MEAN PLATELET VOLUME 10.4 fL (9.0-12.2); MONOCYTES # (AUTO) 0.5 10^3/uL (0.0-1.0); MONOCYTES % (AUTO) 4 % (0-12); NEUTROPHILS # (AUTO) 12.6 10^3/uL (1.8-7.8); NEUTROPHILS % (AUTO) 94 % (42-75); PLATELET COUNT 336 10^3/uL (130-400); WHITE BLOOD COUNT 13.4 10^3/uL (4.3-11.0)
[2023-03-07 03:57] LABS: HEMOGLOBIN 6.9 g/dL (13.3-17.7)
[2023-03-07 04:06] LABS: CALCIUM 7.4 MG/DL (8.5-10.1); CREATININE SERUM 0.61 MG/DL (0.60-1.30); MAGNESIUM 1.9 MG/DL (1.6-2.4); POTASSIUM 4.1 MMOL/L (3.6-5.0)
[2023-03-07] MEDS: MAGNESIUM 1 GM/100 ML IVPB 100 ML IV SCH ×3 (04:25→05:42)
[2023-03-07] MEDS: POTASSIUM CL 10MEQ/50ML IVPB 50 ML IV SCH (04:25)
[2023-03-07] MEDS: POTASSIUM CHLORIDE 20 MEQ TABLET PO SCH (04:26)
[2023-03-07 05:01] LABS: ABG BASE EXCESS -1.5 MMOL/L (-2.5-2.5); ABG OXYGEN SATURATION 99 % (94-100); ABG PCO2 34 MMHG (35-45); ABG PH 7.43 (7.37-7.43); ABG PO2 83 MMHG (79-93); ABG TCO2 23.6 MMOL/L (21.0-31.0)
[2023-03-07 05:02] LABS: INSPIRED O2 30%; VENTILATOR YES
[2023-03-07] MEDS: DexMEDEtomidine 1,000mcg/250ml 250 ML IV SCH ×2 (05:08→16:28)
[2023-03-07] MEDS ORDERED: NS IV 500 ML 500 ML IV SCH (06:00)
--- NOTE | 2023-03-07 06:30 | Progress Note ---
Subjective Date Seen by a Provider: Mar 07, 2023 Time Seen by a Provider: 11:00 Subjective/Events-last exam No significant changes Remains intubated Needs comfort care and terminal extubation Objective Exam Last Set of Vital Signs Vital Signs Date Time Temp Pulse Resp B/P (MAP) Pulse Ox O2 Delivery O2 Flow Rate FiO2 03/07/23 06:26 37.2 61 18 100/59 96 Mechanical Ventilator 30 03/07/23 06:00 30.00 Capillary Refill : Less Than 3 Seconds I&O Intake and Output 03/07/23 00:00 Intake Total 3101.2 ml Output Total 2650 ml Balance 451.2 ml Intake Oral 0 ml IV Total 3101.2 ml Output Urine Total 2650 ml General: Other (Sedated and intubated) Lungs: Clear to Auscultation Heart: Regular Rate Results Lab Laboratory Tests 03/06/23 11:37: Glucometer 111H 03/06/23 17:42: Glucometer 86 03/07/23 00:23: Glucometer 89 03/07/23 03:35: White Blood Count 13.4H, Red Blood Count 2.72L, Hemoglobin 6.9*L, Hematocrit 23L , Mean Corpuscular Volume 84, Mean Corpuscular Hemoglobin 25, Mean Corpuscular Hemoglobin Concent 30L, Red Cell Distribution Width 20.8H, Platelet Count 336, Mean Platelet Volume 10.4, Immature Granulocyte % (Auto) 1, Neutrophils (%) (Auto) 94H, Lymphocytes (%) (Auto) 1L, Monocytes (%) (Auto) 4, Eosinophils (%) (Auto) 0, Basophils (%) (Auto) 0, Neutrophils # (Auto) 12.6H, Lymphocytes # (Auto) 0.2L, Monocytes # (Auto) 0.5, Eosinophils # (Auto) 0.1, Basophils # (Auto) 0.0, Immature Granulocyte # (Auto) 0.1, Sodium Level 134L, Potassium Level 4.1, Chloride Level 107, Carbon Dioxide Level 20L, Anion Gap 7, Blood Urea Nitrogen 7, Creatinine 0.61, Estimat Glomerular Filtration Rate 106, BUN/Creatinine Ratio 11, Glucose Level 123H, Calcium Level 7.4L, Phosphorus Level 3.0, Magnesium Level 1.9 03/07/23 04:35: Arterial Blood pH 7.43, Arterial Blood Partial Pressure CO2 34L, Arterial Blood Partial Pressure O2 83, Arterial Blood HCO3 23, Arterial Blood Total CO2 23.6, Arterial Blood Oxygen Saturation 99, Arterial Blood Base Excess -1.5, Blood Gas Ventilator Setting YES, Blood Gas Inspired Oxygen 30% Microbiology 03/05/23 Gram Stain - Final, Resulted 03/05/23 Sputum Culture - Preliminary, Resulted Staphylococcus aureus 03/05/23 Blood Culture - Preliminary, Resulted Probable Coag Negative Staph See Comments 02/22/23 Urine Culture - Final, Complete NO GROWTH Assessment/Plan Assessment/Plan Assess & Plan/Chief Complaint Assessment: Presumed alcohol induced liver injury Acute Respiratory Failure Anemia due to possible GI bleed Congestive Heart Failure H/o prostate cancer Anxiety Plan: Poor prognosis Family wants to continue ventilator may need trach and PEG very soon if unable to wean Poor quality of life assessed if he is extubated Met with mother and son and appears to be leaning towards comfort care protocol Palliative care Clinical Quality Measures DVT/VTE Risk/Contraindication: Other: GI BLEED TAMIKA WOLFE DO Mar 07, 2023 06:30
[2023-03-07] MEDS: D5 1/2 NS 1,000 ML IV 1,000 ML IV SCH ×2 (06:35→19:53)
[2023-03-07] MEDS: PANTOPRAZOLE INJECTION 40 MG VIAL IV SCH ×2 (08:25→20:16)
[2023-03-07] MEDS: SALINE NASAL SPRAY 45 ML BTL SCH ×4 (08:25→20:16)
[2023-03-07] MEDS: DOCUSATE SODIUM 100 MG CAPSULE PO SCH ×2 (08:25→20:17)
[2023-03-07] MEDS: EMPAGLIFLOZIN 10 MG TABLET PO SCH (08:25)
[2023-03-07] MEDS: OXYMETAZOLINE 0.05% NASAL SPRAY 30 ML BTL SCH ×2 (08:25→20:17)
[2023-03-07] MEDS: SENNOSIDES 8.6 MG TABLET PO SCH ×2 (08:25→20:16)
[2023-03-07] MEDS: THIAMINE IV SCH (08:32)
[2023-03-07] MEDS: FOLIC ACID IV SCH (08:32)
[2023-03-07] MEDS: NS IV SCH (08:32)
--- NOTE | 2023-03-07 09:15 | Tele-ICU Progress Note ---
Progress Note video rounds completed Tele-ICU Physician , Progress Note ) Service provided via interactive audio and video telecommun[employer]le Farm [employer] E-CARE system to a patient admitted to ICU bed in [facility]. Patient is seen today due to persistent need of ICU care Available chart/ vitals / labs / Images reviewed Video assessment done using teleICU camera, rest of exam as per RN Discussed with RN Events overnight : diarrhea, fever , high residuals FEBRILE hemodynamically stable Respiratory - 21% I/O = neg Drips: d51/2 83 Pressors- no VENT SETTINGS and ABG reviewed NOT CANDIDATE for SBTreviewed possible contraindications including Cardiovascular Stability /Sedation Score / FI02/PEEP / ABG / CXR/ secretions Sedation, discussed with RN, RASS - 1 versed 10 , precedex 1.5 Hospital course: (02-22) 68 y/o M -LGI Bleed - Anemia - Hgb 3.5 - 4 PRBC transfused., precedex gtt for anxiety 02/23 - hb stable after 4 units, agitated - on precedex , elv LFT - abx started , US liver 02/24 - ECHO EF 25 % , precedex , stable HB 02/25- Resp distress --> lasix 40 --> 5 L urine output 02/26 - + bloody BM , Hb 8.1, precedex 0.5, lasix 40 , BIPAP 02/27 - hb 6.6- 1uPRBC transfusion , INTUBATED 03/01 fio2 25% , KUB same - illeus 03/02--SBT 03/02 20 min with rr 30s on precedex 03/03- hb 7.3 , fio1 21% , stop laculose , failed SBT , fever 03/04- SBT , febrile FAILERD SBT with RR? 03/05- thick secretions fever 38 , high residuals /diarrhea 03/07- family leaning toward comfort care, or may need trach/PEG A/P Acute resp failure ( VO and PNA -INTUBATED 02/27 -AC 18 500 21 % + 5 - full support -SBT 03/02 20 min with rr 30s on precedex - WILL KEEP TO TRY AGAIN TODAY - getting better otherwise - respiratory muscle weakness and low EF are mostly contributing factors Cardiomyopathy - ECHO 02/24/2023 - EF 25%, RVSP 35 mm Hg - ? etiology ( etoh? , anemia? CAD? , - TSH wnl - cards on case - follow recom - negative fluid status , cont diuresis PRN Fever with elv WBC 03/04 -Zosyn stopped 03/03 -repeat sputum cx, bloos cx -clinically no thromboempolic dx present Severe anemia with Hb 3.6 - presumed ABLA ( s/p Colonoscopy with biopsy and polypectomy 06/2022 ( suspected proctitis but the pathology called it a hyperplastic polyp, CT abd/p 06/2022) -Improved to 9.1 after 4u pRBC transfusion -->intermittent bloody BM - bloody BM--transfusion 1 uPRBC in addirtrion -PPI bid -Sx consulted- w/up when more stable Ileus - followed by Sx -LIS NG - minimal - TF FEEDING 03/04- high rersiduals on 200cc/h - STOPPED . BS hypoactive Nutritions - ? TPN vs strt TF - - will ask sx for recom -respiratory muscle weakness suspected preventing weaning off vent - started on D5 04/14 for low glucose - abd soft today -TF on hold today Elevated LFT- RESOLVED - ? ischemia with severe anemia - US-holesterolosis of the liver, likely indicating some level of biliary dyskinesia - as per sx Anxiety/confusion- as per chart has "anxiety and panic attacks" and h/o attempts to "wean off xanax" - nonfocal exam, IMPROVING - elev ammonia on 02/23- tx with lactulose - > normalized --STOPPED LACTULOSE - ? ETON use- ? DT -versed 10 , precedex 1.5 Thrombocytopenia ( not on heparin products ) -RESOLVED Hematuria - with follow for now - intermittent - RESOLVED H/o prostate CA -s/p prostatectomy Lines : PICC 02/25 left , (Central Line Necessity Reviewed) Sahu: + OG: Nutrition: npo Analgesia: Anxiety/ delirium VTE Prophylaxis: scd Stress Ulcer Prophylaxis: ppi Plans in collaboration with bedside consultants and IM MDs. Discussed with RN to reach out if any questions or concerns A total of 15 minutes of critical care time was devoted to this patient today, required to treat and/or prevent further deterioration of critical care condition ( as above. I am remotely monitoring this patient from another state. I am unable to do the bedside exam, and history/physical and pertinent information is taken from other Focused Exam Height, Weight, BMI Height: '" Weight: lbs. oz. kg; 23.39 BMI Method: Labs Laboratory Tests 03/07/23 03:35 Results Results/Procedures Labs Laboratory Tests 03/06/23 04:30 03/06/23 05:38 03/07/23 03:35 Patient resulted labs reviewed. Imaging: Reviewed Imaging Report Results Labs Labs Laboratory Tests 03/06/23 11:37: Glucometer 111H 03/06/23 17:42: Glucometer 86 03/07/23 00:23: Glucometer 89 03/07/23 03:35: White Blood Count 13.4H, Red Blood Count 2.72L, Hemoglobin 6.9*L, Hematocrit 23L , Mean Corpuscular Volume 84, Mean Corpuscular Hemoglobin 25, Mean Corpuscular Hemoglobin Concent 30L, Red Cell Distribution Width 20.8H, Platelet Count 336, M katalina Platelet Volume 10.4, Immature Granulocyte % (Auto) 1, Neutrophils (%) (Auto) 94H, Lymphocytes (%) (Auto) 1L, Monocytes (%) (Auto) 4, Eosinophils (%) (Auto) 0, Basophils (%) (Auto) 0, Neutrophils # (Auto) 12.6H, Lymphocytes # (Auto) 0.2L, Monocytes # (Auto) 0.5, Eosinophils # (Auto) 0.1, Basophils # (Auto) 0.0, Immature Granulocyte # (Auto) 0.1, Sodium Level 134L, Potassium Level 4.1, Chloride Level 107, Carbon Dioxide Level 20L, Anion Gap 7, Blood Urea Nitrogen 7, Creatinine 0.61, Estimat Glomerular Filtration Rate 106, BUN/Creatinine Ratio 11, Glucose Level 123H, Calcium Level 7.4L, Phosphorus Level 3.0, Magnesium Level 1.9 03/07/23 04:35: Arterial Blood pH 7.43, Arterial Blood Partial Pressure CO2 34L, Arterial Blood Partial Pressure O2 83, Arterial Blood HCO3 23, Arterial Blood Total CO2 23.6, Arterial Blood Oxygen Saturation 99, Arterial Blood Base Excess -1.5, Blood Gas Ventilator Setting YES, Blood Gas Inspired Oxygen 30% Microbiology 03/05/23 Gram Stain - Final, Resulted 03/05/23 Sputum Culture - Preliminary, Resulted Staphylococcus aureus 03/05/23 Blood Culture - Preliminary, Resulted Probable Coag Negative Staph See Comments 02/22/23 Urine Culture - Final, Complete NO GROWTH BRITTNI REYNOSO MD Mar 07, 2023 09:15
[2023-03-07] MEDS: MIDAZOLAM DRIP PRE-MIX 100 ML IV SCH ×2 (10:21→23:35)
[2023-03-07 11:16] LABS: HEMOGLOBIN 8.3 g/dL (13.3-17.7)
[2023-03-07] MEDS ORDERED: RT-ALBUTEROL SULF 2.5 MG/3 ML PRE-MIX VIAL INH PRN (12:00)
[2023-03-07] MEDS: VANCOMYCIN 1250 MG/NS 250 ML PREMIX IV SCH ×2 (12:49→23:57)
[2023-03-07] MEDS: ACETAMINOPHEN 325 MG TABLET PO PRN (12:49)
[2023-03-07] MEDS: fentaNYL INJECTION 100 MCG/2 ML VIAL IVP PRN ×2 (15:29→23:50)
[2023-03-07] MEDS ORDERED: TROUGH ORDER-PHARMACY XX NR (23:00)
[2023-03-08] MEDS: DexMEDEtomidine 1,000mcg/250ml 250 ML IV SCH ×2 (01:51→11:26)
[2023-03-08] MEDS: RT-Ipratropium/Albuterol NEB 3 ML VIAL INH SCH ×4 (02:37→15:05)
[2023-03-08 02:38] VITALS: BP 136/82
[2023-03-08] MEDS: fentaNYL INJECTION 100 MCG/2 ML VIAL IVP PRN ×4 (02:44→08:14)
[2023-03-08 04:54] LABS: ABG BASE EXCESS -2.7 MMOL/L (-2.5-2.5); ABG OXYGEN SATURATION 96 % (94-100); ABG PCO2 33 MMHG (35-45); ABG PH 7.42 (7.37-7.43); ABG PO2 66 MMHG (79-93); ABG TCO2 22.4 MMOL/L (21.0-31.0)
[2023-03-08 04:58] LABS: INSPIRED O2 21%; VENTILATOR YES
[2023-03-08] MEDS: D5 1/2 NS 1,000 ML IV 1,000 ML IV SCH (05:01)
[2023-03-08 05:03] LABS: BASOPHILS % (AUTO) 0 % (0-10); EOSINOPHILS # (AUTO) 0.1 10^3/uL (0.0-0.3); EOSINOPHILS % (AUTO) 1 % (0-10); HEMATOCRIT 26 % (40-54); HEMOGLOBIN 8.1 g/dL (13.3-17.7); LYMPHOCYTES # (AUTO) 0.3 10^3/uL (1.0-4.0); LYMPHOCYTES % (AUTO) 2 % (12-44); MEAN CORPUSCULAR HEMOGLOBIN 26 pg (25-34); MEAN CORPUSCULAR HGB CONC 31 g/dL (32-36); MEAN CORPUSCULAR VOLUME 83 fL (80-99); MEAN PLATELET VOLUME 9.7 fL (9.0-12.2); MONOCYTES # (AUTO) 0.6 10^3/uL (0.0-1.0); MONOCYTES % (AUTO) 5 % (0-12); NEUTROPHILS % (AUTO) 91 % (42-75); PLATELET COUNT 423 10^3/uL (130-400); WHITE BLOOD COUNT 12.1 10^3/uL (4.3-11.0)
[2023-03-08] MEDS: POTASSIUM CHLORIDE 20 MEQ TABLET PO SCH (05:24)
[2023-03-08] MEDS: MAGNESIUM 1 GM/100 ML IVPB 100 ML IV SCH ×3 (05:24→06:53)
[2023-03-08] MEDS: POTASSIUM CL 10MEQ/50ML IVPB 50 ML IV SCH ×3 (05:24→06:52)
[2023-03-08 05:30] LABS: CALCIUM 7.7 MG/DL (8.5-10.1); CREATININE SERUM 0.57 MG/DL (0.60-1.30); MAGNESIUM 1.8 MG/DL (1.6-2.4); POTASSIUM 3.7 MMOL/L (3.6-5.0)
--- NOTE | 2023-03-08 06:41 | Progress Note ---
Subjective Date Seen by a Provider: Mar 08, 2023 Time Seen by a Provider: 11:00 Subjective/Events-last exam Patient is the same Terminal extubation is likely option today Trach and PEG is not an option per family Objective Exam Last Set of Vital Signs Vital Signs Date Time Temp Pulse Resp B/P (MAP) Pulse Ox O2 Delivery O2 Flow Rate FiO2 03/08/23 06:04 89 24 160/90 03/08/23 06:00 100 Mechanical Ventilator 21.00 03/08/23 04:00 37.4 03/08/23 02:38 21 Capillary Refill : Less Than 3 Seconds I&O Intake and Output 03/08/23 00:00 Intake Total 701.2 ml Output Total 2650 ml Balance -1948.8 ml Intake Oral 0 ml IV Total 701.2 ml Output Urine Total 2400 ml Gastric Drainage Total 250 ml General: Other (Intubated and sedated) Lungs: Clear to Auscultation Heart: Regular Rate Results Lab Laboratory Tests 03/07/23 11:10: Hemoglobin 8.3#L, Hematocrit 27L 03/07/23 12:10: Glucometer 101 03/07/23 17:25: Glucometer 113H 03/07/23 23:05: Vancomycin Level Trough 10.8 03/08/23 04:30: Arterial Blood pH 7.42, Arterial Blood Partial Pressure CO2 33L, Arterial Blood Partial Pressure O2 66L, Arterial Blood HCO3 21L, Arterial Blood Total CO2 22.4, Arterial Blood Oxygen Saturation 96, Arterial Blood Base Excess -2.7L, Blood Gas Ventilator Setting YES, Blood Gas Inspired Oxygen 21% 03/08/23 04:50: White Blood Count 12.1H, Red Blood Count 3.11L, Hemoglobin 8.1L, Hematocrit 26L, Mean Corpuscular Volume 83, Mean Corpuscular Hemoglobin 26, Mean Corpuscular Hemoglobin Concent 31L, Red Cell Distribution Width 19.8H, Platelet Count 423H, Mean Platelet Volume 9.7, Immature Granulocyte % (Auto) 1, Neutrophils (%) (Auto) 91H, Lymphocytes (%) (Auto) 2L, Monocytes (%) (Auto) 5, Eosinophils (%) (Auto) 1, Basophils (%) (Auto) 0, Neutrophils # (Auto) 11.0H, Lymphocytes # (Auto) 0.3L, Monocytes # (Auto) 0.6, Eosinophils # (Auto) 0.1, Basophils # (Auto ) 0.0, Immature Granulocyte # (Auto) 0.1, Sodium Level 136, Potassium Level 3.7, Chloride Level 107, Carbon Dioxide Level 20L, Anion Gap 9, Blood Urea Nitrogen 7, Creatinine 0.57L, Estimat Glomerular Filtration Rate 108, BUN/Creatinine Ratio 12, Glucose Level 116H, Calcium Level 7.7L, Phosphorus Level 3.0, Magnesium Level 1.8 Microbiology 03/05/23 Gram Stain - Final, Resulted 03/05/23 Sputum Culture - Preliminary, Resulted Staphylococcus aureus 03/05/23 Blood Culture - Final, Complete Staph, Coag Neg (PLATFORM ENGINEER) See Comments 02/22/23 Urine Culture - Final, Complete NO GROWTH Assessment/Plan Assessment/Plan Assess & Plan/Chief Complaint Assessment: 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
[2023-03-08] MEDS: PANTOPRAZOLE INJECTION 40 MG VIAL IV SCH (08:13)
[2023-03-08] MEDS: SENNOSIDES 8.6 MG TABLET PO SCH (08:14)
[2023-03-08] MEDS: EMPAGLIFLOZIN 10 MG TABLET PO SCH (08:14)
[2023-03-08] MEDS: DOCUSATE SODIUM 100 MG CAPSULE PO SCH (08:14)
[2023-03-08] MEDS: SALINE NASAL SPRAY 45 ML BTL SCH ×2 (08:14→14:40)
[2023-03-08] MEDS: OXYMETAZOLINE 0.05% NASAL SPRAY 30 ML BTL SCH (08:14)
--- NOTE | 2023-03-08 09:02 | Tele-ICU Progress Note ---
Subjective Date Seen by a Provider: Mar 08, 2023 Time Seen by a Provider: 09:01 Subjective/Events-last exam ... (Tele-ICU Physician , Progress Note ) Service provided via interactive audio and video telecommunications E-CARE system to a patient admitted to ICU bed in [facility]. Patient is seen today due to persistent need of ICU care Available chart/ vitals / labs / Images reviewed Video assessment done using teleICU camera, rest of exam as per RN Discussed with RN Events overnight : diarrhea, fever , high residuals FEBRILE hemodynamically stable Respiratory - 21% I/O = neg Drips: d51/2 83 Pressors- no VENT SETTINGS and ABG reviewed NOT CANDIDATE for SBTreviewed possible contraindications including Cardiovascular Stability /Sedation Score / FI02/PEEP / ABG / CXR/ secretions Sedation, discussed with RN, RASS - 1 versed 10 , precedex 1.5 prn fentanyl Hospital course: (02-22) 68 y/o M -LGI Bleed - Anemia - Hgb 3.5 - 4 PRBC transfused., precedex gtt for anxiety 02/23 - hb stable after 4 units, agitated - on precedex , elv LFT - abx started , US liver 02/24 - ECHO EF 25 % , precedex , stable HB 02/25- Resp distress --> lasix 40 --> 5 L urine output 02/26 - + bloody BM , Hb 8.1, precedex 0.5, lasix 40 , BIPAP 02/27 - hb 6.6- 1uPRBC transfusion , INTUBATED 03/01 fio2 25% , KUB same - illeus 03/02--SBT 03/02 20 min with rr 30s on precedex 03/03- hb 7.3 , fio1 21% , stop laculose , failed SBT , fever 03/04- SBT , febrile FAILERD SBT with RR? 03/05- thick secretions fever 38 , high residuals /diarrhea, TF on hold 03/06-- Hb 6.9 - ( errounes ) NO transfusion --> 7.2, MRSA in SPUTUM , 21% fio2 , NG output 500 03/07 - hb 6.9 - recived 1 u PRBC 03/08 -AC 14 500 21 % + 5 precedex 1.1, versed 1 A/P Acute resp failure ( VO and PNA -INTUBATED 02/27 -AC 14 500 21 % + 5 = cont to have coupious secretions despite nebs/ guafenezin/codeinbe , nasal sray - cotn TX for MRSA in sputum with vanco IB - full support WILL KEEP TO TRY SBT AGAIN TODAY - getting better otherwise - respiratory muscle weakness and low EF are mostly contributing factors Cardiomyopathy - ECHO 02/24/2023 - EF 25%, RVSP 35 mm Hg - ? etiology ( etoh? , anemia? CAD? , - TSH wnl - cards on case - follow recom - negative fluid status , cont diuresis PRN Fever with elv WBC 03/04 -Zosyn stopped 03/03 -repeated MRSA IN SPUTUM and GPC on blood - to resume VANCO - cefepime off -still febrile - ?SENS pending Severe anemia with Hb 3.6 - presumed ABLA ( s/p Colonoscopy with biopsy and polypectomy 06/2022 ( suspected proctitis but the pathology called it a hyperplastic polyp, CT abd/p 06/2022) -Improved to 9.1 after 4u pRBC transfusion -->intermittent bloody BM - bloody BM--transfusion 1 uPRBC in addirtrion -03/06-- Hb 6.9 - ( errounes ) NO transfusion --> 7.2 03/07-hb 6.9 - recived 1 u PRBC -PPI bid -Sx consulted- w/up when more stable Ileus - followed by Sx -LIS NG - minimal - TF FEEDING 03/04- high rersiduals on 200cc/h - STOPPED . BS hypoactive Nutritions - ? TPN vs strt TF - - will ask sx for recom -respiratory muscle weakness suspected preventing weaning off vent - started on D5 1/2 for low glucose - abd soft today -TF on hold today Elevated LFT- RESOLVED - ? ischemia with severe anemia - US-holesterolosis of the liver, likely indicating some level of biliary dyskinesia - as per sx Anxiety/confusion- as per chart has "anxiety and panic attacks" and h/o attempts to "wean off xanax" - nonfocal exam, IMPROVING - elev ammonia on 02/23- tx with lactulose - > normalized --STOPPED LACTULOSE - ? ETON use- ? DT -versed 10 , precedex 1.5 Thrombocytopenia ( not on heparin products ) -RESOLVED Hematuria - with follow for now - intermittent H/o prostate CA -s/p prostatectomy Lines : PICC 02/25 left , (Central Line Necessity Reviewed) Sahu: + OG: + Nutrition: npo Analgesia: Anxiety/ delirium VTE Prophylaxis: scd Stress Ulcer Prophylaxis: ppi Plans in collaboration with bedside consultants and IM MDs. Discussed with RN to reach out if any questions or concerns A total of 35 minutes of critical care time was devoted to this patient today, required to treat and/or prevent further deterioration of critical care condition ( as above ) . I am remotely monitoring this patient from another state. I am unable to do the bedside exam, and history/physical and pertinent information is taken from other notes in the computer and bedside staff. . Sepsis Event Evaluation Height, Weight, BMI Height: '" Weight: lbs. oz. kg; 23.39 BMI Method: Exam Exam Patient acknowledged, consented, and participated in this virtual visit which was conducted using real time audio/video Vital Signs Date Time Temp Pulse Resp B/P (MAP) Pulse Ox O2 Delivery O2 Flow Rate FiO2 03/08/23 08:46 37.1 Mechanical Ventilator 21.00 03/08/23 08:00 93 22 140/90 (109) 95 Mechanical Ventilator 21.00 03/08/23 07:00 91 21 113/68 (87) 92 Mechanical Ventilator 21.00 03/08/23 07:00 91 03/08/23 06:04 89 24 160/90 03/08/23 06:00 90 20 160/90 (113) 100 Mechanical Ventilator 21.00 03/08/23 05:51 89 160/90 03/08/23 05:00 87 21 135/98 (110) 98 Mechanical Ventilator 21.00 03/08/23 04:00 94 Mechanical Ventilator 21.00 03/08/23 04:00 80 15 100/59 (73) 94 Mechanical Ventilator 21.00 03/08/23 04:00 37.4 03/08/23 03:00 81 12 105/62 (76) 100 Mechanical Ventilator 21.00 03/08/23 02:38 78 17 94 21 03/08/23 02:00 78 14 130/75 (93) 96 Mechanical Ventilator 21.00 03/08/23 01:51 76 129/74 03/08/23 01:00 76 17 129/74 (92) 95 Mechanical Ventilator 21.00 03/08/23 00:53 81 03/08/23 00:00 80 17 132/75 (94) 97 Mechanical Ventilator 21.00 03/08/23 00:00 94 Mechanical Ventilator 21.00 03/08/23 00:00 36.1 03/07/23 23:35 83 19 146/77 03/07/23 23:00 78 16 129/79 (96) 96 Mechanical Ventilator 21.00 03/07/23 22:00 83 19 146/77 (100) 96 Mechanical Ventilator 21.00 03/07/23 21:45 81 22 90 21 03/07/23 21:00 75 16 119/70 (86) 96 Mechanical Ventilator 21.00 03/07/23 20:28 82 119/67 03/07/23 20:00 80 19 109/68 (82) 95 Mechanical Ventilator 21.00 03/07/23 20:00 94 Mechanical Ventilator 21.00 03/07/23 19:52 37.7 03/07/23 19:29 82 20 119/67 (84) 95 Mechanical Ventilator 21.00 03/07/23 19:07 64 16 93 21 03/07/23 19:01 68 03/07/23 19:00 65 18 117/70 (86) 94 Mechanical Ventilator 21.00 03/07/23 18:00 62 16 99/58 (72) 93 Mechanical Ventilator 21.00 03/07/23 17:00 68 16 95/61 (70) 92 Mechanical Ventilator 21.00 03/07/23 16:23 36.7 03/07/23 16:00 74 18 94/55 (66) 93 Mechanical Ventilator 21.00 03/07/23 16:00 96 Mechanical Ventilator 30.00 03/07/23 15:00 76 24 113/71 (85) 93 Mechanical Ventilator 21.00 03/07/23 14:53 65 16 95 21 03/07/23 14:00 67 17 92/57 (69) 94 Mechanical Ventilator 21.00 03/07/23 13:19 37.8 03/07/23 13:00 83 17 117/72 (85) 95 Mechanical Ventilator 21.00 03/07/23 12:49 38.0 03/07/23 12:26 91 03/07/23 12:21 38.0 Mechanical Ventilator 21.00 03/07/23 12:00 96 Mechanical Ventilator 30.00 03/07/23 12:00 90 19 120/74 (95) 94 Mechanical Ventilator 21.00 03/07/23 11:00 85 19 125/68 (91) 93 Mechanical Ventilator 21.00 03/07/23 10:45 Mechanical Ventilator 21.00 03/07/23 10:44 21 03/07/23 10:35 81 18 98 30 03/07/23 10:21 80 03/07/23 10:00 71 18 111/68 (90) 99 Mechanical Ventilator 30.00 I & O 03/08/23 07:00 Intake Total 1851.2 ml Output Total 2700 ml Balance -848.8 ml Height & Weight Height: '" Weight: lbs. oz. kg; 23.39 BMI Method: General Appearance: No Apparent Distress HEENT: PERRL/EOMI Neck: Full Range of Motion Respiratory: Decreased Breath Sounds, Rhonci Cardiovascular: Regular Rate, Rhythm Capillary Refill: Less Than 3 Seconds Gastrointestinal: normal bowel sounds, soft Extremity: Normal Capillary Refill Neurologic/Psychiatric: Alert Skin: Normal Color Lymphatic: No Adenopathy Results Lab Laboratory Tests 03/07/23 03:35 03/07/23 11:10 03/08/23 04:50 Assessment/Plan Assessment/Plan 1 VIKAS MIGUEL MD Mar 08, 2023 09:02
[2023-03-08 09:32] VITALS: BP 137/101
--- NOTE | 2023-03-08 09:40 | Diagnostic Imaging Report ---
CHEST 1 VIEW, AP/PA ONLY INDICATION: ET tube check. COMPARISON: Chest radiograph 03/08/2023. FINDINGS: Lungs: Normal lung volume. Similar multifocal bilateral airspace opacities. Pleura: No pleural effusion or pneumothorax. Heart and Mediastinum: Similar cardiomegaly with pulmonary vascular congestion. The endotracheal tube tip was retracted. It terminates in the proximal trachea. Osseous Structures and Soft Tissues: Left-sided chronic rib fractures. IMPRESSION: Retraction of the endotracheal tube which terminates in the proximal trachea. Dictated by: Dictated on workstation # [id number]
--- NOTE | 2023-03-08 09:45 | Diagnostic Imaging Report ---
EXAM: CHEST 1 VIEW, AP/PA ONLY INDICATION: Line placement. COMPARISON: Chest radiograph 03/08/2023 at 9:01 AM. FINDINGS: ETT has been advanced to the level of the clavicles. NG tube tip and side-port in stomach. Left PICC tip upper SVC Normal heart size and central pulmonary vascularity. Patchy airspace opacities in the lung bases. Small left pleural effusion. No pneumothorax. No acute osseous findings. IMPRESSION: 1. ETT tip at the level of the clavicles. 2. Scattered airspace opacities in lung bases and small left pleural effusion. Dictated by: Dictated on workstation # [id number]
[2023-03-08] MEDS: MIDAZOLAM DRIP PRE-MIX 100 ML IV SCH (11:26)
[2023-03-08] MEDS: FOLIC ACID IV SCH (11:27)
[2023-03-08] MEDS: NS IV SCH (11:27)
[2023-03-08] MEDS: THIAMINE IV SCH (11:27)
[2023-03-08] MEDS ORDERED: VANCOMYCIN 1500MG/300ML PREMIX IV SCH (12:00)
[2023-03-08] MEDS: ACETAMINOPHEN 325 MG TABLET PO PRN (14:39)
[2023-03-08 15:05] VITALS: BP 125/80
[2023-03-08] MEDS ORDERED: ARTIFICIAL TEARS Ophth solution 0.4 ML UNIT DOSE OU PRN (16:45)
[2023-03-08] MEDS ORDERED: GLYCOPYRROLATE INJ 0.2 MG/ML 2 ML VIAL IV PRN (16:45)
[2023-03-08] MEDS ORDERED: RT-Ipratropium/Albuterol NEB 3 ML VIAL INH PRN (16:45)
[2023-03-08] MEDS ORDERED: ACETAMINOPHEN 650 MG SUPPOSITORY PR PRN (16:45)
[2023-03-08] MEDS ORDERED: BISACODYL 10 MG SUPPOSITORY PR PRN (16:45)
[2023-03-08] MEDS ORDERED: SCOPOLAMINE 1.5 MG PATCH TOP SCH (16:45)
[2023-03-08] MEDS ORDERED: ONDANSETRON INJECTION 4 MG/2 ML (SDV) IVP PRN (16:45)
[2023-03-08] MEDS ORDERED: PROMETHAZINE INJ 25 MG/ML VIAL IVP PRN (16:45)
[2023-03-08] MEDS ORDERED: SALIVA SUBSTITUTE 60 ML SPRAY MM PRN (16:45)
[2023-03-08] MEDS ORDERED: ATROPINE 1% OPHTHALMIC SOLN 2 ML SL PRN (16:45)
[2023-03-08] MEDS ORDERED: SALIVA SUBSTITUTE 236 ML SPRAY MM PRN (17:00)
[2023-03-08] MEDS: morphine INJ 10 MG/ML 1ML (SYR OR VIAL) IVP PRN ×6 (17:24→21:40)
[2023-03-08] MEDS ORDERED: fentaNYL DRIP PRE-MIX 250 ML IV ONE (17:32)
[2023-03-08] MEDS: LORazepam ORAL CONCENTRATE 2 MG/ML 30 ML PO PRN ×3 (17:36→20:38)
[2023-03-08] MEDS: fentaNYL DRIP PRE-MIX 250 ML IV SCH ×2 (17:54→20:50)
--- NOTE | 2023-03-09 04:52 | Discharge Summary ---
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 Acute Respiratory Failure Anemia due to possible GI bleed Congestive Heart Failure H/o prostate cancer Anxiety Discharge Summary Discharge Physical Examination Allergies: Coded Allergies: No Known Drug Allergies (Unverified , 06/09/12) Vitals & I&Os Vital Signs Date Time Temp Pulse Resp B/P (MAP) Pulse Ox O2 Delivery O2 Flow Rate FiO2 03/08/23 20:50 158 03/08/23 16:00 103/65 (79) 94 Mechanical Ventilator 21.00 03/08/23 15:39 37.8 03/08/23 15:05 17 21 Hospital Course Was the Problem List Reviewed?: Yes Patient had a lengthy hospital course after he was admitted to the ICU following alcohol withdrawal with altered mental status and GI bleeding. Patient ultimately patient and remained intubated and multisystem organ failure after lengthy discussions with family and the decision was made to place him on memory care and terminally extubated patient . Labs (last 24 hrs) Laboratory Tests 02/22/23 10:35: White Blood Count 7.0, Red Blood Count 1.71L, Hemoglobin 3.5*L, Hematocrit 13*L, Mean Corpuscular Volume 75L, Mean Corpuscular Hemoglobin 20L, Mean Corpuscular Hemoglobin Concent 27L, Red Cell Distribution Width 17.9H, Platelet Count 300, Mean Platelet Volume 10.4, Immature Granulocyte % (Auto) 0, Neutrophils (%) (Auto) 90H, Lymphocytes (%) (Auto) 3L, Monocytes (%) (Auto) 7, Eosinophils (%) (Auto) 0, Basophils (%) (Auto) 0, Neutrophils # (Auto) 6.3, Lymphocytes # (Auto) 0.2L, Monocytes # (Auto) 0.5, Eosinophils # (Auto) 0.0, Basophils # (Auto) 0.0, Immature Granulocyte # (Auto) 0.0, Neutrophils % (Manual) 90, Lymphocytes % (Ma nual) 4, Monocytes % (Manual) 6, Polychromasia SLIGHT, Hypochromasia MODERATE, Poikilocytosis MODERATE, Anisocytosis SLIGHT, Microcytosis SLIGHT, Target Cells SLIGHT, Tear Drop Cells SLIGHT, Elliptocytes SLIGHT, Prothrombin Time 18.0H, INR Comment 1.4, Activated Partial Thromboplast Time 28, Sodium Level 131L, Potassium Level 4.1, Chloride Level 104, Carbon Dioxide Level 13L, Anion Gap 14, Blood Urea Nitrogen 16, Creatinine 1.10, Estimat Glomerular Filtration Rate 74, BUN/Creatinine Ratio 15, Glucose Level 109H, Calcium Level 8.5, Corrected Calcium 8.9, Magnesium Level 2.2, Total Bilirubin 0.7, Aspartate Amino Transf (AST/SGOT) 128H, Alanine Aminotransferase (ALT/SGPT) 127H, Alkaline Phosphatase 71, Troponin I 0.082H, B-Type Natriuretic Peptide 736.6H, Total Protein 6.0L, Albumin 3.5, Lipase 45, Serum Alcohol < 10 02/22/23 12:46: Lab Scanned Report Referred Lab Report 02/22/23 20:14: Arterial Blood pH 7.26*L, Arterial Blood Partial Pressure CO2 12*L, Arterial Blood Partial Pressure O2 74L, Arterial Blood HCO3 5*L, Arterial Blood Total CO2 5.8*L, Arterial Blood Oxygen Saturation 94, Arterial Blood Base Excess -18.8L, Blood Gas Ventilator Setting NO, Blood Gas Inspired Oxygen RA 02/22/23 20:55: White Blood Count 16.7H, Red Blood Count 3.61L, Hemoglobin 9.1#L, Hematocrit 30L , Mean Corpuscular Volume 83, Mean Corpuscular Hemoglobin 25, Mean Corpuscular Hemoglobin Concent 30L, Red Cell Distribution Width 17.1H, Platelet Count 279, Mean Platelet Volume 10.7, Immature Granulocyte % (Auto) 1, Neutrophils (%) (Auto) 91H, Lymphocytes (%) (Auto) 1L, Monocytes (%) (Auto) 7, Eosinophils (%) (Auto) 0, Basophils (%) (Auto) 0, Neutrophils # (Auto) 15.2H, Lymphocytes # (Auto) 0.2L, Monocytes # (Auto) 1.1H, Eosinophils # (Auto) 0.0, Basophils # (Auto) 0.0, Immature Granulocyte # (Auto) 0.1, Neutrophils % (Manual) 93, Lymphocytes % (Manual) 2, Monocytes % (Manual) 5, Polychromasia SLIGHT, Hypochromasia MODERATE, Poikilocytosis MODERATE, Anisocytosis SLIGHT, Tear Drop Cells SLIGHT, Elliptocytes SLIGHT, Sodium Level 137, Potassium Level 6.1H, Chloride Level 106, Carbon Dioxide Level 9*L, Anion Gap 22H, Blood Urea Nitrogen 20H, Creatinine 1.39H, Estimat Glomerular Filtration Rate 56, BUN/Creatinine Ratio 14, Glucose Level 70, Calcium Level 8.2L, Nucleated Red Blood Cells 6, Andrey Cells MARKED 02/22/23 21:55: Urine Color YELLOW, Urine Clarity CLEAR, Urine pH 5.5, Urine Specific [place] 1.025H, Urine Protein 1+H, Urine Glucose (UA) NEGATIVE, Urine Ketones TRACEH, Urine Nitrite NEGATIVE, Urine Bilirubin NEGATIVE, Urine Urobilinogen 0.2, Urine Leukocyte Esterase NEGATIVE, Urine RBC (Auto) TRACEH, Urine RBC 5-10H, Urine WBC 0-2, Urine Squamous Epithelial Cells NONE, Urine Crystals NONE, Urine Bacteria FEWH, Urine Casts PRESENT, Urine Hyaline Casts 25-50H, Urine Mucus NEGATIVE, Urine Culture Indicated CULTURE PENDING 02/22/23 22:18: Lactic Acid Level 12.72*H 02/23/23 00:19: Lactic Acid Level 10.71*H 02/23/23 02:18: Lactic Acid Level 9.68*H 02/23/23 03:01: Arterial Blood pH 7.34*L, Arterial Blood Partial Pressure CO2 23L, Arterial Blood Partial Pressure O2 67L, Arterial Blood HCO3 12*L, Arterial Blood Total C O2 13.1L, Arterial Blood Oxygen Saturation 92L, Arterial Blood Base Excess - 11.4L, Blood Gas Ventilator Setting NO, Blood Gas Inspired Oxygen ROOM AIR 02/23/23 04:03: White Blood Count 16.6H, Red Blood Count 3.71L, Hemoglobin 9.3L, Hematocrit 30L, Mean Corpuscular Volume 80, Mean Corpuscular Hemoglobin 25, Mean Corpuscular Hemoglobin Concent 31L, Red Cell Distribution Width 17.0H, Platelet Count 192, Mean Platelet Volume 10.6, Immature Granulocyte % (Auto) 1, Neutrophils (%) (Auto) 92H, Lymphocytes (%) (Auto) 1L, Monocytes (%) (Auto) 6, Eosinophils (%) (Auto) 0, Basophils (%) (Auto) 0, Neutrophils # (Auto) 15.3H, Lymphocytes # (Auto) 0.1L, Monocytes # (Auto) 0.9, Eosinophils # (Auto) 0.0, Basophils # (Auto) 0.0, Immature Granulocyte # (Auto) 0.2H, Sodium Level 139, Potassium Level 4.7, Chloride Level 110H, Carbon Dioxide Level 12L, Anion Gap 17H, Blood Urea Nitrogen 27H, Creatinine 1.27, Estimat Glomerular Filtration Rate 62, BUN/Creatinine Ratio 21, Glucose Level 101, Lactic Acid Level 8.63*H, Calcium Level 8.0L, Corrected Calcium 8.8, Phosphorus Level 6.3H, Magnesium Level 2.1, Total Bilirubin 3.6#H, Aspartate Amino Transf (AST/SGOT) 1310#H, Alanine Aminotransferase (ALT/SGPT) 1025#H, Alkaline Phosphatase 64, Total Protein 5.0L, Albumin 3.0L, Vitamin B1 Level 131.8 02/23/23 06:13: Lactic Acid Level 6.03*H 02/23/23 08:12: Lactic Acid Level 3.67*H 02/23/23 08:38: Ammonia 100H 02/23/23 09:43: Lab Scanned Report Transfusion Reaction Form 02/23/23 10:25: Lactic Acid Level 2.74*H 02/23/23 12:10: Lactic Acid Level 2.61*H 02/23/23 12:57: Lab Scanned Report Transfusion Reaction Form 02/23/23 14:15: Lactic Acid Level 2.98*H 02/23/23 15:55: Iron Level 51, Total Iron Binding Capacity 308, Unsaturated Iron Binding Capacity 257, Transferrin % Saturation 17, Ferritin 59.1, Acetaminophen Level < 10L, Hepatitis A IgM Antibody Non-Reactive, Hepatitis B Surface Antigen Non- Reactive, Hepatitis B Core IgM Antibody Non-Reactive, Hepatitis C Antibody Non- Reactive 02/23/23 22:47: White Blood Count 17.8H, Red Blood Count 3.46L, Hemoglobin 8.8L, Hematocrit 28L, Mean Corpuscular Volume 80, Mean Corpuscular Hemoglobin 25, Mean Corpuscular Hemoglobin Concent 32, Red Cell Distribution Width 17.8H, Platelet Count 139, Mean Platelet Volume 11.2, Immature Granulocyte % (Auto) 1, Neutrophils (%) (Auto) 92H, Lymphocytes (%) (Auto) 2L, Monocytes (%) (Auto) 5, Eosinophils (%) (Auto) 0, Basophils (%) (Auto) 0, Neutrophils # (Auto) 16.4H, Lymphocytes # (Auto) 0.3L, Monocytes # (Auto) 1.0, Eosinophils # (Auto) 0.0, Basophils # (Auto) 0.0, Immature Granulocyte # (Auto) 0.2H, Percent Immature Platelet Fraction 5.6 02/24/23 05:45: White Blood Count 16.9H, Red Blood Count 3.63L, Hemoglobin 9.2L, Hematocrit 29L, Mean Corpuscular Volume 80, Mean Corpuscular Hemoglobin 25, Mean Corpuscular Hemoglobin Concent 32, Red Cell Distribution Width 18.4H, Platelet Count 141, Mean Platelet Volume 10.7, Immature Granulocyte % (Auto) 1, Neutrophils (%) (Auto) 92H, Lymphocytes (%) (Auto) 2L, Monocytes (%) (Auto) 5, Eosinophils (%) (Auto) 0, Basophils (%) (Auto) 0, Neutrophils # (Auto) 15.6H, Lymphocytes # (Auto) 0.3L, Monocytes # (Auto) 0.8, Eosinophils # (Auto) 0.0, Basophils # (Auto) 0.0, Immature Granulocyte # (Auto) 0.2H, Percent Immature Platelet Fraction 6.2, Sodium Level 134L, Potassium Level 3.9, Chloride Level 106, Carbon Dioxide Level 18L, Anion Gap 10, Blood Urea Nitrogen 35H, Creatinine 1.14, Estimat Glomerular Filtration Rate 71, BUN/Creatinine Ratio 31, Glucose Level 93, Lactic Acid Level 3.33*H, Calcium Level 7.1L, Corrected Calcium 8.1L, Phosp horus Level 3.8, Magnesium Level 2.5H, Total Bilirubin 1.7H, Aspartate Amino Transf (AST/SGOT) 842H, Alanine Aminotransferase (ALT/SGPT) 1232#H, Alkaline Phosphatase 70, Total Protein 4.9L, Albumin 2.8L 02/24/23 07:55: Lactic Acid Level 2.73*H, Ammonia 47H 02/25/23 04:19: White Blood Count 15.5H, Red Blood Count 3.64L, Hemoglobin 9.2L, Hematocrit 30L, Mean Corpuscular Volume 81, Mean Corpuscular Hemoglobin 25, Mean Corpuscular Hemoglobin Concent 31L, Red Cell Distribution Width 19.0H, Platelet Count 116L, Mean Platelet Volume 11.6, Immature Granulocyte % (Auto) 2, Neutrophils (%) (Auto) 91H, Lymphocytes (%) (Auto) 2L, Monocytes (%) (Auto) 6, Eosinophils (%) (Auto) 0, Basophils (%) (Auto) 0, Neutrophils # (Auto) 14.0H, Lymphocytes # (Auto) 0.3L, Monocytes # (Auto) 0.9, Eosinophils # (Auto) 0.0, Basophils # (Auto) 0.0, Immature Granulocyte # (Auto) 0.3H, Percent Immature Platelet Fraction 6.0, Sodium Level 135, Potassium Level 4.2, Chloride Level 108H, Carbon Dioxide Level 17L, Anion Gap 10, Blood Urea Nitrogen 17, Creatinine 0.83, Estimat Glomerular Filtration Rate 97, BUN/Creatinine Ratio 20, Glucose Level 90, Calcium Level 7.3L, Corrected Calcium 8.3L, Phosphorus Level 2.5, Magnesium Level 2.4, Total Bilirubin 1.5H, Aspartate Amino Transf (AST/SGOT) 351H, Alanine Aminotransferase (ALT/SGPT) 902#H, Alkaline Phosphatase 65, Total Protein 5.6L, Albumin 2.7L, Thyroid Stimulating Hormone (TSH) 0.73 02/25/23 10:30: White Blood Count 16.7H, Red Blood Count 3.69L, Hemoglobin 9.5L, Hematocrit 30L, Mean Corpuscular Volume 81, Mean Corpuscular Hemoglobin 26, Mean Corpuscular Hemoglobin Concent 32, Red Cell Distribution Width 19.5H, Platelet Count 102L, Mean Platelet Volume 11.4, Arterial Blood pH 7.47H, Arterial Blood Partial Pressure CO2 29L, Arterial Blood Partial Pressure O2 56L, Arterial Blood HCO3 21L, Arterial Blood Total CO2 22.0, Arterial Blood Oxygen Saturation 90L, Arterial Blood Base Excess -1.5, Blood Gas Ventilator Setting NO, Blood Gas Inspired Oxygen 3 L 02/25/23 11:00: Prothrombin Time 19.0H, INR Comment 1.5H 02/26/23 05:23: White Blood Count 11.9H, Red Blood Count 3.20L, Hemoglobin 8.1L, Hematocrit 26L, Mean Corpuscular Volume 80, Mean Corpuscular Hemoglobin 25, Mean Corpuscular Hemoglobin Concent 32, Red Cell Distribution Width 18.7H, Platelet Count 112L, Mean Platelet Volume 11.0, Immature Granulocyte % (Auto) 1, Neutrophils (%) (Auto) 92H, Lymphocytes (%) (Auto) 1L, Monocytes (%) (Auto) 6, Eosinophils (%) (Auto) 0, Basophils (%) (Auto) 0, Neutrophils # (Auto) 11.0H, Lymphocytes # (Auto) 0.2L, Monocytes # (Auto) 0.7, Eosinophils # (Auto) 0.0, Basophils # (Auto) 0.0, Immature Granulocyte # (Auto) 0.1, Sodium Level 138, Potassium Level 2.9L, Chloride Level 106, Carbon Dioxide Level 25, Anion Gap 7, Blood Urea Nitrogen 11, Creatinine 0.63, Estimat Glomerular Filtration Rate 105, BUN/Creatinine Ratio 17, Glucose Level 99, Calcium Level 7.2L, Corrected Calcium 8.6, Phosphorus Level 2.1L, Magnesium Level 1.9, Total Bilirubin 1.4H, Aspartate Amino Transf (AST/SGOT) 120H, Alanine Aminotransferase (ALT/SGPT) 502#H, Alkaline Phosphatase 51, Total Protein 4.3L, Albumin 2.2L 02/26/23 09:20: Ammonia 29 02/26/23 11:00: Arterial Blood pH 7.56H, Arterial Blood Partial Pressure CO2 32L, Arterial Blood Partial Pressure O2 132H, Arterial Blood HCO3 29H, Arterial Blood Total CO2 29.7, Arterial Blood Oxygen Saturation 100, Arterial Blood Base Excess 6.7H, Blood Gas Ventilator Setting NO, Blood Gas Inspired Oxygen 80% 02/26/23 13:40: White Blood Count 13.7H, Red Blood Count 3.46L, Hemoglobin 8.7L, Hematocrit 28L, Mean Corpuscular Volume 80, Mean Corpuscular Hemoglobin 25, Mean Corpuscular Hemoglobin Concent 31L, Red Cell Distribution Width 19.5H, Platelet Count 119L, Mean Platelet Volume 11.0, Immature Granulocyte % (Auto) 1, Neutrophils (%) (Auto) 92H, Lymphocytes (%) (Auto) 1L, Monocytes (%) (Auto) 5, Eosinophils (%) (Auto) 0, Basophils (%) (Auto) 0, Neutrophils # (Auto) 12.7H, Lymphocytes # (Auto) 0.2L, Monocytes # (Auto) 0.7, Eosinophils # (Auto) 0.0, Basophils # (Auto) 0.0, Immature Granulocyte # (Auto) 0.1, Percent Immature Platelet Fraction 6.7, Sodium Level 138, Potassium Level 4.4, Chloride Level 105, Carbon Dioxide Level 25, Anion Gap 8, Blood Urea Nitrogen 11, Creatinine 0.68, Estimat Glomerular Filtration Rate 103, BUN/Creatinine Ratio 16, Glucose Level 107H, Calcium Level 7.2L 02/27/23 04:19: White Blood Count 9.2, Red Blood Count 2.63L, Hemoglobin 6.6#*L, Hematocrit 21L, Mean Corpuscular Volume 81, Mean Corpuscular Hemoglobin 25, Mean Corpuscular Hemoglobin Concent 31L, Red Cell Distribution Width 19.8H, Platelet Count 104L, Mean Platelet Volume 11.4, Immature Granulocyte % (Auto) 1, Neutrophils (%) (Auto) 91H, Lymphocytes (%) (Auto) 2L, Monocytes (%) (Auto) 6, Eosinophils (%) (Auto) 1, Basophils (%) (Auto) 0, Neutrophils # (Auto) 8.4H, Lymphocytes # (Auto) 0.1L, Monocytes # (Auto) 0.5, Eosinophils # (Auto) 0.1, Basophils # (Auto) 0.0, Immature Granulocyte # (Auto) 0.1, Percent Immature Platelet F raction 5.8, Sodium Level 142, Potassium Level 3.3L, Chloride Level 108H, Carbon Dioxide Level 25, Anion Gap 9, Blood Urea Nitrogen 14, Creatinine 0.70, Estimat Glomerular Filtration Rate 102, BUN/Creatinine Ratio 20, Glucose Level 114H, Calcium Level 7.7L, Corrected Calcium 9.0, Phosphorus Level 2.2L, Magnesium Level 2.0, Total Bilirubin 1.5H, Aspartate Amino Transf (AST/SGOT) 51H, Alanine Aminotransferase (ALT/SGPT) 294H, Alkaline Phosphatase 41, Total Protein 4.3L, Albumin 2.4L, Triglycerides Level 69 02/27/23 07:35: Arterial Blood pH 7.49H, Arterial Blood Partial Pressure CO2 35, Arterial Blood Partial Pressure O2 83, Arterial Blood HCO3 27, Arterial Blood Total CO2 27.8, Arterial Blood Oxygen Saturation 98, Arterial Blood Base Excess 3.5H, Blood Gas Ventilator Setting NO, Blood Gas Inspired Oxygen 50% FI02/BIPAP 02/27/23 09:45: White Blood Count 11.1H, Red Blood Count 3.19L, Hemoglobin 8.5#L, Hematocrit 26L , Mean Corpuscular Volume 83, Mean Corpuscular Hemoglobin 27, Mean Corpuscular Hemoglobin Concent 32, Red Cell Distribution Width 18.6H, Platelet Count 109L, Mean Platelet Volume 12.0, Immature Granulocyte % (Auto) 1, Neutrophils (%) (Auto) 92H, Lymphocytes (%) (Auto) 2L, Monocytes (%) (Auto) 5, Eosinophils (%) (Auto) 1, Basophils (%) (Auto) 0, Neutrophils # (Auto) 10.2H, Lymphocytes # (Auto) 0.2L, Monocytes # (Auto) 0.5, Eosinophils # (Auto) 0.1, Basophils # (Auto) 0.0, Immature Granulocyte # (Auto) 0.1, Prothrombin Time 17.2H, INR Comment 1.3, Fibrinogen 580H 02/27/23 10:01: Arterial Blood pH 7.49H, Arterial Blood Partial Pressure CO2 33L, Arterial Blood Partial Pressure O2 148H, Arterial Blood HCO3 25, Arterial Blood Total CO2 26.1, Arterial Blood Oxygen Saturation 99, Arterial Blood Base Excess 2.2, Blood Gas Ventilator Setting NO, Blood Gas Inspired Oxygen 100% 02/27/23 11:38: Glucometer 108 02/27/23 17:45: Glucometer 123H 02/28/23 03:17: White Blood Count 7.8, Red Blood Count 3.04L, Hemoglobin 8.1L, Hematocrit 25L, Mean Corpuscular Volume 83, Mean Corpuscular Hemoglobin 27, Mean Corpuscular Hemoglobin Concent 32, Red Cell Distribution Width 19.7H, Platelet Count 101L, M katalina Platelet Volume 11.0, Immature Granulocyte % (Auto) 1, Neutrophils (%) (Auto) 84H, Lymphocytes (%) (Auto) 6L, Monocytes (%) (Auto) 6, Eosinophils (%) (Auto) 3, Basophils (%) (Auto) 0, Neutrophils # (Auto) 6.6, Lymphocytes # (Auto) 0.5L, Monocytes # (Auto) 0.5, Eosinophils # (Auto) 0.2, Basophils # (Auto) 0.0, Immature Granulocyte # (Auto) 0.1, Neutrophils % (Manual) 86, Lymphocytes % (Manual) 4, Monocytes % (Manual) 3, Eosinophils % (Manual) 4, Band Neutrophils 3, Smudge Cells SLIGHT, Percent Immature Platelet Fraction 5.5, Polychromasia SLIGHT, Anisocytosis MODERATE, Tear Drop Cells SLIGHT, Andrey Cells MARKED, Sodium Level 139, Potassium Level 4.2, Chloride Level 110H, Carbon Dioxide Level 23, Anion Gap 6, Blood Urea Nitrogen 11, Creatinine 0.73, Estimat Glomerular Filtration Rate 100, BUN/Creatinine Ratio 15, Glucose Level 111H, Calcium Level 7.5L, Corrected Calcium 8.9, Phosphorus Level 2.3, Magnesium Level 2.0, Total Bilirubin 1.5H, Aspartate Amino Transf (AST/SGOT) 27, Alanine Aminotransferase (ALT/SGPT) 196H, Alkaline Phosphatase 47, Total Protein 5.0L, Albumin 2.3L 02/28/23 04:26: Arterial Blood pH 7.47H, Arterial Blood Partial Pressure CO2 34L, Arterial Blood Partial Pressure O2 113H, Arterial Blood HCO3 25, Arterial Blood Total CO2 25.7, Arterial Blood Oxygen Saturation 100, Arterial Blood Base Excess 1.5, Blood Gas Ventilator Setting YES, Blood Gas Inspired Oxygen 40% 03/01/23 03:20: White Blood Count 6.7, Red Blood Count 3.02L, Hemoglobin 8.0L, Hematocrit 26L, Mean Corpuscular Volume 84, Mean Corpuscular Hemoglobin 27, Mean Corpuscular Hemoglobin Concent 31L, Red Cell Distribution Width 19.9H, Platelet Count 124L, Mean Platelet Volume 11.7, Immature Granulocyte % (Auto) 1, Neutrophils (%) (Auto) 79H, Lymphocytes (%) (Auto) 6L, Monocytes (%) (Auto) 5, Eosinophils (%) (Auto) 9, Basophils (%) (Auto) 0, Neutrophils # (Auto) 5.3, Lymphocytes # (Auto) 0.4L, Monocytes # (Auto) 0.3, Eosinophils # (Auto) 0.6H, Basophils # (Auto) 0.0, Immature Granulocyte # (Auto) 0.1, Percent Immature Platelet Fraction 4.5, Sodium Level 139, Potassium Level 4.0, Chloride Level 109H, Carbon Dioxide Level 22, Anion Gap 8, Blood Urea Nitrogen 11, Creatinine 0.63, Estimat Glomerular Filtration Rate 105, BUN/Creatinine Ratio 17, Glucose Level 89, Calcium Level 7.4L, Corrected Calcium 8.8, Phosphorus Level 2.6, Magnesium Level 1.8, Total Bilirubin 0.9, Aspartate Amino Transf (AST/SGOT) 22, Alanine Aminotransferase (ALT/SGPT) 126H, Alkaline Phosphatase 46, Total Protein 4.9L, Albumin 2.2L, Triglycerides Level 808#H 03/01/23 05:33: Arterial Blood pH 7.49H, Arterial Blood Partial Pressure CO2 33L, Arterial Blood Partial Pressure O2 83, Arterial Blood HCO3 25, Arterial Blood Total CO2 26.1, Arterial Blood Oxygen Saturation 99, Arterial Blood Base Excess 2.2, Blood Gas Ventilator Setting YES, Blood Gas Inspired Oxygen 100% 03/01/23 12:13: Glucometer 85 03/01/23 18:29: Glucometer 90 03/02/23 01:01: Glucometer 73 03/02/23 04:10: Arterial Blood pH 7.45H, Arterial Blood Partial Pressure CO2 31L, Arterial Blood Partial Pressure O2 109H, Arterial Blood HCO3 22L, Arterial Blood Total CO2 22.5, Arterial Blood Oxygen Saturation 100, Arterial Blood Base Excess -1.6, Blood Gas Ventilator Setting NO, Blood Gas Inspired Oxygen 25% 03/02/23 05:00: White Blood Count 7.2, Red Blood Count 3.00L, Hemoglobin 7.6L, Hematocrit 26L, Mean Corpuscular Volume 85, Mean Corpuscular Hemoglobin 25, Mean Corpuscular Hemoglobin Concent 30L, Red Cell Distribution Width 20.1H, Platelet Count 152, Mean Platelet Volume 10.7, Immature Granulocyte % (Auto) 1, Neutrophils (%) (Auto) 82H, Lymphocytes (%) (Auto) 5L, Monocytes (%) (Auto) 5, Eosinophils (%) (Auto) 7, Basophils (%) (Auto) 0, Neutrophils # (Auto) 5.9, Lymphocytes # (Auto) 0.4L, Monocytes # (Auto) 0.4, Eosinophils # (Auto) 0.5H, Basophils # (Auto) 0.0, Immature Granulocyte # (Auto) 0.1, Sodium Level 141, Potassium Level 3.6, Chloride Level 112H, Carbon Dioxide Level 22, Anion Gap 7, Blood Urea Nitrogen 12, Creatinine 0.61, Estimat Glomerular Filtration Rate 106, BUN/Creatinine Ratio 20, Glucose Level 77, Calcium Level 7.4L, Corrected Calcium 8.8, Phosphorus Level 2.5, Magnesium Level 1.8, Total Bilirubin 1.0, Aspartate Amino Transf (AST/SGOT) 35H, Alanine Aminotransferase (ALT/SGPT) 92H, Alkaline Phosphatase 62, Total Protein 4.4L, Albumin 2.2L 03/02/23 11:41: Glucometer 75 03/02/23 17:37: Glucometer 67L 03/02/23 23:45: Glucometer 100 03/03/23 03:35: White Blood Count 7.4, Red Blood Count 2.93L, Hemoglobin 7.3L, Hematocrit 25L, Mean Corpuscular Volume 84, Mean Corpuscular Hemoglobin 25, Mean Corpuscular Hemoglobin Concent 30L, Red Cell Distribution Width 20.4H, Platelet Count 186, Mean Platelet Volume 10.3, Immature Granulocyte % (Auto) 1, Neutrophils (%) (Auto) 85H, Lymphocytes (%) (Auto) 4L, Monocytes (%) (Auto) 5, Eosinophils (%) (Auto) 5, Basophils (%) (Auto) 0, Neutrophils # (Auto) 6.3, Lymphocytes # (Auto) 0.3L, Monocytes # (Auto) 0.3, Eosinophils # (Auto) 0.4H, Basophils # (Auto) 0.0, Immature Granulocyte # (Auto) 0.1, Sodium Level 139, Potassium Level 3.7, Chloride Level 112H, Carbon Dioxide Level 22, Anion Gap 5, Blood Urea Nitrogen 10, Creatinine 0.60, Estimat Glomerular Filtration Rate 106, BUN/Creatinine Ratio 17, Glucose Level 108H, Calcium Level 6.9L, Corrected Calcium 8.5, Phosphorus Level 2.4, Magnesium Level 1.8, Total Bilirubin 0.7, Aspartate Amino Transf (AST/SGOT) 26, Alanine Aminotransferase (ALT/SGPT) 67H, Alkaline Phosphatase 61, Total Protein 4.3L, Albumin 2.0L 03/03/23 04:06: Arterial Blood pH 7.48H, Arterial Blood Partial Pressure CO2 30L, Arterial Blood Partial Pressure O2 73L, Arterial Blood HCO3 22L, Arterial Blood Total CO2 23.2, Arterial Blood Oxygen Saturation 97, Arterial Blood Base Excess -0.3, Blood Gas Ventilator Setting YES, Blood Gas Inspired Oxygen 21% 03/03/23 09:05: Ammonia 25, Triglycerides Level 124 03/03/23 11:50: Glucometer 108 03/03/23 17:49: Glucometer 109 03/03/23 23:36: Glucometer 116H 03/04/23 04:25: Arterial Blood pH 7.43, Arterial Blood Partial Pressure CO2 35, Arterial Blood Partial Pressure O2 75L, Arterial Blood HCO3 23, Arterial Blood Total CO2 24.3, Arterial Blood Oxygen Saturation 98, Arterial Blood Base Excess -0.6, Blood Gas Ventilator Setting YES, Blood Gas Inspired Oxygen 21% 03/04/23 05:10: White Blood Count 6.9, Red Blood Count 2.86L, Hemoglobin 7.3L, Hematocrit 24L, Mean Corpuscular Volume 85, Mean Corpuscular Hemoglobin 26, Mean Corpuscular Hemoglobin Concent 30L, Red Cell Distribution Width 20.6H, Platelet Count 214, Mean Platelet Volume 10.6, Immature Granulocyte % (Auto) 2, Neutrophils (%) (Auto) 86H, Lymphocytes (%) (Auto) 5L, Monocytes (%) (Auto) 5, Eosinophils (%) (Auto) 3, Basophils (%) (Auto) 0, Neutrophils # (Auto) 5.9, Lymphocytes # (Auto) 0.3L, Monocytes # (Auto) 0.4, Eosinophils # (Auto) 0.2, Basophils # (Auto) 0.0, Immature Granulocyte # (Auto) 0.1, Sodium Level 137, Potassium Level 3.9, Chloride Level 110H, Carbon Dioxide Level 24, Anion Gap 3L, Blood Urea Nitrogen 8, Creatinine 0.61, Estimat Glomerular Filtration Rate 106, BUN/Creatinine Ratio 13, Glucose Level 126H, Calcium Level 7.1L, Corrected Calcium 8.6, Phosphorus Level 2.9, Magnesium Level 1.9, Total Bilirubin 0.5, Aspartate Amino Transf (AST/SGOT) 17, Alanine Aminotransferase (ALT/SGPT) 51, Alkaline Phosphatase 57, Total Protein 4.4L, Albumin 2.1L 03/04/23 12:38: Arterial Blood pH 7.48H, Arterial Blood Partial Pressure CO2 31L, Arterial Blood Partial Pressure O2 74L, Arterial Blood HCO3 23, Arterial Blood Total CO2 24.1, Arterial Blood Oxygen Saturation 97, Arterial Blood Base Excess 0.4, Blood Gas Ventilator Setting YES, Blood Gas Inspired Oxygen 21% 03/04/23 18:07: Glucometer 102 03/05/23 01:24: Glucometer 104 03/05/23 04:20: Arterial Blood pH 7.43, Arterial Blood Partial Pressure CO2 33L, Arterial Blood Partial Pressure O2 83, Arterial Blood HCO3 22L, Arterial Blood Total CO2 22.9, Arterial Blood Oxygen Saturation 98, Arterial Blood Base Excess -1.7, Blood Gas Ventilator Setting YES, Blood Gas Inspired Oxygen 100% 03/05/23 05:30: White Blood Count 11.3H, Red Blood Count 3.76L, Hemoglobin 9.6#L, Hematocrit 32L , Mean Corpuscular Volume 85, Mean Corpuscular Hemoglobin 26, Mean Corpuscular Hemoglobin Concent 30L, Red Cell Distribution Width 21.2H, Platelet Count 262, Mean Platelet Volume 11.3, Immature Granulocyte % (Auto) 1, Neutrophils (%) (Auto) 86H, Lymphocytes (%) (Auto) 4L, Monocytes (%) (Auto) 6, Eosinophils (%) (Auto) 2, Basophils (%) (Auto) 0, Neutrophils # (Auto) 9.7H, Lymphocytes # (Auto) 0.4L, Monocytes # (Auto) 0.7, Eosinophils # (Auto) 0.2, Basophils # (Auto) 0.1, Immature Granulocyte # (Auto) 0.1, Neutrophils % (Manual) 91, Lymphocytes % (Manual) 4, Monocytes % (Manual) 2, Eosinophils % (Manual) 2, Basophils % (Manual) 0, Band Neutrophils 1, Polychromasia SLIGHT, Hypochromasia SLIGHT, Poikilocytosis SLIGHT, Anisocytosis SLIGHT, Macrocytosis SLIGHT, Tear Drop Cells SLIGHT, Elliptocytes SLIGHT, Sodium Level 134L, Potassium Level 4.1, Chloride Level 107, Carbon Dioxide Level 20L, Anion Gap 7, Blood Urea Nitrogen 8, Creatinine 0.60, Estimat Glomerular Filtration Rate 106, BUN/Creatinine Ratio 13, Glucose Level 100, Calcium Level 7.7L, Corrected Calcium 8.9, Phosphorus Level 3.1, Magnesium Level 1.9, Total Bilirubin 0.7, Aspartate Amino Transf (AST/SGOT) 19, Alanine Aminotransferase (ALT/SGPT) 50, Alkaline Phosphatase 82, Total Protein 5.5L, Albumin 2.5L 03/05/23 11:37: Glucometer 112H 03/05/23 17:33: Glucometer 108 03/06/23 00:08: Glucometer 102 03/06/23 03:15: Arterial Blood pH 7.44H, Arterial Blood Partial Pressure CO2 33L, Arterial Blood Partial Pressure O2 57L, Arterial Blood HCO3 22L, Arterial Blood Total CO2 23.4, Arterial Blood Oxygen Saturation 90L, Arterial Blood Base Excess -1.1, Blood Gas Ventilator Setting YES, Blood Gas Inspired Oxygen 21% 03/06/23 04:30: White Blood Count 10.7, Red Blood Count 2.72L, Hemoglobin 6.9#*L, Hematocrit 23L , Mean Corpuscular Volume 83, Mean Corpuscular Hemoglobin 25, Mean Corpuscular Hemoglobin Concent 31L, Red Cell Distribution Width 21.1H, Platelet Count 283, Mean Platelet Volume 10.2, Immature Granulocyte % (Auto) 1, Neutrophils (%) (Auto) 92H, Lymphocytes (%) (Auto) 2L, Monocytes (%) (Auto) 5, Eosinophils (%) (Auto) 0, Basophils (%) (Auto) 0, Neutrophils # (Auto) 9.9H, Lymphocytes # (Auto) 0.2L, Monocytes # (Auto) 0.5, Eosinophils # (Auto) 0.0, Basophils # (Auto) 0.0, Immature Granulocyte # (Auto) 0.1, Sodium Level 135, Potassium Level 3.9, Chloride Level 108H, Carbon Dioxide Level 19L, Anion Gap 8, Blood Urea N itrogen 7, Creatinine 0.59L, Estimat Glomerular Filtration Rate 107, BUN/Creatinine Ratio 12, Glucose Level 124H, Calcium Level 7.1L, Phosphorus Level 2.7, Magnesium Level 1.8 03/06/23 05:38: White Blood Count 10.8, Red Blood Count 2.82L, Hemoglobin 7.2L, Hematocrit 24L, Mean Corpuscular Volume 84, Mean Corpuscular Hemoglobin 26, Mean Corpuscular Hemoglobin Concent 31L, Red Cell Distribution Width 21.0H, Platelet Count 291, Mean Platelet Volume 10.4, Immature Granulocyte % (Auto) 1, Neutrophils (%) (Auto) 92H, Lymphocytes (%) (Auto) 2L, Monocytes (%) (Auto) 5, Eosinophils (%) (Auto) 0, Basophils (%) (Auto) 0, Neutrophils # (Auto) 9.9H, Lymphocytes # (Auto) 0.2L, Monocytes # (Auto) 0.5, Eosinophils # (Auto) 0.0, Basophils # (Auto) 0.0, Immature Granulocyte # (Auto) 0.1 03/06/23 11:37: Glucometer 111H 03/06/23 17:42: Glucometer 86 03/07/23 00:23: Glucometer 89 03/07/23 03:35: White Blood Count 13.4H, Red Blood Count 2.72L, Hemoglobin 6.9*L, Hematocrit 23L , Mean Corpuscular Volume 84, Mean Corpuscular Hemoglobin 25, Mean Corpuscular Hemoglobin Concent 30L, Red Cell Distribution Width 20.8H, Platelet Count 336, Mean Platelet Volume 10.4, Immature Granulocyte % (Auto) 1, Neutrophils (%) (Auto) 94H, Lymphocytes (%) (Auto) 1L, Monocytes (%) (Auto) 4, Eosinophils (%) (Auto) 0, Basophils (%) (Auto) 0, Neutrophils # (Auto) 12.6H, Lymphocytes # (Auto) 0.2L, Monocytes # (Auto) 0.5, Eosinophils # (Auto) 0.1, Basophils # (Auto) 0.0, Immature Granulocyte # (Auto) 0.1, Sodium Level 134L, Potassium Level 4.1, Chloride Level 107, Carbon Dioxide Level 20L, Anion Gap 7, Blood Urea Nitrogen 7, Creatinine 0.61, Estimat Glomerular Filtration Rate 106, BUN/Creatinine Ratio 11, Glucose Level 123H, Calcium Level 7.4L, Phosphorus Level 3.0, Magnesium Level 1.9 03/07/23 04:35: Arterial Blood pH 7.43, Arterial Blood Partial Pressure CO2 34L, Arterial Blood Partial Pressure O2 83, Arterial Blood HCO3 23, Arterial Blood Total CO2 23.6, Arterial Blood Oxygen Saturation 99, Arterial Blood Base Excess -1.5, Blood Gas Ventilator Setting YES, Blood Gas Inspired Oxygen 30% 03/07/23 11:10: Hemoglobin 8.3#L, Hematocrit 27L 03/07/23 12:10: Glucometer 101 03/07/23 17:25: Glucometer 113H 03/07/23 23:05: Vancomycin Level Trough 10.8 03/08/23 04:30: Arterial Blood pH 7.42, Arterial Blood Partial Pressure CO2 33L, Arterial Blood Partial Pressure O2 66L, Arterial Blood HCO3 21L, Arterial Blood Total CO2 22.4, Arterial Blood Oxygen Saturation 96, Arterial Blood Base Excess -2.7L, Blood Gas Ventilator Setting YES, Blood Gas Inspired Oxygen 21% 03/08/23 04:50: White Blood Count 12.1H, Red Blood Count 3.11L, Hemoglobin 8.1L, Hematocrit 26L, Mean Corpuscular Volume 83, Mean Corpuscular Hemoglobin 26, Mean Corpuscular Hemoglobin Concent 31L, Red Cell Distribution Width 19.8H, Platelet Count 423H, Mean Platelet Volume 9.7, Immature Granulocyte % (Auto) 1, Neutrophils (%) (Auto) 91H, Lymphocytes (%) (Auto) 2L, Monocytes (%) (Auto) 5, Eosinophils (%) (Auto) 1, Basophils (%) (Auto) 0, Neutrophils # (Auto) 11.0H, Lymphocytes # (Auto) 0.3L, Monocytes # (Auto) 0.6, Eosinophils # (Auto) 0.1, Basophils # (Auto) 0.0, Immature Granulocyte # (Auto) 0.1, Sodium Level 136, Potassium Level 3.7, Chloride Level 107, Carbon Dioxide Level 20L, Anion Gap 9, Blood Urea Nitrogen 7, Creatinine 0.57L, Estimat Glomerular Filtration Rate 108, BUN/Creatinine Ratio 12, Glucose Level 116H, Calcium Level 7.7L, Phosphorus Level 3.0, Magnesium Level 1.8 03/08/23 11:23: Glucometer 90 Microbiology 03/05/23 Gram Stain - Final, Complete 03/05/23 Sputum Culture - Final, Complete Staphylococcus aureus Usual upper respiratory mat 03/05/23 Blood Culture - Final, Complete Staph, Coag Neg ([facility] ARCHITECT) See Comments 02/22/23 Urine Culture - Final, Complete NO GROWTH Pending Labs Microbiology Date/Time Source Procedure Growth Status 03/05/23 10:35 Sputum Endotracheal Gram Stain - Final Complete 03/05/23 10:35 Sputum Culture - Final Staphylococcus aureus Usual upper respiratory mat Complete 03/05/23 10:10 Peripheral Rt Hand Blood Culture - Final Staph, Coag Neg ([facility] ARCHITECT) See Comments Complete 03/05/23 10:00 Port Picc Blood Culture - Preliminary Resulted 02/27/23 10:10 Sputum Endotracheal Gram Stain - Final Complete 02/27/23 10:10 Sputum Endotracheal Sputum Culture - Final Complete 02/22/23 22:18 Peripheral Rt Hand Blood Culture - Final Complete 02/22/23 21:55 Urine U Cath,Nos Urine Culture - Final NO GROWTH Complete 02/22/23 12:45 Nasal MRSA Screen - Final MRSA not isolated Complete 02/22/23 10:35 Peripheral Rt Ac Blood Culture - Final Complete Laboratory Tests 02/22/23 10:35: White Blood Count 7.0, Red Blood Count 1.71, Hemoglobin 3.5, Hematocrit 13, Mean Corpuscular Volume 75, Mean Corpuscular Hemoglobin 20, Mean Corpuscular Hemoglobin Concent 27, Red Cell Distribution Width 17.9, Platelet Count 300, Mean Platelet Volume 10.4, Immature Granulocyte % (Auto) 0, Neutrophils (%) (Auto) 90, Lymphocytes (%) (Auto) 3, Monocytes (%) (Auto) 7, Eosinophils (%) (Auto) 0, Basophils (%) (Auto) 0, Neutrophils # (Auto) 6.3, Lymphocytes # (Auto) 0.2, Monocytes # (Auto) 0.5, Eosinophils # (Auto) 0.0, Basophils # (Auto) 0.0, Immature Granulocyte # (Auto) 0.0, Neutrophils % (Manual) 90, Lymphocytes % (Manual) 4, Monocytes % (Manual) 6, Polychromasia SLIGHT, Hypochromasia MODERATE, Poikilocytosis MODERATE, Anisocytosis SLIGHT, Microcytosis SLIGHT, Target Cells SLIGHT, Tear Drop Cells SLIGHT, Elliptocytes SLIGHT, Prothrombin Time 18.0, INR Comment 1.4, Activated Partial Thromboplast Time 28, Sodium Level 131, Potassium Level 4.1, Chloride Level 104, Carbon Dioxide Level 13, Anion Gap 14, Blood Urea Nitrogen 16, Creatinine 1.10, Estimat Glomerular Filtration Rate 74, BUN/Creatinine Ratio 15, Glucose Level 109, Calcium Level 8.5, Corrected Calcium 8.9, Magnesium Level 2.2, Total Bilirubin 0.7, Aspartate Amino Transf (AST/SGOT) 128, Alanine Aminotransferase (ALT/SGPT) 127, Alkaline Phosphatase 71, Troponin I 0.082, B-Type Natriuretic Peptide 736.6, Total Protein 6.0, Albumin 3.5, Lipase 45, Serum Alcohol < 10 02/22/23 12:46: Lab Scanned Report Referred Lab Report 02/22/23 20:14: Arterial Blood pH 7.26, Arterial Blood Partial Pressure CO2 12, Arterial Blood Partial Pressure O2 74, Arterial Blood HCO3 5, Arterial Blood Total CO2 5.8, Arterial Blood Oxygen Saturation 94, Arterial Blood Base Excess -18.8, Blood Gas Ventilator Setting NO, Blood Gas Inspired Oxygen RA 02/22/23 20:55: White Blood Count 16.7, Red Blood Count 3.61, Hemoglobin 9.1, Hematocrit 30, Mean Corpuscular Volume 83, Mean Corpuscular Hemoglobin 25, Mean Corpuscular Hemoglobin Concent 30, Red Cell Distribution Width 17.1, Platelet Count 279, Mean Platelet Volume 10.7, Immature Granulocyte % (Auto) 1, Neutrophils (%) (Auto) 91, Lymphocytes (%) (Auto) 1, Monocytes (%) (Auto) 7, Eosinophils (%) (Auto) 0, Basophils (%) (Auto) 0, Neutrophils # (Auto) 15.2, Lymphocytes # (Auto) 0.2, Monocytes # (Auto) 1.1, Eosinophils # (Auto) 0.0, Basophils # (Auto) 0.0, Immature Granulocyte # (Auto) 0.1, Neutrophils % (Manual) 93, Lymphocytes % (Manual) 2, Monocytes % (Manual) 5, Polychromasia SLIGHT, Hypochromasia MODERATE, Poikilocytosis MODERATE, Anisocytosis SLIGHT, Tear Drop Cells SLIGHT, Elliptocytes SLIGHT, Sodium Level 137, Potassium Level 6.1, Chloride Level 106, Carbon Dioxide Level 9, Anion Gap 22, Blood Urea Nitrogen 20, Creatinine 1.39, Estimat Glomerular Filtration Rate 56, BUN/Creatinine Ratio 14, Glucose Level 70, Calcium Level 8.2, Nucleated Red Blood Cells 6, Andrey Cells MARKED 02/22/23 21:55: Urine Color YELLOW, Urine Clarity CLEAR, Urine pH 5.5, Urine Specific [place] 1.025, Urine Protein 1+, Urine Glucose (UA) NEGATIVE, Urine Ketones TRACE, Urine Nitrite NEGATIVE, Urine Bilirubin NEGATIVE, Urine Urobilinogen 0.2, Urine Leukocyte Esterase NEGATIVE, Urine RBC (Auto) TRACE, Urine RBC 5-10, Urine WBC 0-2, Urine Squamous Epithelial Cells NONE, Urine Crystals NONE, Urine Bacteria FEW, Urine Casts PRESENT, Urine Hyaline Casts 25-50, Urine Mucus NEGATIVE, Urine Culture Indicated CULTURE PENDING 02/22/23 22:18: Lactic Acid Level 12.72 02/23/23 00:19: Lactic Acid Level 10.71 02/23/23 02:18: Lactic Acid Level 9.68 02/23/23 03:01: Arterial Blood pH 7.34, Arterial Blood Partial Pressure CO2 23, Arterial Blood Partial Pressure O2 67, Arterial Blood HCO3 12, Arterial Blood Total CO2 13.1, Arterial Blood Oxygen Saturation 92, Arterial Blood Base Excess -11.4, Blood Gas Ventilator Setting NO, Blood Gas Inspired Oxygen ROOM AIR 02/23/23 04:03: White Blood Count 16.6, Red Blood Count 3.71, Hemoglobin 9.3, Hematocrit 30, Mean Corpuscular Volume 80, Mean Corpuscular Hemoglobin 25, Mean Corpuscular Hemoglobin Concent 31, Red Cell Distribution Width 17.0, Platelet Count 192, Mean Platelet Volume 10.6, Immature Granulocyte % (Auto) 1, Neutrophils (%) (Auto) 92, Lymphocytes (%) (Auto) 1, Monocytes (%) (Auto) 6, Eosinophils (%) (Auto) 0, Basophils (%) (Auto) 0, Neutrophils # (Auto) 15.3, Lymphocytes # (Auto) 0.1, Monocytes # (Auto) 0.9, Eosinophils # (Auto) 0.0, Basophils # (Auto) 0.0, Immature Granulocyte # (Auto) 0.2, Sodium Level 139, Potassium Level 4.7, Chloride Level 110, Carbon Dioxide Level 12, Anion Gap 17, Blood Urea Nitrogen 27, Creatinine 1.27, Estimat Glomerular Filtration Rate 62, BUN/Creatinine Ratio 21, Glucose Level 101, Lactic Acid Level 8.63, Calcium Level 8.0, Corrected Calcium 8.8, Phosphorus Level 6.3, Magnesium Level 2.1, Total Bilirubin 3.6, Aspartate Amino Transf (AST/SGOT) 1310, Alanine Aminotransferase (ALT/SGPT) 1025, Alkaline Phosphatase 64, Total Protein 5.0, Albumin 3.0, Vitamin B1 Level 131.8 02/23/23 06:13: Lactic Acid Level 6.03 02/23/23 08:12: Lactic Acid Level 3.67 02/23/23 08:38: Ammonia 100 02/23/23 09:43: Lab Scanned Report Transfusion Reaction Form 02/23/23 10:25: Lactic Acid Level 2.74 02/23/23 12:10: Lactic Acid Level 2.61 02/23/23 12:57: Lab Scanned Report Transfusion Reaction Form 02/23/23 14:15: Lactic Acid Level 2.98 02/23/23 15:55: Iron Level 51, Total Iron Binding Capacity 308, Unsaturated Iron Binding Capacity 257, Transferrin % Saturation 17, Ferritin 59.1, Acetaminophen Level < 10, Hepatitis A IgM Antibody Non-Reactive, Hepatitis B Surface Antigen Non- Reactive, Hepatitis B Core IgM Antibody Non-Reactive, Hepatitis C Antibody Non- Reactive 02/23/23 22:47: White Blood Count 17.8, Red Blood Count 3.46, Hemoglobin 8.8, Hematocrit 28, Mean Corpuscular Volume 80, Mean Corpuscular Hemoglobin 25, Mean Corpuscular Hemoglobin Concent 32, Red Cell Distribution Width 17.8, Platelet Count 139, Mean Platelet Volume 11.2, Immature Granulocyte % (Auto) 1, Neutrophils (%) (Auto) 92, Lymphocytes (%) (Auto) 2, Monocytes (%) (Auto) 5, Eosinophils (%) (Auto) 0, Basophils (%) (Auto) 0, Neutrophils # (Auto) 16.4, Lymphocytes # (Auto) 0.3, Monocytes # (Auto) 1.0, Eosinophils # (Auto) 0.0, Basophils # (Auto) 0.0, Immature Granulocyte # (Auto) 0.2, Percent Immature Platelet Fraction 5.6 02/24/23 05:45: White Blood Count 16.9, Red Blood Count 3.63, Hemoglobin 9.2, Hematocrit 29, Mean Corpuscular Volume 80, Mean Corpuscular Hemoglobin 25, Mean Corpuscular Hemoglobin Concent 32, Red Cell Distribution Width 18.4, Platelet Count 141, Mean Platelet Volume 10.7, Immature Granulocyte % (Auto) 1, Neutrophils (%) (Auto) 92, Lymphocytes (%) (Auto) 2, Monocytes (%) (Auto) 5, Eosinophils (%) (Auto) 0, Basophils (%) (Auto) 0, Neutrophils # (Auto) 15.6, Lymphocytes # (Auto) 0.3, Monocytes # (Auto) 0.8, Eosinophils # (Auto) 0.0, Basophils # (Auto) 0.0, Immature Granulocyte # (Auto) 0.2, Percent Immature Platelet Fraction 6.2, Sodium Level 134, Potassium Level 3.9, Chloride Level 106, Carbon Dioxide Level 18, Anion Gap 10, Blood Urea Nitrogen 35, Creatinine 1.14, Estimat Glomerular Filtration Rate 71, BUN/Creatinine Ratio 31, Glucose Level 93, Lactic Acid Level 3.33, Calcium Level 7.1, Corrected Calcium 8.1, Phosphorus Level 3.8, Magnesium Level 2.5, Total Bilirubin 1.7, Aspartate Amino Transf (AST/SGOT) 842, Alanine Aminotransferase (ALT/SGPT) 1232, Alkaline Phosphatase 70, Total Protein 4.9, Albumin 2.8 02/24/23 07:55: Lactic Acid Level 2.73, Ammonia 47 02/25/23 04:19: White Blood Count 15.5, Red Blood Count 3.64, Hemoglobin 9.2, Hematocrit 30, Mean Corpuscular Volume 81, Mean Corpuscular Hemoglobin 25, Mean Corpuscular Hemoglobin Concent 31, Red Cell Distribution Width 19.0, Platelet Count 116, Mean Platelet Volume 11.6, Immature Granulocyte % (Auto) 2, Neutrophils (%) (Auto) 91, Lymphocytes (%) (Auto) 2, Monocytes (%) (Auto) 6, Eosinophils (%) (Auto) 0, Basophils (%) (Auto) 0, Neutrophils # (Auto) 14.0, Lymphocytes # (Auto) 0.3, Monocytes # (Auto) 0.9, Eosinophils # (Auto) 0.0, Basophils # (Auto) 0.0, Immature Granulocyte # (Auto) 0.3, Percent Immature Platelet Fraction 6.0, Sodium Level 135, Potassium Level 4.2, Chloride Level 108, Carbon Dioxide Level 17, Anion Gap 10, Blood Urea Nitrogen 17, Creatinine 0.83, Estimat Glomerular Filtration Rate 97, BUN/Creatinine Ratio 20, Glucose Level 90, Calcium Level 7.3, Corrected Calcium 8.3, Phosphorus Level 2.5, Magnesium Level 2.4, Total Bilirubin 1.5, Aspartate Amino Transf (AST/SGOT) 351, Alanine Aminotransferase (ALT/SGPT) 902, Alkaline Phosphatase 65, Total Protein 5.6, Albumin 2.7, Thyroid Stimulating Hormone (TSH) 0.73 02/25/23 10:30: White Blood Count 16.7, Red Blood Count 3.69, Hemoglobin 9.5, Hematocrit 30, Mean Corpuscular Volume 81, Mean Corpuscular Hemoglobin 26, Mean Corpuscular Hemoglobin Concent 32, Red Cell Distribution Width 19.5, Platelet Count 102, Mean Platelet Volume 11.4, Arterial Blood pH 7.47, Arterial Blood Partial Pressure CO2 29, Arterial Blood Partial Pressure O2 56, Arterial Blood HCO3 21, Arterial Blood Total CO2 22.0, Arterial Blood Oxygen Saturation 90, Arterial Blood Base Excess -1.5, Blood Gas Ventilator Setting NO, Blood Gas Inspired Oxygen 3 L 02/25/23 11:00: Prothrombin Time 19.0, INR Comment 1.5 02/26/23 05:23: White Blood Count 11.9, Red Blood Count 3.20, Hemoglobin 8.1, Hematocrit 26, Mean Corpuscular Volume 80, Mean Corpuscular Hemoglobin 25, Mean Corpuscular Hemoglobin Concent 32, Red Cell Distribution Width 18.7, Platelet Count 112, Mean Platelet Volume 11.0, Immature Granulocyte % (Auto) 1, Neutrophils (%) (Auto) 92, Lymphocytes (%) (Auto) 1, Monocytes (%) (Auto) 6, Eosinophils (%) (Auto) 0, Basophils (%) (Auto) 0, Neutrophils # (Auto) 11.0, Lymphocytes # (Auto) 0.2, Monocytes # (Auto) 0.7, Eosinophils # (Auto) 0.0, Basophils # (Auto) 0.0, Immature Granulocyte # (Auto) 0.1, Sodium Level 138, Potassium Level 2.9, Chloride Level 106, Carbon Dioxide Level 25, Anion Gap 7, Blood Urea Nitrogen 11, Creatinine 0.63, Estimat Glomerular Filtration Rate 105, BUN/Creatinine Ratio 17, Glucose Level 99, Calcium Level 7.2, Corrected Calcium 8.6, Phosphorus Level 2.1, Magnesium Level 1.9, Total Bilirubin 1.4, Aspartate Amino Transf (AST/SGOT) 120, Alanine Aminotransferase (ALT/SGPT) 502, Alkaline Phosphatase 51, Total Protein 4.3, Albumin 2.2 02/26/23 09:20: Ammonia 29 02/26/23 11:00: Arterial Blood pH 7.56, Arterial Blood Partial Pressure CO2 32, Arterial Blood Partial Pressure O2 132, Arterial Blood HCO3 29, Arterial Blood Total CO2 29.7, Arterial Blood Oxygen Saturation 100, Arterial Blood Base Excess 6.7, Blood Gas Ventilator Setting NO, Blood Gas Inspired Oxygen 80% 02/26/23 13:40: White Blood Count 13.7, Red Blood Count 3.46, Hemoglobin 8.7, Hematocrit 28, Mean Corpuscular Volume 80, Mean Corpuscular Hemoglobin 25, Mean Corpuscular Hemoglobin Concent 31, Red Cell Distribution Width 19.5, Platelet Count 119, Mean Platelet Volume 11.0, Immature Granulocyte % (Auto) 1, Neutrophils (%) (Auto) 92, Lymphocytes (%) (Auto) 1, Monocytes (%) (Auto) 5, Eosinophils (%) (Auto) 0, Basophils (%) (Auto) 0, Neutrophils # (Auto) 12.7, Lymphocytes # (Auto) 0.2, Monocytes # (Auto) 0.7, Eosinophils # (Auto) 0.0, Basophils # (Auto) 0.0, Immature Granulocyte # (Auto) 0.1, Percent Immature Platelet Fraction 6.7, Sodium Level 138, Potassium Level 4.4, Chloride Level 105, Carbon Dioxide Level 25, Anion Gap 8, Blood Urea Nitrogen 11, Creatinine 0.68, Estimat Glomerular Filtration Rate 103, BUN/Creatinine Ratio 16, Glucose Level 107, Calcium Level 7.2 02/27/23 04:19: White Blood Count 9.2, Red Blood Count 2.63, Hemoglobin 6.6, Hematocrit 21, Mean Corpuscular Volume 81, Mean Corpuscular Hemoglobin 25, Mean Corpuscular Hemoglobin Concent 31, Red Cell Distribution Width 19.8, Platelet Count 104, Mean Platelet Volume 11.4, Immature Granulocyte % (Auto) 1, Neutrophils (%) (Auto) 91, Lymphocytes (%) (Auto) 2, Monocytes (%) (Auto) 6, Eosinophils (%) (Auto) 1, Basophils (%) (Auto) 0, Neutrophils # (Auto) 8.4, Lymphocytes # (Auto) 0.1, Monocytes # (Auto) 0.5, Eosinophils # (Auto) 0.1, Basophils # (Auto) 0.0, Immature Granulocyte # (Auto) 0.1, Percent Immature Platelet Fraction 5.8, Sodium Level 142, Potassium Level 3.3, Chloride Level 108, Carbon Dioxide Level 25, Anion Gap 9, Blood Urea Nitrogen 14, Creatinine 0.70, Estimat Glomerular Filtration Rate 102, BUN/Creatinine Ratio 20, Glucose Level 114, Calcium Level 7.7, Corrected Calcium 9.0, Phosphorus Level 2.2, Magnesium Level 2.0, Total Bilirubin 1.5, Aspartate Amino Transf (AST/SGOT) 51, Alanine Aminotransferase (ALT/SGPT) 294, Alkaline Phosphatase 41, Total Protein 4.3, Albumin 2.4, Triglycerides Level 69 02/27/23 07:35: Arterial Blood pH 7.49, Arterial Blood Partial Pressure CO2 35, Arterial Blood Partial Pressure O2 83, Arterial Blood HCO3 27, Arterial Blood Total CO2 27.8, Arterial Blood Oxygen Saturation 98, Arterial Blood Base Excess 3.5, Blood Gas Ventilator Setting NO, Blood Gas Inspired Oxygen 50% FI02/BIPAP 02/27/23 09:45: White Blood Count 11.1, Red Blood Count 3.19, Hemoglobin 8.5, Hematocrit 26, Mean Corpuscular Volume 83, Mean Corpuscular Hemoglobin 27, Mean Corpuscular Hemoglobin Concent 32, Red Cell Distribution Width 18.6, Platelet Count 109, Mean Platelet Volume 12.0, Immature Granulocyte % (Auto) 1, Neutrophils (%) (Auto) 92, Lymphocytes (%) (Auto) 2, Monocytes (%) (Auto) 5, Eosinophils (%) (Auto) 1, Basophils (%) (Auto) 0, Neutrophils # (Auto) 10.2, Lymphocytes # (Auto) 0.2, Monocytes # (Auto) 0.5, Eosinophils # (Auto) 0.1, Basophils # (Auto) 0.0, Immature Granulocyte # (Auto) 0.1, Prothrombin Time 17.2, INR Comment 1.3, Fibrinogen 580 02/27/23 10:01: Arterial Blood pH 7.49, Arterial Blood Partial Pressure CO2 33, Arterial Blood Partial Pressure O2 148, Arterial Blood HCO3 25, Arterial Blood Total CO2 26.1, Arterial Blood Oxygen Saturation 99, Arterial Blood Base Excess 2.2, Blood Gas Ventilator Setting NO, Blood Gas Inspired Oxygen 100% 02/27/23 11:38: Glucometer 108 02/27/23 17:45: Glucometer 123 02/28/23 03:17: White Blood Count 7.8, Red Blood Count 3.04, Hemoglobin 8.1, Hematocrit 25, Mean Corpuscular Volume 83, Mean Corpuscular Hemoglobin 27, Mean Corpuscular Hemoglobin Concent 32, Red Cell Distribution Width 19.7, Platelet Count 101, Mean Platelet Volume 11.0, Immature Granulocyte % (Auto) 1, Neutrophils (%) (Auto) 84, Lymphocytes (%) (Auto) 6, Monocytes (%) (Auto) 6, Eosinophils (%) (Auto) 3, Basophils (%) (Auto) 0, Neutrophils # (Auto) 6.6, Lymphocytes # (Auto) 0.5, Monocytes # (Auto) 0.5, Eosinophils # (Auto) 0.2, Basophils # (Auto) 0.0, Immature Granulocyte # (Auto) 0.1, Neutrophils % (Manual) 86, Lymphocytes % (Manual) 4, Monocytes % (Manual) 3, Eosinophils % (Manual) 4, Band Neutrophils 3, [place] Cells SLIGHT, Percent Immature Platelet Fraction 5.5, Polychromasia SLIGHT, Anisocytosis MODERATE, Tear Drop Cells SLIGHT, Andrey Cells MARKED, Sodium Level 139, Potassium Level 4.2, Chloride Level 110, Carbon Dioxide Level 23, Anion Gap 6, Blood Urea Nitrogen 11, Creatinine 0.73, Estimat Glomerular Filtr ation Rate 100, BUN/Creatinine Ratio 15, Glucose Level 111, Calcium Level 7.5, Corrected Calcium 8.9, Phosphorus Level 2.3, Magnesium Level 2.0, Total Bilirubin 1.5, Aspartate Amino Transf (AST/SGOT) 27, Alanine Aminotransferase (ALT/SGPT) 196, Alkaline Phosphatase 47, Total Protein 5.0, Albumin 2.3 02/28/23 04:26: Arterial Blood pH 7.47, Arterial Blood Partial Pressure CO2 34, Arterial Blood Partial Pressure O2 113, Arterial Blood HCO3 25, Arterial Blood Total CO2 25.7, Arterial Blood Oxygen Saturation 100, Arterial Blood Base Excess 1.5, Blood Gas Ventilator Setting YES, Blood Gas Inspired Oxygen 40% 03/01/23 03:20: White Blood Count 6.7, Red Blood Count 3.02, Hemoglobin 8.0, Hematocrit 26, Mean Corpuscular Volume 84, Mean Corpuscular Hemoglobin 27, Mean Corpuscular Hemoglobin Concent 31, Red Cell Distribution Width 19.9, Platelet Count 124, Mean Platelet Volume 11.7, Immature Granulocyte % (Auto) 1, Neutrophils (%) (Auto) 79, Lymphocytes (%) (Auto) 6, Monocytes (%) (Auto) 5, Eosinophils (%) (Auto) 9, Basophils (%) (Auto) 0, Neutrophils # (Auto) 5.3, Lymphocytes # (Auto) 0.4, Monocytes # (Auto) 0.3, Eosinophils # (Auto) 0.6, Basophils # (Auto) 0.0, Immature Granulocyte # (Auto) 0.1, Percent Immature Platelet Fraction 4.5, Sodium Level 139, Potassium Level 4.0, Chloride Level 109, Carbon Dioxide Level 22, Anion Gap 8, Blood Urea Nitrogen 11, Creatinine 0.63, Estimat Glomerular Filtration Rate 105, BUN/Creatinine Ratio 17, Glucose Level 89, Calcium Level 7.4, Corrected Calcium 8.8, Phosphorus Level 2.6, Magnesium Level 1.8, Total Bilirubin 0.9, Aspartate Amino Transf (AST/SGOT) 22, Alanine Aminotransferase (ALT/SGPT) 126, Alkaline Phosphatase 46, Total Protein 4.9, Albumin 2.2, Triglycerides Level 808 03/01/23 05:33: Arterial Blood pH 7.49, Arterial Blood Partial Pressure CO2 33, Arterial Blood Partial Pressure O2 83, Arterial Blood HCO3 25, Arterial Blood Total CO2 26.1, Arterial Blood Oxygen Saturation 99, Arterial Blood Base Excess 2.2, Blood Gas Ventilator Setting YES, Blood Gas Inspired Oxygen 100% 03/01/23 12:13: Glucometer 85 03/01/23 18:29: Glucometer 90 03/02/23 01:01: Glucometer 73 03/02/23 04:10: Arterial Blood pH 7.45, Arterial Blood Partial Pressure CO2 31, Arterial Blood Partial Pressure O2 109, Arterial Blood HCO3 22, Arterial Blood Total CO2 22.5, Arterial Blood Oxygen Saturation 100, Arterial Blood Base Excess -1.6, Blood Gas Ventilator Setting NO, Blood Gas Inspired Oxygen 25% 03/02/23 05:00: White Blood Count 7.2, Red Blood Count 3.00, Hemoglobin 7.6, Hematocrit 26, Mean Corpuscular Volume 85, Mean Corpuscular Hemoglobin 25, Mean Corpuscular Hemoglobin Concent 30, Red Cell Distribution Width 20.1, Platelet Count 152, Mean Platelet Volume 10.7, Immature Granulocyte % (Auto) 1, Neutrophils (%) (Auto) 82, Lymphocytes (%) (Auto) 5, Monocytes (%) (Auto) 5, Eosinophils (%) (Auto) 7, Basophils (%) (Auto) 0, Neutrophils # (Auto) 5.9, Lymphocytes # (Auto) 0.4, Monocytes # (Auto) 0.4, Eosinophils # (Auto) 0.5, Basophils # (Auto) 0.0, Immature Granulocyte # (Auto) 0.1, Sodium Level 141, Potassium Level 3.6, Chloride Level 112, Carbon Dioxide Level 22, Anion Gap 7, Blood Urea Nitrogen 12, Creatinine 0.61, Estimat Glomerular Filtration Rate 106, BUN/Creatinine Ratio 20, Glucose Level 77, Calcium Level 7.4, Corrected Calcium 8.8, Phosphorus Level 2.5, Magnesium Level 1.8, Total Bilirubin 1.0, Aspartate Amino Transf (AST/SGOT) 35, Alanine Aminotransferase (ALT/SGPT) 92, Alkaline Phosphatase 62, Total Protein 4.4, Albumin 2.2 03/02/23 11:41: Glucometer 75 03/02/23 17:37: Glucometer 67 03/02/23 23:45: Glucometer 100 03/03/23 03:35: White Blood Count 7.4, Red Blood Count 2.93, Hemoglobin 7.3, Hematocrit 25, Mean Corpuscular Volume 84, Mean Corpuscular Hemoglobin 25, Mean Corpuscular Hemoglobin Concent 30, Red Cell Distribution Width 20.4, Platelet Count 186, Mean Platelet Volume 10.3, Immature Granulocyte % (Auto) 1, Neutrophils (%) (Auto) 85, Lymphocytes (%) (Auto) 4, Monocytes (%) (Auto) 5, Eosinophils (%) (Auto) 5, Basophils (%) (Auto) 0, Neutrophils # (Auto) 6.3, Lymphocytes # (Auto) 0.3, Monocytes # (Auto) 0.3, Eosinophils # (Auto) 0.4, Basophils # (Auto) 0.0, Immature Granulocyte # (Auto) 0.1, Sodium Level 139, Potassium Level 3.7, Chlor otilia Level 112, Carbon Dioxide Level 22, Anion Gap 5, Blood Urea Nitrogen 10, Creatinine 0.60, Estimat Glomerular Filtration Rate 106, BUN/Creatinine Ratio 17, Glucose Level 108, Calcium Level 6.9, Corrected Calcium 8.5, Phosphorus Level 2.4, Magnesium Level 1.8, Total Bilirubin 0.7, Aspartate Amino Transf (AST/SGOT) 26, Alanine Aminotransferase (ALT/SGPT) 67, Alkaline Phosphatase 61, Total Protein 4.3, Albumin 2.0 03/03/23 04:06: Arterial Blood pH 7.48, Arterial Blood Partial Pressure CO2 30, Arterial Blood Partial Pressure O2 73, Arterial Blood HCO3 22, Arterial Blood Total CO2 23.2, Arterial Blood Oxygen Saturation 97, Arterial Blood Base Excess -0.3, Blood Gas Ventilator Setting YES, Blood Gas Inspired Oxygen 21% 03/03/23 09:05: Ammonia 25, Triglycerides Level 124 11/21/23 11:50: Glucometer 108 03/03/23 17:49: Glucometer 109 03/03/23 23:36: Glucometer 116 03/04/23 04:25: Arterial Blood pH 7.43, Arterial Blood Partial Pressure CO2 35, Arterial Blood Partial Pressure O2 75, Arterial Blood HCO3 23, Arterial Blood Total CO2 24.3, Arterial Blood Oxygen Saturation 98, Arterial Blood Base Excess -0.6, Blood Gas Ventilator Setting YES, Blood Gas Inspired Oxygen 21% 03/04/23 05:10: White Blood Count 6.9, Red Blood Count 2.86, Hemoglobin 7.3, Hematocrit 24, Mean Corpuscular Volume 85, Mean Corpuscular Hemoglobin 26, Mean Corpuscular Hemoglobin Concent 30, Red Cell Distribution Width 20.6, Platelet Count 214, Mean Platelet Volume 10.6, Immature Granulocyte % (Auto) 2, Neutrophils (%) (Auto) 86, Lymphocytes (%) (Auto) 5, Monocytes (%) (Auto) 5, Eosinophils (%) (Auto) 3, Basophils (%) (Auto) 0, Neutrophils # (Auto) 5.9, Lymphocytes # (Auto) 0.3, Monocytes # (Auto) 0.4, Eosinophils # (Auto) 0.2, Basophils # (Auto) 0.0, Immature Granulocyte # (Auto) 0.1, Sodium Level 137, Potassium Level 3.9, Chloride Level 110, Carbon Dioxide Level 24, Anion Gap 3, Blood Urea Nitrogen 8, Creatinine 0.61, Estimat Glomerular Filtration Rate 106, BUN/Creatinine Ratio 13, Glucose Level 126, Calcium Level 7.1, Corrected Calcium 8.6, Phosphorus Level 2.9, Magnesium Level 1.9, Total Bilirubin 0.5, Aspartate Amino Transf (AST/SGOT) 17, Alanine Aminotransferase (ALT/SGPT) 51, Alkaline Phosphatase 57, Total Protein 4.4, Albumin 2.1 03/04/23 12:38: Arterial Blood pH 7.48, Arterial Blood Partial Pressure CO2 31, Arterial Blood Partial Pressure O2 74, Arterial Blood HCO3 23, Arterial Blood Total CO2 24.1, Arterial Blood Oxygen Saturation 97, Arterial Blood Base Excess 0.4, Blood Gas Ventilator Setting YES, Blood Gas Inspired Oxygen 21% 03/04/23 18:07: Glucometer 102 03/05/23 01:24: Glucometer 104 03/05/23 04:20: Arterial Blood pH 7.43, Arterial Blood Partial Pressure CO2 33, Arterial Blood Partial Pressure O2 83, Arterial Blood HCO3 22, Arterial Blood Total CO2 22.9, Arterial Blood Oxygen Saturation 98, Arterial Blood Base Excess -1.7, Blood Gas Ventilator Setting YES, Blood Gas Inspired Oxygen 100% 03/05/23 05:30: White Blood Count 11.3, Red Blood Count 3.76, Hemoglobin 9.6, Hematocrit 32, Mean Corpuscular Volume 85, Mean Corpuscular Hemoglobin 26, Mean Corpuscular Hemoglobin Concent 30, Red Cell Distribution Width 21.2, Platelet Count 262, Mean Platelet Volume 11.3, Immature Granulocyte % (Auto) 1, Neutrophils (%) (Auto) 86, Lymphocytes (%) (Auto) 4, Monocytes (%) (Auto) 6, Eosinophils (%) (Auto) 2, Basophils (%) (Auto) 0, Neutrophils # (Auto) 9.7, Lymphocytes # (Auto) 0.4, Monocytes # (Auto) 0.7, Eosinophils # (Auto) 0.2, Basophils # (Auto) 0.1, Immature Granulocyte # (Auto) 0.1, Neutrophils % (Manual) 91, Lymphocytes % (Manual) 4, Monocytes % (Manual) 2, Eosinophils % (Manual) 2, Basophils % (Manual) 0, Band Neutrophils 1, Polychromasia SLIGHT, Hypochromasia SLIGHT, Poikilocytosis SLIGHT, Anisocytosis SLIGHT, Macrocytosis SLIGHT, Tear Drop Cells SLIGHT, Elliptocytes SLIGHT, Sodium Level 134, Potassium Level 4.1, Chloride Level 107, Carbon Dioxide Level 20, Anion Gap 7, Blood Urea Nitrogen 8, Creatinine 0.60, Estimat Glomerular Filtration Rate 106, BUN/Creatinine Ratio 13, Glucose Level 100, Calcium Level 7.7, Corrected Calcium 8.9, Phosphorus Level 3.1, Magnesium Level 1.9, Total Bilirubin 0.7, Aspartate Amino Transf (AST/SGOT) 19, Alanine Aminotransferase (ALT/SGPT) 50, Alkaline Phosphatase 82, Total Protein 5.5, Albumin 2.5 03/05/23 11:37: Glucometer 112 03/05/23 17:33: Glucometer 108 03/06/23 00:08: Glucometer 102 03/06/23 03:15: Arterial Blood pH 7.44, Arterial Blood Partial Pressure CO2 33, Arterial Blood Partial Pressure O2 57, Arterial Blood HCO3 22, Arterial Blood Total CO2 23.4, Arterial Blood Oxygen Saturation 90, Arterial Blood Base Excess -1.1, Blood Gas Ventilator Setting YES, Blood Gas Inspired Oxygen 21% 03/06/23 04:30: White Blood Count 10.7, Red Blood Count 2.72, Hemoglobin 6.9, Hematocrit 23, Mean Corpuscular Volume 83, Mean Corpuscular Hemoglobin 25, Mean Corpuscular Hemoglobin Concent 31, Red Cell Distribution Width 21.1, Platelet Count 283, Mean Platelet Volume 10.2, Immature Granulocyte % (Auto) 1, Neutrophils (%) (Auto) 92, Lymphocytes (%) (Auto) 2, Monocytes (%) (Auto) 5, Eosinophils (%) (Auto) 0, Basophils (%) (Auto) 0, Neutrophils # (Auto) 9.9, Lymphocytes # (Auto) 0.2, Monocytes # (Auto) 0.5, Eosinophils # (Auto) 0.0, Basophils # (Auto) 0.0, Immature Granulocyte # (Auto) 0.1, Sodium Level 135, Potassium Level 3.9, Chloride Level 108, Carbon Dioxide Level 19, Anion Gap 8, Blood Urea Nitrogen 7, Creatinine 0.59, Estimat Glomerular Filtration Rate 107, BUN/Creatinine Ratio 12, Glucose Level 124, Calcium Level 7.1, Phosphorus Level 2.7, Magnesium Level 1.8 03/06/23 05:38: White Blood Count 10.8, Red Blood Count 2.82, Hemoglobin 7.2, Hematocrit 24, Mean Corpuscular Volume 84, Mean Corpuscular Hemoglobin 26, Mean Corpuscular Hemoglobin Concent 31, Red Cell Distribution Width 21.0, Platelet Count 291, Mean Platelet Volume 10.4, Immature Granulocyte % (Auto) 1, Neutrophils (%) (Auto) 92, Lymphocytes (%) (Auto) 2, Monocytes (%) (Auto) 5, Eosinophils (%) (Auto) 0, Basophils (%) (Auto) 0, Neutrophils # (Auto) 9.9, Lymphocytes # (Auto) 0.2, Monocytes # (Auto) 0.5, Eosinophils # (Auto) 0.0, Basophils # (Auto) 0.0, Immature Granulocyte # (Auto) 0.1 03/06/23 11:37: Glucometer 111 03/06/23 17:42: Glucometer 86 03/07/23 00:23: Glucometer 89 03/07/23 03:35: White Blood Count 13.4, Red Blood Count 2.72, Hemoglobin 6.9, Hematocrit 23, Mean Corpuscular Volume 84, Mean Corpuscular Hemoglobin 25, Mean Corpuscular Hemoglobin Concent 30, Red Cell Distribution Width 20.8, Platelet Count 336, Mean Platelet Volume 10.4, Immature Granulocyte % (Auto) 1, Neutrophils (%) (Auto) 94, Lymphocytes (%) (Auto) 1, Monocytes (%) (Auto) 4, Eosinophils (%) (Auto) 0, Basophils (%) (Auto) 0, Neutrophils # (Auto) 12.6, Lymphocytes # (Auto) 0.2, Monocytes # (Auto) 0.5, Eosinophils # (Auto) 0.1, Basophils # (Auto) 0.0, Immature Granulocyte # (Auto) 0.1, Sodium Level 134, Potassium Level 4.1, Chloride Level 107, Carbon Dioxide Level 20, Anion Gap 7, Blood Urea Nitrogen 7, Creatinine 0.61, Estimat Glomerular Filtration Rate 106, BUN/Creatinine Ratio 11, Glucose Level 123, Calcium Level 7.4, Phosphorus Level 3.0, Magnesium Level 1.9 03/07/23 04:35: Arterial Blood pH 7.43, Arterial Blood Partial Pressure CO2 34, Arterial Blood Partial Pressure O2 83, Arterial Blood HCO3 23, Arterial Blood Total CO2 23.6, Arterial Blood Oxygen Saturation 99, Arterial Blood Base Excess -1.5, Blood Gas Ventilator Setting YES, Blood Gas Inspired Oxygen 30% 03/07/23 11:10: Hemoglobin 8.3, Hematocrit 27 03/07/23 12:10: Glucometer 101 03/07/23 17:25: Glucometer 113 03/07/23 23:05: Vancomycin Level Trough 10.8 03/08/23 04:30: Arterial Blood pH 7.42, Arterial Blood Partial Pressure CO2 33, Arterial Blood Partial Pressure O2 66, Arterial Blood HCO3 21, Arterial Blood Total CO2 22.4, Arterial Blood Oxygen Saturation 96, Arterial Blood Base Excess -2.7, Blood Gas Ventilator Setting YES, Blood Gas Inspired Oxygen 21% 03/08/23 04:50: White Blood Count 12.1, Red Blood Count 3.11, Hemoglobin 8.1, Hematocrit 26, Mean Corpuscular Volume 83, Mean Corpuscular Hemoglobin 26, Mean Corpuscular Hemoglobin Concent 31, Red Cell Distribution Width 19.8, Platelet Count 423, Mean Platelet Volume 9.7, Immature Granulocyte % (Auto) 1, Neutrophils (%) (Auto) 91, Lymphocytes (%) (Auto) 2, Monocytes (%) (Auto) 5, Eosinophils (%) (Auto) 1, Basophils (%) (Auto) 0, Neutrophils # (Auto) 11.0, Lymphocytes # (Auto) 0.3, Monocytes # (Auto) 0.6, Eosinophils # (Auto) 0.1, Basophils # (Auto) 0.0, Immature Granulocyte # (Auto) 0.1, Sodium Level 136, Potassium Level 3.7, Chloride Level 107, Carbon Dioxide Level 20, Anion Gap 9, Blood Urea Nitrogen 7, Creatinine 0.57, Estimat Glomerular Filtration Rate 108, BUN/Creatinine Ratio 12, Glucose Level 116, Calcium Level 7.7, Phosphorus Level 3.0, Magnesium Level 1.8 03/08/23 11:23: Glucometer 90 Discharge Home Medications: Active Scripts Active No Active Prescriptions or Reported Medications Instructions to patient/family Please see electronic discharge instructions given to patient. Clinical Quality Measures DVT/VTE Risk/Contraindication: Other: GI BLEED TAMIKA WOLFE DO Mar 09, 2023 04:52
== END 2023-03-09 17:36 | disposition expired | DRG 432 ==
LOC: EDUNIT# 10:05 → ER 10:07 → ICU 12:46 → 4TH 03-09 10:28
PROVIDERS: ADMIT Internal Medicine; ATTEND Internal Medicine
PROC: HZ2ZZZZ Detoxification Services for Substance Abuse Treatment (ICD-10-PCS; principal; 2023-02-22)
PROC: 5A09357 Assistance with Respiratory Ventilation, Less than 24 Consecutive Hours, Continuous Positive Airway Pressure (ICD-10-PCS; 2023-02-26)
PROC: 5A1955Z Respiratory Ventilation, Greater than 96 Consecutive Hours (ICD-10-PCS; 2023-02-27)
PROC: 0BH17EZ Insertion of Endotracheal Airway into Trachea, Via Natural or Artificial Opening (ICD-10-PCS; 2023-02-27)
DX: K70.9 Alcoholic liver disease, unspecified (principal); I21.A1 Myocardial infarction type 2; J96.01 Acute respiratory failure with hypoxia; J15.211 Pneumonia due to Methicillin susceptible Staphylococcus aureus; D62 Acute posthemorrhagic anemia; E87.1 Hypo-osmolality and hyponatremia; F10.239 Alcohol dependence with withdrawal, unspecified; K40.00 Bilateral inguinal hernia, with obstruction, without gangrene, not specified as recurrent; I42.0 Dilated cardiomyopathy; E87.20 Acidosis, unspecified; K56.7 Ileus, unspecified; K92.1 Melena; Z51.5 Encounter for palliative care; Z66 Do not resuscitate; F41.9 Anxiety disorder, unspecified; Z85.46 Personal history of malignant neoplasm of prostate; Z92.3 Personal history of irradiation; F32.A Depression, unspecified; Z90.79 Acquired absence of other genital organ(s); R00.0 Tachycardia, unspecified; D69.6 Thrombocytopenia, unspecified; I50.9 Heart failure, unspecified; R41.0 Disorientation, unspecified; R31.9 Hematuria, unspecified
CPT/HCPCS: 36415; 36569; 36600; 71045; 74018; 76705; 76937; 80048; 80053; 80074; 80202; 80320; 80329; 81000; 82140; 82274; 82728; 82805; 82947; 83540; 83550; 83605; 83690; 83735; 83880; 84100; 84425; 84443; 84478; 84484; 85007; 85014; 85018; 85025; 85027; 85384; 85610; 85730; 86850; 86900; 86901; 86920; 87040; 87070; 87077; 87081; 87088; 87186; 87205; 93005; 93041; 93306; 94002; 94003; 94640; 94660; 94799; 96361; 96374; 96375; 96376